=== PATIENT | male | born 1970 | race Caucasian/White ===

== ENCOUNTER 2020-05-02 11:00 | Outpatient (RCR) | payer OTHER, SELFPAY | END 2020-05-09 12:16 | disposition home or self-care (01) | LOC: HO.WCC 11:00 | PROVIDERS: PCP Internal Medicine; Visit Provider Surgery | DX: Z09 Encounter for follow-up examination after completed treatment for conditions other than malignant neoplasm (principal); E11.51 Type 2 diabetes mellitus with diabetic peripheral angiopathy without gangrene; Z86.31 Personal history of diabetic foot ulcer | CPT/HCPCS: 99212 ==

== ENCOUNTER 2020-07-03 13:01 | Outpatient (REF) | payer OTHER, SELFPAY | END 2020-07-03 13:02 | disposition home or self-care (01) | LOC: HO.LAB 13:01 | PROVIDERS: Visit Provider Internal Medicine | DX: Z20.828 Contact with and (suspected) exposure to other viral communicable diseases (principal) | CPT/HCPCS: C9803; U0003 ==

== ENCOUNTER 2020-09-11 09:00 | Outpatient (REF) | payer OTHER, SELFPAY ==
[2020-09-11 10:28] LABS: Estimated Average Glucose 111 mg/dL; Hemoglobin A1c % 5.5 %
[2020-09-11 10:59] LABS: Alanine Aminotransferase 15 U/L (0-40); Albumin Level 4.3 g/dL (3.5-5.0); Alkaline Phosphatase 106 U/L (39-117); Anion Gap 14 (12-20); Aspartate Amino Transferase 16 U/L (5-37); Bilirubin Total 0.5 mg/dL (0.0-1.0); Blood Urea Nitrogen 15 mg/dL (9-16); Calcium 9.2 mg/dL (8.4-10.2); Carbon Dioxide 30 mmol/L (22-29); Chloride 101 mmol/L (96-108); Cholesterol 118 mg/dL; Estimated Glomerular Filt Rate > 60; Glucose Fasting 98 mg/dL (60-99); HDL Cholesterol 43 mg/dL; LDL Cholesterol Calculated 64 mg/dl; Potassium 4.8 mmol/L (3.3-5.1); Sodium 140 mmol/L (135-145); Total Protein 6.9 g/dL (6.5-8.0); Triglycerides 55 mg/dL
[2020-09-11 11:21] LABS: Vitamin D 25-OH Total 36.5 ng/mL (>30)
== END 2020-09-11 09:01 | disposition home or self-care (01) ==
LOC: HO.LAB 09:00
PROVIDERS: PCP Internal Medicine; Visit Provider Internal Medicine
DX: E78.5 Hyperlipidemia, unspecified (principal); E11.40 Type 2 diabetes mellitus with diabetic neuropathy, unspecified; E55.9 Vitamin D deficiency, unspecified
CPT/HCPCS: 36415; 80053; 80061; 82043; 82306; 83036

== ENCOUNTER 2021-01-06 07:08 | Outpatient (REF) | payer OTHER, SELFPAY ==
[2021-01-06 08:50] LABS: Estimated Average Glucose 111 mg/dL; Hemoglobin A1c % 5.5 %
[2021-01-06 09:17] LABS: Vitamin D 25-OH Total 44.2 ng/mL (>30)
[2021-01-06 09:29] LABS: Alanine Aminotransferase 13 U/L (0-40); Anion Gap 13 (12-20); Aspartate Amino Transferase 19 U/L (5-37); Blood Urea Nitrogen 27 mg/dL (9-16); Calcium 9.7 mg/dL (8.4-10.2); Carbon Dioxide 27 mmol/L (22-29); Chloride 99 mmol/L (96-108); Cholesterol 111 mg/dL; Estimated Glomerular Filt Rate > 60; Glucose Fasting 105 mg/dL (60-99); HDL Cholesterol 43 mg/dL; LDL Cholesterol Calculated 58 mg/dl; Potassium 4.4 mmol/L (3.3-5.1); Sodium 135 mmol/L (135-145); Triglycerides 51 mg/dL
== END 2021-01-06 07:09 | disposition home or self-care (01) ==
LOC: HO.LAB 07:08
PROVIDERS: PCP Internal Medicine; Visit Provider Internal Medicine
DX: E11.40 Type 2 diabetes mellitus with diabetic neuropathy, unspecified (principal); E55.9 Vitamin D deficiency, unspecified; E78.5 Hyperlipidemia, unspecified; I10 Essential (primary) hypertension
CPT/HCPCS: 36415; 80048; 80061; 82306; 83036; 84450; 84460

== ENCOUNTER 2021-01-07 13:53 | Outpatient (REF) | payer OTHER, SELFPAY ==
--- NOTE | ~2021-01-07 | XR_ITS ---
EXAMINATION: XR LUMBAR SPINE XR CERVICAL SPINE CLINICAL INFORMATION: Spinal stenosis, lumbar region, spondylosis without myelopathy or radiculopathy cervical spine. COMPARISON: Lumbar spine 01/05/2019 TECHNIQUE: 3 views lumbar spine, 3 views cervical spine. FINDINGS: Lumbar: Mild degenerative changes present throughout the lumbar spine with lkelyeja-dy-xjygtp changes at L5-S1. At L5-S1, there is marked disc space narrowing and sclerosis with osteophyte formation. At other levels, disc spaces are relatively well preserved with endplate changes. When comparison is made to the 01/05/2019 exam, there has been no significant interval change in appearances. C-spine: Anterior fixation from C5 through C7 is noted with discectomy at at least C5-C6. No degenerative changes are present throughout with large anterior osteophytes. No soft tissue swelling fractures or subluxations are seen. XR/XR cervical spine 3V IMPRESSION: Stable degenerative changes in the lumbosacral spine, most marked at L5-S1. Fusion cervical spine, as described above, with associated degenerative change.
--- NOTE | ~2021-01-07 | XR_ITS ---
EXAMINATION: XR LUMBAR SPINE XR CERVICAL SPINE CLINICAL INFORMATION: Spinal stenosis, lumbar region, spondylosis without myelopathy or radiculopathy cervical spine. COMPARISON: Lumbar spine 01/05/2019 TECHNIQUE: 3 views lumbar spine, 3 views cervical spine. FINDINGS: Lumbar: Mild degenerative changes present throughout the lumbar spine with izanlwna-dc-frueaf changes at L5-S1. At L5-S1, there is marked disc space narrowing and sclerosis with osteophyte formation. At other levels, disc spaces are relatively well preserved with endplate changes. When comparison is made to the 01/05/2019 exam, there has been no significant interval change in appearances. C-spine: Anterior fixation from C5 through C7 is noted with discectomy at at least C5-C6. No degenerative changes are present throughout with large anterior osteophytes. No soft tissue swelling fractures or subluxations are seen. XR/XR lumbar spine 2-3V IMPRESSION: Stable degenerative changes in the lumbosacral spine, most marked at L5-S1. Fusion cervical spine, as described above, with associated degenerative change.
== END 2021-01-07 13:54 | disposition home or self-care (01) ==
LOC: HO.HMGCX 13:53
PROVIDERS: PCP Internal Medicine; Visit Provider Internal Medicine
DX: M48.062 Spinal stenosis, lumbar region with neurogenic claudication (principal); M47.812 Spondylosis without myelopathy or radiculopathy, cervical region
CPT/HCPCS: 72040; 72100

== ENCOUNTER 2021-01-27 08:45 | Outpatient (REF) | payer OTHER, SELFPAY | END 2021-01-27 08:46 | disposition home or self-care (01) | LOC: HO.LAB 08:45 | PROVIDERS: PCP Internal Medicine; Visit Provider Anesthesiology | DX: M96.1 Postlaminectomy syndrome, not elsewhere classified (principal); M47.812 Spondylosis without myelopathy or radiculopathy, cervical region; M48.062 Spinal stenosis, lumbar region with neurogenic claudication | CPT/HCPCS: 99202 ==

== ENCOUNTER 2021-02-04 14:17 | Outpatient (REF) | payer OTHER, SELFPAY ==
--- NOTE | ~2021-02-04 | MR_ITS ---
EXAMINATION: MR LUMBAR SPINE WITHOUT AND WITH CONTRAST CLINICAL INFORMATION: Post laminectomy syndrome. COMPARISON: Lumbar spine radiographs 01/07/2021. TECHNIQUE: Multiplanar MR imaging of the lumbar spine was performed without and with contrast. A total of 10 mL Gadavist was utilized for this examination. FINDINGS: Alignment is normal. Vertebral body heights are preserved. There are mixed type II and type III degenerative endplate changes at L5-S1. There is loss of intervertebral disc height and T2 signal intensity at L5-S1. Disc desiccation is demonstrated at multiple additional levels. The tip of the conus medullaris is located at L1-L2. No mass effect on the conus. Visualized distal cord signal intensity is normal. At L1-L2 there is a slightly bulging disc. No canal stenosis. No mass effect on the traversing or foraminal nerve roots. At L2-L3 the annular contour is normal. No canal stenosis. No mass effect on the traversing or foraminal nerve roots. At L3-L4 there is a slightly bulging disc. Bilateral facet degenerative change. Mild canal stenosis. No mass effect on the traversing or foraminal nerve roots. At L4-L5 there is a diffusely bulging disc. Bilateral facet degenerative change. There is a synovial cyst arising from the right L4-L5 facet joint. Moderate canal stenosis. No mass effect on the traversing or foraminal nerve roots. At L5-S1 there are chronic postlaminectomy changes. There is a diffusely bulging disc. Bilateral facet degenerative change. No canal stenosis. No mass effect on the traversing or foraminal nerve roots. Postcontrast images reveal no evidence of recurrent disc herniation or perineural fibrosis at L5-S1. No abnormal intradural enhancement. Limited visualization of the intracranial anatomy reveals no L5. Psoas and paraspinal muscle groups are symmetric. MR/MR lumbar spine wo/w con IMPRESSION: There are chronic postlaminectomy changes at L5-S1 with no evidence of recurrent disc herniation or perineural fibrosis. There is multilevel degenerative spondylosis of the lumbar spine. Moderate canal stenosis at L4-L5 and mild canal stenosis at L3-L4. Of note there is a synovial cyst arising from the right L4-L5 facet joint. No canal stenosis. No mass effect on the traversing or foraminal nerve roots.
== END 2021-02-04 14:18 | disposition home or self-care (01) ==
LOC: HO.MRI 14:17
PROVIDERS: Visit Provider Anesthesiology
DX: M96.1 Postlaminectomy syndrome, not elsewhere classified (principal)
CPT/HCPCS: 72158; A9585

== ENCOUNTER → 2021-02-12 09:15 | Outpatient (BNVA) | payer OTHER, SELFPAY | PROVIDERS: PCP Internal Medicine; Visit Provider Anesthesiology | DX: M96.1 Postlaminectomy syndrome, not elsewhere classified (principal); M48.062 Spinal stenosis, lumbar region with neurogenic claudication; M47.812 Spondylosis without myelopathy or radiculopathy, cervical region | CPT/HCPCS: 99212 ==

== ENCOUNTER → 2021-03-03 11:47 | Outpatient (BNVA) | payer OTHER, SELFPAY | PROVIDERS: PCP Internal Medicine; Visit Provider Anesthesiology | DX: M96.1 Postlaminectomy syndrome, not elsewhere classified (principal); M48.062 Spinal stenosis, lumbar region with neurogenic claudication; M47.812 Spondylosis without myelopathy or radiculopathy, cervical region | CPT/HCPCS: 99212 ==

== ENCOUNTER 2021-03-19 07:17 | Outpatient (REF) | payer OTHER, SELFPAY ==
--- NOTE | ~2021-03-19 | MR_ITS ---
EXAMINATION: MR THORACIC SPINE WITHOUT CONTRAST CLINICAL INFORMATION: 51-year-old with spinal stenosis, thoracic region. COMPARISON: None TECHNIQUE: MRI of the thoracic spine was obtained using routine sequences without contrast. FINDINGS: ALIGNMENT: There is mild kyphotic angulation centered at T8-T9. Otherwise the thoracic spine is anatomically aligned. VERTEBRAL BODIES AND BONE MARROW: Vertebral body heights are well maintained. Bone marrow signal intensity appears within normal limits. DISC SPACES AND ENDPLATES: There is uxxu-rc-dymmqkyr multilevel intervertebral disc space height loss throughout the thoracic spine and there is bulky, bridging endplate osteophytosis at multiple levels bilaterally including T5-T6 and T6-T7 bilaterally and on the left at T7-T8 and T8-T9 and on the right at T9-T10. There is multilevel disc desiccation including T11-T12, T8-T9, T7-T8 and T4-T5. PARASPINAL SOFT TISSUES: The paravertebral soft tissues are remarkable for bulky osteophytes. There is also multilevel bilateral costovertebral arthrosis, most significant in the mid thoracic spine. No paraspinal soft tissue masses. SPINAL CORD: The thoracic spinal cord is normal in morphology, caliber and signal intensity. The conus is not included in the wxxcl-jx-mbyt and is not assessed. SPINAL LEVELS: Small left paramedian disc protrusion noted with slight flattening of the ventral dural sac on the left without cord impingement or significant canal compromise. No other disc herniations are identified. There is mild ligamentum flavum thickening and/or calcification with mild facet arthropathy at T10-T11 and T11-T12 without significant spinal canal or neural foraminal stenosis. Minor facet arthrosis and ligamentum flavum thickening also noted at T9-T10 without significant canal or neural foraminal stenosis. There is bjkk-wl-aydegdri facet arthropathy on the left at T2-T3 with no significant neural foraminal stenosis. MR/MR thoracic spine wo con IMPRESSION: 1. Mild kyphotic angulation in the mid to lower thoracic spine without spondylolisthesis. 2. Multilevel bulky endplate osteophytosis bilaterally as described above with multilevel paravertebral osseous fusion. 3. Siwm-ls-otmhtljn degrees of multilevel discogenic degenerative change and facet arthropathy without significant spinal canal or neural foraminal stenosis and a small central to left paramedian disc protrusion at T11-T12.
== END 2021-03-19 07:18 | disposition home or self-care (01) ==
LOC: HO.MRI 07:17
PROVIDERS: PCP Internal Medicine; Visit Provider Anesthesiology
DX: M48.04 Spinal stenosis, thoracic region (principal)
CPT/HCPCS: 72146

== ENCOUNTER → 2021-03-27 09:33 | Outpatient (BNVA) | payer OTHER, SELFPAY | PROVIDERS: PCP Internal Medicine; Visit Provider Anesthesiology ==

== ENCOUNTER 2021-06-16 09:02 | Outpatient (REF) | payer OTHER, SELFPAY ==
[2021-06-16 12:15] LABS: Estimated Average Glucose 108 mg/dL; Hemoglobin A1c % 5.4 %
[2021-06-16 12:36] LABS: Alanine Aminotransferase 15 U/L (0-40); Alkaline Phosphatase 105 U/L (39-117); Anion Gap 11 (12-20); Aspartate Amino Transferase 18 U/L (5-37); Bilirubin Total 0.3 mg/dL (0.0-1.0); Blood Urea Nitrogen 14 mg/dL (9-16); Calcium 8.8 mg/dL (8.4-10.2); Carbon Dioxide 26 mmol/L (22-29); Chloride 105 mmol/L (96-108); Cholesterol 109 mg/dL; Estimated Glomerular Filt Rate > 60; Glucose Fasting 137 mg/dL (60-99); HDL Cholesterol 38 mg/dL; LDL Cholesterol Calculated 61 mg/dl; Potassium 4.7 mmol/L (3.3-5.1); Sodium 137 mmol/L (135-145); Total Protein 6.4 g/dL (6.5-8.0); Triglycerides 54 mg/dL
== END 2021-06-16 09:03 | disposition home or self-care (01) ==
LOC: HO.HMGCLDS 09:02
PROVIDERS: PCP Internal Medicine; Visit Provider Internal Medicine
DX: E11.40 Type 2 diabetes mellitus with diabetic neuropathy, unspecified (principal); E55.9 Vitamin D deficiency, unspecified; E78.5 Hyperlipidemia, unspecified; I10 Essential (primary) hypertension
CPT/HCPCS: 36415; 80053; 80061; 82306; 83036

== ENCOUNTER 2021-06-20 07:37 | Day surgery (SDC) | payer OTHER, SELFPAY ==
--- NOTE | 2021-06-19 09:24 | P.CONAN_ITS ---
Documented by User: Nohemy Alonzo NP 06/19/21 09:25 HPI - Anesthesia Eval Consult details Narrative: 51yo M for Colonoscopy PMFSH Active Problems Active Problems: All Active Problems (Updated 06/13/21 @ 13:48 by Camille Duenas RN) HTN (hypertension) (Acute) Postlaminectomy syndrome (Acute) Rheumatoid arthritis (Acute) Hydronephrosis concurrent with and due to calculi of kidney and ureter (Acute) Spinal stenosis, thoracic region (Acute) Postlaminectomy syndrome, lumbar (Acute) Postlaminectomy syndrome, cervical (Acute) Lumbar stenosis with neurogenic claudication (Acute) Cervical spondylosis (Acute) Erectile disorder due to medical condition in male (Acute) PTSD (post-traumatic stress disorder) (Acute) Depression (Acute) Vitamin D deficiency (Acute) Diabetes mellitus with diabetic neuropathy, without long-term current use of insulin (Acute) Dyslipidemia (Acute) Past Medical History Medical History Cervical spondylosis Depression Diabetes mellitus with diabetic neuropathy, without long-term current use of insulin Dyslipidemia Erectile disorder due to medical condition in male GERD (gastroesophageal reflux disease) History of alcoholism History of diabetic ulcer of foot HTN (hypertension) Hydronephrosis concurrent with and due to calculi of kidney and ureter Lumbar stenosis with neurogenic claudication Postlaminectomy syndrome, cervical Postlaminectomy syndrome, lumbar PTSD (post-traumatic stress disorder) Rheumatoid arthritis Smoker Spinal stenosis, thoracic region Vitamin D deficiency Family History Family History Father Essential hypertension Dyslipidemia Cardiovascular disease Mother Essential hypertension Dyslipidemia Diabetes mellitus Surgical History Surgical History H/O cervical discectomy History of carpal tunnel surgery of right wrist Hx of colonoscopy Status post lumbar spine surgery for decompression of spinal cord Social History Social History (Updated 06/20/21 @ 08:31 by Clotilde Messer MD) Alcohol intake: former Patient Tobacco Use Status: Current everyday Tobacco user Cigarette Packs Per Day: 0 Cigarettes Per Day: 10 Smoked in Last 30 Days: Yes Second Hand Smoke Exposure: No Use of substances other than those prescribed or required for medical reasons: Yes Are you DNR?: No Advance Directives: No Advance Directives Information Provided: Yes Advance Directives on File: No Meds Allergies Allergy/AdvReac Type Severity Reaction Status Date / Time No Known Allergies Allergy Verified 06/13/21 13:50 [No Known Allergies*] Home Medications Medication Instructions Recorded Confirmed Last Taken Type clonazepam 1 mg tablet 1 mg PO TID 09/13/20 06/13/21 Unknown History fluoxetine 40 mg capsule 80 mg PO QAM 09/13/20 06/13/21 Unknown History gabapentin 600 mg tablet 600 mg PO TID 01/07/21 06/13/21 Unknown History gabapentin 300 mg capsule 1 cap PO QAM 06/13/21 06/13/21 Unknown History lisinopril 5 mg tablet 10 mg PO DAILY 06/13/21 06/13/21 Unknown History Exam Exam Date and Time: June 19, [id number] Pertinent Lab Results Pertinent Lab Results: Laboratory Tests 03/14/19 06/16/21 06:14 09:15 WBC 6.5 Hgb 13.8 L Hct 41.6 L Plt Count 207 Sodium 137 Potassium 4.7 Chloride 105 Carbon Dioxide 26 BUN 14 Creatinine 0.74 Assessment and Plan Assessment Anesthesia Assessment: Chart Reviewed Documented by User: Clotilde Messer MD 06/20/21 09:04 [facility] Active Problems Active Problems: All Active Problems (Updated 06/13/21 @ 13:48 by Camille Duenas RN) HTN (hypertension) (Acute) Postlaminectomy syndrome (Acute) Rheumatoid arthritis (Acute) Hydronephrosis concurrent with and due to calculi of kidney and ureter (Acute) Spinal stenosis, thoracic region (Acute) Postlaminectomy syndrome, lumbar (Acute) Postlaminectomy syndrome, cervical (Acute) Lumbar stenosis with neurogenic claudication (Acute) Cervical spondylosis (Acute) Erectile disorder due to medical condition in male (Acute) PTSD (post-traumatic stress disorder) (Acute) Depression (Acute) Vitamin D deficiency (Acute) Diabetes mellitus with diabetic neuropathy- has been off metformin for about 1 week because wastold his A1c is 5.4 Dyslipidemia (Acute) Past Medical History Medical History Cervical spondylosis Depression Diabetes mellitus with diabetic neuropathy, without long-term current use of insulin Dyslipidemia Erectile disorder due to medical condition in male GERD (gastroesophageal reflux disease) History of alcoholism History of diabetic ulcer of foot HTN (hypertension) Hydronephrosis concurrent with and due to calculi of kidney and ureter Lumbar stenosis with neurogenic claudication Postlaminectomy syndrome, cervical Postlaminectomy syndrome, lumbar PTSD (post-traumatic stress disorder) Rheumatoid arthritis Smoker Spinal stenosis, thoracic region Vitamin D deficiency Family History Family History Father Essential hypertension Dyslipidemia Cardiovascular disease Mother Essential hypertension Dyslipidemia Diabetes mellitus Family history of problems with anesthesia: No Surgical History Surgical History H/O cervical discectomy History of carpal tunnel surgery of right wrist Hx of colonoscopy Status post lumbar spine surgery for decompression of spinal cord History of Problems with Anesthesia: No Social History Social History (Updated 06/20/21 @ 08:31 by Clotilde Messer MD) Alcohol intake: former Patient Tobacco Use Status: Current everyday Tobacco user Cigarette Packs Per Day: 0 Cigarettes Per Day: 10 Smoked in Last 30 Days: Yes Second Hand Smoke Exposure: No Use of substances other than those prescribed or required for medical reasons: Yes Are you DNR?: No Advance Directives: No Advance Directives Information Provided: Yes Advance Directives on File: No Meds Allergies Allergy/AdvReac Type Severity Reaction Status Date / Time No Known Allergies Allergy Verified 06/13/21 13:50 [No Known Allergies*] Home Medications Medication Instructions Recorded Confirmed Last Taken Type clonazepam 1 mg tablet 1 mg PO TID 09/13/20 06/13/21 Unknown History fluoxetine 40 mg capsule 80 mg PO QAM 09/13/20 06/13/21 Unknown History gabapentin 600 mg tablet 600 mg PO TID 01/07/21 06/13/21 Unknown History gabapentin 300 mg capsule 1 cap PO QAM 06/13/21 06/13/21 Unknown History lisinopril 5 mg tablet 10 mg PO DAILY 06/13/21 06/13/21 Unknown History Exam Height,Weight and Vital Signs: Height 6 ft 3 in Weight 104.326 kg Vital Signs Temp Pulse Resp BP Pulse Ox 06/20/21 08:31 97.1 F 66 16 103/69 97 Pertinent Lab Results Pertinent Lab Results: Laboratory Tests 03/14/19 06/16/21 06:14 09:15 WBC 6.5 Hgb 13.8 L Hct 41.6 L Plt Count 207 Sodium 137 Potassium 4.7 Chloride 105 Carbon Dioxide 26 BUN 14 Creatinine 0.74 Lab Results 06/20/21 Range/Units 08:26 POC Glucose 119 H (60-115) mg/dL Airway Mallampati Class: II TM Dist: >3cm Neck ROM: Limited Loose/Missing/Broken Teeth: Yes (No teeth. Dentures out) Heart: RRR Lungs: Occ wheeze Assessment and Plan Assessment Anesthesia Assessment: Anesthesia Plan Discussed Final Anesthetic Review Family History of Problems with Anesthesia: No History of Problems with Anesthesia: No NPO: Yes ASA Class: II Final Preanesthetic Review: No Changes in Pt Med Stat, Meds/Allgs Chart Reviewed, Consent Obtained/Reviewed and Anes Risks/Benef Reviewed Patient Risk: Low Procedure Risk: Low Assessment/Block/Sedation in SS: Assess/Block/Sedation-SS Anesthetic Plan Anesthetic Plan: MAC: Disposition: Standard PACU
[2021-06-20 08:12] VITALS: BMI 28.7
[2021-06-20 08:31] VITALS: BP 103/69; PULSE 66; RESP 16; TEMP 36.2; O2SAT 97
[2021-06-20] MEDS: Lactated Ringers 1,000 ML 100 ML IVCONT (08:32)
[2021-06-20 08:33] LABS: Glucose, Whole Blood 119 mg/dL (60-115)
--- NOTE | 2021-06-20 08:49 | MHC.SHP ---
Pre-Procedural Eval Section A Date of Service: 06/20/21 The patient is an INPATIENT: No Changes since office visit: No Cold of Flu in the past 2 weeks, No New Medical Problems, No Changes in Medication and No Patient answered all questions The History & Physical has been completed within 30 days and I have reviewed it.: Yes Section B Chief Complaint: screening Allergies: Allergies Allergy/AdvReac Type Severity Reaction Status Date / Time No Known Allergies Allergy Verified 06/13/21 13:50 [No Known Allergies*] Plan I have reviewed the history and physical and performed a pertinent physical examination on my patient. No changes have occurred unless specified.
[2021-06-20 09:29] VITALS: BP 88/48; PULSE 62; RESP 16; TEMP 36.7; O2SAT 98
--- NOTE | 2021-06-20 09:29 | PM.OP ---
Brief Operative Note Date of Service: 06/20/21 Pre-op diagnosis: screening Post-op diagnosis: same (colitis) Surgeon: Chuck Bower Anesthesia: MAC Was an Skein Yarn Dyer Helper used for this Procedure?: No Estimated blood loss (mL): 5 Pathology: other (bxs ti and colon) Condition: stable Disposition: PACU
[2021-06-20 09:45] VITALS: BP 115/71; PULSE 66; RESP 16; TEMP 36.7; O2SAT 98
--- NOTE | 2021-06-20 20:24 | OP_ITS ---
SURGEON: Chuck Bower MD INDICATIONS: Colon cancer screening. PREOPERATIVE DIAGNOSIS: POSTOPERATIVE DIAGNOSIS: PROCEDURE PERFORMED: Colonoscopy to the terminal ileum and biopsy. ESTIMATED BLOOD LOSS: COMPLICATIONS: ANESTHESIA: Monitored anesthesia care. ASSISTANTS: SPECIMENS: DESCRIPTION OF PROCEDURE: The history and physical was performed. The risks and benefits of the procedure were explained to the patient. Informed consent was obtained. The patient was placed in the left lateral decubitus position. A digital rectal exam was performed and found to be normal. The Olympus pediatric video colonoscope was introduced into the rectum and advanced to the cecum without difficulty. The cecum was identified by transillumination, palpation, and identification of ileocecal valve. Examination was performed. The scope was removed. He tolerated the procedure well and was taken to recovery area in stable condition. FINDINGS: The terminal ileum was normal. There was an abnormal segment of colonic mucosa for about 50 cm to 75 cm beginning in the mid right colon extending to the proximal and mid transverse colon. The mucosa showed significant polypoid change in the manner suspicious for inactive colitis with pseudopolyp formation; however, the patient had no prior history of colitis. There was no obvious ulceration or malignancy. Biopsies were obtained from the abnormal mucosa and from throughout the rest of the colon as well as the terminal ileum. Remaining colon appeared within normal limits. There was some diverticulosis primarily in the cecum and right colon. There was some retained stool in the descending and sigmoid colon, which limited the sensitivity examination for detection of small polyps in those areas. This was washed and suctioned. Retroflexed examination showed some internal hemorrhoids. IMPRESSION: Abnormal mucosa in the colon as above, probable segmental colitis. RECOMMENDATION: Follow up the biopsy results. Screening colonoscopy is recommended in 10 years for average risk individuals. MD NOEL Villalta/LEO / [phone] MTDD
== END 2021-06-20 10:15 | disposition home or self-care (01) ==
PROVIDERS: PCP Internal Medicine; Visit Provider Internal Medicine Gastroenterology
PROC: 0DJD8ZZ Inspection of Lower Intestinal Tract, Via Natural or Artificial Opening Endoscopic (ICD-10-PCS; CPT 45378; principal; 2021-06-20 09:00)
DX: Z12.11 Encounter for screening for malignant neoplasm of colon (principal); K52.9 Noninfective gastroenteritis and colitis, unspecified; K57.30 Diverticulosis of large intestine without perforation or abscess without bleeding; K64.8 Other hemorrhoids; I10 Essential (primary) hypertension; E11.9 Type 2 diabetes mellitus without complications; F32.9 Major depressive disorder, single episode, unspecified; F43.10 Post-traumatic stress disorder, unspecified; F10.21 Alcohol dependence, in remission; F17.210 Nicotine dependence, cigarettes, uncomplicated; Z79.84 Long term (current) use of oral hypoglycemic drugs; Z79.899 Other long term (current) drug therapy
CPT/HCPCS: 45380; 82947; 88305

== ENCOUNTER 2021-07-11 07:11 | Outpatient (REF) | payer OTHER, SELFPAY ==
[2021-07-11 08:29] LABS: Hematocrit 48.8 % (42.0-52.0); Hemoglobin 15.7 g/dl (14.0-18.0); Mean Corpuscular HGB Conc 32.2 g/dl (31.0-36.0); Mean Corpuscular Hemoglobin 30.3 pg (27.0-33.0); Mean Corpuscular Volume 94.2 fL (80.0-98.0); Mean Platelet Volume 9.1 fL (9.4-12.4); Platelet Count 226 X10*3/uL (160-400); Red Blood Count 5.18 X10*6/uL (4.60-5.80); Red Cell Distribution Width 12.8 % (11.0-16.0); White Blood Count 7.2 X10*3/uL (4.8-10.8)
[2021-07-11 09:00] LABS: Alanine Aminotransferase 22 U/L (0-40); Albumin Level 4.5 g/dL (3.5-5.0); Alkaline Phosphatase 128 U/L (39-117); Aspartate Amino Transferase 23 U/L (5-37); Bilirubin Direct 0.2 mg/dL (0.0-0.5); Bilirubin Total 0.3 mg/dL (0.0-1.0); Blood Urea Nitrogen 14 mg/dL (9-16); C Reactive Protein 0.41 mg/dL (< or = 0.50); Estimated Glomerular Filt Rate > 60; Lipase 234 U/L (8-78); Total Protein 7.4 g/dL (6.5-8.0)
[2021-07-11 09:20] LABS: Erythrocyte Sedimentation Rate 7 MM/HR (0-15)
== END 2021-07-11 07:12 | disposition home or self-care (01) ==
LOC: HO.LAB 07:11
PROVIDERS: PCP Internal Medicine; Visit Provider Internal Medicine Gastroenterology
DX: R10.84 Generalized abdominal pain (principal); K52.9 Noninfective gastroenteritis and colitis, unspecified
CPT/HCPCS: 36415; 80076; 82565; 83690; 84520; 85027; 85652; 86140

== ENCOUNTER 2021-07-14 08:35 | Outpatient (REF) | payer OTHER, SELFPAY ==
--- NOTE | ~2021-07-14 | CT_ITS ---
EXAMINATION: CT ABDOMEN AND PELVIS WITH CONTRAST CLINICAL INFORMATION: Noninfective gastroenteritis and colitis COMPARISON: None TECHNIQUE: Multidetector volumetric images were obtained from the superior aspect of the liver through the pubic symphysis following administration 85 mL of Omnipaque 350 intravenous contrast. Sagittal and coronal reformatted images were obtained on the technologist's workstation. Oral contrast: No This CT examination was performed using dose optimization techniques as appropriate, variously including the following: *Automated exposure control *Adjustment of mA and/or kV according to patient size (this includes techniques or standardized protocols for targeted exams where dose is matched to indication/reason for exam; i.e. extremities or head) *Use of iterative reconstruction technique DLP: 582 mGy-cm FINDINGS: LUNG BASES: The visualized lung bases are unremarkable. LIVER, GALLBLADDER, AND BILIARY TREE: The liver is normal in size, shape, and attenuation. No focal hepatic lesion or biliary ductal dilatation is present. The gallbladder is unremarkable with no evidence of radiopaque gallstones, gallbladder wall thickening, or obvious pericholecystic inflammatory changes. PANCREAS: Unremarkable. SPLEEN: Unremarkable. ADRENAL GLANDS: Unremarkable. KIDNEYS AND URETERS: The kidneys are normal in size, shape, and attenuation. No hydronephrosis, hydroureter, or calculi seen. No perinephric stranding. BLADDER: Unremarkable. GASTROINTESTINAL TRACT: Stomach and small bowel are nondilated. Oral contrast seen distally to the colon. The appendix is normal. Scattered colonic diverticulosis. No evidence of colitis or diverticulitis. ABDOMINAL WALL: Fat-containing bilateral inguinal hernias. LYMPH NODES: No lymphadenopathy. VASCULAR: Normal caliber abdominal aorta. There is a dilated varix adjacent the aortic bifurcation, presumably a dilated left gonadal vein. PELVIC VISCERA: The prostate and seminal vesicles are unremarkable. OSSEOUS STRUCTURES: No acute or suspicious osseous abnormality. Severe degenerative disc disease at L5-S1. CT/CT abdomen pelvis w con IMPRESSION: No acute CT findings. Fleischner guidelines were followed.
[2021-07-14] MEDS: iohexoL 350 MG/ML 100 ML INFUS..BTL IV (11:01)
[2021-07-14] MEDS: Barium Sulfate Oral (Vanilla) 450 ML ORAL.SUSP 900 ML PO (11:02)
== END 2021-07-14 08:36 | disposition home or self-care (01) ==
LOC: HO.CT 08:35
PROVIDERS: PCP Internal Medicine; Visit Provider Internal Medicine Gastroenterology
DX: K52.9 Noninfective gastroenteritis and colitis, unspecified (principal); R10.84 Generalized abdominal pain
CPT/HCPCS: 74177; Q9967

== ENCOUNTER 2021-08-19 07:48 | Outpatient (REF) | payer OTHER, SELFPAY ==
--- NOTE | 2021-08-19 08:01 | ECG_ITS ---
Test Reason : htn Blood Pressure : / mmHG Vent. Rate : 064 BPM Atrial Rate : 064 BPM P-R Int : 162 ms QRS Dur : 104 ms QT Int : 446 ms P-R-T Axes : 060 059 069 degrees QTc Int : 460 ms Normal sinus rhythm Normal ECG When compared with ECG of 10-JAN-2016 15:31, No significant changes seen Referred By: Vandana Snowden Electronically Signed By:Arpan Caldwell
[2021-08-19 08:07] LABS: MANUAL DIFF FLAG NO
[2021-08-19 09:03] LABS: Basophils Percent Auto 0.5 % (0-2); Eosinophils Absolute Auto 0.1 X10*3/uL (0.0-0.4); Eosinophils Percent Auto 1.6 % (0-4); Hematocrit 46.3 % (42.0-52.0); Hemoglobin 15.1 g/dl (14.0-18.0); Imm Gran Abs Auto 0.02 X10*3/uL (0.00-0.03); Imm Gran Pct Auto 0.3 % (0.0-0.4); Lymphocytes Absolute Auto 1.6 X10*3/uL (1.2-4.9); Lymphocytes Percent Auto 21.4 % (20-40); Mean Corpuscular HGB Conc 32.6 g/dl (31.0-36.0); Mean Corpuscular Hemoglobin 30.1 pg (27.0-33.0); Mean Corpuscular Volume 92.2 fL (80.0-98.0); Mean Platelet Volume 9.4 fL (9.4-12.4); Monocytes Absolute Auto 0.5 X10*3/uL (0.1-1.2); Monocytes Percent Auto 6.3 % (2-11); Neutrophils Absolute Auto 5.2 x10*3/uL (2.0-8.3); Neutrophils Percent Auto 69.9 % (45-73); Platelet Count 199 X10*3/uL (160-400); Red Blood Count 5.02 X10*6/uL (4.60-5.80); Red Cell Distribution Width 12.5 % (11.0-16.0); White Blood Count 7.5 X10*3/uL (4.8-10.8)
[2021-08-19 09:19] LABS: Estimated Average Glucose 114 mg/dL; Hemoglobin A1c % 5.6 %
[2021-08-19 09:32] LABS: Alanine Aminotransferase 19 U/L (0-40); Anion Gap 12 (12-20); Aspartate Amino Transferase 23 U/L (5-37); Blood Urea Nitrogen 14 mg/dL (9-16); Calcium 9.6 mg/dL (8.4-10.2); Carbon Dioxide 27 mmol/L (22-29); Chloride 106 mmol/L (96-108); Cholesterol 178 mg/dL; Estimated Glomerular Filt Rate > 60; Glucose Fasting 126 mg/dL (60-99); HDL Cholesterol 45 mg/dL; LDL Cholesterol Calculated 116 mg/dl; Potassium 4.3 mmol/L (3.3-5.1); Sodium 141 mmol/L (135-145); Triglycerides 89 mg/dL
[2021-08-19 09:42] LABS: Creatinine Urine 133.17 mg/dL; Microalbum/Creatinine Ratio Ur 4.5 ug/mg cr
[2021-08-19 09:55] LABS: Vitamin D 25-OH Total 32.9 ng/mL (>30)
== END 2021-08-19 07:49 | disposition home or self-care (01) ==
LOC: HO.LAB 07:48
PROVIDERS: Anesthesiology; PCP Internal Medicine; Visit Provider Internal Medicine
DX: Z01.818 Encounter for other preprocedural examination (principal); E11.40 Type 2 diabetes mellitus with diabetic neuropathy, unspecified; I10 Essential (primary) hypertension; N13.2 Hydronephrosis with renal and ureteral calculous obstruction; E55.9 Vitamin D deficiency, unspecified; E78.5 Hyperlipidemia, unspecified
CPT/HCPCS: 36415; 80048; 80061; 82043; 82306; 83036; 84450; 84460; 85025; 93005

== ENCOUNTER 2021-12-02 10:33 | Outpatient (REF) | payer OTHER, SELFPAY ==
[2021-12-02 12:19] LABS: Alanine Aminotransferase 16 U/L (0-40); Albumin Level 4.1 g/dL (3.5-5.0); Alkaline Phosphatase 124 U/L (39-117); Aspartate Amino Transferase 17 U/L (5-37); Bilirubin Direct 0.2 mg/dL (0.0-0.5); Bilirubin Total 0.5 mg/dL (0.0-1.0); Lipase 98 U/L (8-78); Total Protein 6.8 g/dL (6.5-8.0)
== END 2021-12-02 10:34 | disposition home or self-care (01) ==
LOC: HO.LAB 10:33
PROVIDERS: Absent Provider Internal Medicine; PCP Internal Medicine; Visit Provider Internal Medicine Gastroenterology
DX: R74.8 Abnormal levels of other serum enzymes (principal)
CPT/HCPCS: 36415; 80076; 83690

== ENCOUNTER 2021-12-30 07:35 | Outpatient (REF) | payer OTHER, SELFPAY ==
[2021-12-30 08:12] LABS: Estimated Average Glucose 117 mg/dL; Hemoglobin A1C 148.8321 umol/L; Hemoglobin A1c % 5.7 %
[2021-12-30 08:26] LABS: Alanine Aminotransferase 19 U/L (0-40); Anion Gap 12 (12-20); Aspartate Amino Transferase 22 U/L (5-37); Blood Urea Nitrogen 20 mg/dL (9-16); Calcium 9.5 mg/dL (8.4-10.2); Carbon Dioxide 24 mmol/L (22-29); Chloride 102 mmol/L (96-108); Cholesterol 141 mg/dL; Estimated Glomerular Filt Rate > 60; Glucose Fasting 117 mg/dL (60-99); HDL Cholesterol 41 mg/dL; LDL Cholesterol Calculated 90 mg/dl; Potassium 4.4 mmol/L (3.3-5.1); Sodium 134 mmol/L (135-145); Triglycerides 54 mg/dL
[2021-12-30 08:45] LABS: Vitamin D 25-OH Total 36.5 ng/mL (>30)
[2021-12-30 08:51] LABS: Creatinine Urine 142.87 mg/dL; Microalbum/Creatinine Ratio Ur 4.1 ug/mg cr
[2021-12-30 09:26] LABS: Folate 11.8 ng/mL (> or = 4.0); Vitamin B12 322 pg/mL (200-900)
== END 2021-12-30 07:36 | disposition home or self-care (01) ==
LOC: HO.LAB 07:35
PROVIDERS: PCP Internal Medicine; Visit Provider Internal Medicine
DX: E11.40 Type 2 diabetes mellitus with diabetic neuropathy, unspecified (principal); E53.8 Deficiency of other specified B group vitamins; E55.9 Vitamin D deficiency, unspecified; E78.5 Hyperlipidemia, unspecified; I10 Essential (primary) hypertension
CPT/HCPCS: 36415; 80048; 80061; 82043; 82306; 82607; 82746; 83036; 84450; 84460

== ENCOUNTER 2022-04-21 11:16 | Outpatient (REF) | payer OTHER, SELFPAY ==
[2022-04-21 14:15] LABS: Appearance Urine Clear; Color Urine Yellow; Glucose Urine UA Negative (Negative); Leukocyte Esterase Urine Negative (Negative); Nitrite Urine Negative (Negative); Specific Gravity - Urine 1.015 (1.005-1.025); Urine Blood Negative (Negative); Urine Ketones Negative (Negative); Urine Protein Negative (Neg-Trace)
== END 2022-04-21 11:17 | disposition home or self-care (01) ==
LOC: HO.HMGCLDS 11:16
PROVIDERS: PCP Internal Medicine; Visit Provider Internal Medicine
DX: R30.0 Dysuria (principal)
CPT/HCPCS: 81003

== ENCOUNTER 2022-06-29 10:02 | Outpatient (REF) | payer OTHER, SELFPAY ==
[2022-06-29 11:13] LABS: Estimated Average Glucose 117 mg/dL; Hemoglobin A1c % 5.7 %
[2022-06-29 12:07] LABS: Alanine Aminotransferase 19 U/L (0-40); Anion Gap 15 (12-20); Aspartate Amino Transferase 18 U/L (5-37); Blood Urea Nitrogen 13 mg/dL (9-16); Calcium 9.7 mg/dL (8.4-10.2); Carbon Dioxide 29 mmol/L (22-29); Chloride 100 mmol/L (96-108); Cholesterol 221 mg/dL; Estimated Glomerular Filt Rate > 60; Glucose Fasting 102 mg/dL (60-99); HDL Cholesterol 50 mg/dL; LDL Cholesterol Calculated 151 mg/dl; Potassium 4.6 mmol/L (3.3-5.1); Sodium 139 mmol/L (135-145); Triglycerides 100 mg/dL
[2022-06-29 12:09] LABS: Creatinine Urine 144.48 mg/dL; Microalbum/Creatinine Ratio Ur 6.2 ug/mg cr
[2022-06-29 12:30] LABS: Vitamin D 25-OH Total 34.1 ng/mL (>30)
== END 2022-06-29 10:03 | disposition home or self-care (01) ==
LOC: HO.LAB 10:02
PROVIDERS: PCP Internal Medicine; Visit Provider Internal Medicine
DX: I10 Essential (primary) hypertension (principal); E55.9 Vitamin D deficiency, unspecified; E11.40 Type 2 diabetes mellitus with diabetic neuropathy, unspecified; E78.5 Hyperlipidemia, unspecified
CPT/HCPCS: 36415; 80048; 80061; 82043; 82306; 83036; 84450; 84460

== ENCOUNTER 2022-09-04 09:54 | Day surgery (SDC) | payer OTHER, SELFPAY ==
[2022-09-04 10:12] VITALS: BMI 33.7
[2022-09-04 10:17] VITALS: BP 141/81; PULSE 75; RESP 16; TEMP 36.6; O2SAT 95
[2022-09-04 10:36] LABS: Glucose, Whole Blood 116 mg/dL (60-115)
[2022-09-04] MEDS: Lactated Ringers 1,000 ML 50 ML IVCONT (10:40)
--- NOTE | 2022-09-04 10:49 | HO.ANESPROP2 ---
[facility] Active Problems Active Problems: All Active Problems (Updated 09/03/22 @ 12:51 by Chandni Mccrary RN) HTN (hypertension) (Acute) Vitamin B12 deficiency (Acute) Rheumatoid arthritis (Acute) Hydronephrosis concurrent with and due to calculi of kidney and ureter (Acute) Spinal stenosis, thoracic region (Acute) Postlaminectomy syndrome, lumbar (Acute) Postlaminectomy syndrome, cervical (Acute) Lumbar stenosis with neurogenic claudication (Acute) Cervical spondylosis (Acute) Erectile disorder due to medical condition in male (Acute) PTSD (post-traumatic stress disorder) (Acute) Depression (Acute) Vitamin D deficiency (Acute) Diabetes mellitus with diabetic neuropathy, without long-term current use of insulin (Acute) Dyslipidemia (Acute) Past Medical History Medical History Cervical spondylosis Depression Diabetes mellitus with diabetic neuropathy, without long-term current use of insulin Dyslipidemia Erectile disorder due to medical condition in male EtOH dependence GERD (gastroesophageal reflux disease) Hip fracture History of alcoholism History of diabetic ulcer of foot HTN (hypertension) Hydronephrosis concurrent with and due to calculi of kidney and ureter Lumbar stenosis with neurogenic claudication Postlaminectomy syndrome, cervical Postlaminectomy syndrome, lumbar PTSD (post-traumatic stress disorder) Rheumatoid arthritis Smoker Spinal stenosis, thoracic region Vitamin B12 deficiency Vitamin D deficiency Family History Family History Father Essential hypertension Dyslipidemia Cardiovascular disease Substance use disorder Mental health disorder Mother Essential hypertension Dyslipidemia Diabetes mellitus Family history of problems with anesthesia: No Surgical History Surgical History H/O cervical discectomy H/O knee surgery History of carpal tunnel surgery of right wrist History of surgery on lower extremity Hx of colonoscopy Hx of foot surgery Status post lumbar spine surgery for decompression of spinal cord History of Problems with Anesthesia: No Social History Social History Housing: House Alcohol intake: former Patient Tobacco Use Status: Current everyday Tobacco user Tobacco use type: Cigarette Cigarette Packs Per Day: 0 Cigarettes Per Day: 10 e-Cigarette/Vaping Use: Never Used Second Hand Smoke Exposure: No Use of substances other than those prescribed or required for medical reasons: Yes Substance Use Frequency: Occasionally Are you DNR?: No Advance Directives: No Advance Directives Information Provided: Yes Current occupational status: disabled Cognitive needs: No Hearing needs: No Vision needs: Yes Meds Allergies Allergy/AdvReac Type Severity Reaction Status Date / Time No Known Allergies Allergy Verified 09/04/22 10:04 Active Medications: Current Medications Lactated Ringer's (Lr) 1,000 mls @ 50 mls/hr IVCONT .Q20H MADYOSN Last Admin: 09/04/22 10:40 Dose: 50 mls/hr Home Medications Medication Instructions Recorded Confirmed Last Taken Type clonazepam 1 mg tablet 1 mg PO TID 09/13/20 09/04/22 Unknown History fluoxetine 40 mg capsule 80 mg PO QAM 09/13/20 09/04/22 Unknown History gabapentin 600 mg tablet 600 mg PO TID 01/07/21 09/04/22 Unknown History gabapentin 300 mg capsule 1 cap PO QAM 06/13/21 09/04/22 Unknown History lisinopril 5 mg tablet 10 mg PO DAILY 06/13/21 09/04/22 09/04/22 07:00 History dicyclomine 20 mg tablet 20 mg PO QID 06/30/22 09/04/22 Unknown History Exam Exam Date and Time: September 04, 2022 1049 Height,Weight and Vital Signs: Height 6 ft 3 in Weight 122.47 kg Last Vital Signs Temp 97.8 F 09/04/22 10:17 Pulse 75 09/04/22 10:17 Resp 16 09/04/22 10:17 BP 141/81 H 09/04/22 10:17 Pulse Ox 95 09/04/22 10:17 O2 Del Method 09/04/22 10:17 Pertinent Lab Results Pertinent Lab Results: Laboratory Tests 09/04/22 10:28 POC Glucose 116 H Airway Mallampati Class: II (Edentulous) TM Dist: >3cm Neck ROM: Full Loose/Missing/Broken Teeth: No Heart: RRR Lungs: CTA Assessment and Plan Assessment Anesthesia Assessment: Anesthesia Plan Discussed and Chart Reviewed Final Anesthetic Review Family History of Problems with Anesthesia: No History of Problems with Anesthesia: No NPO: Yes ASA Class: III Final Preanesthetic Review: Meds/Allgs Chart Reviewed, Consent Obtained/Reviewed and Anes Risks/Benef Reviewed Patient Risk: Intermediate Procedure Risk: Intermediate Anesthetic Plan Anesthetic Plan: MAC: Disposition: Standard PACU
--- NOTE | 2022-09-04 11:03 | MHC.SHP ---
Pre-Procedural Eval Section A Date of Service: 09/04/22 The patient is an INPATIENT: No Changes since office visit: No Cold of Flu in the past 2 weeks, No New Medical Problems, No Changes in Medication and No Patient answered all questions The History & Physical has been completed within 30 days and I have reviewed it.: Yes Section B Chief Complaint: reflux,gastrits Allergies: Allergies Allergy/AdvReac Type Severity Reaction Status Date / Time No Known Allergies Allergy Verified 09/04/22 10:04 Plan I have reviewed the history and physical and performed a pertinent physical examination on my patient. No changes have occurred unless specified. Time Spent With Patient Time: Total time managing care of this patient today ____ minutes.
[2022-09-04 11:50] VITALS: BP 91/69; PULSE 73; RESP 20; TEMP 36.1; O2SAT 98
--- NOTE | 2022-09-04 11:57 | P.BOP_ITS ---
Brief Operative Note Date of Service: 09/04/22 Pre-op diagnosis: gerd,colitis Post-op diagnosis: same Procedure: egd colon Surgeon: Chuck Bower Anesthesia: MAC Was an Architectural Wood Model Maker used for this Procedure?: No Estimated blood loss (mL): 3 Pathology: other Condition: stable Disposition: PACU
[2022-09-04 12:16] VITALS: BP 115/75; PULSE 71; RESP 18; TEMP 36.1; O2SAT 95
--- NOTE | 2022-09-04 12:35 | OP_ITS ---
SURGEON: Chuck Bower MD INDICATIONS: Gastroesophageal reflux disease and colitis. PREOPERATIVE DIAGNOSIS: POSTOPERATIVE DIAGNOSIS: PROCEDURE PERFORMED: Upper endoscopy with biopsy, colonoscopy to the terminal ileum with biopsy. ESTIMATED BLOOD LOSS: COMPLICATIONS: ANESTHESIA: Monitored anesthesia care. ASSISTANTS: SPECIMENS: DESCRIPTION OF PROCEDURE: Date: 09/02/22. The history and physical was performed. The risks and benefits of the procedure were explained to the patient. Informed consent was obtained. The patient was placed in the left lateral decubitus position. The Olympus video gastroscope was introduced into the esophagus, stomach, and duodenum. Examination was performed. The scope was removed. He was repositioned for colonoscopy. The digital rectal exam was performed, and it was found to be normal. The Olympus pediatric video colonoscope was introduced into the rectum and advanced to the cecum without difficulty. The cecum was identified by translumination, palpation, and identification of the ileocecal valve. Examination was performed. The scope was removed. He tolerated both procedures well and was returned to the recovery area in stable condition. FINDINGS: Upper endoscopy: 1. Esophagus: The esophagus was normal. There were few islands of semen colored tissue just above the EG junction suspicious for possible Nation esophagus. Biopsies were obtained from the EG junction. There were no raised lesions or ulcerative areas. 2. Stomach: The stomach was normal. Antral biopsies were obtained. 3. Duodenum: The bulb and second portion were normal. Colonoscopy: The terminal ileum was normal. There was an area of colitis extending from the mid right colon to the mid transverse colon with pseudopolyp formations and mild inflammatory change. Biopsies were obtained beginning in the terminal ilium and extending throughout the colon. No true polyps were identified. Retroflexed examination was normal. IMPRESSION: 1. Gastroesophageal reflux disease. 2. Colitis. RECOMMENDATION: Follow up the biopsy results. MD NOEL Villalta/LEO / [id number] [facility]stephania
--- NOTE | 2022-10-01 13:59 | PM.EVENT ---
Event Note Date of Service: 10/01/22 Event Note: Addendum to operative note: Procedure date is 09/04/22, not 09/02/22. typographical error under Findings section: Replace semen with dede. Time Spent With Patient Time: Total time managing care of this patient today ____ minutes.
== END 2022-09-04 12:45 | disposition home or self-care (01) ==
PROVIDERS: PCP Internal Medicine; Visit Provider Internal Medicine Gastroenterology
PROC: (CPT 45380; principal; 2022-09-04 11:00)
DX: K52.9 Noninfective gastroenteritis and colitis, unspecified (principal); K21.9 Gastro-esophageal reflux disease without esophagitis; I10 Essential (primary) hypertension; E78.00 Pure hypercholesterolemia, unspecified; E11.9 Type 2 diabetes mellitus without complications; F10.21 Alcohol dependence, in remission; F32.A Depression, unspecified; F43.10 Post-traumatic stress disorder, unspecified; Z79.84 Long term (current) use of oral hypoglycemic drugs; Z79.899 Other long term (current) drug therapy; F17.210 Nicotine dependence, cigarettes, uncomplicated
CPT/HCPCS: 45380; 43239; 82947; 88305; 88342; J2250

== ENCOUNTER 2022-09-24 13:03 | Outpatient (REF) | payer OTHER, SELFPAY ==
--- NOTE | ~2022-09-24 | XR_ITS ---
EXAMINATION: XR ABDOMEN COMPLETE CLINICAL INDICATION: Abdominal pain COMPARISON: None TECHNIQUE: 2 views of the abdomen, supine and upright. FINDINGS: The bowel gas pattern is unremarkable with no evidence of ileus or obstruction. No unusual soft tissue calcifications are noted. No free intraperitoneal air seen on the upright radiograph The bones are unremarkable. Incidental note made of mild degenerative changes in the spine and hips. XR/XR abdomen min 2V IMPRESSION: Unremarkable examination. No evidence of bowel obstruction.
== END 2022-09-24 13:04 | disposition home or self-care (01) ==
LOC: HO.HMGCX 13:03
PROVIDERS: PCP Internal Medicine; Visit Provider Physician Assistant Medical
DX: R10.9 Unspecified abdominal pain (principal)
CPT/HCPCS: 74019

== ENCOUNTER 2022-10-02 06:54 | Outpatient (REF) | payer OTHER, SELFPAY ==
[2022-10-02 07:03] LABS: MANUAL DIFF FLAG NO
[2022-10-02 07:47] LABS: Basophils Absolute Auto 0.1 X10*3/uL (0.0-0.2); Basophils Percent Auto 1.4 % (0-2); Eosinophils Absolute Auto 0.1 X10*3/uL (0.0-0.4); Eosinophils Percent Auto 1.8 % (0-4); Hematocrit 46.1 % (42.0-52.0); Hemoglobin 14.9 g/dl (14.0-18.0); Imm Gran Abs Auto 0.02 X10*3/uL (0.00-0.03); Imm Gran Pct Auto 0.4 % (0.0-0.4); Lymphocytes Absolute Auto 1.8 X10*3/uL (1.2-4.9); Mean Corpuscular HGB Conc 32.3 g/dl (31.0-36.0); Mean Corpuscular Hemoglobin 29.6 pg (27.0-33.0); Mean Corpuscular Volume 91.5 fL (80.0-98.0); Mean Platelet Volume 8.9 fL (9.4-12.4); Monocytes Absolute Auto 0.4 X10*3/uL (0.1-1.2); Monocytes Percent Auto 7.6 % (2-11); Neutrophils Absolute Auto 3.3 x10*3/uL (2.0-8.3); Neutrophils Percent Auto 57.8 % (45-73); Platelet Count 214 X10*3/uL (160-400); Red Blood Count 5.04 X10*6/uL (4.60-5.80); Red Cell Distribution Width 12.9 % (11.0-16.0); White Blood Count 5.7 X10*3/uL (4.8-10.8)
[2022-10-02 08:00] LABS: Estimated Average Glucose 126 mg/dL
[2022-10-02 08:14] LABS: Creatinine Urine 180.68 mg/dL
[2022-10-02 08:27] LABS: Alanine Aminotransferase 17 U/L (0-40); Albumin Level 4.1 g/dL (3.5-5.0); Alkaline Phosphatase 132 U/L (39-117); Anion Gap 12 (12-20); Aspartate Amino Transferase 17 U/L (5-37); Bilirubin Total 0.5 mg/dL (0.0-1.0); Blood Urea Nitrogen 14 mg/dL (9-16); Carbon Dioxide 30 mmol/L (22-29); Chloride 103 mmol/L (96-108); Cholesterol 158 mg/dL; Estimated Glomerular Filt Rate > 60; Glucose Fasting 115 mg/dL (60-99); Glucose Random 114 mg/dL (60-115); HDL Cholesterol 43 mg/dL; LDL Cholesterol Calculated 101 mg/dl; Potassium 4.8 mmol/L (3.3-5.1); Sodium 140 mmol/L (135-145); Total Protein 6.7 g/dL (6.5-8.0); Triglycerides 73 mg/dL
[2022-10-02 08:43] LABS: Folate 5.9 ng/mL (> or = 4.0); Vitamin B12 423 pg/mL (200-900); Vitamin D 25-OH Total 31.3 ng/mL (>30)
== END 2022-10-02 06:55 | disposition home or self-care (01) ==
LOC: HO.LAB 06:54
PROVIDERS: Absent Provider Physician Assistant Medical; PCP Internal Medicine; Visit Provider Internal Medicine
DX: E11.40 Type 2 diabetes mellitus with diabetic neuropathy, unspecified (principal); E53.8 Deficiency of other specified B group vitamins; E55.9 Vitamin D deficiency, unspecified; E78.5 Hyperlipidemia, unspecified; R10.9 Unspecified abdominal pain; I10 Essential (primary) hypertension
CPT/HCPCS: 36415; 80048; 80053; 80061; 82043; 82306; 82607; 82746; 83036; 85025

== ENCOUNTER 2023-04-13 09:04 | Outpatient (REF) | payer OTHER, SELFPAY ==
[2023-04-13 11:48] LABS: Estimated Average Glucose 108 mg/dL; Hemoglobin A1c % 5.4 % (<6.0)
[2023-04-13 12:03] LABS: Alanine Aminotransferase 12 U/L (0-40); Anion Gap 10 (12-20); Aspartate Amino Transferase 16 U/L (5-37); Blood Urea Nitrogen 14 mg/dL (9-16); Calcium 9.4 mg/dL (8.4-10.2); Carbon Dioxide 28 mmol/L (22-29); Chloride 103 mmol/L (96-108); Cholesterol 116 mg/dL (<200); Estimated Glomerular Filt Rate > 60; Glucose Fasting 94 mg/dL (60-99); HDL Cholesterol 38 mg/dL (>40); LDL Cholesterol Calculated 69 mg/dL (<100); Potassium 4.4 mmol/L (3.3-5.1); Sodium 137 mmol/L (135-145); Triglycerides 47 mg/dL (<150)
[2023-04-13 12:17] LABS: Folate 4.8 ng/mL (> or = 4.0); Vitamin B12 531 pg/mL (200-900)
== END 2023-04-13 09:05 | disposition home or self-care (01) ==
LOC: HO.HMGCLDS 09:04
PROVIDERS: PCP Internal Medicine; Visit Provider Internal Medicine
DX: I10 Essential (primary) hypertension (principal); E53.8 Deficiency of other specified B group vitamins; E78.5 Hyperlipidemia, unspecified; E11.40 Type 2 diabetes mellitus with diabetic neuropathy, unspecified
CPT/HCPCS: 36415; 80048; 80061; 82607; 82746; 83036; 84450; 84460

== ENCOUNTER 2023-04-16 12:56 | Outpatient (AMB) | payer OTHER, SELFPAY ==
[2023-04-16 13:01] VITALS: BP 118/80; PULSE 68; O2SAT 99; BMI 31.4
--- NOTE | 2023-04-16 13:01 | A.OFFPC_ITS ---
<Statement entered by Vandana Snowden MD - 12/06/24 15:20> This note has been administratively?closed. Vital Signs 04/16/23 13:01 Height 6 ft 3 in Weight 251 lb BMI 31.4 BP 118/80 Blood Pressure Location Lt brachial Position Sitting Pulse 68 Pulse Source Pulse Oximeter Pulse Oximetry (%) 99 Oxygen Delivery Method Room Air Intake Visit Reasons: 6 mo ffup dm ,lipids, htn Intake Note: Pt is here today for 6 months follow up visit. Allergies No Known Allergies Allergy (Verified 04/16/23 13:19) Medication List - Last Reconciled 04/16/23 by Vandana Snowden MD atorvastatin 20 mg PO DAILY 90 days blood sugar diagnostic (FreeStyle Lite Strips) check blood sugar once a day before a meal as directed cholecalciferol (vitamin D3) 50 mcg PO DAILY clonazepam 1 mg PO TID cyanocobalamin (vitamin B-12) 1,000 mcg IM Q4W dicyclomine 20 mg PO QID fluoxetine 80 mg PO QAM gabapentin 300 mg PO TID gabapentin 600 mg PO TID lisinopril 2.5 mg PO DAILY metformin 1,000 mg PO BID pioglitazone 30 mg PO DAILY syringe with needle, safety (BD Integra Syringe) As directed Tobacco use date assessed: 04/16/23 Dental Screening Dental Screen Date: 04/16/23 Did you have a dental visit in the last 12 months?: Yes Did you have a dental problem in the last 6 months where you did not have access to dental care?: No Was dental information given to patient?: Patient has dentist [facility] Medical History (Updated 12/09/22 @ 11:40 by Vandana Snowden MD) Refused influenza vaccine Hip fracture EtOH dependence Vitamin B12 deficiency Smoker GERD (gastroesophageal reflux disease) HTN (hypertension) Rheumatoid arthritis Hydronephrosis concurrent with and due to calculi of kidney and ureter Spinal stenosis, thoracic region Postlaminectomy syndrome, lumbar Postlaminectomy syndrome, cervical Lumbar stenosis with neurogenic claudication History of diabetic ulcer of foot Cervical spondylosis History of alcoholism Erectile disorder due to medical condition in male PTSD (post-traumatic stress disorder) Vitamin D deficiency Diabetes mellitus with diabetic neuropathy, without long-term current use of insulin Dyslipidemia Surgical History Hx of foot surgery History of surgery on lower extremity H/O knee surgery History of carpal tunnel surgery of right wrist Hx of colonoscopy H/O cervical discectomy Status post lumbar spine surgery for decompression of spinal cord Family History Father Essential hypertension Dyslipidemia Cardiovascular disease Substance use disorder Mental health disorder Mother Essential hypertension Dyslipidemia Diabetes mellitus Social History Housing: House Alcohol intake: former Patient Tobacco Use Status: Current everyday Tobacco user Tobacco use type: Cigarette Cigarette Packs Per Day: 0 Cigarettes Per Day: 10 e-Cigarette/Vaping Use: Never Used Second Hand Smoke Exposure: No Current occupational status: disabled Cognitive needs: No Hearing needs: No Vision needs: Yes Questionnaire Thrive Questionnaire Date Thrive assessed: 10/14/22 HUSSAIN-7 AMB Questionnaire HUSSAIN-7 Date HUSSAIN - 7 assessed: 10/14/22 Source: Developed by Drs. Isaac Adams, Marian Tamez, Frank He and colleagues, with an educational kylah from [employer]. Physical exam (Primary Care) Vital Signs: Last Vital Signs Pulse 68 04/16/23 13:01 BP 118/80 04/16/23 13:01 Pulse Ox 99 04/16/23 13:01 Oxygen Delivery Method Room Air 04/16/23 13:01 BMI result Body Mass Index 31.4 Tobacco/Smoking Status: Tobacco use Status Tobacco use date assessed 04/16/23 04/16/23 13:08 Patient Tobacco Use Status Current everyday Tobacco 04/16/23 13:05 Tobacco use type Cigarette 04/16/23 13:05 e-Cigarette/Vaping Use Never Used 04/16/23 13:05 Thrive Assessment: Date of Thrive Assessment Date Thrive assessed 10/14/22 04/16/23 13:05 Results Reviewed Results Reviewed: RUN: 04/16/23 1318 PAGE 1 [facility] [address] [place] [id number] Social Insurance Specialist: London Bhatia M.D. Specimen Inquiry Name: Som Caballero Age/Sex: 53/M : 1970 Unit#: [id number] Attend Dr: Vandana Snowden MD Re04/13/23 Status: DEP [facility] Disch: SPEC : [id number] ANGIE: 04/13/23 STATUS: COMP REQ : [id number] RECD: 04/13/[address]: Vandana Snowden MD COMP: 04/13/23 ENTERED: 04/13/[address] [facility] [address]: ORDERED: Met Prof Fast, AST, ALT, Lipid Panel Test Result Flag Reference Site Sodium 137 135-145 mmol/L Potassium 4.4 3.3-5.1 mmol/L CL 103 96-108 mmol/L CO2 28 22-29 mmol/L Gap 10 L 12-20 BUN 14 9-16 mg/dL Creat 0.80 0.5-1.4 mg/dL EGFR > 60 NOTE: For -Lao individuals, multiply the result by 1.210. Chronic Kidney Disease: Estimated GFR < 60 mL/min/1.73m2 Severe Kidney Disease: Estimated GFR < 15 mL/min/1.73m2 FBS 94 60-99 mg/dL CA 9.4 8.4-10.2 mg/dL AST (GOT) 16 5-37 U/L ALT (GPT) 12 0-40 U/L Triglyceride 47 <150 mg/dL Desirable Triglyceride: less than 150 mg/dL Borderline High Triglyceride 150-199 mg/dL High Triglyceride: 200-499 mg/dL Very High Triglyceride: greater than or equal to 5OO mg/dL Cholesterol 116 <200 mg/dL Desirable Cholesterol: less than 200 mg/dL Borderline High Cholesterol: 200-239 mg/dL High Cholesterol: greater than 239 mg/dL LDL Calculated 69 <100 mg/dL Desirable LDL: less than 100 mg/dL Near Optimal/Above Optimal LDL: 110-129 mg/dL Borderline High LDL: 130-159 mg/dL High LDL: 160-189 mg/dL Very High LDL: greater than or equal to 190 mg/dL HDL 38 L >40 mg/dL Desirable HDL: greater than 40 mg/dL Note: This HDL assay may give artificially low results in patients with liver disease. Laboratory Tests 04/13/23 09:07 Estimat Average Glucose 108 Hemoglobin A1c % 5.4 Assessment and Plan Assessment & Plan (1) GERD (gastroesophageal reflux disease): Code(s): K21.9 - Gastro-esophageal reflux disease without esophagitis (2) HTN (hypertension): Code(s): I10 - Essential (primary) hypertension (3) Diabetes mellitus with diabetic neuropathy, without long-term current use of insulin: Code(s): E11.40 - Type 2 diabetes mellitus with diabetic neuropathy, unspecified (4) Dyslipidemia: Code(s): E78.5 - Hyperlipidemia, unspecified Orders: Orders Hemoglobin A1c 6 Months E11.40 - Type 2 diabetes mellitus with diabetic neuropathy, unspecified, E78.5 - Hyperlipidemia, unspecified, I10 - Essential (primary) hypertension Lipid Panel 6 Months E11.40 - Type 2 diabetes mellitus with diabetic neuropathy, unspecified, E78.5 - Hyperlipidemia, unspecified, I10 - Essential (primary) hypertension Aspartate Amino Transferase 6 Months E11.40 - Type 2 diabetes mellitus with diabetic neuropathy, unspecified, E78.5 - Hyperlipidemia, unspecified, I10 - Essential (primary) hypertension Basic Metabolic Panel Fasting 6 Months E11.40 - Type 2 diabetes mellitus with diabetic neuropathy, unspecified, E78.5 - Hyperlipidemia, unspecified, I10 - Essential (primary) hypertension Vitamin D 25-OH Total 6 Months E11.40 - Type 2 diabetes mellitus with diabetic neuropathy, unspecified, E78.5 - Hyperlipidemia, unspecified, I10 - Essential (primary) hypertension Microalbumin, Random (w Creat) 6 Months E11.40 - Type 2 diabetes mellitus with diabetic neuropathy, unspecified, E78.5 - Hyperlipidemia, unspecified, I10 - Essential (primary) hypertension Alanine Aminotransferase 6 Months E11.40 - Type 2 diabetes mellitus with di abetic neuropathy, unspecified, E78.5 - Hyperlipidemia, unspecified, I10 - Essential (primary) hypertension Medications: Changed From metformin 500 mg PO BID 180 tabs 1RF To metformin 1,000 mg PO BID Coding Level of Care Code Est Pt Level 4 (75899) Diagnoses GERD (gastroesophageal reflux disease) K21.9 HTN (hypertension) I10 Diabetes mellitus with diabetic neuropathy, without long-term current use of insulin E11.40 Dyslipidemia E78.5
== END 2023-04-16 13:41 | disposition home or self-care (01) ==
PROVIDERS: Visit Provider Internal Medicine
DX: K21.9 Gastro-esophageal reflux disease without esophagitis (principal); I10 Essential (primary) hypertension; E11.40 Type 2 diabetes mellitus with diabetic neuropathy, unspecified; E78.5 Hyperlipidemia, unspecified
CPT/HCPCS: 99499

== ENCOUNTER 2023-04-20 09:18 | Day surgery (SDC) | payer OTHER, SELFPAY ==
--- NOTE | 2023-04-19 10:15 | HO.ANESPROP2 ---
Documented by User: Nohemy Alonzo NP 04/19/23 10:16 HPI - Anesthesia Eval Consult details Narrative: 53yo M for Upper Endoscopy PMFSH Active Problems Active Problems: All Active Problems (Updated 12/09/22 @ 11:40 by Vandana Snowden MD) GERD (gastroesophageal reflux disease) (Acute) Refused influenza vaccine (Acute) HTN (hypertension) (Acute) Vitamin B12 deficiency (Acute) Rheumatoid arthritis (Acute) Spinal stenosis, thoracic region (Acute) Postlaminectomy syndrome, lumbar (Acute) Postlaminectomy syndrome, cervical (Acute) Lumbar stenosis with neurogenic claudication (Acute) Cervical spondylosis (Acute) Erectile disorder due to medical condition in male (Acute) PTSD (post-traumatic stress disorder) (Acute) Diabetes mellitus with diabetic neuropathy, without long-term current use of insulin (Acute) Dyslipidemia (Acute) Past Medical History Medical History Refused influenza vaccine Hip fracture EtOH dependence Vitamin B12 deficiency Smoker GERD (gastroesophageal reflux disease) HTN (hypertension) Rheumatoid arthritis Hydronephrosis concurrent with and due to calculi of kidney and ureter Spinal stenosis, thoracic region Postlaminectomy syndrome, lumbar Postlaminectomy syndrome, cervical Lumbar stenosis with neurogenic claudication History of diabetic ulcer of foot Cervical spondylosis History of alcoholism Erectile disorder due to medical condition in male PTSD (post-traumatic stress disorder) Vitamin D deficiency Diabetes mellitus with diabetic neuropathy, without long-term current use of insulin Dyslipidemia Family History Family History Father Essential hypertension Dyslipidemia Cardiovascular disease Substance use disorder Mental health disorder Mother Essential hypertension Dyslipidemia Diabetes mellitus Family history of problems with anesthesia: No Surgical History Surgical History Hx of foot surgery History of surgery on lower extremity H/O knee surgery History of carpal tunnel surgery of right wrist Hx of colonoscopy H/O cervical discectomy Status post lumbar spine surgery for decompression of spinal cord History of Problems with Anesthesia: No Social History Social History Housing: House Are you a primary child care teacher to a significant other at home: No Do you presently have visiting nurse or other home services: No Alcohol intake: former Patient Tobacco Use Status: Current everyday Tobacco user Tobacco use type: Cigarette Cigarette Packs Per Day: 0 Cigarettes Per Day: 10 e-Cigarette/Vaping Use: Never Used Second Hand Smoke Exposure: No Substance Use Frequency: Daily Have you been hit, kicked, punched, or otherwise hurt by someone within the past year? If so, by whom?: No Are you DNR?: No Advance Directives: No Advance Directives Information Provided: Yes Recently lost weight without trying: No Eating poorly because of decreased appetite: No Nutrition Risks: No Nutritional Risk Poor oral hygiene: No Current occupational status: disabled Cognitive needs: No Hearing needs: No Vision needs: Yes Meds Allergies Allergy/AdvReac Type Severity Reaction Status Date / Time No Known Allergies Allergy Verified 04/16/23 13:19 Home Medications Medication Instructions Recorded Confirmed Last Taken Type clonazepam 1 mg tablet 1 mg PO TID 09/13/20 04/16/23 Unknown History fluoxetine 40 mg capsule 80 mg PO QAM 09/13/20 04/16/23 Unknown History dicyclomine 20 mg tablet 20 mg PO QID 06/30/22 04/16/23 Unknown History gabapentin 300 mg capsule 300 mg PO TID 10/14/22 04/16/23 Unknown History lisinopril 5 mg tablet 2.5 mg PO DAILY 12/09/22 04/16/23 Unknown History gabapentin 600 mg tablet 600 mg PO TID 04/16/23 04/16/23 Unknown History metformin 500 mg tablet 1,000 mg PO BID 04/16/23 04/16/23 Unknown History Exam Exam Date and Time: April 19, 2023 101 Pertinent Lab Results Pertinent Lab Results: Laboratory Tests 10/02/22 04/13/23 04/13/23 07:02 09:07 09:07 WBC 5.7 Hgb 14.9 Hct 46.1 Plt Count 214 Sodium 137 Potassium 4.4 Chloride 103 Carbon Dioxide 28 BUN 14 Creatinine 0.80 Assessment and Plan Assessment Anesthesia Assessment: Chart Reviewed Final Anesthetic Review Family History of Problems with Anesthesia: No History of Problems with Anesthesia: No Documented by User: Sylvain Roland MD 04/20/23 10:15 [facility] Past Medical History Medical History Refused influenza vaccine Hip fracture EtOH dependence Vitamin B12 deficiency Smoker GERD (gastroesophageal reflux disease) HTN (hypertension) Rheumatoid arthritis Hydronephrosis concurrent with and due to calculi of kidney and ureter Spinal stenosis, thoracic region Postlaminectomy syndrome, lumbar Postlaminectomy syndrome, cervical Lumbar stenosis with neurogenic claudication History of diabetic ulcer of foot Cervical spondylosis History of alcoholism Erectile disorder due to medical condition in male PTSD (post-traumatic stress disorder) Vitamin D deficiency Diabetes mellitus with diabetic neuropathy, without long-term current use of insulin Dyslipidemia Family History Family History Father Essential hypertension Dyslipidemia Cardiovascular disease Substance use disorder Mental health disorder Mother Essential hypertension Dyslipidemia Diabetes mellitus Surgical History Surgical History Hx of foot surgery History of surgery on lower extremity H/O knee surgery History of carpal tunnel surgery of right wrist Hx of colonoscopy H/O cervical discectomy Status post lumbar spine surgery for decompression of spinal cord Social History Social History Housing: House Are you a primary child care teacher to a significant other at home: No Do you presently have visiting nurse or other home services: No Alcohol intake: former Patient Tobacco Use Status: Current everyday Tobacco user Tobacco use type: Cigarette Cigarette Packs Per Day: 0 Cigarettes Per Day: 10 e-Cigarette/Vaping Use: Never Used Second Hand Smoke Exposure: No Substance Use Frequency: Daily Have you been hit, kicked, punched, or otherwise hurt by someone within the past year? If so, by whom?: No Are you DNR?: No Advance Directives: No Advance Directives Information Provided: Yes Recently lost weight without trying: No Eating poorly because of decreased appetite: No Nutrition Risks: No Nutritional Risk Poor oral hygiene: No Current occupational status: disabled Cognitive needs: No Hearing needs: No Vision needs: Yes Meds Allergies Allergy/AdvReac Type Severity Reaction Status Date / Time No Known Allergies Allergy Verified 04/16/23 13:19 Home Medications Medication Instructions Recorded Confirmed Last Taken Type clonazepam 1 mg tablet 1 mg PO TID 09/13/20 04/16/23 Unknown History fluoxetine 40 mg capsule 80 mg PO QAM 09/13/20 04/16/23 Unknown History dicyclomine 20 mg tablet 20 mg PO QID 06/30/22 04/16/23 Unknown History gabapentin 300 mg capsule 300 mg PO TID 10/14/22 04/16/23 Unknown History lisinopril 5 mg tablet 2.5 mg PO DAILY 12/09/22 04/16/23 Unknown History gabapentin 600 mg tablet 600 mg PO TID 04/16/23 04/16/23 Unknown History metformin 500 mg tablet 1,000 mg PO BID 04/16/23 04/16/23 Unknown History Exam Airway Mallampati Class: II TM Dist: >3cm Neck ROM: Limited Loose/Missing/Broken Teeth: No Heart: rrr Assessment and Plan Final Anesthetic Review NPO: Yes ASA Class: IV Final Preanesthetic Review: No Changes in Pt Med Stat, Meds/Allgs Chart Reviewed, Consent Obtained/Reviewed and Anes Risks/Benef Reviewed Patient Risk: High Procedure Risk: Intermediate Anesthetic Plan Anesthetic Plan: MAC: and Agree w/ Assess. and Plan Disposition: Standard PACU
[2023-04-20 09:47] LABS: Glucose, Whole Blood 97 mg/dL (60-115)
[2023-04-20] MEDS: Lactated Ringers 1,000 ML 50 ML IVCONT (09:54)
[2023-04-20 09:55] VITALS: BP 137/88; PULSE 56; RESP 18; TEMP 36.1; O2SAT 97; BMI 31.9
--- NOTE | 2023-04-20 10:37 | MHC.SHP ---
Pre-Procedural Eval Section A Date of Service: 04/20/23 Section B Chief Complaint: Gastric intestinal metaplasia, unspecified Details of Present Illness: see H&P no changes Relevant Family History (Specify if Yes): No Relevant Social History: None Present Medications: see Short Stay Collaborative assessment Medical History: No relevant PMH History of Previous Operations: No relevant previous surgery Allergies: Allergies Allergy/AdvReac Type Severity Reaction Status Date / Time No Known Allergies Allergy Verified 04/16/23 13:19 Review of Systems Sugical H&P ROS: Negative: Constitution, Cardiovascular, Respiratory, Neurological, Psychiatric, Hem-Onc, Allergic/Immunologic, Gastrointestinal, Genitourinary, Musculoskeletal, Integumentary, Endocrine and Eyes/Ears/Nose/Throat Exam Surgical H&P Exam: Normal: HEENT, Normal: Heart, Normal: Lungs, Normal: Extremities, Normal: Abdomen, Normal: Skin and Normal: Neurological Plan Diagnosis/Plan: Unchanged I have reviewed the history and physical and performed a pertinent physical examination on my patient. No changes have occurred unless specified. Time Spent With Patient Time: Total time managing care of this patient today ____ minutes.
--- NOTE | 2023-04-20 10:56 | P.BOP_ITS ---
Brief Operative Note Date of Service: 04/20/23 Pre-op diagnosis: see H&P no changes Post-op diagnosis: same Surgeon: Chuck Bower Anesthesia: MAC Was an [employer] used for this Procedure?: No Estimated blood loss (mL): 5 Pathology: other Condition: stable Disposition: PACU
[2023-04-20 11:01] VITALS: BP 138/82; PULSE 63; RESP 16; TEMP 36.1; O2SAT 97
[2023-04-20 11:16] VITALS: BP 135/83; PULSE 61; RESP 14; O2SAT 98
--- NOTE | 2023-04-20 12:01 | OP_ITS ---
DATE OF SERVICE: 04/20/2023 SURGEON: Chuck Bower MD INDICATIONS: Gastric intestinal metaplasia. PREOPERATIVE DIAGNOSIS: POSTOPERATIVE DIAGNOSIS: PROCEDURE PERFORMED: Upper endoscopy with biopsy. ESTIMATED BLOOD LOSS: COMPLICATIONS: ANESTHESIA: Monitored anesthesia care. ASSISTANTS: SPECIMENS: DESCRIPTION OF PROCEDURE: A history and physical was performed. The risks and benefits of the procedure were explained to the patient. Informed consent was obtained. The patient was placed in the left lateral decubitus position. The Olympus video gastroscope was introduced into the esophagus, stomach, and duodenum. Examination was performed. The scope was removed. He tolerated the procedure well, and was returned to the recovery area in stable condition. FINDINGS: Esophagus: The esophagus showed an irregular EG junction. There was no esophagitis. Stomach: The stomach showed some gastritis in the body, mainly along the greater curvature. Biopsies were obtained from throughout the stomach because of the patient's history of Gastric intestinal metaplasia. Duodenum: The bulb and second portion were normal. IMPRESSION: Gastric intestinal metaplasia. RECOMMENDATION: Follow up the biopsy results. Chuck Bower MD BC/MODL / [id number] MTDD
== END 2023-04-20 12:15 | disposition home or self-care (01) ==
PROVIDERS: PCP Internal Medicine; Visit Provider Internal Medicine Gastroenterology
PROC: 0DJ08ZZ Inspection of Upper Intestinal Tract, Via Natural or Artificial Opening Endoscopic (ICD-10-PCS; CPT 43235; principal; 2023-04-20 10:10)
DX: K31.A0 Gastric intestinal metaplasia, unspecified (principal); K52.9 Noninfective gastroenteritis and colitis, unspecified; K29.70 Gastritis, unspecified, without bleeding; K21.9 Gastro-esophageal reflux disease without esophagitis; F10.21 Alcohol dependence, in remission; I10 Essential (primary) hypertension; E78.5 Hyperlipidemia, unspecified; E53.8 Deficiency of other specified B group vitamins; E55.9 Vitamin D deficiency, unspecified; E11.9 Type 2 diabetes mellitus without complications; Z79.84 Long term (current) use of oral hypoglycemic drugs; Z79.899 Other long term (current) drug therapy; F17.210 Nicotine dependence, cigarettes, uncomplicated; Z98.890 Other specified postprocedural states
CPT/HCPCS: 43239; 82947; 88305; 88342

== ENCOUNTER 2023-10-27 06:57 | Outpatient (REF) | payer OTHER, SELFPAY ==
[2023-10-27 07:26] LABS: Estimated Average Glucose 105 mg/dL; Hemoglobin A1c % 5.3 % (<6.0)
[2023-10-27 07:54] LABS: Alanine Aminotransferase 14 U/L (0-40); Anion Gap 8 (12-20); Aspartate Amino Transferase 18 U/L (5-37); Blood Urea Nitrogen 14 mg/dL (9-16); Calcium 8.9 mg/dL (8.4-10.2); Carbon Dioxide 29 mmol/L (22-29); Chloride 107 mmol/L (96-108); Cholesterol 122 mg/dL (<200); Estimated Glomerular Filt Rate > 60; Glucose Fasting 126 mg/dL (60-99); HDL Cholesterol 45 mg/dL (>40); LDL Cholesterol Calculated 63 mg/dL (<100); Potassium 4.3 mmol/L (3.3-5.1); Sodium 140 mmol/L (135-145); Triglycerides 73 mg/dL (<150)
[2023-10-27 08:04] LABS: Vitamin D 25-OH Total 33.3 ng/mL (>30)
[2023-10-27 09:09] LABS: Microalbum/Creatinine Ratio Ur 26.7 ug/mg cr (<30)
== END 2023-10-27 06:58 | disposition home or self-care (01) ==
LOC: HO.LAB 06:57
PROVIDERS: PCP Internal Medicine; Visit Provider Internal Medicine
DX: E11.40 Type 2 diabetes mellitus with diabetic neuropathy, unspecified (principal); E78.5 Hyperlipidemia, unspecified; I10 Essential (primary) hypertension
CPT/HCPCS: 36415; 80048; 80061; 82043; 82306; 82570; 83036; 84450; 84460

== ENCOUNTER 2023-11-15 08:58 | Outpatient (AMB) | payer OTHER, SELFPAY ==
[2023-11-15 08:59] VITALS: BP 100/62; PULSE 55; O2SAT 97; BMI 29.9
--- NOTE | 2023-11-15 08:59 | MHC.PC.OV ---
Vital Signs 11/15/23 08:59 Height 6 ft 3 in Weight 239 lb BMI 29.9 BP 100/62 Blood Pressure Location Rt brachial Position Sitting Pulse 55 Pulse Source Pulse Oximeter Pulse Oximetry (%) 97 Oxygen Delivery Method Room Air Intake Visit Reasons: 6 month fu Intake Note: Pt is here today for his 6 months f/u Allergies No Known Allergies Allergy (Verified 11/15/23 09:24) Medication List - Last Reconciled 11/15/23 by Vandana Snowden MD atorvastatin 20 mg PO DAILY 90 days blood sugar diagnostic (FreeStyle Lite Strips) check blood sugar once a day before a meal as directed cholecalciferol (vitamin D3) 50 mcg PO DAILY clonazepam 1 mg PO TID cyanocobalamin (vitamin B-12) 1,000 mcg IM Q4W dicyclomine 20 mg PO QID fluoxetine 80 mg PO QAM gabapentin 600 mg PO TID lisinopril 2.5 mg PO DAILY metformin 500 mg PO BIDWMEAL pioglitazone 30 mg PO DAILY syringe with needle, safety (BD Integra Syringe) As directed Tobacco use date assessed: 11/15/23 Dental Screening Dental Screen Date: 11/15/23 Did you have a dental visit in the last 12 months?: No Was dental information given to patient?: Patient declined HPI 6 month fu HPI Details 53-year-old male with diabetes mellitus, hyperlipidemia, and hypertension, here today for his follow-up. He has been compliant with taking his medications, but has cut back on his metformin to just 500 mg taken twice a day meals in addition to pioglitazone 30 mg once a day. Currently taking lisinopril 2.5 mg daily and atorvastatin 20 mg daily. Has been compliant with his diet but unable to exercise much due to her recurrent pain in his back. [facility] Medical History (Updated 11/15/23 @ 09:51 by Vandana Snowden MD) Refused influenza vaccine Hip fracture EtOH dependence Vitamin B12 deficiency Smoker GERD (gastroesophageal reflux disease) HTN (hypertension) Rheumatoid arthritis Hydronephrosis concurrent with and due to calculi of kidney and ureter Spinal stenosis, thoracic region Postlaminectomy syndrome, lumbar Postlaminectomy syndrome, cervical Lumbar stenosis with neurogenic claudication History of diabetic ulcer of foot Cervical spondylosis History of alcoholism Erectile disorder due to medical condition in male PTSD (post-traumatic stress disorder) Vitamin D deficiency Diabetes mellitus with diabetic neuropathy, without long-term current use of insulin Dyslipidemia Surgical History Hx of foot surgery History of surgery on lower extremity H/O knee surgery History of carpal tunnel surgery of right wrist Hx of colonoscopy H/O cervical discectomy Status post lumbar spine surgery for decompression of spinal cord Family History Father Essential hypertension Dyslipidemia Cardiovascular disease Substance use disorder Mental health disorder Mother Essential hypertension Dyslipidemia Diabetes mellitus Social History Housing: House Are you a primary animal care technician to a significant other at home: No Do you presently have visiting nurse or other home services: No Alcohol intake: former Patient Tobacco Use Status: Current everyday Tobacco user Tobacco use type: Cigarette Cigarette Packs Per Day: 0 Cigarettes Per Day: 10 e-Cigarette/Vaping Use: Never Used Second Hand Smoke Exposure: No Current occupational status: disabled Cognitive needs: No Hearing needs: No Vision needs: Yes Questionnaire PHQ-9 Over the last 2 weeks, how often have you been bothered by any of the following problems? 1. Little interest or pleasure in doing things: more than half the days 2. Feeling down, depressed, or hopeless: several days 3. Trouble falling or staying asleep, or sleeping too much: not at all 4. Feeling tired or having little energy: several days 5. Poor appetite or overeating: more than half the days 6. Feeling bad about yourself - or that you are a failure or have let yourself or your family down: several days 7. Trouble concentrating on things, such as reading the newspaper or watching television: several days 8. Moving or speaking so slowly that other people could have noticed. Or the opposite - being so fidgety or restless that you have been moving around a lot more than usual: not at all 9. Thoughts that you would be better off or of hurting yourself in some way: not at all Total score: 8 Depression Screening Interpretation: Positive (Currently being seen by psych,Farzad Tucker by telephone) Depression Screening Follow-up: Existing condition, In treatment and Community Mental Health Worker F/U Depression Screening Done: Yes Source: Developed by Drs. Isaac Adams, Frank Phillip and colleagues, with an educational kylah from [employer]. Thrive Questionnaire Date Thrive assessed: 11/15/23 I am a: Patient What is your living situation today?: I have a steady place to live Within the past 12 months, did the food you bought not last and you didn't have the money to get more?: Never true Within the past 12 months, did you worry whether your food would run out before you got money to buy more?: Never true Do you have trouble paying for medicines?: No Do you have trouble getting transportation to medical appointments?: No Do you have trouble paying your heating and electricity bill?: No Do you have trouble taking care of your child, family member or friend?: No Do you have trouble with day-to-day activities such as bathing, preparing meals, shopping, managing finances, etc.?: No Are you currently unemployed and looking for a job?: No Are you interested in more education?: No THRIVE Score: 0 AUDIT C Alcohol Use Questionnaire (AUDIT-C) 1. How often do you have a drink containing alcohol?: Never Total Score: 0 HUSSAIN-7 AMB Questionnaire HUSSAIN-7 Date HUSSAIN - 7 assessed: 11/15/23 Feeling nervous, anxious, or on edge: 2 = More than half the days Not being able to stop or control worryin = Several days Worrying too much about different things: 1 = Several days Trouble relaxin = Several days Being so restless that it is hard to sit still: 1 = Several days Becoming easily annoyed or irritable: 1 = Several days Feeling afraid as if something awful might happen: 1 = Several days Total HUSSAIN-7 score (0-4 normal; 5-9 mild; 10-14 moderate; 15-21 severe): 8 Source: Developed by Drs. Isaac Adams, Frank Phillip and colleagues, with an educational kylah from [employer]. HUSSAIN-7 Assessment Billing HUSSAIN-7 Assessment Tool: HUSSAIN-7 Assessment 70274 Review of Systems Const Denies fever(s) and Denies weakness Eyes Denies change in vision ENT Reports no additional complaints and Reports Normal hearing present Card Denies chest pain at rest, Denies chest pain with activity, Denies diaphoresis, Denies syncope, Denies rapid heart rate, Denies pedal edema and Denies dyspnea Resp Denies chest congestion, Denies cough, Denies hemoptysis and Denies dyspnea GI Denies melena, Reports bloating, Denies hematochezia, Reports change in bowel habits, Reports GI cramping and Reports dyspepsia Reports no additional complaints Musc Reports back pain Skin/Breast Denies lesions and Denies rash Neuro Reports Normal hearing present, Denies syncope, Denies seizure-like activity, Denies Sensory deficit (Neuro) and Denies weakness Psych Reports no additional complaints Endo Reports no additional complaints Dat/Lymph Reports no additional complaints Aller/Immun Reports no additional complaints Physical exam (Primary Care) Vital Signs: Last Vital Signs Pulse 55 11/15/23 08:59 BP 100/62 11/15/23 08:59 Pulse Ox 97 11/15/23 08:59 Oxygen Delivery Method Room Air 11/15/23 08:59 BMI result Body Mass Index 29.9 Tobacco/Smoking Status: Tobacco use Status Tobacco use date assessed 11/15/23 11/15/23 09:02 Patient Tobacco Use Status Current everyday Tobacco 11/15/23 09:01 Tobacco use type Cigarette 11/15/23 09:01 e-Cigarette/Vaping Use Never Used 11/15/23 09:01 Are you ready to quit: No PHQ-9: PHQ-9 Score PHQ-9: Total score 8 11/15/23 09:37 Depression Screening Interpretation: Positive (Currently being seen by psych,- Nevin Tucker by telephone) Depression Screening Follow-up: Existing condition, In treatment and Community Mental Health Worker F/U Thrive Assessment: Date of Thrive Assessment Date Thrive assessed 11/15/23 11/15/23 09:09 Const General: no acute distress Nutritional Appearance: overweight Orientation/consciousness: patient oriented x3 HENMT Ears: external ears normal, TM's normal bilaterally and EAC's normal General nose exam: Normal external nose present and No nasal discharge present Mouth: moist mucous membranes Eyes General: appearance normal, both eyes and all related structures Neck Other: Supple, no lymphadenopathy, thyroid gland nonpalpable Resp Auscultation: clear to auscultation bilaterally Cardio Other: S1-S2 present regular rate and rhythm GI Palpation (GI): Soft to palpation, nontender and no masses Neuro General: patient oriented x3, gait normal, moves all extremities and no focal motor deficits Cranial nerves: Yes Normal hearing present Sensory Exam: No Sensory deficit (Neuro) Extrem General: Yes full ROM, Yes no joint enlargement, Yes no clubbing, cyanosis or edema and Yes normal gait Psych Appearance: grossly normal and well kempt Mental Status: mental status grossly normal Affect: normal affect Attitude: cooperative Thought process: Normal thought process present Results Reviewed Results Reviewed: Name: Som Caballero Age/Sex: 53/M : 1970 Unit#: [id number] Attend Dr: Vandana Snowden MD Re10/27/23 Status: DEP REF Location: [facility] Disch: SPEC : [id number] ANGIE: 10/27/23 STATUS: COMP REQ : [id number] RECD: 10/27/[address]: Vandana Snowden MD COMP: 10/27/23 ENTERED: 10/27/[address]: ORDERED: Met Prof Fast, AST, ALT, Lipid Panel, Vitamin D 25-OH Test Result Flag Reference Sodium 140 135-145 mmol/L Potassium 4.3 3.3-5.1 mmol/L CL 107 96-108 mmol/L CO2 29 22-29 mmol/L Gap 8 L 12-20 BUN 14 9-16 mg/dL Creat 0.90 0.5-1.4 mg/dL EGFR > 60 NOTE: For -[place] individuals, multiply the result by 1.210. Chronic Kidney Disease: Estimated GFR < 60 mL/min/1.73m2 Severe Kidney Disease: Estimated GFR < 15 mL/min/1.73m2 FBS 126 H 60-99 mg/dL A fasting glucose of 126 mg/dl or greater on more than one occasion is considered diagnostic of diabetes. CA 8.9 8.4-10.2 mg/dL AST (GOT) 18 5-37 U/L ALT (GPT) 14 0-40 U/L Triglyceride 73 <150 mg/dL Desirable Triglyceride: less than 150 mg/dL Borderline High Triglyceride 150-199 mg/dL High Triglyceride: 200-499 mg/dL Very High Triglyceride: greater than or equal to 5OO mg/dL Cholesterol 122 <200 mg/dL Desirable Cholesterol: less than 200 mg/dL Borderline High Cholesterol: 200-239 mg/dL High Cholesterol: greater than 239 mg/dL LDL Calculated 63 <100 mg/dL Desirable LDL: less than 100 mg/dL Near Optimal/Above Optimal LDL: 110-129 mg/dL Borderline High LDL: 130-159 mg/dL High LDL: 160-189 mg/dL Very High LDL: greater than or equal to 190 mg/dL HDL 45 >40 mg/dL Desirable HDL: greater than 40 mg/dL Note: This HDL assay may give artificially low results in patients with liver disease. Vit D 25-OH Tot 33.3 >30 ng/mL Health Based Reference Values* < 20 ng/mL Deficient 20-30 ng/mL Insufficient > 30 ng/mL Sufficient Laboratory Tests 10/27/23 07:05 Estimat Average Glucose 105 Hemoglobin A1c % 5.3 Laboratory Tests 10/27/23 07:03 Urine Creatinine 126.90 Urine Microalbumin 34.0 Microalb/Creat Ratio 26.7 Assessment and Plan Assessment & Plan (1) Dyslipidemia: Code(s): E78.5 - Hyperlipidemia, unspecified Plan: Reviewed recent fasting lipids which are within normal limits, continue with atorvastatin 20 mg daily (2) Diabetes mellitus with diabetic neuropathy, without long-term current use of insulin: Code(s): E11.40 - Type 2 diabetes mellitus with diabetic neuropathy, unspecified Plan: Diabetes mellitus well controlled with hemoglobin A1c at 5.3% continue on metformin 500 mg 1 tablet twice a day with meals in addition to pioglitazone 30 mg daily (3) HTN (hypertension): Code(s): I10 - Essential (primary) hypertension Qualifiers: Hypertension type: primary hypertension Qualified Code(s): I10 - Essential (primary) hypertension Plan: Blood pressure at goal of less than 130/80. Continue with current medication. Reinforced importance of following a low sodium diet, getting regular exercise, and lowering stress levels. Orders: Orders Lipid Panel 05/02/24 E11.40 - Type 2 diabetes mellitus with diabetic neuropathy, unspecified, E78.5 - Hyperlipidemia, unspecified, I10 - Essential (primary) hypertension Hemoglobin A1c 05/02/24 E11.40 - Type 2 diabetes mellitus with diabetic neuropathy, unspecified, E78.5 - Hyperlipidemia, unspecified, I10 - Essential (primary) hypertension Alanine Aminotransferase 05/02/24 E11.40 - Type 2 diabetes mellitus with diabetic neuropathy, unspecified, E78.5 - Hyperlipidemia, unspecified, I10 - Essential (primary) hypertension Aspartate Amino Transferase 05/02/24 E11.40 - Type 2 diabetes mellitus with diabetic neuropathy, unspecified, E78.5 - Hyperlipidemia, unspecified, I10 - Essential (primary) hypertension Basic Metabolic Panel Fasting 05/02/24 E11.40 - Type 2 diabetes mellitus with diabetic neuropathy, unspecified, E78.5 - Hyperlipidemia, unspecified, I10 - Essential (primary) hypertension Coding Level of Care Code Est Pt Level 4 (90919) Diagnoses Dyslipidemia E78.5 Diabetes mellitus with diabetic neuropathy, without long-term current use of insulin E11.40 Primary hypertension I10 Hypertension type: primary hypertension Additional Codes HUSSAIN-7 Assessment Billing - HUSSAIN-7 Assessment Tool: HUSSAIN-7 Assessment 96500 ([id number])
== END 2023-11-15 09:53 | disposition home or self-care (01) ==
PROVIDERS: PCP Internal Medicine; Visit Provider Internal Medicine
DX: E78.5 Hyperlipidemia, unspecified (principal); E11.40 Type 2 diabetes mellitus with diabetic neuropathy, unspecified; I10 Essential (primary) hypertension
CPT/HCPCS: 99214

== ENCOUNTER 2023-12-20 11:10 | Outpatient (REF) | payer OTHER, SELFPAY ==
[2023-12-20 13:06] LABS: MANUAL DIFF FLAG NO
[2023-12-20 13:36] LABS: Basophils Absolute Auto 0.1 X10*3/uL (0.0-0.2); Basophils Percent Auto 0.7 % (0-2); Eosinophils Absolute Auto 0.1 X10*3/uL (0.0-0.4); Eosinophils Percent Auto 1.4 % (0-4); Hematocrit 44.6 % (42.0-52.0); Hemoglobin 14.8 g/dl (14.0-18.0); Imm Gran Abs Auto 0.03 X10*3/uL (0.00-0.03); Imm Gran Pct Auto 0.3 % (0.0-0.4); Lymphocytes Absolute Auto 1.9 X10*3/uL (1.2-4.9); Lymphocytes Percent Auto 21.6 % (20-40); Mean Corpuscular HGB Conc 33.2 g/dl (31.0-36.0); Mean Corpuscular Hemoglobin 30.5 pg (27.0-33.0); Mean Platelet Volume 9.1 fL (9.4-12.4); Monocytes Absolute Auto 0.6 X10*3/uL (0.1-1.2); Monocytes Percent Auto 6.3 % (2-11); Neutrophils Absolute Auto 6.1 x10*3/uL (2.0-8.3); Neutrophils Percent Auto 69.7 % (45-73); Platelet Count 206 X10*3/uL (160-400); Red Blood Count 4.85 X10*6/uL (4.60-5.80); Red Cell Distribution Width 12.7 % (11.0-16.0); White Blood Count 8.7 X10*3/uL (4.8-10.8)
[2023-12-20 13:51] LABS: Alanine Aminotransferase 20 U/L (0-40); Albumin Level 4.2 g/dL (3.5-5.0); Alkaline Phosphatase 119 U/L (39-117); Aspartate Amino Transferase 20 U/L (5-37); Bilirubin Direct 0.2 mg/dL (0.0-0.5); Bilirubin Total 0.5 mg/dL (0.0-1.0); Blood Urea Nitrogen 15 mg/dL (9-16); Estimated Glomerular Filt Rate > 60; Lipase 37 U/L (8-78); Total Protein 7.1 g/dL (6.5-8.0)
== END 2023-12-20 11:11 | disposition home or self-care (01) ==
LOC: HO.10HDL 11:10
PROVIDERS: Visit Provider Internal Medicine Gastroenterology
DX: R10.84 Generalized abdominal pain (principal); R19.7 Diarrhea, unspecified
CPT/HCPCS: 36415; 80076; 82565; 83690; 84520; 85025

== ENCOUNTER 2023-12-21 09:22 | Outpatient (REF) | payer OTHER, SELFPAY ==
[2023-12-21 10:50] LABS: Leukocytes Stool Qualitative NEGATIVE (NEGATIVE)
[2023-12-21 14:53] LABS: Adenovirus F 40/41 Not Detected (Not Detect.); Astrovirus Not Detected (Not Detect.); Campylobacter Not Detected (Not Detect.); Cryptosporidium Not Detected (Not Detect.); Cyclospora cayetanensis Not Detected (Not Detect.); E. coli EAEC Not Detected (Not Detect.); E. coli EPEC Detected (Not Detect.); E. coli ETEC Not Detected (Not Detect.); E. coli STEC Not Detected (Not Detect.); Entamoeba histolytica Not Detected (Not Detect.); Giardia lamblia Not Detected (Not Detect.); Norovirus GI/GII Not Detected (Not Detect.); Plesiomonas shigelloides Not Detected (Not Detect.); Rotavirus A Not Detected (Not Detect.); Salmonella Not Detected (Not Detect.); Sapovirus Not Detected (Not Detect.); Shigella sp./EIEC Not Detected (Not Detect.); Vibrio Not Detected (Not Detect.); Vibrio Cholerae Not Detected (Not Detect.); Yersinia enterocolitica Not Detected (Not Detect.)
== END 2023-12-21 09:23 | disposition home or self-care (01) ==
LOC: HO.LNP 09:22
PROVIDERS: Visit Provider Internal Medicine Gastroenterology
DX: R19.7 Diarrhea, unspecified (principal)
CPT/HCPCS: 87177; 87209; 87507; 89055

== ENCOUNTER 2024-01-19 07:17 | Outpatient (REF) | payer OTHER, SELFPAY ==
[2024-01-19 07:58] LABS: Hematocrit 41.7 % (42.0-52.0); Mean Corpuscular HGB Conc 33.6 g/dl (31.0-36.0); Mean Corpuscular Volume 92.3 fL (80.0-98.0); Mean Platelet Volume 8.6 fL (9.4-12.4); Platelet Count 217 X10*3/uL (160-400); Red Blood Count 4.52 X10*6/uL (4.60-5.80); Red Cell Distribution Width 12.6 % (11.0-16.0); White Blood Count 7.4 X10*3/uL (4.8-10.8)
[2024-01-19 08:49] LABS: Alanine Aminotransferase 16 U/L (0-40); Alkaline Phosphatase 117 U/L (39-117); Aspartate Amino Transferase 18 U/L (5-37); Bilirubin Direct < 0.2 mg/dL (0.0-0.5); Bilirubin Total 0.2 mg/dL (0.0-1.0); Blood Urea Nitrogen 13 mg/dL (9-16); Estimated Glomerular Filt Rate > 60; Lipase 119 U/L (8-78); Total Protein 6.8 g/dL (6.5-8.0)
== END 2024-01-19 07:18 | disposition home or self-care (01) ==
LOC: HO.LAB 07:17
PROVIDERS: PCP Internal Medicine; Visit Provider Internal Medicine Gastroenterology
DX: R10.84 Generalized abdominal pain (principal)
CPT/HCPCS: 36415; 80076; 82565; 83690; 84520; 85027

== ENCOUNTER 2024-01-20 11:10 | Outpatient (REF) | payer OTHER, SELFPAY ==
[2024-01-20 12:02] LABS: Leukocytes Stool Qualitative NEGATIVE (NEGATIVE)
== END 2024-01-20 11:11 | disposition home or self-care (01) ==
LOC: HO.LNP 11:10
PROVIDERS: Visit Provider Internal Medicine Gastroenterology
DX: R19.7 Diarrhea, unspecified (principal); R10.84 Generalized abdominal pain
CPT/HCPCS: 87177; 87209; 89055

== ENCOUNTER 2024-01-23 08:00 | Outpatient (REF) | payer OTHER, SELFPAY ==
[2024-01-25 07:09] LABS: Adenovirus F 40/41 Not Detected (Not Detect.); Astrovirus Not Detected (Not Detect.); Campylobacter Not Detected (Not Detect.); Cryptosporidium Not Detected (Not Detect.); Cyclospora cayetanensis Not Detected (Not Detect.); E. coli EAEC Not Detected (Not Detect.); E. coli EPEC Detected (Not Detect.); E. coli ETEC Not Detected (Not Detect.); E. coli STEC Not Detected (Not Detect.); Entamoeba histolytica Not Detected (Not Detect.); Giardia lamblia Not Detected (Not Detect.); Norovirus GI/GII Not Detected (Not Detect.); Plesiomonas shigelloides Not Detected (Not Detect.); Rotavirus A Not Detected (Not Detect.); Salmonella Not Detected (Not Detect.); Sapovirus Not Detected (Not Detect.); Shigella sp./EIEC Not Detected (Not Detect.); Vibrio Not Detected (Not Detect.); Vibrio Cholerae Not Detected (Not Detect.); Yersinia enterocolitica Not Detected (Not Detect.)
== END 2024-01-23 08:01 | disposition home or self-care (01) ==
LOC: HO.LNP 08:00
PROVIDERS: Visit Provider Internal Medicine Gastroenterology
DX: R19.7 Diarrhea, unspecified (principal)
CPT/HCPCS: 87507

== ENCOUNTER 2024-02-14 13:07 | Outpatient (REF) | payer OTHER, SELFPAY ==
--- NOTE | ~2024-02-14 | CT_ITS ---
EXAMINATION: CT ABDOMEN AND PELVIS WITH CONTRAST CLINICAL INFORMATION: abd pain, diarrhea COMPARISON: CT abdomen/pelvis 07/14/2021 TECHNIQUE: Multidetector volumetric images were obtained from the superior aspect of the liver through the pubic symphysis following administration 85 mL of Omnipaque 350 intravenous contrast. Sagittal and coronal reformatted images were obtained on the technologist's workstation. Oral contrast: No This CT examination was performed using dose optimization techniques as appropriate, variously including the following: *Automated exposure control *Adjustment of mA and/or kV according to patient size (this includes techniques or standardized protocols for targeted exams where dose is matched to indication/reason for exam; i.e. extremities or head) *Use of iterative reconstruction technique DLP: 660 mGy-cm FINDINGS: LUNG BASES: Dependent bilateral atelectasis. No pleural effusion. Normal-sized heart with small posterior pericardial effusion. Mild coronary arterial calcifications. LIVER, GALLBLADDER, AND BILIARY TREE: The liver is normal in size, shape, and attenuation. No focal hepatic lesion or biliary ductal dilatation is present. The gallbladder is unremarkable with no evidence of radiopaque gallstones, gallbladder wall thickening, or obvious pericholecystic inflammatory changes. PANCREAS: Unremarkable. SPLEEN: Unremarkable. ADRENAL GLANDS: Unremarkable. KIDNEYS AND URETERS: The kidneys are normal in size, shape, and attenuation. No hydronephrosis, hydroureter, or calculi seen. No perinephric stranding. BLADDER: Unremarkable. GASTROINTESTINAL TRACT: The small and large bowel are nondilated. Normal appendix. ABDOMINAL WALL: No bowel containing hernia is appreciated. LYMPH NODES: Normal. VASCULAR: The abdominal aorta is nonaneurysmal with minimal scattered atheromatous complications. There is an isolated left splenorenal varix, unchanged from 2020. PELVIC VISCERA: Normal CT appearance of the prostate and seminal vesicles. OSSEOUS STRUCTURES: No acute or suspicious osseous abnormality. Mild multilevel thoracal lumbar spondylosis. CT/CT abdomen pelvis w IV con IMPRESSION: No acute abdominopelvic pathology. Fleischner guidelines were followed.
[2024-02-14] MEDS: iohexoL 350 MG/ML 100 ML INFUS..BTL IV (15:49)
[2024-02-14] MEDS: Barium Sulfate Oral (Berry) 450 ML ORAL.SUSP 900 ML PO (15:49)
== END 2024-02-14 13:08 | disposition home or self-care (01) ==
LOC: HO.CT 13:07
PROVIDERS: Visit Provider Internal Medicine Gastroenterology
DX: R10.84 Generalized abdominal pain (principal); R19.7 Diarrhea, unspecified
CPT/HCPCS: 74177; Q9967

== ENCOUNTER 2024-03-01 10:41 | Outpatient (AMB) | payer OTHER, SELFPAY ==
--- NOTE | 2024-03-01 10:41 | AM.OFFWIN_ITS ---
Intake Vital Signs 03/01/24 10:43 Height 6 ft 3 in Weight 240 lb BMI 30.0 BP 112/68 Blood Pressure Location Rt brachial Position Sitting Pulse 83 Pulse Source Pulse Oximeter Temp 98.4 F Temp Source Oral Pulse Oximetry (%) 97 Oxygen Delivery Method Room Air Intake Visit Reasons: left side pain from neck to foot, Intake Note: pt c/o LT side pain from neck to foot. Started 3 days ago. No relief Patient Tobacco Use Status: Current everyday Tobacco user Allergies No Known Allergies Allergy (Verified 03/01/24 10:42) Do you need a note to return to daycare/school/sports/work: No HPI HPI Comments History of Present Illness Details Patient is a 54yo M who presents to office with left sided body pain Pt has pmh of cervical and lumbar postlaminectomy syndrome According to his chart, he saw pain management in 2020 who refused opiate prescribing for pain control He said he was helping his aunt move furniture recently (4 days ago) He has been having ache in L side neck Pt was resting post lifting and taking gabapentin for pain Pain radiation down left side for the last 2-3 days He said constant pain Raising foot/leg makes it feel better Walking makes it worse While at rest, majority of pain is in leg He said neck is still an ache but no new sharp pains Pt states this has been felt this bad before Dr Wall at [facility] (previous surgeon but has been seen in a while) PCP is Karens He denies CP or SOB. Denies abdominal pain No urine or bowel incontinence No saddle parastehias He had CT abdomen/pelvis on 02/14/24 which was unremarkable [facility] Medical History (Updated 03/01/24 @ 11:07 by Tory Oconnor PA-C) Refused influenza vaccine Hip fracture EtOH dependence Vitamin B12 deficiency Smoker GERD (gastroesophageal reflux disease) HTN (hypertension) Rheumatoid arthritis Hydronephrosis concurrent with and due to calculi of kidney and ureter Spinal stenosis, thoracic region Postlaminectomy syndrome, lumbar Postlaminectomy syndrome, cervical Lumbar stenosis with neurogenic claudication History of diabetic ulcer of foot Cervical spondylosis History of alcoholism Erectile disorder due to medical condition in male PTSD (post-traumatic stress disorder) Vitamin D deficiency Diabetes mellitus with diabetic neuropathy, without long-term current use of insulin Dyslipidemia Surgical History Hx of foot surgery History of surgery on lower extremity H/O knee surgery History of carpal tunnel surgery of right wrist Hx of colonoscopy H/O cervical discectomy Status post lumbar spine surgery for decompression of spinal cord Family History Father Essential hypertension Dyslipidemia Cardiovascular disease Substance use disorder Mental health disorder Mother Essential hypertension Dyslipidemia Diabetes mellitus Social History Housing: House Are you a primary administrator health care facility to a significant other at home: No Do you presently have visiting nurse or other home services: No Alcohol intake: former Patient Tobacco Use Status: Current everyday Tobacco user Tobacco use type: Cigarette Cigarette Packs Per Day: 0 Cigarettes Per Day: 10 e-Cigarette/Vaping Use: Never Used Second Hand Smoke Exposure: No Current occupational status: disabled Cognitive needs: No Hearing needs: No Vision needs: Yes Review of Systems Const Denies chills and Denies fever(s) ENT Denies dizziness and Denies nasal discharge Card Denies chest pain, Denies leg edema and Denies dyspnea Resp Denies cough and Denies dyspnea GI Denies abdominal pain and Denies fecal incontinence Denies difficulty urinating and Denies urinary incontinence Musc Reports back pain, Denies numbness, Reports radiating pain into limb and Denies tingling Skin/Breast Denies rash Neuro Denies dizziness, Denies lack of coordination, Denies numbness and Denies tingling Physical Exam Vital Signs: Last Vital Signs Temp 98.4 F 03/01/24 10:43 Pulse 83 03/01/24 10:43 BP 112/68 03/01/24 10:43 Pulse Ox 97 03/01/24 10:43 Oxygen Delivery Method Room Air 03/01/24 10:43 BMI result Body Mass Index 30.0 General: Non-toxic, NAD. Speaking full sentences. Cane in hand. Able to pivot and ambulate between the chair and exam table. Abl to ambulate with cane and steady gait out of office. Skin: Warm dry throughout. No rashes or lesions to face, neck, back or flank Eye: EOMI HENT: Airway patent. Uvula midline. No pharyngeal erythema or edema. No OPTICAL WORKER. Bilateral canals clear. TM non-erythematous, non-bulging. No TM perforation or hemotympanum noted. Respiratory: CTA bilaterally. No wheezes, rales or rhonchi Cardiac: RRR. No murmur MSK: No midline cervical or thoracic tenderness. + tenderness to palpation L trapezius muscle. + midline lumbar point tenderness to L2 region and L lumbar paravertebral muscles. + full ROM of flexion of L leg to abdomen and negative SLR bilaterally. 5/5 strength dorsal and plantar flexion great toe LLE. Neurology: A/O. No aphasia or facial droop. Psych: Good mood and affect Assessment & Plan Assessment & Plan (1) Lumbar radiculopathy: Code(s): M54.16 - Radiculopathy, lumbar region Plan: Patient seen and evaluated. He has had ongoing chronic pain for years. Pt has no warning signs f neurological impairment on exam when testing muscle strength. No red flag pertinent ROS symptoms I referred back to Mae at [facility] (last seen 2020 and last referred by lesly to them in 2020) He refused to see pain control again for follow up We discussed xray imaging but this most likely will show chronic changes and new compression fx would not warrant change in management Discussed gentle stretch as well as cane use to aid with ambulation Dexamethasone (pt does not drink alcohol but no NSAIDs). Monitor sugar Muscle relaxant (+ lethargy, no alcohol or driving and pt aware) We had long discussion on warning signs that warrant ED eval such as urine retention, urine incontinence, saddle parathesias, foot drop, worsening pain etc Patient gave verbal understanding and had no additional questions or concerns at time of discharge All questions answered Orders: Referrals Orthopedics Referral M54.16 - Radiculopathy, lumbar region Medications: New dexamethasone 4 mg PO DAILY 4 tabs 0RF methocarbamol 500 mg PO TID 14 tabs 0RF Coding Level of Care Code Est Pt Level 3 (78288) Diagnoses Lumbar radiculopathy M54.16
[2024-03-01 10:43] VITALS: BP 112/68; PULSE 83; TEMP 36.9; O2SAT 97
== END 2024-03-01 12:08 | disposition home or self-care (01) ==
PROVIDERS: PCP Internal Medicine; Visit Provider Physician Assistant
DX: M54.16 Radiculopathy, lumbar region (principal)
CPT/HCPCS: 99213

== ENCOUNTER 2024-05-08 06:14 | Outpatient (REF) | payer OTHER, SELFPAY ==
[2024-05-08 08:01] LABS: Estimated Average Glucose 111 mg/dL; Hemoglobin A1c % 5.5 % (<6.0); Total Hemoglobin (HGBA1C) 3477.8384 umol/L
[2024-05-08 08:30] LABS: Alanine Aminotransferase 24 U/L (0-40); Anion Gap 8 (12-20); Aspartate Amino Transferase 15 U/L (5-37); Blood Urea Nitrogen 25 mg/dL (9-16); Calcium 9.3 mg/dL (8.4-10.2); Carbon Dioxide 29 mmol/L (22-29); Chloride 105 mmol/L (96-108); Cholesterol 109 mg/dL (<200); Estimated Glomerular Filt Rate > 60; Glucose Fasting 138 mg/dL (60-99); HDL Cholesterol 39 mg/dL (>40); LDL Cholesterol Calculated 38 mg/dL (<100); Potassium 4.1 mmol/L (3.3-5.1); Sodium 138 mmol/L (135-145); Triglycerides 162 mg/dL (<150)
== END 2024-05-08 06:15 | disposition home or self-care (01) ==
LOC: HO.LAB 06:14
PROVIDERS: PCP Internal Medicine; Visit Provider Internal Medicine
DX: I10 Essential (primary) hypertension (principal); E11.40 Type 2 diabetes mellitus with diabetic neuropathy, unspecified; E78.5 Hyperlipidemia, unspecified
CPT/HCPCS: 36415; 80048; 80061; 83036; 84450; 84460

== ENCOUNTER 2024-05-16 10:34 | Outpatient (AMB) | payer OTHER, SELFPAY ==
[2024-05-16 11:13] VITALS: BP 100/60; PULSE 77; O2SAT 97; BMI 29.7
--- NOTE | 2024-05-16 11:13 | MHC.PC.OV ---
Vital Signs 05/16/24 11:13 Height 6 ft 3 in Weight 238 lb BMI 29.7 BP 100/60 Blood Pressure Location Lt brachial Position Sitting Pulse 77 Pulse Source Pulse Oximeter Pulse Oximetry (%) 97 Oxygen Delivery Method Room Air Intake Visit Reasons: 6 month fu Intake Note: Pt is here today for his 6mo. f/u Allergies No Known Allergies Allergy (Verified 05/16/24 11:29) Medication List - Last Reconciled 05/16/24 by Vandana Snowden MD atorvastatin 20 mg PO DAILY 90 days blood sugar diagnostic (FreeStyle Lite Strips) check blood sugar once a day before a meal as directed cholecalciferol (vitamin D3) 50 mcg PO DAILY clonazepam 1 mg PO TID cyanocobalamin (vitamin B-12) 1,000 mcg IM Q4W doxepin 25 mg PO BEDTIME fluoxetine 80 mg PO QAM gabapentin 600 mg PO TID lisinopril 2.5 mg (1/2 x 5 mg) PO DAILY metformin 500 mg PO BIDWMEAL pioglitazone 30 mg PO DAILY syringe with needle, safety (BD Integra Syringe) As directed Tobacco use date assessed: 05/16/24 Dental Screening Dental Screen Date: 05/16/24 Did you have a dental visit in the last 12 months?: No Did you have a dental problem in the last 6 months where you did not have access to dental care?: No Was dental information given to patient?: Patient declined HPI 6 month fu HPI Details 54-year-old male with hyperlipidemia, hypertension, and diabetes mellitus with neuropathy without long-term insulin use, here today for follow-up. Blood pressure stable and controlled on present treatment, as well as fasting lipids as noted on recent labs drawn showed hemoglobin A1c at 5.5%. Patient is up-to-date with his diabetes retinopathy screening. Complaining of neuropathy in both feet. Does not have a podiatry appointment scheduled. Unfortunately continues to smoke cigarettes desire to quit at present time. Scheduled for left hip replacement in 2 days with [facility] Medical History Refused influenza vaccine Hip fracture EtOH dependence Vitamin B12 deficiency Smoker GERD (gastroesophageal reflux disease) HTN (hypertension) Rheumatoid arthritis Hydronephrosis concurrent with and due to calculi of kidney and ureter Spinal stenosis, thoracic region Postlaminectomy syndrome, lumbar Postlaminectomy syndrome, cervical Lumbar stenosis with neurogenic claudication History of diabetic ulcer of foot Cervical spondylosis History of alcoholism Erectile disorder due to medical condition in male PTSD (post-traumatic stress disorder) Vitamin D deficiency Diabetes mellitus with diabetic neuropathy, without long-term current use of insulin Dyslipidemia Surgical History Hx of foot surgery History of surgery on lower extremity H/O knee surgery History of carpal tunnel surgery of right wrist Hx of colonoscopy H/O cervical discectomy Status post lumbar spine surgery for decompression of spinal cord Family History Father Essential hypertension Dyslipidemia Cardiovascular disease Substance use disorder Mental health disorder Mother Essential hypertension Dyslipidemia Diabetes mellitus Social History Housing: House Are you a primary daytime caregiver to a significant other at home: No Do you presently have visiting nurse or other home services: No Alcohol intake: former Patient Tobacco Use Status: Current everyday Tobacco user Tobacco use type: Cigarette Cigarette Packs Per Day: 0 Cigarettes Per Day: 10 e-Cigarette/Vaping Use: Never Used Second Hand Smoke Exposure: No Current occupational status: disabled Cognitive needs: No Hearing needs: No Vision needs: Yes Questionnaire Thrive Questionnaire Date Thrive assessed: 11/15/23 HUSSAIN-7 AMB Questionnaire HUSSAIN-7 Date HUSSAIN - 7 assessed: 11/15/23 Source: Developed by Drs. Isaac Adams, Marian Tamez, Frank He and colleagues, with an educational kylah from [employer]. Review of Systems Const Denies chills and Denies fever(s) Eyes Details: Goes to [facility] eye care for his diabetes retinopathy screening and routine eye exam ENT Denies dizziness and Denies nasal discharge Card Denies chest pain, Denies leg edema and Denies dyspnea Resp Denies cough and Denies dyspnea GI Denies abdominal pain and Denies fecal incontinence Denies difficulty urinating and Denies urinary incontinence Musc Reports back pain, Denies numbness, Reports radiating pain into limb and Denies tingling Skin/Breast Denies rash Neuro Denies dizziness, Denies lack of coordination, Denies numbness and Denies tingling Psych Reports no additional complaints Endo Reports no additional complaints Dat/Lymph Reports no additional complaints Aller/Immun Reports no additional complaints Physical exam (Primary Care) Vital Signs: Last Vital Signs Pulse 77 05/16/24 11:13 BP 100/60 05/16/24 11:13 Pulse Ox 97 05/16/24 11:13 Oxygen Delivery Method Room Air 05/16/24 11:13 BMI result Body Mass Index 29.7 Tobacco/Smoking Status: Tobacco use Status Tobacco use date assessed 05/16/24 05/16/24 11:19 Patient Tobacco Use Status Current everyday Tobacco 05/16/24 11:19 Tobacco use type Cigarette 05/16/24 11:19 e-Cigarette/Vaping Use Never Used 05/16/24 11:19 Thrive Assessment: Date of Thrive Assessment Date Thrive assessed 11/15/23 05/16/24 11:19 Results Reviewed Results Reviewed: Laboratory Tests 10/27/23 05/08/24 07:03 06:24 Estimat Average Glucose 111 Hemoglobin A1c % 5.5 Urine Creatinine 126.90 Urine Microalbumin 34.0 Microalb/Creat Ratio 26.7 Name: Som Caballero Age/Sex: 54/M : 1970 Unit#: [id number] Attend Dr: Vandana Snowden MD Re05/08/24 Status: DEP [facility] Disch: SPEC : [id number] ANGIE: 05/08/24 STATUS: COMP REQ : [id number] RECD: 05/08/[address]: Vandana Snowden MD COMP: 05/08/24 ENTERED: 05/08/[address] [facility] [address]: ORDERED: Met Prof Fast, AST, ALT, Lipid Panel Test Result Flag Reference Sodium 138 135-145 mmol/L Potassium 4.1 3.3-5.1 mmol/L CL 105 96-108 mmol/L CO2 29 22-29 mmol/L Gap 8 L 12-20 BUN 25 H 9-16 mg/dL Creat 1.03 0.5-1.4 mg/dL EGFR > 60 NOTE: For -Serbian individuals, multiply the result by 1.210. Chronic Kidney Disease: Estimated GFR < 60 mL/min/1.73m2 Severe Kidney Disease: Estimated GFR < 15 mL/min/1.73m2 FBS 138 H 60-99 mg/dL A fasting glucose of 126 mg/dl or greater on more than one occasion is considered diagnostic of diabetes. CA 9.3 8.4-10.2 mg/dL AST (GOT) 15 5-37 U/L ALT (GPT) 24 0-40 U/L Triglyceride 162 H <150 mg/dL Desirable Triglyceride: less than 150 mg/dL Borderline High Triglyceride 150-199 mg/dL High Triglyceride: 200-499 mg/dL Very High Triglyceride: greater than or equal to 5OO mg/dL Cholesterol 109 <200 mg/dL Desirable Cholesterol: less than 200 mg/dL Borderline High Cholesterol: 200-239 mg/dL High Cholesterol: greater than 239 mg/dL LDL Calculated 38 <100 mg/dL Desirable LDL: less than 100 mg/dL Near Optimal/Above Optimal LDL: 110-129 mg/dL Borderline High LDL: 130-159 mg/dL High LDL: 160-189 mg/dL Very High LDL: greater than or equal to 190 mg/dL HDL 39 L >40 mg/dL Desirable HDL: greater than 40 mg/dL Note: This HDL assay may give artificially low results in patients with liver disease. Coding Level of Care Code Est Pt Level 4 (79624) Complex EM visit Add On G2211 Diagnoses Primary hypertension I10 Hypertension type: primary hypertension Diabetes mellitus with diabetic neuropathy, without long-term current use of insulin E11.40 Dyslipidemia E78.5 Refused influenza vaccine Z28.21 Assessment & Plan Assessment & Plan (1) HTN (hypertension): Code(s): I10 - Essential (primary) hypertension Category: Medical Qualifiers: Hypertension type: primary hypertension Qualified Code(s): I10 - Essential (primary) hypertension Plan: Blood pressure at goal of less than 130/80. Continue with current medication. Reinforced importance of following a low sodium diet, getting regular exercise, and lowering stress levels. (2) Diabetes mellitus with diabetic neuropathy, without long-term current use of insulin: Code(s): E11.40 - Type 2 diabetes mellitus with diabetic neuropathy, unspecified Category: Medical Plan: Good control diabetes mellitus, with hemoglobin A1c at 5.5%. Continued on pioglitazone, metformin at the same dose. Referral to podiatry ordered for his routine foot exam (3) Dyslipidemia: Code(s): E78.5 - Hyperlipidemia, unspecified Category: Medical Plan: Reviewed recent fasting lipid profile with patient with levels within normal limits except for mildly elevated triglycerides . Continue atorvastatin 20 mg daily , in addition to adherence to low-cholesterol diet and regular exercise, at least 30 minutes 3 to 4 times a week. Advised patient to make healthy food choices, eat more fruits, vegetables, whole grains, wild caught fish and low-fat dairy. Limit amount of meat and fried or fatty food products, as well as processed foods and fast foods. Follow-up scheduled with repeat fasting lipid panel in 6 months. (4) Refused influenza vaccine: Code(s): Z28.21 - Immunization not carried out because of patient refusal Category: Medical Plan: Refused flu vaccine Orders: Orders Hemoglobin A1c 10/31/24 E11.40 - Type 2 diabetes mellitus with diabetic neuropathy, unspecified, E53.8 - Deficiency of other specified B group vitamins, E78.5 - Hyperlipidemia, unspecified, I10 - Essential (primary) hypertension, Z28.21 - Immunization not carried out because of patient refusal Alanine Aminotransferase 10/31/24 E11.40 - Type 2 diabetes mellitus with diabetic neuropathy, unspecified, E53.8 - Deficiency of other specified B group vitamins, E78.5 - Hyperlipidemia, unspecified, I10 - Essential (primary) hypertension, Z28.21 - Immunization not carried out because of patient refusal Aspartate Amino Transferase 10/31/24 E11.40 - Type 2 diabetes mellitus with diabetic neuropathy, unspecified, E53.8 - Deficiency of other specified B group vitamins, E78.5 - Hyperlipidemia, unspecified, I10 - Essential (primary) hypertension, Z28.21 - Immunization not carried out because of patient refusal Microalbumin, Random (w Creat) 10/31/24 E11.40 - Type 2 diabetes mellitus with diabetic neuropathy, unspecified, E53.8 - Deficiency of other specified B group vitamins, E78.5 - Hyperlipidemia, unspecified, I10 - Essential (primary) hypertension, Z28.21 - Immunization not carried out because of patient refusal Basic Metabolic Panel Fasting 10/31/24 E11.40 - Type 2 diabetes mellitus with diabetic neuropathy, unspecified, E53.8 - Deficiency of other specified B group vitamins, E78.5 - Hyperlipidemia, unspecified, I10 - Essential (primary) hypertension, Z28.21 - Immunization not carried out because of patient refusal Lipid Panel 10/31/24 E11.40 - Type 2 diabetes mellitus with diabetic neuropathy, unspecified, E53.8 - Deficiency of other specified B group vitamins, E78.5 - Hyperlipidemia, unspecified, I10 - Essential (primary) hypertension, Z28.21 - Immunization not carried out because of patient refusal Vitamin D 25-OH Total 10/31/24 E11.40 - Type 2 diabetes mellitus with diabetic neuropathy, unspecified, E53.8 - Deficiency of other specified B group vitamins, E78.5 - Hyperlipidemia, unspecified, I10 - Essential (primary) hypertension, Z28.21 - Immunization not carried out because of patient refusal Vitamin B12 and Folate 10/31/24 E11.40 - Type 2 diabetes mellitus with diabetic neuropathy, unspecified, E53.8 - Deficiency of other specified B group vitamins, E78.5 - Hyperlipidemia, unspecified, I10 - Essential (primary) hypertension, Z28.21 - Immunization not carried out because of patient refusal Referrals Podiatry Referral E11.40 - Type 2 diabetes mellitus with diabetic neuropathy, unspecified
== END 2024-05-16 11:40 | disposition home or self-care (01) ==
PROVIDERS: PCP Internal Medicine; Visit Provider Internal Medicine
DX: I10 Essential (primary) hypertension (principal); E11.40 Type 2 diabetes mellitus with diabetic neuropathy, unspecified; E78.5 Hyperlipidemia, unspecified; Z28.21 Immunization not carried out because of patient refusal

== ENCOUNTER → 2024-05-16 10:34 | Outpatient (BNVA) | payer OTHER, SELFPAY | PROVIDERS: PCP Internal Medicine; Visit Provider Internal Medicine | DX: I10 Essential (primary) hypertension (principal); E78.5 Hyperlipidemia, unspecified; Z28.21 Immunization not carried out because of patient refusal; E11.40 Type 2 diabetes mellitus with diabetic neuropathy, unspecified | CPT/HCPCS: 99212 ==

== ENCOUNTER 2024-07-31 14:12 | Outpatient (AMB) | payer OTHER, SELFPAY ==
--- OUTSIDE RECORDS SUMMARY | 2024-07-31 14:14 | XMS_ITS ---
Author Organization [facility] Address [address] [place] [address] Care Team Providers Care Prototype Fabricator Name Role Phone Sp BAUER, Vandana Primary Care Provider Maryellen Bower Jr, Chuck Unavailable REASON FOR VISIT labs Encounters Encounter Location Date Provider Diagnosis [facility] [address] [place] [address] 01/27/2024 Chuck Bower Jr PLAN OF TREATMENT Next Appt Details Provider Name:Chuck caba Jr, 12/20/2024 09:00:00 AM, [address], [address], [place], [address],
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
--- OUTSIDE RECORDS SUMMARY | 2024-07-31 14:14 | XMS_ITS ---
Author Organization [facility] Address [address] [place] [address] Care Team Providers Care Network Operations Analyst Name Role Phone Sp BAUER, Vandana Primary Care Provider Maryellen Bower Jr, Chuck Unavailable REASON FOR VISIT hep c Encounters Encounter Location Date Provider Diagnosis [facility] [address] [place] [address] 04/10/2024 Chuck Bower Jr PLAN OF TREATMENT Next Appt Details Provider Name:Chuck caba Jr, 12/20/2024 09:00:00 AM, [address], [address], [place], [address],
--- OUTSIDE RECORDS SUMMARY | 2024-07-31 14:14 | XMS_ITS ---
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 Encounters Encounter Location Date Provider Diagnosis [facility] [address] [place] [address] 02/16/2024 Chuck Bower Jr PLAN OF TREATMENT Next Appt Details Provider Name:Chuck caba Jr, 12/20/2024 09:00:00 AM, [address], [address], [place], [address],
--- NOTE | 2024-07-31 14:40 | AM.OFFWIN_ITS ---
Intake Vital Signs 07/31/24 14:41 Weight 250 lb BP 122/80 Blood Pressure Location Rt brachial Position Sitting Pulse 68 Pulse Source Pulse Oximeter Pulse Oximetry (%) 98 Oxygen Delivery Method Room Air Intake Visit Reasons: EP-lt side cyst on the neck Intake Note: Patient here for cyst on left side of neck that has been present for a couple of weeks. Patient Tobacco Use Status: Current everyday Tobacco user Allergies No Known Allergies Allergy (Verified 07/31/24 14:41) HPI HPI Comments History of Present Illness Details History of Present Illness - The patient is a 54-year-old male pres enting with a painful skin lesion on the face. - The lesion was first noted three weeks ago and has remained unchanged. - The patient has attempted mechanical e xpression of the lesion without success. - A history of prolonged occupational ex posure to potentially harmful substances and a smoking habit has been noted. Physical Exam General: Cooperative, healthy appearing, comfortable, no acute distress and well developed Orientation: Patient oriented x3 Limitations: No limitations Head: Normal to inspection Ears: Hearing grossly normal bilaterally Nose: Normal external nose present Face and sinus: Normal facial exam Eyes: Appearance normal, both eyes and all related structures Neck: Normal visual inspection and Yes full ROM Respiratory: Normal respiratory effort and able to speak in complete sentences. Skin: raised 0.5 flesh colored lesion with central umbilication present left side of neck, no rashes noted Neuro: Patient oriented x3 Extremities: Normal to inspection [facility] Medical History Refused influenza vaccine Hip fracture EtOH dependence Vitamin B12 deficiency Smoker GERD (gastroesophageal reflux disease) HTN (hypertension) Rheumatoid arthritis Hydronephrosis concurrent with and due to calculi of kidney and ureter Spinal stenosis, thoracic region Postlaminectomy syndrome, lumbar Postlaminectomy syndrome, cervical Lumbar stenosis with neurogenic claudication History of diabetic ulcer of foot Cervical spondylosis History of alcoholism Erectile disorder due to medical condition in male PTSD (post-traumatic stress disorder) Vitamin D deficiency Diabetes mellitus with diabetic neuropathy, without long-term current use of insulin Dyslipidemia Surgical History Hx of foot surgery History of surgery on lower extremity H/O knee surgery History of carpal tunnel surgery of right wrist Hx of colonoscopy H/O cervical discectomy Status post lumbar spine surgery for decompression of spinal cord Family History Father Essential hypertension Dyslipidemia Cardiovascular disease Substance use disorder Mental health disorder Mother Essential hypertension Dyslipidemia Diabetes mellitus Social History Housing: House Are you a primary personal care home administrator to a significant other at home: No Do you presently have visiting nurse or other home services: No Alcohol intake: former Patient Tobacco Use Status: Current everyday Tobacco user Tobacco use type: Cigarette Cigarette Packs Per Day: 0 Cigarettes Per Day: 10 e-Cigarette/Vaping Use: Never Used Second Hand Smoke Exposure: No Current occupational status: disabled Cognitive needs: No Hearing needs: No Vision needs: Yes Review of Systems Const All systems reviewed & are unremarkable except as noted in HPI and below Physical Exam Vital Signs: Last Vital Signs Pulse 68 07/31/24 14:41 BP 122/80 07/31/24 14:41 Pulse Ox 98 07/31/24 14:41 Oxygen Delivery Method Room Air 07/31/24 14:41 Assessment & Plan Assessment & Plan (1) Wart: Code(s): B07.9 - Viral wart, unspecified Qualifiers: Viral wart type: unspecified viral wart Qualified Code(s): B07.9 - Viral wart, unspecified Plan: For the cutaneous wart, I recommended an [id number] wart removal treatment, emphasizing using a pen applicator for targeted application. Should the condition not resolve with this approach, the patient may need to see a bridge inspector for further management. Patient was informed and verbally consented to the use of an ambient scribe for clinic note documentation during this visit. Coding Level of Care Code Est Pt Level 3 (36236) Diagnoses Viral warts, unspecified type B07.9 Viral wart type: unspecified viral wart
[2024-07-31 14:41] VITALS: BP 122/80; PULSE 68; O2SAT 98
== END 2024-07-31 15:03 | disposition home or self-care (01) ==
PROVIDERS: PCP Internal Medicine; Visit Provider Physician Assistant
DX: B07.9 Viral wart, unspecified (principal)

== ENCOUNTER 2024-10-23 11:45 | Outpatient (AMB) | payer OTHER, SELFPAY ==
[2024-10-23 13:15] VITALS: BP 124/82; PULSE 65; O2SAT 98
--- NOTE | 2024-10-23 13:15 | AM.OFFWIN_ITS ---
Intake Vital Signs 3 10/23/24 13:15 Weight 264 lb 8 oz BP 124/82 Blood Pressure Location Rt brachial Position Sitting Pulse 65 Pulse Source Pulse Oximeter Pulse Oximetry (%) 98 Oxygen Delivery Method Room Air Intake Visit Reasons: EP cyst/skin tag? lt side of neck Intake Note: Patient here for skin tag under neck Patient Tobacco Use Status: Current everyday Tobacco user Allergies No Known Allergies Allergy (Verified 10/23/24 13:25) Do you need a note to return to daycare/school/sports/work: No HPI HPI Comments 2 History of Present Illness0 Details 54 y/o male patient who presents to the walk in clinic with c/o a small lesion left front Neck, that has been there for months now. He was seen here at the Walk in clinic back in 07/2024 and was told probably it was a Wart . He has been using OTC Wart removal remedied with no relief. [facility] Medical History (Updated 10/23/24 @ 14:11 by Yudi Rubio NP) Skin lesion of neck Refused influenza vaccine Hip fracture EtOH dependence Vitamin B12 deficiency Smoker GERD (gastroesophageal reflux disease) HTN (hypertension) Rheumatoid arthritis Hydronephrosis concurrent with and due to calculi of kidney and ureter Spinal stenosis, thoracic region Postlaminectomy syndrome, lumbar Postlaminectomy syndrome, cervical Lumbar stenosis with neurogenic claudication History of diabetic ulcer of foot Cervical spondylosis History of alcoholism Erectile disorder due to medical condition in male PTSD (post-traumatic stress disorder) Vitamin D deficiency Diabetes mellitus with diabetic neuropathy, without long-term current use of insulin Dyslipidemia Surgical History Hx of foot surgery History of surgery on lower extremity H/O knee surgery History of carpal tunnel surgery of right wrist Hx of colonoscopy H/O cervical discectomy Status post lumbar spine surgery for decompression of spinal cord Family History Father Essential hypertension Dyslipidemia Cardiovascular disease Substance use disorder Mental health disorder Mother Essential hypertension Dyslipidemia Diabetes mellitus Social History Housing: House Are you a primary home care manager rn to a significant other at home: No Do you presently have visiting nurse or other home services: No Alcohol intake: former Patient Tobacco Use Status: Current everyday Tobacco user Tobacco use type: Cigarette Cigarette Packs Per Day: 0 Cigarettes Per Day: 10 e-Cigarette/Vaping Use: Never Used Second Hand Smoke Exposure: No Current occupational status: disabled Cognitive needs: No Hearing needs: No Vision needs: Yes Physical Exam Vital Signs: Last Vital Signs Pulse 65 10/23/24 13:15 BP 124/82 10/23/24 13:15 Pulse Ox 98 10/23/24 13:15 Oxygen Delivery Method Room Air 10/23/24 13:15 Const General: no acute distress Nutritional Appearance: obese Orientation/consciousness: patient oriented x3 Neck Neck images: 2 1. Small raised firm soft lesion ~ 0.5 cm x 0.5 cm , erythema. Neuro General: patient oriented x3, gait normal and moves all extremities Psych Speech and movement: Normal speech and movement present Assessment & Plan Assessment & Plan (1) Skin lesion of neck: Code(s): L98.9 - Disorder of the skin and subcutaneous tissue, unspecified Plan: Referral to Derm Dr. Gutierrez placed and Faxed. Provided Phone number to Patient to call and self schedule. DDX: Squamous Cell CA vs Basal Cell CA Orders: Referrals 2 Dermatology Referral L98.9 - Disorder of the skin and subcutaneous tissue, unspecified Coding Level of Care Code Est Pt Level 4 (42662) Diagnoses Skin lesion of neck L98.9 Time Spent (min) 20
== END 2024-10-23 14:02 | disposition home or self-care (01) ==
PROVIDERS: PCP Internal Medicine; Visit Provider Nurse Practitioner Family
DX: L98.9 Disorder of the skin and subcutaneous tissue, unspecified (principal)

== ENCOUNTER → 2024-10-23 11:45 | Outpatient (BNVA) | payer OTHER, SELFPAY | PROVIDERS: PCP Internal Medicine; Visit Provider Nurse Practitioner Family | DX: L98.9 Disorder of the skin and subcutaneous tissue, unspecified (principal) | CPT/HCPCS: 99212 ==

== ENCOUNTER 2024-11-10 07:06 | Outpatient (REF) | payer OTHER, SELFPAY ==
--- OUTSIDE RECORDS SUMMARY | 2024-11-10 07:08 | XMS_ITS | Clinical Summary ---
Author Organization [facility] Address [address] [place] [address] Phone Care Team Providers Care Web Operations Administrator Name Role Phone Vandana Snowden MD Primary Care Provider Allergies No known active allergies Encounters Date Type Department Care Team Description 09/18/2024 9:45 AM EST Office Visit [facility] [address] [phone] Eddie Bryant, DPM Type 2 diabetes mellitus with diabetic neuropathy, without long-term current use of insulin (CMS/[facility] V24, CMS/HCC V28) (Primary Dx); History of osteomyelitis; Hammertoes of both feet; Ulcer of toe of left foot, with fat layer exposed (CMS/HCC V24, CMS/[facility] V28) from Last 3 Months Social History Tobacco Use Types Packs/Day Years Used Date Smoking Tobacco: Never Assessed Sex and Gender Information Value Date Recorded Sex Assigned at Not on file Legal Sex Male 6:41 AM EST Gender Identity Not on file Sexual Orientation Not on file Last Filed Vital Signs Vital Sign Reading Time Taken Comments Blood Pressure - - Pulse - - Temperature - - Respiratory Rate - - Oxygen Saturation - - Inhaled Oxygen Concentration - - Weight 111 kg (245 lb) 09/18/2024 9:31 AM EST Height 190.5 cm (6' 3 ) 09/18/2024 9:31 AM EST Body Mass Index 30.62 09/18/2024 9:31 AM EST Plan of Treatment Upcoming Encounters Date Type Department Care Team ([facility] st Contact Info) Description 12/05/2024 8:30 AM EDT Office Visit [facility] [address] [phone] Eddie Bryant, DPM [facility] [address] [place] [address] Health Maintenance Due Date Last Done Comments Diabetes: Annual GFR (Glomerular Filtration Rate) 1971 Diabetes: Annual Foot Exam 1981 Diabetes: Annual Retina Eye Exam 1981 Hepatitis B Vaccines (1 of 3 - 19+ 3-dose series) 1990 Pneumococcal Vaccine: 50+ Years (2 of 2 - PCV) 11/30/2017 11/30/2016, 06/14/2007 Pneumococcal Vaccine: Pediatrics (0 to 5 Years) and At-Risk Patients (6 to 64 Years) (2 of 2 - PCV) 11/30/2017 11/30/2016, 06/14/2007 Zoster Vaccines (1 of 2) 2021 COVID-19 Vaccine ( - 2023-2 5 season) 2024 11/22/2020, 10/31/2020 Cholesterol Screening (Lipid Panel) 05/26/2024 Colorectal Cancer Screening: Colonoscopy 05/26/2024 Depression Screening 05/26/2024 HIV Screening 05/26/2024 Hepatitis C Screening 05/26/2024 Social Influencers of Health Screening 05/26/2024 Diabetes: Annual Urine Albumin-Creatinine Ratio (uACR) 07/10/2024 Diabetes: Blood Sugar Contro l Test (HGBA1C) 07/10/2024 Hypertension/CHF/CAD Annual BMP Blood Test 09/18/2024 Influenza Vaccine (Season Ended) 2025 06/14/2007 DTaP,Tdap,and Td Vaccines (2 - Td or Tdap) 02/03/2027 02/03/2017 HIB Vaccines Aged Out No longer eligi ble based on patient's age to complete this topic HPV Vaccines Aged Out No longer eligi ble based on patient's age to complete this topic Hepatitis A Vaccines Aged Out No long er eligible based on patient's age to complete this topic IPV Vaccines Aged Out No longer eligi ble based on patient's age to complete this topic MMR Vaccines Aged Out No longer eligi ble based on patient's age to complete this topic Meningococcal ACWY Vaccine Aged Out N o longer eligible based on patient's age to complete this topic Meningococcal B Vaccine Aged Out No l onger eligible based on patient's age to complete this topic RSV Immunization Patients Under 20 months Aged Out No longer eligible b ased on patient's age to complete this topic Varicella Vaccines Aged Out No longer eligible based on patient's age to complete this topic Insurance [facility] Care Teams Web Operations Administrator Relationship Specialty Start Date End Date Vandana Snowden MD [address] [place] [address] PCP - General Internal Medicine 06/01/24
--- OUTSIDE RECORDS SUMMARY | 2024-11-10 07:08 | XMS_ITS ---
Author Organization [facility] Address [address] [place] [address] Care Team Providers Care Family Nurse Practitioner Name Role Phone Sp BAUER, Vandana Primary Care Provider Maryellen Bower Jr, Chuck Unavailable REASON FOR VISIT labs Encounters Encounter Location Date Provider Diagnosis [facility] [address] [place] [address] 01/27/2024 Chuck Bower Jr Plan Of Treatment Next Appt Details Provider Name:Chuck caba Jr, 12/20/2024 09:00:00 AM, [address] [facility], [address], [place], [address], Progress Notes * SONJA GUZMÁNDOB:1970 ( 53 yo M)Acc No.[id number]:01/27/2024 Patient:?SONJA ZALDIVAR :1970???Age:53 Y???Sex:Male Address:[address] [place] [address] [place] [address] * true * Date:? Generated for Printi ng/Faadeleg/eTransmitting on:?11/10/2024 07:07 AM EDT
--- OUTSIDE RECORDS SUMMARY | 2024-11-10 07:08 | XMS_ITS ---
Author Organization [facility] Address [address] [place] [address] Care Team Providers Care Vender Name Role Phone Sp BAUER, Vandana Primary Care Provider Maryellen Bower Jr, Chuck Unavailable [phone] REASON FOR VISIT hep c Encounters Encounter Location Date Provider Diagnosis [facility] [address] [facility] [address] [place] [phone] 04/10/2024 Chuck Bower Jr Plan Of Treatment Next Appt Details Provider Name:Chuck caba Jr, 12/20/2024 09:00:00 AM, [address] [facility], [address], [place], [address], Progress Notes * SONJA ZALDIVARDOB:1970 ( 54 yo M)Acc No.[id number]:04/10/2024 Progress Notes Patient:?SONJA ZALDIVAR Provider:?Chuck Bower MD :1970???Age:54 Y???Sex:Male Rufino e:04/10/2024 Address:[address] [place], [place] [phone] Pcp:Vandana Snowden MD Subjective: * Chief Complaints: * ???1. Hep c. * Medical History:? Objective: * Vitals:? Assessment: Plan: * Treatment: * * The named appointment provid er may or may not be the originator of this progress note, and it is not deemed complete until electronically signed by the appointment provider. Sign off status: Pending * Provider:?Chuck Bower MD Date:?0 04/10/2024 Generated for Mahesh swift/Dylan/Hadleyitting on:?11/10/2024 07:08 AM EDT
--- OUTSIDE RECORDS SUMMARY | 2024-11-10 07:08 | XMS_ITS | Patient Health Record ---
Author Organization [facility] Address [address] [place] [address] Care Team Providers Care Risk Consulting Treasury Director Name Role Phone Sp BAUER, Vandana Primary Care Provider Chuck Mays Jr Unavailable Allergies No Known Allergies Results Component Value Reference Range Notes GI PANEL Reviewed date:12/22/2023 07:33:13 AM Interpretation: Performing Lab:[facility], [address] [place] [phone] Notes/Report: Campylobacter Not Detected Not Detect. Plesiomonas [...] is performed by Multiplexed PCR, utilizing the Kilopass Array. Complete Blood Count Auto Di ff Reviewed date:12/22/2023 07:33:35 AM Interpretation: Performing Lab:[facility], [address] [place] [phone] Notes/Report: White Blood Count 8.7 4.8-10.8 X10*3/uL [...] 0.0-0.2 /100WBC Neutrophils Absolute Auto 6.1 2.0-8.3 x10*3/uL Imm Gran Abs Auto 0.03 0.00-0.03 X10*3/uL Lymphocytes Absolute Auto 1.9 1.2-4.9 X10*3/uL Monocytes Absolute Auto 0.6 0.1-1.2 X10*3/uL Eosinophils Absolute Auto 0.1 0.0-0.4 X10*3/uL Basophils Absolute Auto 0.1 0.0-0.2 X10*3/uL NRBC Abs Auto 0.000 0.0-0.012 X10*3/uL Liver Panel Reviewed date:12/22/2023 07:28:14 AM Interpretation: Performing Lab:[address] [address] Notes/Report: Bilirubin Total 0.5 0.0-1.0 mg/dL Bilirubin Direct 0.2 0.0-0.5 mg/dL Aspartate Amino Transferase 20 5-37 U/L Alanine Aminotransferase 20 0-40 U/L Total Protein 7.1 6.5-8.0 g/dL Albumin Level 4.2 3.5-5.0 g/dL Alkaline Phosphatase 119 39-117 U/L Blood Urea Nitrogen Reviewed date:12/22/2023 07:28:07 AM Interpretation: Performing Lab:[facility], [address] [place] [phone] Notes/Report: Blood Urea Nitrogen 15 9-16 mg/dL Creatinine Reviewed date:12/22/2023 07:27:58 AM Interpretation: Performing Lab:[address] [phone] Notes/Report: Creatinine 0.80 0.5-1.4 mg/dL Estimated Glomerular Filt Rate > 60 NOTE: For -Chinese individuals, multiply the result by 1.210. Chronic Kidney Disease: Estimated GFR < 60 mL/min/1.73m2 Severe Kidney Disease: Estimated GFR < 15 mL/min/1.73m2 Lipase Reviewed date:12/22/2023 07:27:51 AM Interpretation: Performing Lab:[address] [address] Notes/Report: Lipase 37 8-78 U/L Leukocytes Stool Qualitative Reviewed date:12/22/2023 07:33:22 AM Interpretation: Performing Lab:[address] [address] Notes/Report: Leukocytes Stool Qualitative NEGATIVE NEGATIVE Ova and Parasite Reviewed date:12/29/2023 08:41:18 AM Interpretation: Performing Lab:[facility], [address] [place] [phone] Notes/Report: Ova and Parasite SEE NOTE OVA AND PARASITES, CONC AND PERM SMEAR Micro Number: [id number] Test Status: Final Specimen Source: Stool Specimen [...] infection. For additional information, please refer to [email or web address] (This link is being provided for informational/ educational purposes only.) THIS TEST WAS PERFORMED AT: [facility] [address] [place] [phone] ANITA METZGER MD Complete Blood Count no Diff Reviewed date:01/20/2024 11:11:45 AM Interpretation: Performing Lab:[facility], [address] [place] [phone] Notes/Report: White Blood Count 7.4 4.8-10.8 X10*3/uL [...] Panel Reviewed date:01/20/2024 11:11:38 AM Interpretation: Performing Lab:[facility], [address] [place] [phone] Notes/Report: Bilirubin Total 0.2 0.0-1.0 mg/dL Bilirubin Direct < 0.2 0.0-0.5 mg/dL Aspartate Amino Transferase 18 5-37 U/L Alanine Aminotransferase 16 0-40 U/L Total Protein 6.8 6.5-8.0 g/dL Albumin Level 4.0 3.5-5.0 g/dL Alkaline Phosphatase 117 39-117 U/L Blood Urea Nitrogen Reviewed date:01/20/2024 11:11:25 AM Interpretation: Performing Lab:[address] [address] Notes/Report: Blood Urea Nitrogen 13 9-16 mg/dL Creatinine Reviewed date:01/20/2024 11:11:33 AM Interpretation: Performing Lab:[address] [address] Notes/Report: Creatinine 0.85 0.5-1.4 mg/dL Estimated Glomerular Filt Rate > 60 NOTE: For -Chinese individuals, multiply the result by 1.210. Chronic Kidney Disease: Estimated GFR < 60 mL/min/1.73m2 Severe Kidney Disease: Estimated GFR < 15 mL/min/1.73m2 Lipase Reviewed date:01/20/2024 11:12:02 AM Interpretation: Performing Lab:[facility], [address] [place] [phone] Notes/Report: Lipase 119 8-78 U/L Leukocytes Stool Qualitative Reviewed date:01/27/2024 08:16:43 AM Interpretation: Performing Lab:[address] [phone] Notes/Report: Leukocytes Stool Qualitative NEGATIVE NEGATIVE Leukocytes Stool Qualitative NEGATIVE NEGATIVE C ORRECTED REPORT C ORRECTED REPORT Ova and Parasite Reviewed date:02/02/2024 08:13:53 AM Interpretation: Performing Lab:[facility], [address] [place] [phone] Notes/Report: Ova and Parasite SEE NOTE OVA AND PARASITES, CONC AND PERM SMEAR Micro Number: [id number] Test Status: Final Specimen Source: Stool Specimen [...] infection. For additional information, please refer to [email or web address]/faq/F [email or web address] (This link is being provided for informational/ educational purposes only.) THIS TEST WAS PERFORMED AT: [facility] [address] [phone] ADAIR RICO MD GI PANEL Reviewed date:01/27/2024 08:16:36 AM Interpretation: Performing Lab:[facility], [address] [place] [phone] Notes/Report: Campylobacter Not Detected Not Detect. Plesiomonas [...] is performed by Multiplexed PCR, utilizing the Kilopass Array. CT abdomen pelvis w con Reviewed date:02/17/2024 10:14:48 PM Interpretation: Performing Lab: Notes/Report: [place] [address] [address] Scan Report Signed Patient: Sonja Caballero MR#: [id number] 6 : 1970 Acct:[id number] Age/Sex: 54 / M ADM Date: 02/14/24 Loc: HO.CT Attending Dr: Chuck Bower MD Ordering Physician: Chuck Bower MD Date of Service: 02/14/24 Procedure(s): CT abdomen pelvis w IV con Accession Number(s): [id number] cc: Chuck Bower MD EXAMINATION: CT ABDOMEN [...] in OV> 02/17/24 1325 DD/ 1550 TD/TT: Drug Discovery Informatics Specialist: [place] [address] CT Scan Report Signed Patient: Sonja Caballero MR#: [id number] 6 : 1970 Acct:[id number] Age/Sex: 54 / M ADM Date: 02/14/24 Loc: HO.CT Attending Dr: Rasheed Bower MD Ordering Physician: Chuck Bower MD Date of Service: 02/14/24 Procedure(s): CT abdomen pelvis w IV con Accession Number(s): [id number] cc: Chuck Bower MD EXAMINATION: CT ABDOMEN AND PELVI S WITH CONTRAST CLINICAL INFORMATION: abd pain, diarrhea COMPARISON: CT abdomen/pelvis 07/14/2021 TECHNIQUE: Multidetector volumetric images were obtained from the superior aspect of the liver through the pubic symphysis following administration 85 mL of Omnipaque 350 intravenous contrast. Sagittal and coronal reformatted images were obtained on the technologist's workstation. Oral contrast: No This CT examination was performed using dose optimization techniques as appropriate, various ly including the following: *Automated exposure control *Adjustment of mA and/or kV according to patient size (this includes techniques or standardized protocols for targeted exams where dose is matched to indication/reason for exam; i.e. extremities or head) *Use of iterative reconstruction technique DLP: 660 mGy-cm FINDINGS: LUNG BASES: Dependen t bilateral atelectasis. No pleural effusion. Normal-sized heart w ith small posterior pericardial effusion. Mild coronary arterial calcifications. LIVER, GALLBLADDER, AND BILIARY TREE: The liver is normal in size, shape, and attenuati on. No focal hepatic lesion or biliary ductal dilatation is presen t. The gallbladder is unremarkable with no evidence of radiopaque gallstones, gallbladder wall thickening, or obvious pericholecystic inflammatory changes. PANCREAS: Unremarkable. SPLEEN: Unremarkable. ADRENAL GLANDS: Unremarkable. KIDNEYS AND URETERS: The kidneys are normal in size, shape, and attenuation. No hydronephrosis, hydroureter, or calculi seen. No perinephric stranding. BLADDER: Unremarkable. GASTROINTESTINAL TRA CT: The small and large bowel are nondilated. Normal appendix. ABDOMINAL WALL: No bowel containing hernia is appreciated. LYMPH NODES: Normal. VASCULAR: The abdomi nal aorta is nonaneurysmal with minimal scattered atheromatous complications. There is an isolated left splenorenal varix, unchanged fro m 2020. PELVIC VISCERA: Norm al CT appearance of the prostate and seminal vesicles. OSSEOUS STRUCTURES: No acute or suspicious osseous abnormality. Mild multilevel thoracal lumbar spondylosis. CT/CT abdomen pelvis w IV con IMPRESSION: No acute abdominopel roberto pathology. Fleischner guideline s were followed. Dictated By: Kenya Gil Signed By: <Electronically signed by Kenya Gil in OV> 02/17/24 1325 DD/ 1550 TD/TT: Drug Discovery Informatics Specialist: Reason For Referral No Information Medications Medication SIG (Take, Route, Frequency, Duration) Notes [...] tablet with meal s Orally TID Active Immunizations Vaccine Route Administration Date Status Comme nts Influenza Unknown 06/11/2021 Refused Influenza Unknown 08/10/2022 Refused Influenza Unknown 12/20/2023 Refused Social History Tobacco Use: Social History Observation Description Date Details (start date - stop date) Current Smoker NA - NA Tobacco Use/Smoking Question Answer Notes Patient is a current smoker Alcohol Screen Question Answer Notes Did you have a drink containing alcohol in the p ast year? No Points 0 Interpretation Negative Problems Problem Type SNOMED Code ICD Code Onset Dates Problem Status W/U Status Risk Notes Problem 293676296 Colon cancer screening (Z12.11) Active confirmed Problem 039961626 Generalized abdominal pain (R10.84) Active confirmed Problem 724910854 Abnormal levels of other serum enzymes (R74.8) Active confirmed Problem Gastroesophageal reflux disease (182822356) Gastroesophageal reflux disease (K21.9) Active confirmed Problem 584042414 Hepatitis C antibody test positive (R76.8) Active confirmed Problem 96545519 Colitis (K52.9) Active confirmed Problem Gastritis (2801306) Gastritis (K29.70) Active c onfirmed Problem 92104675 Other ulcerative colitis without complication (K51.80) Active confirmed Problem 10899444 Diarrhea, unspecified type (R19.7) Active confirmed Problem 196356657700653 longterm (current) use of oral hypoglycemic drugs (Z79.84) Active confirmed Problem 785596558 Rectal/anal hemorrhage (K62.5) Active confirmed Problem 381323028 Gastroesophageal reflux disease, unspecified whether esophagitis present (K21.9) Active confirmed Problem 70285382 Gastric intestin al metaplasia (K31.A0) Active confirmed Vital Signs Temperature 98.2 degrees Fahrenheit 12/20/2023 Blood pressure diastolic 00 mm Hg 12/20/2023 Height 74.75 in 12/20/2023 Blood pressure systolic 000 mm Hg 12/20/2023 Weight 239 lbs 12/20/2023 BMI 30.07 kg/m2 12/20/2023 Encounters Encounter Location Date Provider Diagnosis [facility] [address] [place] [phone] 12/20/2023 Chuck Bower Jr Generalized abdominal pain R10.84 ; Diarrhea, unspecified type R19.7 and Gastric intestinal metaplasia K31.A0 [facility] [address] [place] [phone] 12/22/2023 Chuck Bower Jr [facility] [address] [place] [phone] 01/20/2024 Chuck Bower Jr [facility] [address] [place] [phone] 01/27/2024 Chuck Bower Jr [facility] [address] [place] [phone] 02/16/2024 Chuck Bower Jr Assessments Encounter Date Diagnosis (ICD Code) Assessment Notes Treatment Notes Treatment Clinical Notes Section Notes 12/20/2023 Generalized abdominal pain (ICD-10 - R10.84) We discussed his symptoms today. He will have further evaluation with laboratory testing in stool testing. CT scanning of the abdomen and pelvis will be arranged. We discussed the lack of gastric intestinal metaplasia on his recent biopsies. Followup will be pending the results of his testing. 12/20/2023 Diarrhea, unspecified type (ICD-10 - R19.7) We discussed his symptoms today. He will have further evaluation with laboratory testing in stool testing. CT scanning of the abdomen and pelvis will be arranged. We discussed the lack of gastric intestinal metaplasia on his recent biopsies. Followup will be pending the results of his testing. 12/20/2023 Gastric intestinal metaplasia (ICD-10 - K31.A0) We discussed his symptoms today. He will have further evaluation with laboratory testing in stool testing. CT scanning of the abdomen and pelvis will be arranged. We discussed the lack of gastric intestinal metaplasia on his recent biopsies. Followup will be pending the results of his testing. Plan Of Treatment Pending Test Test Name Order Date Hemoccult Cards (Screening) 12/24/2017 COLONOSCOPY WITH BIOPSY 04/10/2011 COLONOSCOPY REMOVAL OF LESION SNARE TECH NIQUE 04/10/2011 BUN 07/02/2021 BUN 12/20/2023 CREATININE 07/02/2021 CREATININE 12/20/2023 LIVER PROFILE 07/11/2021 LIVER PROFILE 10/22/2021 LIVER PROFILE 12/10/2021 LIVER PROFILE 07/02/2021 LIVER PROFILE 12/20/2023 AMYLASE 07/11/2021 LIPASE 12/20/2023 LIPASE 10/22/2021 LIPASE 07/11/2021 LIPASE 12/10/2021 CRP 07/02/2021 CBC w/o DIFF 12/10/2021 CBC w/o DIFF 07/02/2021 CBC w/o DIFF 12/20/2023 SED RATE (ESR) 07/02/2021 OVA & PARASITES (O&P) 12/20/2023 CT ABD & PELVIS WITH CONTRAST 07/02/2021 CT ABD & PELVIS WITH CONTRAST 12/20/2023 STOOL WBC 12/20/2023 Lipase 07/02/2021 Future Test Test Name Order Date COLONOSCOPY 06/11/2021 UPPER GI ENDOSCOPY 08/10/2022 COLONOSCOPY 08/10/2022 UPPER GI ENDOSCOPY 03/03/2023 Next Appt Details Provider Name:Chuck caba , 12/20/2024 09:00:00 AM, [address] [place] [address], [address], [place], [address], Insurance Providers Payer Name Payer Address Payer Phone Subscriber Number Group Number Insured Name Patient Relationship to Insured Coverage Start Date Coverage End Date [facility] [employer] [facility] [address] [address] [place], [place] [id number] SONJA CABALLERO Self - patient is the insured MEDICAID OF [facility] [address] [place] [phone] [id number] SONJA CABALLERO Self - patient is the insured Medical (General) History Medical History History ICD Code hypertension diabetes [...]
--- OUTSIDE RECORDS SUMMARY | 2024-11-10 07:08 | XMS_ITS ---
Author Organization [facility] Address [address] [place] [address] Care Team Providers Care Consultant Teacher Name Role Phone Sp BAUER, Vandana Primary Care Provider Maryellen Bower Jr, Chuck Unavailable REASON FOR VISIT [place] [facility] [place] Encounters Encounter Location Date Provider Diagnosis [facility] [address] [facility] [address] [place] [address] 02/16/2024 Chuck Bower Jr Plan Of Treatment Next Appt Details Provider Name:Chuck caba Jr, 12/20/2024 09:00:00 AM, [address] [facility], [address], [place], [address], Progress Notes * ZENSONJADOB:1970 ( 54 yo M)Acc No.[id number]:02/16/2024 Patient:?ARIELLESONJA :1970???Age:54 Y???Sex:Male Address:[address] [place] [address] [place] [address] * true * Date:? Generated for Printi ng/Faxing/eTransmitting on:?11/10/2024 07:08 AM EDT
[2024-11-10 08:01] LABS: Estimated Average Glucose 131 mg/dL; Hemoglobin A1C 181.4751 umol/L; Hemoglobin A1c % 6.2 % (<6.0)
[2024-11-10 08:30] LABS: Alanine Aminotransferase 24 U/L (0-40); Anion Gap 11 (12-20); Aspartate Amino Transferase 26 U/L (5-37); Blood Urea Nitrogen 17 mg/dL (9-16); Calcium 9.4 mg/dL (8.4-10.2); Carbon Dioxide 29 mmol/L (22-29); Chloride 104 mmol/L (96-108); Cholesterol 129 mg/dL (<200); Estimated Glomerular Filt Rate > 60; Glucose Fasting 134 mg/dL (60-99); HDL Cholesterol 40 mg/dL (>40); LDL Cholesterol Calculated 79 mg/dL (<100); Potassium 4.3 mmol/L (3.3-5.1); Sodium 140 mmol/L (135-145); Triglycerides 51 mg/dL (<150)
[2024-11-10 08:45] LABS: Vitamin D 25-OH Total 40.2 ng/mL (>30)
[2024-11-10 08:58] LABS: Folate 9.3 ng/mL (> or = 4.0); Vitamin B12 487 pg/mL (200-900)
[2024-11-10 09:18] LABS: Creatinine Urine 188.35 mg/dL; Microalbum/Creatinine Ratio Ur 5.3 ug/mg cr (<30)
== END 2024-11-10 07:07 | disposition home or self-care (01) ==
LOC: HO.LAB 07:06
PROVIDERS: PCP Internal Medicine; Visit Provider Internal Medicine
DX: Z28.21 Immunization not carried out because of patient refusal (principal); I10 Essential (primary) hypertension; E53.8 Deficiency of other specified B group vitamins; E11.40 Type 2 diabetes mellitus with diabetic neuropathy, unspecified; E78.5 Hyperlipidemia, unspecified
CPT/HCPCS: 36415; 80048; 80061; 82043; 82306; 82570; 82607; 82746; 83036; 84450; 84460

== ENCOUNTER 2024-11-13 09:23 | Outpatient (AMB) | payer OTHER, SELFPAY ==
--- NOTE | 2024-11-13 09:34 | A.OFFPC_ITS ---
Vital Signs 11/13/24 09:47 Height 6 ft 3 in Weight 254 lb BMI 31.7 BP 100/72 Blood Pressure Location Lt brachial Position Sitting Respiration 16 Pulse 66 Pulse Source Pulse Oximeter Temp 98.4 F Temp Source Oral Pulse Oximetry (%) 96 Oxygen Delivery Method Room Air Intake Visit Reasons: 6m follow up Intake Note: Pt is here today for his 6mo. f/u Allergies No Known Allergies Allergy (Verified 11/13/24 09:59) Medication List - Last Reconciled 11/13/24 by Vandana Snowden MD atorvastatin 20 mg PO DAILY blood sugar diagnostic (FreeStyle Lite Strips) check blood sugar once a day before a meal as directed cholecalciferol (vitamin D3) 50 mcg PO DAILY clonazepam 1 mg PO TID cyanocobalamin (vitamin B-12) 1,000 mcg IM Q4W doxepin 25 mg PO BEDTIME fluoxetine 80 mg PO QAM gabapentin 600 mg PO TID lisinopril 5 mg PO DAILY pioglitazone 30 mg PO DAILY syringe with needle, safety (BD Integra Syringe) As directed Tobacco use date assessed: 11/13/24 Dental Screening Dental Screen Date: 11/13/24 Did you have a dental visit in the last 12 months?: Yes Did you have a dental problem in the last 6 months where you did not have access to dental care?: No Was dental information given to patient?: Patient has dentist HPI 6m follow up HPI Details 54 year-old male with hyperlipidemia, hy pertension, and diabetes mellitus with neuropathy without long-term insulin use, here today for follow- up. Blood pressure stable and controlled on lisinopril 5 mg daily. Latest fasting labs showed lipids are within normal limits, hemoglobin A1c is now at 6.2%, with normal urine microalbumin, but higher compared to last check. He continues to smoke cigarettes with no desire to quit at present time. [facility] Medical History (Updated 11/13/24 @ 10:22 by Vandana Snowden MD) Skin lesion of neck Refused influenza vaccine Hip fracture EtOH dependence Vitamin B12 deficiency Smoker GERD (gastroesophageal reflux disease) HTN (hypertension) Rheumatoid arthritis Hydronephrosis concurrent with and due to calculi of kidney and ureter Spinal stenosis, thoracic region Postlaminectomy syndrome, lumbar Postlaminectomy syndrome, cervical Lumbar stenosis with neurogenic claudication History of diabetic ulcer of foot Cervical spondylosis History of alcoholism Erectile disorder due to medical condition in male PTSD (post-traumatic stress disorder) Vitamin D deficiency Diabetes mellitus with diabetic neuropathy, without long-term current use of insulin Dyslipidemia Surgical History Hx of foot surgery History of surgery on lower extremity H/O knee surgery History of carpal tunnel surgery of right wrist Hx of colonoscopy H/O cervical discectomy Status post lumbar spine surgery for decompression of spinal cord Family History Father Essential hypertension Dyslipidemia Cardiovascular disease Substance use disorder Mental health disorder Mother Essential hypertension Dyslipidemia Diabetes mellitus Social History Housing: House Are you a primary career orientation teacher to a significant other at home: No Do you presently have visiting nurse or other home services: No Alcohol intake: former Patient Tobacco Use Status: Current everyday Tobacco user Tobacco use type: Cigarette Cigarette Packs Per Day: 0 Cigarettes Per Day: 10 e-Cigarette/Vaping Use: Never Used Second Hand Smoke Exposure: No Current occupational status: disabled Cognitive needs: No Hearing needs: No Vision needs: Yes Questionnaire PHQ-9 Over the last 2 weeks, how often have you been bothered by any of the following problems? 1. Little interest or pleasure in doing things: several days 2. Feeling down, depressed, or hopeless: several days 3. Trouble falling or staying asleep, or sleeping too much: not at all 4. Feeling tired or having little energy: several days 5. Poor appetite or overeating: several days 6. Feeling bad about yourself - or that you are a failure or have let yourself or your family down: not at all 7. Trouble concentrating on things, such as reading the newspaper or watching television: not at all 8. Moving or speaking so slowly that other people could have noticed. Or the opposite - being so fidgety or restless that you have been moving around a lot more than usual: several days 9. Thoughts that you would be better off or of hurting yourself in some way: not at all Total score: 5 Depression Screening Interpretation: Positive (Sees psychiatrist at [facility]) Depression Screening Follow-up: Existing condition, In treatment and Community Mental Health Worker F/U Depression Screening Done: Yes Source: Developed by Drs. Isaac Adams, Marian Tamez, Frank He and colleagues, with an educational kylah from [employer]. Thrive Questionnaire Date Thrive assessed: 11/13/24 I am a: Patient What is your living situation today?: I have a steady place to live Within the past 12 months, did the food you bought not last and you didn't have the money to get more?: Sometimes True Within the past 12 months, did you worry whether your food would run out before you got money to buy more?: Sometimes True Do you have trouble paying for medicines?: No Do you have trouble getting transportation to medical appointments?: No Do you have trouble paying your heating and electricity bill?: No Do you have trouble taking care of your child, family member or friend?: No Do you have trouble with day-to-day activities such as bathing, preparing meals, shopping, managing finances, etc.?: Yes Are you currently unemployed and looking for a job?: No Are you interested in more education?: No Please select the resources that you would like help with: None Currently or been in a relationship where the following occur: I choose not to answer THRIVE Score: 2 AUDIT C Alcohol Use Questionnaire (AUDIT-C) 1. How often do you have a drink containing alcohol?: Never Total Score: 0 HUSSAIN-7 AMB Questionnaire HUSSAIN-7 Date HUSSAIN - 7 assessed: 11/13/24 Feeling nervous, anxious, or on edge: 1 = Several days Not being able to stop or control worryin = Not at all Worrying too much about different things: 0 = Not at all Trouble relaxin = Several days Being so restless that it is hard to sit still: 1 = Several days Becoming easily annoyed or irritable: 0 = Not at all Feeling afraid as if something awful might happen: 0 = Not at all Total HUSSAIN-7 score (0-4 normal; 5-9 mild; 10-14 moderate; 15-21 severe): 3 Source: Developed by Marian Underwood Kurt Kroenke and colleagues, with an educational kylah from [employer]. HUSSAIN-7 Assessment Billing HUSSAIN-7 Assessment Tool: HUSSAIN-7 Assessment 90042 Review of Systems Const Denies chills and Denies fever(s) Eyes Details: Goes to [facility] eye care for his diabetes retinopathy screening and routine eye exam ENT Reports Normal hearing present, Denies dizziness and Denies nasal discharge Card Denies chest pain, Denies leg edema and Denies dyspnea Resp Denies cough and Denies dyspnea GI Denies abdominal pain Denies difficulty urinating and Denies urinary incontinence Musc Reports back pain, Denies numbness, Reports radiating pain into limb and Denies tingling Skin/Breast Details: Nodular lesion on neck, has appointment already scheduled with station captain Denies rash Neuro Reports Normal hearing present, Denies dizziness, Denies lack of coordination, Denies numbness, Denies Sensory deficit (Neuro) and Denies tingling Psych Reports no additional complaints Endo Reports no additional complaints Dat/Lymph Reports no additional complaints Aller/Immun Reports no additional complaints Physical exam (Primary Care) Vital Signs: Last Vital Signs Temp 98.4 F 11/13/24 09:47 Pulse 66 11/13/24 09:47 Resp 16 11/13/24 09:47 BP 100/72 11/13/24 09:47 Pulse Ox 96 11/13/24 09:47 Oxygen Delivery Method Room Air 11/13/24 09:47 BMI result Body Mass Index 31.7 Tobacco/Smoking Status: Tobacco use Status Tobacco use date assessed 11/13/24 11/13/24 09:35 Patient Tobacco Use Status Current everyday Tobacco 11/13/24 09:35 Tobacco use type Cigarette 11/13/24 09:35 e-Cigarette/Vaping Use Never Used 11/13/24 09:35 Are you ready to quit: No PHQ-9: PHQ-9 Score PHQ-9: Total score 5 11/13/24 10:01 Depression Screening Interpretation: Positive (Sees psychiatrist at [facility]) Depression Screening Follow-up: Existing condition, In treatment and Community Mental Health Worker F/U Thrive Assessment: Date of Thrive Assessment Date Thrive assessed 11/13/24 11/13/24 09:35 Currently or been in a relationship where the following occur: I choose not to answer Const General: no acute distress Nutritional Appearance: overweight Orientation/consciousness: patient oriented x3 HENMT Ears: external ears normal, TM's normal bilaterally and EAC's normal General nose exam: Normal external nose present and No nasal discharge present Mouth: moist mucous membranes Eyes General: appearance normal, both eyes and all related structures Neck Other: Supple, no lymphadenopathy, thyroid gland nonpalpable Resp Auscultation: clear to auscultation bilaterally Cardio Other: S1-S2 present regular rate and rhythm GI Palpation (GI): Soft to palpation, nontender and no masses Skin Other: Has a leave nodular lesion on left anterior cervical triangle, has appointment to see the [facility] dermatology end of October 2024 Neuro General: patient oriented x3, gait normal, moves all extremities and no focal motor deficits Cranial nerves: Yes Normal hearing present Sensory Exam: No Sensory deficit (Neuro) Extrem General: Yes full ROM, Yes no joint enlargement, Yes no clubbing, cyanosis or edema and Yes normal gait Psych Appearance: grossly normal and well kempt Mental Status: mental status grossly normal Affect: normal affect Attitude: cooperative Thought process: Normal thought process present Results Reviewed Results Reviewed: Name: Som Caballero Age/Sex: 54/M : 1970 Unit#: [id number] Attend Dr: Vandana Snowden MD Re11/10/24 Status: DEP [facility] SPEC : [id number] ANGIE: 11/10/24 STATUS: COMP REQ : [id number] RECD: 11/10/[address]: Vandana Snowden MD COMP: 11/10/24 ENTERED: 11/10/[address]: ORDERED: Met Prof Fast, AST, ALT, Lipid Panel, Vitamin D 25-OH Test Result Flag Reference Sodium 140 135-145 mmol/L Potassium 4.3 3.3-5.1 mmol/L CL 104 96-108 mmol/L CO2 29 22-29 mmol/L Gap 11 L 12-20 BUN 17 H 9-16 mg/dL Creat 0.73 0.5-1.4 mg/dL eGFR > 60 Chronic Kidney Disease: Estimated GFR < 60 mL/min/1.73m2 Severe Kidney Disease: Estimated GFR < 15 mL/min/1.73m2 FBS 134 H 60-99 mg/dL A fasting glucose of 126 mg/dl or greater on more than one occasion is considered diagnostic of diabetes. CA 9.4 8.4-10.2 mg/dL AST (GOT) 26 5-37 U/L ALT (GPT) 24 0-40 U/L Triglyceride 51 <150 mg/dL Desirable Triglyceride: less than 150 mg/dL Borderline High Triglyceride 150-199 mg/dL High Triglyceride: 200-499 mg/dL Very High Triglyceride: greater than or equal to 5OO mg/dL Cholesterol 129 <200 mg/dL Desirable Cholesterol: less than 200 mg/dL Borderline High Cholesterol: 200-239 mg/dL High Cholesterol: greater than 239 mg/dL LDL Calculated 79 <100 mg/dL Desirable LDL: less than 100 mg/dL Near Optimal/Above Optimal LDL: 110-129 mg/dL Borderline High LDL: 130-159 mg/dL High LDL: 160-189 mg/dL Very High LDL: greater than or equal to 190 mg/dL HDL 40 L >40 mg/dL Desirable HDL: greater than 40 mg/dL Note: This HDL assay may give artificially low results in patients with liver disease. Vitamin D 25-OH 40.2 >30 ng/mL Health Based Reference Values* < 20 ng/mL Deficient 20-30 ng/mL Insufficient > 30 ng/mL Sufficient Laboratory Tests 11/10/24 11/10/24 07:12 07:16 Estimat Average Glucose 131 Hemoglobin A1c % 6.2 H Urine Creatinine 188.35 Urine Microalbumin 10.0 Microalb/Creat Ratio 5.3 Coding Level of Care Code Est Pt Level 4 (68777) Complex EM visit Add On G2211 Diagnoses Dyslipidemia E78.5 Diabetes mellitus with diabetic neuropathy, without long-term current use of insulin E11.40 Primary hypertension I10 Hypertension type: primary hypertension PTSD (post-traumatic stress disorder) F43.10 Skin lesion of neck L98.9 Additional Codes HUSSAIN-7 Assessment Billing - HUSSAIN-7 Assessment Tool: HUSSAIN-7 Assessment 46697 ([id number]) Assessment & Plan Assessment & Plan (1) Dyslipidemia: Code(s): E78.5 - Hyperlipidemia, unspecified Category: Medical Plan: Continue atorvastatin 20 mg daily and reinforced importance of following low- cholesterol diet and getting regular exercise. (2) Diabetes mellitus with diabetic neuropathy, without long-term current use of insulin: Code(s): E11.40 - Type 2 diabetes mellitus with diabetic neuropathy, unspecified Category: Medical Plan: Hemoglobin A1c higher on today's visit at 6.2%, off metformin, only taking pioglitazone 30 mg daily. Will continue on current dose, reinforced importance of following diabetic diet, and getting regular exercise. See him back for follow-up in 3 months. He sees [facility] for his diabetic retinopathy screen and eye exam (3) HTN (hypertension): Code(s): I10 - Essential (primary) hypertension Category: Medical Qualifiers: Hypertension type: primary hypertension Qualified Code(s): I10 - Essential (primary) hypertension Plan: Continue lisinopril 5 mg daily in addition to following a low-salt diet and getting regular exercise (4) PTSD (post-traumatic stress disorder): Comment: sees Nevin Tucker at [facility], now sees Jason Carballo Code(s): F43.10 - Post-traumatic stress disorder, unspecified Category: Medical Plan: Currently followed by Jason Carballo at [facility] (5) Skin lesion of neck: Code(s): L98.9 - Disorder of the skin and subcutaneous tissue, unspecified Category: Medical Plan: Has an appointment already scheduled with Dr. Gutierrez at the end of the month Orders: Orders Lipid Panel 01/30/25 K21.9 - Gastro-esophageal reflux disease without esophagitis, I10 - Essential (primary) hypertension, E11.40 - Type 2 diabetes mellitus with diabetic neuropathy, unspecified, E78.5 - Hyperlipidemia, unspecified Alanine Aminotransferase 01/30/25 K21.9 - Gastro-esophageal reflux disease without esophagitis, I10 - Essential (primary) hypertension, E11.40 - Type 2 diabetes mellitus with diabetic neuropathy, unspecified, E78.5 - Hyperlipidemia, unspecified Basic Metabolic Panel Fasting 01/30/25 K21.9 - Gastro-esophageal reflux disease without esophagitis, I10 - Essential (primary) hypertension, E11.40 - Type 2 diabetes mellitus with diabetic neuropathy, unspecified, E78.5 - Hyperlipidemia, unspecified Aspartate Amino Transferase 01/30/25 K21.9 - Gastro-esophageal reflux disease without esophagitis, I10 - Essential (primary) hypertension, E11.40 - Type 2 diabetes mellitus with diabetic neuropathy, unspecified, E78.5 - Hyperlipidemia, unspecified Hemoglobin A1c 01/30/25 K21.9 - Gastro-esophageal reflux disease without esophagitis, I10 - Essential (primary) hypertension, E11.40 - Type 2 diabetes mellitus with diabetic neuropathy, unspecified, E78.5 - Hyperlipidemia, unspecified Medications: Changed From lisinopril 2.5 mg (1/2 x 5 mg) PO DAILY 45 tabs 1RF To lisinopril 5 mg PO DAILY
[2024-11-13 09:47] VITALS: BP 100/72; PULSE 66; RESP 16; TEMP 36.9; O2SAT 96; BMI 31.7
--- OUTSIDE RECORDS SUMMARY | 2024-11-13 10:25 | XMS_ITS | Patient Health Record ---
Author Organization [facility] Address [address] [place] [address] Care Team Providers Care Presales Consultant Name Role Phone Sp BAUER, Vandana Primary Care Provider Chuck Mays Jr Unavailable [phone] Allergies No Known Allergies Results Component Value Reference Range Notes GI PANEL Reviewed date:12/22/2023 07:33:13 AM Interpretation: Performing Lab:[facility], [address] [place] [phone] Notes/Report: Campylobacter Not Detected Not Detect. Plesiomonas [...] is performed by Multiplexed PCR, utilizing the Viagogo Array. Complete Blood Count Auto Di ff Reviewed date:12/22/2023 07:33:35 AM Interpretation: Performing Lab:[facility], [address] [place] [phone] Notes/Report: White Blood Count 8.7 4.8-10.8 X10*3/uL [...] Panel Reviewed date:12/22/2023 07:28:14 AM Interpretation: Performing Lab:[address] [address] Notes/Report: Bilirubin Total 0.5 0.0-1.0 mg/dL Bilirubin Direct 0.2 0.0-0.5 mg/dL Aspartate Amino Transferase 20 5-37 U/L Alanine Aminotransferase 20 0-40 U/L Total Protein 7.1 6.5-8.0 g/dL Albumin Level 4.2 3.5-5.0 g/dL Alkaline Phosphatase 119 39-117 U/L Blood Urea Nitrogen Reviewed date:12/22/2023 07:28:07 AM Interpretation: Performing Lab:[facility], [address] [place] [phone] Notes/Report: Blood Urea Nitrogen 15 9-16 mg/dL Creatinine Reviewed date:12/22/2023 07:27:58 AM Interpretation: Performing Lab:[address] [address] Notes/Report: Creatinine 0.80 0.5-1.4 mg/dL Estimated Glomerular Filt Rate > 60 NOTE: For -Bermudian individuals, multiply the result by 1.210. Chronic Kidney Disease: Estimated GFR < 60 mL/min/1.73m2 Severe Kidney Disease: Estimated GFR < 15 mL/min/1.73m2 Lipase Reviewed date:12/22/2023 07:27:51 AM Interpretation: Performing Lab:[address] [address] Notes/Report: Lipase 37 8-78 U/L Leukocytes Stool Qualitative Reviewed date:12/22/2023 07:33:22 AM Interpretation: Performing Lab:[address] [address] Notes/Report: Leukocytes Stool Qualitative NEGATIVE NEGATIVE Ova and Parasite Reviewed date:12/29/2023 08:41:18 AM Interpretation: Performing Lab:[facility], [address] [place] [phone] Notes/Report: Ova and Parasite SEE NOTE OVA AND PARASITES, CONC AND PERM SMEAR Micro Number: [id number] Test Status: Final Specimen Source: Stool Specimen [...] infection. For additional information, please refer to https://[employer].Mercury solar systems/faq/F AQ203 (This link is being provided for informational/ educational purposes only.) THIS TEST WAS PERFORMED AT: [facility] [address] [place] [phone] ANITA METZGER MD Complete Blood Count no Diff Reviewed date:01/20/2024 11:11:45 AM Interpretation: Performing Lab:[facility], [address] [place] [phone] Notes/Report: White Blood Count 7.4 4.8-10.8 X10*3/uL [...] Panel Reviewed date:01/20/2024 11:11:38 AM Interpretation: Performing Lab:[facility], [address] [place] [phone] Notes/Report: Bilirubin Total 0.2 0.0-1.0 mg/dL Bilirubin Direct < 0.2 0.0-0.5 mg/dL Aspartate Amino Transferase 18 5-37 U/L Alanine Aminotransferase 16 0-40 U/L Total Protein 6.8 6.5-8.0 g/dL Albumin Level 4.0 3.5-5.0 g/dL Alkaline Phosphatase 117 39-117 U/L Blood Urea Nitrogen Reviewed date:01/20/2024 11:11:25 AM Interpretation: Performing Lab:[address] [address] Notes/Report: Blood Urea Nitrogen 13 9-16 mg/dL Creatinine Reviewed date:01/20/2024 11:11:33 AM Interpretation: Performing Lab:[address] [address] Notes/Report: Creatinine 0.85 0.5-1.4 mg/dL Estimated Glomerular Filt Rate > 60 NOTE: For -Bermudian individuals, multiply the result by 1.210. Chronic Kidney Disease: Estimated GFR < 60 mL/min/1.73m2 Severe Kidney Disease: Estimated GFR < 15 mL/min/1.73m2 Lipase Reviewed date:01/20/2024 11:12:02 AM Interpretation: Performing Lab:[facility], [address] [place] [phone] Notes/Report: Lipase 119 8-78 U/L Leukocytes Stool Qualitative Reviewed date:01/27/2024 08:16:43 AM Interpretation: Performing Lab:[address] [address] Notes/Report: Leukocytes Stool Qualitative NEGATIVE NEGATIVE Leukocytes Stool Qualitative NEGATIVE NEGATIVE C ORRECTED REPORT C ORRECTED REPORT Ova and Parasite Reviewed date:02/02/2024 08:13:53 AM Interpretation: Performing Lab:[facility], [address] [place] [phone] Notes/Report: Ova and Parasite SEE NOTE OVA AND PARASITES, CONC AND PERM SMEAR Micro Number: [id number] Test Status: Final Specimen Source: Stool Specimen [...] infection. For additional information, please refer to https://education.Mercury solar systems/faq/F AQ203 (This link is being provided for informational/ educational purposes only.) THIS TEST WAS PERFORMED AT: [facility] [address] [address] ADAIR RICO MD GI PANEL Reviewed date:01/27/2024 08:16:36 AM Interpretation: Performing Lab:[facility], [address] [place] [phone] Notes/Report: Campylobacter Not Detected Not Detect. Plesiomonas [...] is performed by Multiplexed PCR, utilizing the Viagogo Array. CT abdomen pelvis w con Reviewed date:02/17/2024 10:14:48 PM Interpretation: Performing Lab: Notes/Report: [place] [id number] [address] Scan Report Signed Patient: Sonja Caballero MR#: [id number] 6 : 1970 Acct:[id number] Age/Sex: 54 / M ADM Date: 02/14/24 Loc: HO.CT Attending Dr: Chuck Bower MD Ordering Physician: Chuck Bower MD Date of Service: 02/14/24 Procedure(s): CT abdomen pelvis w IV con Accession Number(s): [id number] cc: Chuck Bower MD EXAMINATION: CT ABDOMEN [...] Fleischner guidelines were followed. Dictated By: Kenya Gli Signed By: <Electronically signed by Kenya Gil in OV> 02/17/24 1325 DD/ 1550 TD/TT: Cryptography Teacher: [place] [id number] [address] Scan Report Signed Patient: Sonja Caballero MR#: [id number] 6 : 1970 Acct:[id number] Age/Sex: 54 / M ADM Date: 02/14/24 Loc: HO.CT Attending Dr: Rasheed Bower MD Ordering Physician: Chuck Bower MD Date of Service: 02/14/24 Procedure(s): CT abdomen pelvis w IV con Accession Number(s): [id number] cc: Chuck Bower MD EXAMINATION: CT ABDOMEN [...] in OV> 02/17/24 1325 DD/ 1550 TD/TT: Cryptography Teacher: Reason For Referral No Information Medications Medication [...] Problem Status W/U Status Risk Notes Problem 203184283 Colon cancer screening (Z12.11) Active confirmed Problem 495049118 Generalized abdominal pain (R10.84) Active confirmed Problem 251894600 Abnormal levels of other serum enzymes (R74.8) Active confirmed Problem Gastroesophageal reflux disease (611370141) Gastroesophageal reflux disease (K21.9) Active confirmed Problem 724546788 Hepatitis C antibody test positive (R76.8) Active confirmed Problem 15092751 Colitis (K52.9) Active confirmed Problem Gastritis (5866393) Gastritis (K29.70) Active c onfirmed Problem 59595964 Other ulcerative colitis without complication (K51.80) Active confirmed Problem 28506526 Diarrhea, unspecified type (R19.7) Active confirmed Problem 630048954909898 detention (current) use of oral hypoglycemic drugs (Z79.84) Active confirmed Problem 413034376 Rectal/anal hemorrhage (K62.5) Active confirmed Problem 275961463 Gastroesophageal reflux disease, unspecified whether esophagitis present (K21.9) Active confirmed Problem 56630838 Gastric intestin al metaplasia (K31.A0) Active confirmed Vital Signs Temperature 98.2 degrees Fahrenheit 12/20/2023 Blood pressure diastolic 00 mm Hg 12/20/2023 Height 74.75 in 12/20/2023 Blood pressure systolic 000 mm Hg 12/20/2023 Weight 239 lbs 12/20/2023 BMI 30.07 kg/m2 12/20/2023 Encounters Encounter Location Date Provider Diagnosis [facility] [address] [place] [phone] 12/20/2023 Chuck Bower Jr Generalized abdominal pain R10.84 ; Diarrhea, unspecified type R19.7 and Gastric intestinal metaplasia K31.A0 [facility] [address] [place] [phone] 12/22/2023 Chuck Bower Jr [facility] [address] [place] [phone] 01/20/2024 Chuck Bower Jr [facility] [address] [place] [phone] 01/27/2024 Chuck Bower Jr [facility] [address] [place] [phone] 02/16/2024 Chuck Bower Jr Assessments Encounter Date [...] NIQUE 04/10/2011 BUN 07/02/2021 BUN 12/20/2023 CREATININE 12/20/2023 CREATININE 07/02/2021 LIVER PROFILE 12/20/2023 LIVER PROFILE 07/11/2021 LIVER PROFILE 10/22/2021 LIVER PROFILE 12/10/2021 LIVER PROFILE 07/02/2021 AMYLASE 07/11/2021 LIPASE 12/10/2021 LIPASE 12/20/2023 LIPASE 10/22/2021 LIPASE 07/11/2021 CRP 07/02/2021 CBC w/o DIFF 12/10/2021 CBC w/o DIFF 07/02/2021 CBC w/o DIFF 12/20/2023 SED RATE (ESR) 07/02/2021 OVA & PARASITES (O&P) 12/20/2023 CT ABD & PELVIS WITH CONTRAST 12/20/2023 CT ABD & PELVIS WITH CONTRAST 07/02/2021 STOOL WBC 12/20/2023 Lipase 07/02/2021 Future Test Test Name Order Date COLONOSCOPY 06/11/2021 UPPER GI ENDOSCOPY 08/10/2022 COLONOSCOPY 08/10/2022 UPPER GI ENDOSCOPY 03/03/2023 Next Appt Details Provider Name:Chuck caba , 12/20/2024 09:00:00 AM, [address] [place] [address], [address], [place], [address], Insurance Providers Payer Name Payer Address Payer Phone Subscriber Number Group Number Insured Name Patient Relationship to Insured Coverage Start Date Coverage End Date [facility] [address] [address] [place], [place] [id number] SONJA CABALLERO Self - patient is the insured MEDICAID OF [facility] [address] [place] [phone] [id number] SONJA CABALLERO Self - patient is the [...]
--- OUTSIDE RECORDS SUMMARY | 2024-11-13 10:25 | XMS_ITS ---
Author Organization [facility] Address [address] [place] [address] Care Team Providers Care Reconciliation Specialist Name Role Phone Sp BAUER, Vandana Primary Care Provider Maryellen Bower Jr, Chuck Unavailable [phone] REASON FOR VISIT hep c Encounters Encounter Location Date Provider Diagnosis [facility] [address] [facility] [address] [place] [phone] 04/10/2024 Chuck Bower Jr Plan Of Treatment Next Appt Details Provider Name:Chuck caba Jr, 12/20/2024 09:00:00 AM, [address] [facility], [address], [place], [address], Progress Notes * SONJA ZALDIVARDOB:1970 ( 54 yo M)Acc No.[id number]:04/10/2024 Progress Notes Patient:?SONJA ZALDIVAR Provider:?Chuck Bower MD :1970???Age:54 Y???Sex:Male Rufino e:04/10/2024 Address:[address] [place], [place] [id number] Pcp:Vandana Snowden MD Subjective: * Chief Complaints: [...] MD Date:?0 04/10/2024 Generated for Mahesh swift/Dylan/Hadleyitting on:?11/13/2024 10:25 AM EDT
--- OUTSIDE RECORDS SUMMARY | 2024-11-13 10:25 | XMS_ITS | Clinical Summary ---
Author Organization [address] [facility] Address [address] [place] [address] Phone Care Team Providers Care Civil Defense Director Name Role Phone Vandana Snowden MD Primary Care Provider Allergies No known active allergies Encounters Date Type Department Care Team Description 09/18/2024 9:45 AM EST Office Visit [facility] [address] [address] Eddie Bryant, DPM Type 2 diabetes mellitus with diabetic neuropathy, without long-term current use of insulin (CMS/FORMERLY [facility] V24, CMS/HCC V28) (Primary Dx); History of osteomyelitis; Hammertoes of both feet; Ulcer of toe of left foot, with fat layer exposed (CMS/HCC V24, CMS/FORMERLY [facility] V28) from Last 3 Months Social History [...] Upcoming Encounters Date Type Department Care Team ([facility] st Contact Info) Description 12/05/2024 8:30 AM EDT Office Visit [facility] [address] [phone] Eddie Bryant, DPM 175 [facility] [address] [place] [address] Health Maintenance Due Date Last Done Comments [...] patient's age to complete this topic Insurance [facility] Care Teams Civil Defense Director Relationship Specialty Start Date End Date Vandana Snowden MD [address] [place] [address] PCP - General Internal Medicine 06/01/24
== END 2024-11-13 10:26 | disposition home or self-care (01) ==
LOC: HO.HMCC 09:24
PROVIDERS: PCP Internal Medicine; Visit Provider Internal Medicine
DX: E78.5 Hyperlipidemia, unspecified (principal); E11.40 Type 2 diabetes mellitus with diabetic neuropathy, unspecified; I10 Essential (primary) hypertension; F43.10 Post-traumatic stress disorder, unspecified; L98.9 Disorder of the skin and subcutaneous tissue, unspecified

== ENCOUNTER → 2024-11-13 09:23 | Outpatient (BNVA) | payer OTHER, SELFPAY | PROVIDERS: PCP Internal Medicine; Visit Provider Internal Medicine | DX: I10 Essential (primary) hypertension (principal); E78.5 Hyperlipidemia, unspecified; E11.40 Type 2 diabetes mellitus with diabetic neuropathy, unspecified; F17.210 Nicotine dependence, cigarettes, uncomplicated; F43.10 Post-traumatic stress disorder, unspecified; L98.9 Disorder of the skin and subcutaneous tissue, unspecified; Z79.899 Other long term (current) drug therapy; K21.9 Gastro-esophageal reflux disease without esophagitis | CPT/HCPCS: 96127; 99212 ==

== ENCOUNTER 2024-12-11 12:29 | Outpatient (AMB) | payer OTHER, SELFPAY ==
--- OUTSIDE RECORDS SUMMARY | 2024-12-11 12:56 | XMS_ITS | Patient Health Record ---
Author Organization [facility] Address [address] [place] [address] Care Team Providers Care Senior Software Analyst Name Role Phone Sp BAUER, Vandana Primary Care Provider Chuck Mays Jr Unavailable Allergies No Known Allergies Results Component Value Reference Range Notes GI PANEL Reviewed date:12/22/2023 07:33:13 AM Interpretation: Performing Lab:[facility], [address] [place] [phone] Notes/Report: Campylobacter Not Detected Not Detect. Plesiomonas [...] is performed by Multiplexed PCR, utilizing the Towergate Array. Complete Blood Count Auto Di ff Reviewed date:12/22/2023 07:33:35 AM Interpretation: Performing Lab:[facility], [address] [place] [phone] Notes/Report: White Blood Count 8.7 4.8-10.8 X10*3/uL [...] Panel Reviewed date:12/22/2023 07:28:14 AM Interpretation: Performing Lab:[address] [address] Notes/Report: Bilirubin Total 0.5 0.0-1.0 mg/dL Bilirubin Direct 0.2 0.0-0.5 mg/dL Aspartate Amino Transferase 20 5-37 U/L Alanine Aminotransferase 20 0-40 U/L Total Protein 7.1 6.5-8.0 g/dL Albumin Level 4.2 3.5-5.0 g/dL Alkaline Phosphatase 119 39-117 U/L Blood Urea Nitrogen Reviewed date:12/22/2023 07:28:07 AM Interpretation: Performing Lab:[facility], [address] [place] [phone] Notes/Report: Blood Urea Nitrogen 15 9-16 mg/dL Creatinine Reviewed date:12/22/2023 07:27:58 AM Interpretation: Performing Lab:[address] [address] Notes/Report: Creatinine 0.80 0.5-1.4 mg/dL Estimated Glomerular Filt Rate > 60 NOTE: For -Azerbaijani individuals, multiply the result by 1.210. Chronic Kidney Disease: Estimated GFR < 60 mL/min/1.73m2 Severe Kidney Disease: Estimated GFR < 15 mL/min/1.73m2 Lipase Reviewed date:12/22/2023 07:27:51 AM Interpretation: Performing Lab:[address] [address] Notes/Report: Lipase 37 8-78 U/L Leukocytes Stool Qualitative Reviewed date:12/22/2023 07:33:22 AM Interpretation: Performing Lab:[address] [address] Notes/Report: Leukocytes Stool Qualitative NEGATIVE NEGATIVE Ova and Parasite Reviewed date:12/29/2023 08:41:18 AM Interpretation: Performing Lab:[facility], [address] [place] [phone] Notes/Report: Ova and Parasite SEE NOTE OVA AND PARASITES, CONC AND PERM SMEAR Micro Number: [id number] Test Status: Final Specimen Source: Stool Specimen [...] infection. For additional information, please refer to https://[employer]/faq/F AQ203 (This link is being provided for informational/ educational purposes only.) THIS TEST WAS PERFORMED AT: [employer] [address] [place] [phone] ANITA METZGER MD Complete Blood Count no Diff Reviewed date:01/20/2024 11:11:45 AM Interpretation: Performing Lab:[facility], [address] [place] [phone] Notes/Report: White Blood Count 7.4 4.8-10.8 X10*3/uL [...] Panel Reviewed date:01/20/2024 11:11:38 AM Interpretation: Performing Lab:[facility], [address] [place] [phone] Notes/Report: Bilirubin Total 0.2 0.0-1.0 mg/dL Bilirubin Direct < 0.2 0.0-0.5 mg/dL Aspartate Amino Transferase 18 5-37 U/L Alanine Aminotransferase 16 0-40 U/L Total Protein 6.8 6.5-8.0 g/dL Albumin Level 4.0 3.5-5.0 g/dL Alkaline Phosphatase 117 39-117 U/L Blood Urea Nitrogen Reviewed date:01/20/2024 11:11:25 AM Interpretation: Performing Lab:[address] [address] Notes/Report: Blood Urea Nitrogen 13 9-16 mg/dL Creatinine Reviewed date:01/20/2024 11:11:33 AM Interpretation: Performing Lab:[address] [address] Notes/Report: Creatinine 0.85 0.5-1.4 mg/dL Estimated Glomerular Filt Rate > 60 NOTE: For -Azerbaijani individuals, multiply the result by 1.210. Chronic Kidney Disease: Estimated GFR < 60 mL/min/1.73m2 Severe Kidney Disease: Estimated GFR < 15 mL/min/1.73m2 Lipase Reviewed date:01/20/2024 11:12:02 AM Interpretation: Performing Lab:[facility], [address] [place] [phone] Notes/Report: Lipase 119 8-78 U/L Leukocytes Stool Qualitative Reviewed date:01/27/2024 08:16:43 AM Interpretation: Performing Lab:[address] [address] Notes/Report: Leukocytes Stool Qualitative NEGATIVE NEGATIVE Leukocytes Stool Qualitative NEGATIVE NEGATIVE C ORRECTED REPORT C ORRECTED REPORT Ova and Parasite Reviewed date:02/02/2024 08:13:53 AM Interpretation: Performing Lab:[facility], [address] [place] [phone] Notes/Report: Ova and Parasite SEE NOTE OVA AND PARASITES, CONC AND PERM SMEAR Micro Number: [id number] Test Status: Final Specimen Source: Stool Specimen [...] infection. For additional information, please refer to https://education.[employer]/faq/F AQ203 (This link is being provided for informational/ educational purposes only.) THIS TEST WAS PERFORMED AT: [facility] [address] [address] ADAIR RICO MD GI PANEL Reviewed date:01/27/2024 08:16:36 AM Interpretation: Performing Lab:[facility], [address] [place] [phone] Notes/Report: Campylobacter Not Detected Not Detect. Plesiomonas [...] is performed by Multiplexed PCR, utilizing the Towergate Array. CT abdomen pelvis w con Reviewed date:02/17/2024 10:14:48 PM Interpretation: Performing Lab: Notes/Report: [place] [address] CT Scan Report Signed Patient: Sonja Caballero MR#: [id number] 6 : 1970 Acct:[id number] Age/Sex: 54 / M ADM Date: 02/14/24 Loc: HO.CT Attending Dr: Chuck Bower MD Ordering Physician: Chuck Bower MD Date of Service: 02/14/24 Procedure(s): CT abdomen pelvis w IV con Accession Number(s): [id number] cc: Chuck Bower MD EXAMINATION: CT ABDOMEN [...] in OV> 02/17/24 1325 DD/ 1550 TD/TT: Wildfire Prevention Specialist: [place] [address] [address] Scan Report Signed Patient: Sonja Caballero MR#: [id number] 6 : 1970 Acct:[id number] Age/Sex: 54 / M ADM Date: 02/14/24 Loc: HO.CT Attending Dr: Rasheed Bower MD Ordering Physician: Chuck Bower MD Date of Service: 02/14/24 Procedure(s): CT abdomen pelvis w IV con Accession Number(s): [id number] cc: Chuck Bowre MD EXAMINATION: CT ABDOMEN AND PELVI S [...] in OV> 02/17/24 1325 DD/ 1550 TD/TT: Wildfire Prevention Specialist: Reason For Referral No Information Medications [...] Problem Status W/U Status Risk Notes Problem 713639239 Colon cancer screening (Z12.11) Active confirmed Problem 249010629 Generalized abdominal pain (R10.84) Active confirmed Problem 163764334 Abnormal levels of other serum enzymes (R74.8) Active confirmed Problem Gastroesophageal reflux disease (792435254) Gastroesophageal reflux disease (K21.9) Active confirmed Problem 276846322 Hepatitis C antibody test positive (R76.8) Active confirmed Problem 85149891 Colitis (K52.9) Active confirmed Problem Gastritis (9878530) Gastritis (K29.70) Active c onfirmed Problem 73647977 Other ulcerative colitis without complication (K51.80) Active confirmed Problem 66172055 Diarrhea, unspecified type (R19.7) Active confirmed Problem 844126007628595 USP (current) use of oral hypoglycemic drugs (Z79.84) Active confirmed Problem 754022088 Rectal/anal hemorrhage (K62.5) Active confirmed Problem 921473328 Gastroesophageal reflux disease, unspecified whether esophagitis present (K21.9) Active confirmed Problem 35707322 Gastric intestin al metaplasia (K31.A0) Active confirmed Vital Signs Temperature 98.2 degrees Fahrenheit 12/20/2023 Blood pressure diastolic 00 mm Hg 12/20/2023 Height 74.75 in 12/20/2023 Blood pressure systolic 000 mm Hg 12/20/2023 Weight 239 lbs 12/20/2023 BMI 30.07 kg/m2 12/20/2023 Encounters Encounter Location Date Provider Diagnosis [facility] [address] [place] [address] 12/20/2023 Chuck Bower Jr Generalized abdominal pain R10.84 ; Diarrhea, unspecified type R19.7 and Gastric intestinal metaplasia K31.A0 [facility] [address] [place] [phone] 12/22/2023 Chuck Bower Jr [facility] [address] [place] [phone] 01/20/2024 Chuck Bower Jr [facility] [address] [place] [phone] 01/27/2024 Chuck Bower Jr [facility] [address] [place] [phone] 02/16/2024 Chuck Bower Jr Assessments Encounter Date [...] 12/20/2023 CREATININE 07/02/2021 CREATININE 12/20/2023 LIVER PROFILE 12/10/2021 LIVER PROFILE 07/02/2021 LIVER PROFILE 12/20/2023 LIVER PROFILE 07/11/2021 LIVER PROFILE 10/22/2021 AMYLASE 07/11/2021 LIPASE 10/22/2021 LIPASE 07/11/2021 LIPASE 12/10/2021 LIPASE 12/20/2023 CRP 07/02/2021 CBC w/o DIFF 12/20/2023 CBC w/o DIFF 12/10/2021 CBC w/o DIFF 07/02/2021 SED RATE (ESR) 07/02/2021 OVA & PARASITES (O&P) 12/20/2023 CT ABD & PELVIS WITH CONTRAST 07/02/2021 CT ABD & PELVIS WITH CONTRAST 12/20/2023 STOOL WBC 12/20/2023 Lipase 07/02/2021 Future Test Test Name Order Date COLONOSCOPY 06/11/2021 UPPER GI ENDOSCOPY 08/10/2022 COLONOSCOPY 08/10/2022 UPPER GI ENDOSCOPY 03/03/2023 Next Appt Details Provider Name:Chuck caba , 12/20/2024 09:00:00 AM, [address] [place] [address], [address], [place], [address], Insurance Providers Payer Name Payer Address Payer Phone Subscriber Number Group Number Insured Name Patient Relationship to Insured Coverage Start Date Coverage End Date [facility] [employer] [facility] [address] [address] [place], [place] [id number] SONJA CABALLERO Self - patient is the insured MEDICAID OF [facility] [address] [place] [address] [id number] SONJA CABALLERO Self - patient is the [...]
--- OUTSIDE RECORDS SUMMARY | 2024-12-11 12:57 | XMS_ITS ---
Author Organization [facility] Address [address] [place] [address] Care Team Providers Care Solar Water Heater Installer Name Role Phone Sp BAUER, Vandana Primary Care Provider Maryellen Bower Jr, Chuck Unavailable [phone] REASON FOR VISIT labs Encounters Encounter Location Date Provider Diagnosis [facility] [address] [place] [address] 01/27/2024 Chuck Bower Jr Plan Of Treatment Next Appt Details Provider Name:Chuck caba Jr, 12/20/2024 09:00:00 AM, [address], [address], [place], [address], Progress Notes * SONJA GUZMÁNDOB:1970 ( 53 yo M)Acc No.[id number]:01/27/2024 Patient:?SNOJA ZALDIVAR :1970???Age:53 Y???Sex:Male Address:[address] [place] [address] [place] [address] * true * Date:? Generated for Printi ng/Faxing/eTransmitting on:?12/11/2024 12:56 PM EDT
--- OUTSIDE RECORDS SUMMARY | 2024-12-11 12:57 | XMS_ITS | Clinical Summary ---
Author Organization 175 [facility] Address 175 [place] [address] Phone Care Team Providers Care Service Order Dispatcher Name Role Phone Vandana Snowden MD Primary Care Provider Allergies No known active allergies Medications No known medications Encounters Date Type Department Care Team Description 12/05/2024 8:30 AM EDT Office Visit Orthopedic [facility] [address] [phone] Eddie Bryant DPM Type 2 diabetes mellitus with diabetic neuropathy, without long-term current use of insulin ([facility] V24, [facility] V28) (Primary Dx); History of osteomyelitis; Hammertoes of both feet; Ulcer of toe of left foot, with fat layer exposed ([facility] V24, [facility] V28) 09/18/2024 9:45 AM EST Office Visit [place] [id number] [phone] Eddie Bryant DPM Type 2 diabetes mellitus with diabetic neuropathy, without long-term current use of insulin ([facility] V24, [facility] V28) (Primary Dx); History of osteomyelitis; Hammertoes of both feet; Ulcer of toe of left foot, with fat layer exposed ([facility] V24, [facility] V28) from Last 3 Months Social History [...] - - Weight 111 kg (245 lb) 12/05/2024 8:29 AM EDT Height 190.5 cm (6' 3 ) 12/05/2024 8:29 AM EDT Body Mass Index 30.62 12/05/2024 8:29 AM EDT Plan of Treatment Upcoming Encounters Date Type Department Care Team (Late st Contact Info) Description 02/07/2025 8:45 AM EDT Office Visit Orthopedic Surgery - [place] [id number] [phone] Eddie Bryant, RAGHU [address] [address] Health Maintenance Due Date Last Done Comments [...] of 2 - PCV) 11/30/2017 11/30/2016, 06/14/2007 COVID-19 Vaccine (2023-2 5 season) 2024 11/22/2020, 10/31/2020 Cholesterol Screening (Lipid Panel) 05/26/2024 Colorectal Cancer Screening: Colonoscopy 05/26/2024 Depression Screening 05/26/2024 HIV Screening 05/26/2024 Hepatitis C Screening 05/26/2024 Social Influencers of Health Screening 05/26/2024 Diabetes: Annual Urine Albumin-Creatinine Ratio (uACR) 07/10/2024 Diabetes: Blood Sugar Contro l Test (HGBA1C) 07/10/2024 Hypertension/CHF/CAD Annual BMP Blood Test 09/18/2024 Zoster Vaccines (2 of 2) 01/25/2025 11/30/2024 Influenza Vaccine (Season Ended) 2025 06/14/2007 DTaP,Tdap,and [...] patient's age to complete this topic Insurance [facility] Care Teams Service Order Dispatcher Relationship Specialty Start Date End Date Vandana Snowden MD [address] [place] [address] PCP - General Internal Medicine 06/01/24
--- OUTSIDE RECORDS SUMMARY | 2024-12-11 12:57 | XMS_ITS ---
Author Organization [facility] Address [address] [place] [address] Care Team Providers Care Cdl Dedicated Truck Driver Name Role Phone Sp BAUER, Vandana Primary Care Provider Maryellen Bower Jr, Chuck Unavailable REASON FOR VISIT had CT on wednesday at [facility] /results? Encounters Encounter Location Date Provider Diagnosis [facility] [address] [place] [address] 02/16/2024 Chuck Bower Jr Plan Of Treatment Next Appt Details Provider Name:Chuck caba Jr, 12/20/2024 09:00:00 AM, [address], [address], [place], [address], Progress Notes * ZENSONJADOB:1970 ( 54 yo M)Acc No.[id number]:02/16/2024 Patient:?ARIELLESONJA :1970???Age:54 Y???Sex:Male Address:[address] [place] [address] [place] [address] * true * Date:? Generated for Printi ng/Faxing/eTransmitting on:?12/11/2024 12:56 PM EDT
--- OUTSIDE RECORDS SUMMARY | 2024-12-11 12:57 | XMS_ITS ---
Author Organization [facility] Address [address] [place] [address] Care Team Providers Care Spike Machine Heater Name Role Phone Sp BAUER, Vandana Primary Care Provider Maryellen Bower Jr, Chuck Unavailable REASON FOR VISIT hep c Encounters Encounter Location Date Provider Diagnosis [facility] [address] [facility] [address] [place] [phone] 04/10/2024 Chuck Bower Jr Plan Of Treatment Next Appt Details Provider Name:Chuck caba Jr, 12/20/2024 09:00:00 AM, [address] [facility], [address], [place], [address], Progress Notes * SONJA ZALDIVARDOB:1970 ( 54 yo M)Acc No.[id number]:04/10/2024 Progress Notes Patient:?SONJA ZALDIVAR Provider:?Chuck Bower MD :1970???Age:54 Y???Sex:Male Rufino e:04/10/2024 Address:[address] [place], [place] [phone] Pcp:Vandana Snowden MD Subjective: * Chief Complaints: [...] MD Date:?0 04/10/2024 Generated for Mahesh swift/Dylan/Hadleyitting on:?12/11/2024 12:56 PM EDT
--- NOTE | 2024-12-11 12:58 | AM.OFFWIN_ITS ---
Intake Vital Signs 12/11/24 13:01 Weight 257 lb BP 120/76 Blood Pressure Location Lt brachial Position Sitting Pulse 81 Pulse Source Pulse Oximeter Pulse Oximetry (%) 97 Oxygen Delivery Method Room Air Intake Visit Reasons: EP lt foot swelling Intake Note: Patient here left foot swelling since terminal computer operator touched is last Wednesday. Patient Tobacco Use Status: Current everyday Tobacco user Allergies No Known Allergies Allergy (Verified 12/11/24 13:06) Do you need a note to return to daycare/school/sports/work: No HPI HPI Comments History of Present Illness Details History of Present Illness - The patient is a 54 year old male with past med hx of DM2, HLD, HTN, GERD presenting with concern for right foot issue. - A pin drafting machine tender previously diagnosed a fungal condition, applying ketoconazole cream between toes. Subsequent intervention by a terminal computer operator led to a bleeding injury on the left third toe, aggravating a prior diabetic foot condition. - The injury, now six days old, has beco me swollen, red, warm and painful, without drainage or fever. - He also states that the terminal computer operator mad e his left heel bleed when removing the dry skin. - A previous instance of cellulitis with abscess with management included wick insertion in the right knee. - currently undertaking a vaccination se [facility] for shingles. Physical Exam General: Cooperative, healthy appearing, comfortable, no acute distress and well developed Orientation: Patient oriented x3 Limitations: No limitations Head: Normal to inspection Ears: Hearing grossly normal bilaterally Nose: Normal External nose present Face and sinus: Normal facial exam Eyes: Appearance normal, both eyes and all related structures Neck: Normal visual inspection and Yes full ROM Respiratory: Normal respiratory effort and able to speak in complete sentences. Skin: scab on tip of left 3rd toe, erythema on base of toes extending to dorsal aspect of left foot with edema, warmth and ttp. Full ROM all digits with linear scars, well healed. bunion of right great toes. left medial heel has 1cm scab, no erythema, warmth or drainage noted. Neuro: Patient oriented x3 Extremities: as above [facility] Medical History (Updated 12/11/24 @ 13:22 by Linda Fu PA-C) Skin lesion of neck Refused influenza vaccine Hip fracture EtOH dependence Vitamin B12 deficiency Smoker GERD (gastroesophageal reflux disease) HTN (hypertension) Rheumatoid arthritis Hydronephrosis concurrent with and due to calculi of kidney and ureter Spinal stenosis, thoracic region Postlaminectomy syndrome, lumbar Postlaminectomy syndrome, cervical Lumbar stenosis with neurogenic claudication History of diabetic ulcer of foot Cervical spondylosis History of alcoholism Erectile disorder due to medical condition in male PTSD (post-traumatic stress disorder) Vitamin D deficiency Diabetes mellitus with diabetic neuropathy, without long-term current use of insulin Dyslipidemia Surgical History Hx of foot surgery History of surgery on lower extremity H/O knee surgery History of carpal tunnel surgery of right wrist Hx of colonoscopy H/O cervical discectomy Status post lumbar spine surgery for decompression of spinal cord Family History Father Essential hypertension Dyslipidemia Cardiovascular disease Substance use disorder Mental health disorder Mother Essential hypertension Dyslipidemia Diabetes mellitus Social History Housing: House Are you a primary day care teacher to a significant other at home: No Do you presently have visiting nurse or other home services: No Alcohol intake: former Patient Tobacco Use Status: Current everyday Tobacco user Tobacco use type: Cigarette Cigarette Packs Per Day: 0 Cigarettes Per Day: 10 e-Cigarette/Vaping Use: Never Used Second Hand Smoke Exposure: No Current occupational status: disabled Cognitive needs: No Hearing needs: No Vision needs: Yes Review of Systems Const All systems reviewed & are unremarkable except as noted in HPI and below Physical Exam Vital Signs: Last Vital Signs Pulse 81 12/11/24 13:01 BP 120/76 12/11/24 13:01 Pulse Ox 97 12/11/24 13:01 Oxygen Delivery Method Room Air 12/11/24 13:01 Assessment & Plan Assessment & Plan (1) Cellulitis: Code(s): L03.90 - Cellulitis, unspecified Qualifiers: Site of cellulitis: extremity Site of cellulitis of extremity: lower extremity Laterality: left Qualified Code(s): L03.116 - Cellulitis of left lower limb Plan: The patient is administered Keflex, an oral antibiotic, four times daily to wendy ge cellulitis and prevent possible escalation. Marked the area with surgical pen with the date. He is advised to detect any extension beyond the area I marked, allowing for time for antibiotics to start working and seek immediate emergency care if it goes beyond or if he develops a fever. Recommended applying Aquaphor twice daily to enhance scab healing. Coordination with the terminal computer operator is crucial given the recent toe and heel injuries and the potential risk factors associated with diabetes mellitus type 2 in terms of managing foot health. Current topical treatments with ketoconazole cream and erythromycin ointment should continue as prescribed to address other dermatological concerns. Patient was informed and verbally consented to the use of an ambient scribe for clinic note documentation during this visit. Medications: New cephalexin 500 mg PO Q6H 28 caps 0RF Coding Level of Care Code Est Pt Level 3 (25834) Diagnoses Cellulitis of left lower extremity L03.116 Site of cellulitis: extremity Site of cellulitis of extremity: lower extremity Laterality: left
[2024-12-11 13:01] VITALS: BP 120/76; PULSE 81; O2SAT 97
== END 2024-12-11 13:42 | disposition home or self-care (01) ==
PROVIDERS: PCP Internal Medicine; Visit Provider Physician Assistant
DX: L03.116 Cellulitis of left lower limb (principal)

== ENCOUNTER → 2024-12-11 12:29 | Outpatient (BNVA) | payer OTHER, SELFPAY | PROVIDERS: PCP Internal Medicine; Visit Provider Physician Assistant | DX: L03.116 Cellulitis of left lower limb (principal) | CPT/HCPCS: 99212 ==

== ENCOUNTER 2025-01-16 09:57 | Outpatient (AMB) | payer OTHER, SELFPAY ==
--- NOTE | 2025-01-16 10:00 | A.OFFVIS_ITS ---
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 He sees a art history instructor for his toe, went to the emergency after having an in office debridement. States he been putting an antibiotic on the wound. Patient will be seeing the art history instructor every two weeks to follow up. 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 He states he has been seeing Podiatry weekly, now will be seeing them less frequently, for wound care. He states the wound has gotten much better and is almost healed but wanted to be checked out by Vascular. He states he has complaints of feeling like he is walking on hot coals and does take Gabapentin for neuropathy. He states he has recently been treated for cellulitis for the toe, he was admitted for 3d of IV Abx at [facility] and discharged with oral abx, which he has completed. He denies any pain at the site of the toe. Complaints include pain/discomfort over varicosities, swelling of lower extremities, cramping, fatigue, and heaviness of the lower extremities. It has been affecting their daily activities including walking, standing, and physical activity. It is noted in bilateral legs; however, the wound is on the left foot. He was a diabetic and on Metformin; however, his latest A1C was 5.2% and his Metformin was discontinued. He does smoke appx 1/2ppd of cigarettes for the last 5y; however, he has smoked on and off for many years prior to that. Patient had an ablation of the right lower extremity veins with Dr Menezes >10y ago. Patient denies any history of DVT/ PE. Patient denies any history of phlebitis. Trial of compression includes - elevation, which does help They now present for vascular evaluation regarding their varicose veins. [facility] Medical History (Updated 01/16/25 @ 10:20 by Milady Thurman PA-C) Skin lesion of neck Refused influenza vaccine Hip fracture EtOH dependence Vitamin B12 deficiency Smoker GERD (gastroesophageal reflux disease) HTN (hypertension) Rheumatoid arthritis Hydronephrosis concurrent with and due to calculi of kidney and ureter Spinal stenosis, thoracic region Postlaminectomy syndrome, lumbar Postlaminectomy syndrome, cervical Lumbar stenosis with neurogenic claudication History of diabetic ulcer of foot Cervical spondylosis History of alcoholism Erectile disorder due to medical condition in male PTSD (post-traumatic stress disorder) Vitamin D deficiency Diabetes mellitus with diabetic neuropathy, without long-term current use of insulin Dyslipidemia Surgical History Hx of foot surgery History of surgery on lower extremity H/O knee surgery History of carpal tunnel surgery of right wrist Hx of colonoscopy H/O cervical discectomy Status post lumbar spine surgery for decompression of spinal cord Family History Father Essential hypertension Dyslipidemia Cardiovascular disease Substance use disorder Mental health disorder Mother Essential hypertension Dyslipidemia Diabetes mellitus Social History Housing: House Are you a primary lead care manager to a significant other at home: No Do you presently have visiting nurse or other home services: No Alcohol intake: former Patient Tobacco Use Status: Current everyday Tobacco user Tobacco use type: Cigarette Cigarette Packs Per Day: 0 Cigarettes Per Day: 10 e-Cigarette/Vaping Use: Never Used Second Hand Smoke Exposure: No Current occupational status: disabled Cognitive needs: No Hearing needs: No Vision needs: Yes Review of Systems Const Reports as per HPI and Denies weakness ENT Reports Normal hearing present and Denies dizziness Card Reports as per HPI, Denies chest pain, Denies chest pain at rest, Denies chest pain with activity, Denies dyspnea and Denies dyspnea on exertion Resp Reports as per HPI, Denies cough, Denies dyspnea and Denies dyspnea on exertion GI Reports as per HPI, Denies abdominal pain, Denies nausea and Denies vomiting Musc Denies numbness Skin/Breast Reports as per HPI, Denies erythema and Denies wounds Neuro Reports Normal hearing present, Denies dizziness, Denies numbness, Denies Sensory deficit (Neuro) and Denies weakness Psych Reports no additional complaints Endo Reports no additional complaints Physical Exam Const General: healthy appearing and no acute distress Orientation/consciousness: patient oriented x3 HEENT Head: Yes normal to inspection Ears: hearing grossly normal bilaterally Mouth: Normal oral and palatal mucosa present Resp Effort & Inspection: normal respiratory effort and able to speak in complete sentences Auscultation: clear to auscultation bilaterally Cardio Jugular venous distension: no JVD Rate: regular rate Rhythm: regular rhythm Heart sounds: S1 normal heart sound present and S2 normal heart sound present Bruits: no abdominal aortic bruits, no carotid bruits, no femoral bruits and no renal bruits Peripheral pulses: Peripheral pulses 2+ throughout GI Inspection: Yes normal to inspection Palpation (GI): No Abdominal aortic bruit present Skin General skin exam: no rashes or lesions noted Wounds: no wounds Hair: normal Neuro General: patient oriented x3 Cranial nerves: Yes Normal hearing present Cognition (Neuro): normal cognition Gait exam (Neuro): Normal gait present Motor exam (neuro): 5/5 motor strength present throughout Sensory Exam: No Sensory deficit (Neuro) Extrem Other: Bilateral lower extremities: discoloration noted in the tibial areas, from the pretibial area to the lower calf, above the ankle. +1 pitting edema noted. Strong, palpable DP pulses. No discoloration of the feet. Feet warm to the touch. Left 3rd toe: bandage in place, no discharge or bleeding noted on bandage. Wound is completely healed over, at the base of the toenail. Right lower extremity: multiple areas of telangiectasia noted on the medial thigh and several on the tibial area. CEAP: C - 4 E - primary A - superficial P - reflux General: Yes normal to inspection, Yes full ROM, Yes capillary refill normal and Yes normal gait Assessment & Plan Assessment & Plan (1) Varicose veins of both lower extremities with inflammation: Code(s): I83.11 - Varicose veins of right lower extremity with inflammation; I83.12 - Varicose veins of left lower extremity with inflammation Category: Medical Plan: Som is presenting today on a self-referral/recommendation from PCP for concerns of slow healing wound on the left 3rd toe as well as VV with inflammation. In short, the patient has evidence of venous insufficiency. I have discussed the pathophysiology with the patient. In addition I have provided informational material regarding venous disease to the patient. We have discussed conservative measures including compression, elevation, and exercise. I have taken the liberty of ordering venous insufficiency testing with the patient. They will follow up with me after testing. The patient had an opportunity to ask questions regarding the treatment plan. All questions were answered. Imaging studies, laboratory studies and physical exam results were discussed and reviewed in detail. No major barriers to understanding were identified. The patient expressed understanding and agree ment with the above treatment plan. The patient is aware they should contact our office by phone for worsening of the current condition or the appearance of new symptoms. Thank you for allowing me to participate in the vascular care of this patient. If you have any questions or concerns regarding the treatment for the above condition please do not hesitate to contact me. The office telephone co ntact is [phone]. This note is constructed using voice recognition software. While every effort has been made to ensure accuracy, dental mechanic errors may have been included. Thank you for allowing me to participate in the care of your patient. Yours sincerely, FLOYD Horton Orders: Orders US venous duplex LE BI 1 Week I83.11 - Varicose veins of right lower extremity with inflammation, I83.12 - Varicose veins of left lower extremity with inflammation Coding Level of Care Code New Pt Level 4 (57757) Diagnoses Varicose veins of both lower extremities with inflammation I83.11; I83.12
--- OUTSIDE RECORDS SUMMARY | 2025-01-16 11:15 | XMS_ITS | Patient Health Record ---
Author Organization [facility] Address [address] [place] [address] Care Team Providers Care Circulation Sales Representative Name Role Phone Sp ABUER, Vandana Primary Care Provider Chuck Mays Jr Unavailable [phone] Allergies No Known Allergies Results Component Value Reference Range Notes Complete Blood Count no Diff Reviewed date:01/20/2024 11:11:45 AM Interpretation: Performing Lab:[facility], [address] [place] [address] Notes/Report: White Blood Count 7.4 4.8-10.8 X10*3/uL [...] Panel Reviewed date:01/20/2024 11:11:38 AM Interpretation: Performing Lab:[facility], [address] [place] [address] Notes/Report: Bilirubin Total 0.2 0.0-1.0 mg/dL Bilirubin Direct < 0.2 0.0-0.5 mg/dL Aspartate Amino Transferase 18 5-37 U/L Alanine Aminotransferase 16 0-40 U/L Total Protein 6.8 6.5-8.0 g/dL Albumin Level 4.0 3.5-5.0 g/dL Alkaline Phosphatase 117 39-117 U/L Blood Urea Nitrogen Reviewed date:01/20/2024 11:11:25 AM Interpretation: Performing Lab:[address] [address] Notes/Report: Blood Urea Nitrogen 13 9-16 mg/dL Creatinine Reviewed date:01/20/2024 11:11:33 AM Interpretation: Performing Lab:[address] [address] Notes/Report: Creatinine 0.85 0.5-1.4 mg/dL Estimated Glomerular Filt Rate > 60 NOTE: For -Citizen Of [place] individuals, multiply the result by 1.210. Chronic Kidney Disease: Estimated GFR < 60 mL/min/1.73m2 Severe Kidney Disease: Estimated GFR < 15 mL/min/1.73m2 Lipase Reviewed date:01/20/2024 11:12:02 AM Interpretation: Performing Lab:[address] [address] Notes/Report: Lipase 119 8-78 U/L Leukocytes Stool Qualitative Reviewed date:01/27/2024 08:16:43 AM Interpretation: Performing Lab:[address] [address] Notes/Report: Leukocytes Stool Qualitative NEGATIVE NEGATIVE Leukocytes Stool Qualitative NEGATIVE NEGATIVE C ORRECTED REPORT C ORRECTED REPORT Ova and Parasite Reviewed date:02/02/2024 08:13:53 AM Interpretation: Performing Lab:[facility], [address] [place] [address] Notes/Report: Ova and Parasite SEE NOTE OVA AND PARASITES, CONC AND PERM SMEAR Micro Number: [id number] Test Status: Final Specimen Source: Stool Specimen [...] infection. For additional information, please refer to https://education.[employer]/faq/F AQ203 (This link is being provided for informational/ educational purposes only.) THIS TEST WAS PERFORMED AT: [facility] [address] [address] ADAIR RICO MD GI PANEL Reviewed date:01/27/2024 08:16:36 AM Interpretation: Performing Lab:[facility], [address] [place] [phone] Notes/Report: Campylobacter Not Detected Not Detect. Plesiomonas [...] is performed by Multiplexed PCR, utilizing the [employer] Array. CT abdomen pelvis w con Reviewed date:02/17/2024 10:14:48 PM Interpretation: Performing Lab: Notes/Report: [address] [address] [address] Scan Report Signed Patient: Sonja Caballero MR#: [id number] 6 : 1970 Acct:[id number] Age/Sex: 54 / M ADM Date: 02/14/24 Loc: HO.CT Attending Dr: Chuck Bower MD Ordering Physician: Chuck Bower MD Date of Service: 02/14/24 Procedure(s): CT abdomen pelvis w IV con Accession Number(s): [id number] cc: Chuck Bower MD EXAMINATION: CT ABDOMEN [...] in OV> 02/17/24 1325 DD/ 1550 TD/TT: Transportation Modeler: [place] [address] [address] Scan Report Signed Patient: Sonja Caballero MR#: [id number] 6 : 1970 Acct:[id number] Age/Sex: 54 / M ADM Date: 02/14/24 Loc: HO.CT Attending Dr: Rasheed Bower MD Ordering Physician: Chuck Bower MD Date of Service: 02/14/24 Procedure(s): CT abdomen pelvis w IV con Accession Number(s): [id number] cc: Chuck Bower MD EXAMINATION: CT ABDOMEN [...] in OV> 02/17/24 1325 DD/ 1550 TD/TT: Transportation Modeler: Reason For Referral No Information Medications Medication SIG (Take, Route, Frequency, Duration) Notes Start Date End Date Status metFORMIN HCl 1000 MG 1 tablet with meal s Orally TID Active Atorvastatin Calcium 20 MG 1 tablet Oral ly Once a day Active Lisinopril 10 MG 1 tablet Orally Once a day Active QUEtiapine Fumarate 200 MG 1 tablet Oral ly Once a day Not-Taking busPIRone HCl 15 MG 1 tablet Orally Twic e a day Not-Taking FLUoxetine HCl 40 MG 1 capsule Orally On ce a day Active Ranitidine HCl 150 MG 1 tablet at bedtim e Orally Once a day Not-Taking Dicyclomine HCl 20 MG TAKE ONE TABLET BY MOUTH 2 TO 4 TIMES A DAY for 30 Active clonazePAM 1 MG 1 tablet Orally Once a day Active Cyanocobalamin 1000 MCG/ML 1 ml Injection monthly Active Gabapentin 600 MG 1 tablet Orally Thre e times a day Active Immunizations Vaccine Route Administration Date Status [...] Problem Status W/U Status Risk Notes Problem 988780686 Colon cancer screening (Z12.11) Active confirmed Problem 624658744 Generalized abdominal pain (R10.84) Active confirmed Problem 180267782 Abnormal levels of other serum enzymes (R74.8) Active confirmed Problem Gastroesophageal reflux disease (717476929) Gastroesophageal reflux disease (K21.9) Active confirmed Problem 973097970 Hepatitis C antibody test positive (R76.8) Active confirmed Problem 96332400 Colitis (K52.9) Active confirmed Problem Gastritis (9145755) Gastritis (K29.70) Active c onfirmed Problem 21225890 Other ulcerative colitis without complication (K51.80) Active confirmed Problem 80660603 Diarrhea, unspecified type (R19.7) Active confirmed Problem 529121864812147 [facility] (current) use of oral hypoglycemic drugs (Z79.84) Active confirmed Problem 150491227 Rectal/anal hemorrhage (K62.5) Active confirmed Problem 979855832 Gastroesophageal reflux disease, unspecified whether esophagitis present (K21.9) Active confirmed Problem 66836529 Gastric intestin al metaplasia (K31.A0) Active confirmed Vital Signs Temperature 98.6 degrees Fahrenheit 12/20/2024 Blood pressure diastolic 01 mm Hg 12/20/2024 Height 74.75 in 12/20/2024 Blood pressure systolic 001 mm Hg 12/20/2024 Weight 258 lbs 12/20/2024 BMI 32.46 kg/m2 12/20/2024 Encounters Encounter Location Date Provider Diagnosis [facility] [address] [place] [address] 12/20/2024 Chuck Bower Jr Gastroesophageal reflux disease K21.9 ; Gastric intestinal metaplasia K31.A0 and Diarrhea, unspecified type R19.7 [facility] [address] [place] [address] 01/20/2024 Chcuk Bower Jr [facility] [address] [place] [address] 01/27/2024 Chuck Bower Jr [facility] [address] [place] [address] 02/16/2024 Chuck Bower Jr Assessments Encounter Date Diagnosis (ICD Code) Assessment Notes Treatment Notes Treatment Clinical Notes Section Notes 12/20/2024 Gastroesophageal reflux disease (ICD-10 - K21.9) At this time, Sonja is doing well. Reflux symptoms are well-controlled with diet. We discussed diet, lifestyle modifications, and weight management regarding the treatment of reflux. He will continue these measures. Gastric intestinal metaplasia is stable with no evidence of this at the time of his last endoscopy. He will continue to follow-up. Diarrheal symptoms may be reflective of underlying IBS with diarrhea predominance. We discussed this today. He can use OTC antidiarrheals as needed. He will continue dicyclomine for his crampy abdominal discomfort. Follow-up will be in 12 months. Today's visit was 35 minutes. 12/20/2024 Gastric intestinal metaplasia (ICD-10 - K31.A0) At this time, Sonja is doing well. Reflux symptoms are well-controlled with diet. We discussed diet, lifestyle modifications, and weight management regarding the treatment of reflux. He will continue these measures. Gastric intestinal metaplasia is stable with no evidence of this at the time of his last endoscopy. He will continue to follow-up. Diarrheal symptoms may be reflective of underlying IBS with diarrhea predominance. We discussed this today. He can use OTC antidiarrheals as needed. He will continue dicyclomine for his crampy abdominal discomfort. Follow-up will be in 12 months. Today's visit was 35 minutes. 12/20/2024 Diarrhea, unspecified type (ICD-10 - R19.7) At this time, Sonja is doing well. Reflux symptoms are well-controlled with diet. We discussed diet, lifestyle modifications, and weight management regarding the treatment of reflux. He will continue these measures. Gastric intestinal metaplasia is stable with no evidence of this at the time of his last endoscopy. He will continue to follow-up. Diarrheal symptoms may be reflective of underlying IBS with diarrhea predominance. We discussed this today. He can use OTC antidiarrheals as needed. He will continue dicyclomine for his crampy abdominal discomfort. Follow-up will be in 12 months. Today's visit was 35 minutes. Plan Of Treatment Pending Test Test Name [...] 03/03/2023 Next Appt Details Provider Name:Chuck caba Jr, 12/24/2025 09:20:00 AM, [address], [address], [place], [address], Insurance Providers Payer Name Payer Address Payer Phone Subscriber Number Group Number Insured Name Patient Relationship to Insured Coverage Start Date Coverage End Date [facility] [address] [address] [place], [place] [id number] [phone] [id number] SONJA CABALLERO Self - patient is the insured MEDICAID OF [facility] [address] [place] [address] [phone] [id number] SONJA CABALLERO Self - patient is the [...] deficiency Positive hepatitis C antibody, negative viremia Neuropathy Surgical History Surgery Date(Month/Year) right hip replacement Back surgery knee surgery carpal tunnel release-right neck surgery toe surgery laser surgery, leg
== END 2025-01-16 10:20 | disposition home or self-care (01) ==
LOC: HO.HVS 09:58
PROVIDERS: PCP Internal Medicine; Visit Provider Physician Assistant Surgical
DX: I83.11 Varicose veins of right lower extremity with inflammation (principal); I83.12 Varicose veins of left lower extremity with inflammation
CPT/HCPCS: 99204

== ENCOUNTER → 2025-01-16 09:57 | Outpatient (BNVA) | payer OTHER, SELFPAY | PROVIDERS: PCP Internal Medicine; Visit Provider Physician Assistant Surgical | DX: I83.11 Varicose veins of right lower extremity with inflammation (principal); I83.12 Varicose veins of left lower extremity with inflammation | CPT/HCPCS: 99202 ==

== ENCOUNTER 2025-02-08 12:54 | Outpatient (REF) | payer OTHER, SELFPAY ==
--- NOTE | ~2025-02-08 | US_ITS ---
EXAMINATION: US LOWER EXTREMITY VENOUS (REFLUX EXAM), BILATERAL CLINICAL INFORMATION: Varices. COMPARISON: October 22, 2016. TECHNIQUE: Color flow triplex imaging and compression Doppler was performed to evaluate both the deep and the superficial systems bilaterally. To evaluate the superficial system, the examination was performed in the upright position. Color-flow Doppler ultrasound and compression ultrasound were utilized. In addition, maneuvers were utilized to demonstrate reflux. FINDINGS: 1. DEEP VENOUS ULTRASOUND OF THE RIGHT LOWER EXTREMITY: Common Femoral Vein: Compressible, normal respiratory variation and augmented flow. Femoral Vein: Compressible, normal color flow and augmentation. Popliteal Vein: Compressible, normal augmentation. Deep Reflux: There is no evidence of reflux in the deep system in either the common femoral vein, superficial femoral or the popliteal vein. There is no evidence of a Clark's cyst. 2. SUPERFICIAL ULTRASOUND WITH DOPPLER OF RIGHT LOWER EXTREMITY: GREAT SAPHENOUS VEIN: Saphenofemoral Junction: 0.6 cm; Reflux: 0 ms Proximal Thigh: 0.4 cm; Reflux: 0 ms Mid Thigh: 0.3 cm; Reflux: 0 ms Distal Thigh: Not seen. At Knee: Not seen. Proximal Calf: 0.2 cm; Reflux: 0 ms Mid Calf: 0.1 cm; Reflux: 0 ms Distal Calf: 0.2 cm; Reflux: 0 ms DUPLICATED MEDIAL GREAT SAPHENOUS VEIN: Diameter: None imaged Reflux: NA DUPLICATED LATERAL GREAT SAPHENOUS VEIN: Diameter: 0.2 cm. Reflux: NA SMALL SAPHENOUS VEIN: Saphenopopliteal Junction: 0.4 cm; Reflux: 0 ms Proximal: 0.3 cm; Reflux: 0 ms Distal: 0.2 cm; Reflux: 0 ms VEIN OF GIACOMINI: Size: NA Reflux: NA PERFORATORS: Location: Small saphenous vein, mid segment. Great saphenous vein from the proximal thigh to the mid calf. Size: 0.1-0.2 cm. Reflux: NA VARICOSITIES: Location: None imaged. Size: NA Reflux: NA 3. DEEP VENOUS ULTRASOUND OF THE LEFT LOWER EXTREMITY: Common Femoral Vein: Compressible, normal respiratory variation and augmented flow. Femoral Vein: Compressible, normal color flow and augmentation. Popliteal Vein: Compressible, normal augmentation. Deep Reflux: There is no evidence of reflux in the deep system in either the common femoral vein, superficial femoral or the popliteal vein. There is no evidence of a Clark's cyst. 4. SUPERFICIAL ULTRASOUND WITH DOPPLER OF LEFT LOWER EXTREMITY: GREAT SAPHENOUS VEIN: Saphenofemoral Junction: 0.7 cm; Reflux: 0 ms Proximal Thigh: 0.5 cm; Reflux: 0 ms Mid Thigh: 0.4 cm; Reflux: 0 ms Distal Thigh: 0.4 cm; Reflux: 0 ms At Knee: 0.4 cm; Reflux: 0 ms Proximal Calf: 0.3 cm; Reflux: 0 ms Mid Calf: 0.4 cm; Reflux: 2296 ms Distal Calf: 0.3 cm; Reflux: 0 ms DUPLICATED MEDIAL GREAT SAPHENOUS VEIN: Diameter: None imaged Reflux: NA DUPLICATED LATERAL GREAT SAPHENOUS VEIN: Diameter: 0.2-0.3 cm. Reflux: NA SMALL SAPHENOUS VEIN: Saphenopopliteal Junction: 0.3 cm; Reflux: 0 ms Proximal: 0.2 cm; Reflux: 0 ms Distal: 0.2 cm; Reflux: 0 ms VEIN OF GIACOMINI: Size: NA Reflux: NA PERFORATORS: Location: Small saphenous vein, proximal segment. Great saphenous vein from the proximal to mid calf. Size: 0.1-0.3 cm. Reflux: NA VARICOSITIES: Location: None Imaged Size: NA Reflux: NA US/US venous duplex LE BI IMPRESSION: Right: No venous insufficiency. Perforators without reflux. No gross varices. Left: Venous insufficiency, great saphenous vein in the mid calf. No gross varices. Perforators without reflux. Electronically signed by: Antonio Mahmood MD 02/08/2025 02:36 PM EDT
--- OUTSIDE RECORDS SUMMARY | 2025-02-08 12:59 | XMS_ITS | Clinical Summary ---
Author Organization [facility] Address [address] [place] [address] Phone Care Team Providers Care Concrete Journeyman Name Role Phone Vandana Snowden MD Primary Care Provider Allergies No known active allergies Medications No known medications Encounters Date Type Department Care Team Description 02/07/2025 8:45 AM EDT Office Visit Orthopedic Surgery [facility] [address] [phone] Eddie Bryant DPM Controlled type 2 diabetes mellitus with diabetic polyneuropathy, without long-term current use of insulin (CMS/[facility] V24, CMS/[facility] V28) (Primary Dx); Osteomyelitis of toe of left foot ([facility] V24, CMS/[facility] V28); Hammertoes of both feet; Ulcer of toe of left foot, with fat layer exposed (CMS/[facility] V24, CMS/HCC V28) 01/24/2025 10:15 AM EDT Office Visit Orthopedic [facility] [address] [phone] Eddie Bryant DPM Controlled type 2 diabetes mellitus with diabetic polyneuropathy, without long-term current use of insulin (CMS/[facility] V24, CMS/HCC V28) (Primary Dx); Osteomyelitis of toe of left foot (CMS/HCC V24, CMS/HCC V28); Venous insufficiency; Hammertoes of both feet; Neuropathy; Callus; Onychomycosis 01/10/2025 11:00 AM EDT Office Visit Orthopedic Surgery [facility] [address] [address] Eddie Bryant DPM Hammertoe of left foot (Primary Dx); Type 2 diabetes mellitus with diabetic neuropathy, without long-term current use of insulin ([facility] V24, [facility] V28); History of osteomyelitis; Ulcer of toe of left foot, with fat layer exposed ([facility] V24, [facility] V28) 01/03/2025 8:30 AM EDT Office Visit Orthopedic Surgery [facility] [address] [phone] Eddie Bryant DPM Type 2 diabetes mellitus with diabetic neuropathy, without long-term current use of insulin ([facility] V24, [facility] V28) (Primary Dx); History of osteomyelitis; Hammertoes of both feet; Ulcer of toe of left foot, with fat layer exposed ([facility] V24, [facility] V28) 12/27/2024 2:30 PM EDT Office Visit Orthopedic Surgery [facility] [address] [address] Eddie Bryant DPM Type 2 diabetes mellitus with diabetic neuropathy, without long-term current use of insulin ([facility] V24, [facility] V28) (Primary Dx); History of osteomyelitis; Hammertoes of both feet; Cellulitis of left foot; Ulcer of toe of left foot, with fat layer exposed ([facility] V24, [facility] V28) 12/11/2024 Telephone Orthopedic Surgery [facility] [address] [phone] Eddie Bryant DPM 12/05/2024 8:30 AM EDT Office Visit Orthopedic [facility] [address] [address] Eddie Bryant DPM Type 2 diabetes mellitus with diabetic neuropathy, without long-term current use of insulin ([facility] V24, [facility] V28) (Primary Dx); History of osteomyelitis; Hammertoes of both feet; Ulcer of toe of left foot, with fat layer exposed (CMS/HCC V24, CMS/HCC V28) from Last 3 Months Social History [...] - - Weight 111 kg (245 lb) 02/07/2025 8:55 AM EDT Height 190.5 cm (6' 3 ) 02/07/2025 8:55 AM EDT Body Mass Index 30.62 02/07/2025 8:55 AM EDT Plan of Treatment Upcoming Encounters Date Type Department Care Team (Late st Contact Info) Description 04/26/2025 9:00 AM EDT Office Visit Orthopedic Surgery [place] [address] [phone] Eddie Bryant, RAGHU [address] [address] Health Maintenance Due Date Last Done Comments [...] (2 of 2) 01/25/2025 11/30/2024 Influenza Vaccine (#1) 2025 06/14/2007 DTaP,Tdap,and Td Vaccines (2 - [...] patient's age to complete this topic Insurance [facility] Care Teams Concrete Journeyman Relationship Specialty Start Date End Date Vandana Snowden MD [address] [place] [address] PCP - General Internal Medicine 06/01/24
--- OUTSIDE RECORDS SUMMARY | 2025-02-08 12:59 | XMS_ITS | Patient Health Record ---
Author Organization [facility] Address [address] [place] [address] Care Team Providers Care Program Support Clerk Name Role Phone Sp BAUER, Vandana Primary Care Provider Chuck Mays Jr Unavailable Allergies No Known Allergies Results Component Value Reference Range Notes CT abdomen pelvis w con Reviewed date:02/17/2024 10:14:48 PM Interpretation: Performing Lab: Notes/Report: [address] [address] [address] Scan Report Signed Patient: Sonja Caballero MR#: [id number] 6 : 1970 Acct:[id number] Age/Sex: 54 / M ADM Date: 02/14/24 Loc: HO.CT Attending Dr: Chuck Bower MD Ordering Physician: Chuck Bower MD Date of Service: 02/14/24 Procedure(s): CT abdomen pelvis w IV con Accession Number(s): [id number] cc: Chuck Bower MD EXAMINATION: CT ABDOMEN [...] in OV> 02/17/24 1325 DD/ 1550 TD/TT: Investigation Officer: Reason For Referral No Information Medications Medication [...] Problem Status W/U Status Risk Notes Problem 961242645 Colon cancer screening (Z12.11) Active confirmed Problem 786576942 Generalized abdominal pain (R10.84) Active confirmed Problem 034342060 Abnormal levels of other serum enzymes (R74.8) Active confirmed Problem Gastroesophageal reflux disease (352368139) Gastroesophageal reflux disease (K21.9) Active confirmed Problem 609786911 Hepatitis C antibody test positive (R76.8) Active confirmed Problem 52081055 Colitis (K52.9) Active confirmed Problem Gastritis (3573521) Gastritis (K29.70) Active c onfirmed Problem 79860025 Other ulcerative colitis without complication (K51.80) Active confirmed Problem 08634320 Diarrhea, unspecified type (R19.7) Active confirmed Problem 101203626920914 halfway (current) use of oral hypoglycemic drugs (Z79.84) Active confirmed Problem 028078410 Rectal/anal hemorrhage (K62.5) Active confirmed Problem 572461647 Gastroesophageal reflux disease, unspecified whether esophagitis present (K21.9) Active confirmed Problem 75923176 Gastric intestin al metaplasia (K31.A0) Active confirmed Vital Signs Temperature 98.6 degrees Fahrenheit 12/20/2024 Blood pressure diastolic 01 mm Hg 12/20/2024 Height 74.75 in 12/20/2024 Blood pressure systolic 001 mm Hg 12/20/2024 Weight 258 lbs 12/20/2024 BMI 32.46 kg/m2 12/20/2024 Encounters Encounter Location Date Provider Diagnosis [facility] [address] [place] [address] 12/20/2024 Chuck Bower Jr Gastroesophageal reflux disease K21.9 ; Gastric intestinal metaplasia K31.A0 and Diarrhea, unspecified type R19.7 [facility] [address] [place] [address] 02/16/2024 Chuck Bower Jr Assessments Encounter Date [...] BIOPSY 04/10/2011 COLONOSCOPY REMOVAL OF LESION SNARE CARMEN CHOW 04/10/2011 BUN 07/02/2021 BUN 12/20/2023 CREATININE 12/20/2023 CREATININE 07/02/2021 LIVER PROFILE 12/10/2021 LIVER PROFILE 07/02/2021 LIVER PROFILE 12/20/2023 LIVER PROFILE 07/11/2021 LIVER PROFILE 10/22/2021 AMYLASE 07/11/2021 LIPASE 12/10/2021 LIPASE 12/20/2023 LIPASE [...] Next Appt Details Provider Name:Chuck caba , 12/24/2025 09:20:00 AM, [address] [place] [address], [address], [place], [address], Insurance Providers Payer Name Payer Address Payer Phone Subscriber Number Group Number Insured Name Patient Relationship to Insured Coverage Start Date Coverage End Date [facility] [employer] [facility] [address] [address] [place], [place] [id number] SONJA CABALLERO Self - patient is the insured MEDICAID OF [facility] [address] [place] [address] [phone] [id number] SONJA CABALLERO Self - patient is the [...]
== END 2025-02-08 12:55 | disposition home or self-care (01) ==
LOC: HO.US 12:54
PROVIDERS: PCP Internal Medicine; Visit Provider Physician Assistant Surgical
DX: I83.11 Varicose veins of right lower extremity with inflammation (principal); I83.12 Varicose veins of left lower extremity with inflammation
CPT/HCPCS: 93970

== ENCOUNTER → 2025-02-08 12:56 | Outpatient (BNV) | payer OTHER, SELFPAY | PROVIDERS: PCP Internal Medicine; Visit Provider Radiology Diagnostic Radiology | DX: I87.2 Venous insufficiency (chronic) (peripheral) (principal) | CPT/HCPCS: 93970 ==

== ENCOUNTER 2025-02-21 10:54 | Outpatient (AMB) | payer OTHER, SELFPAY ==
--- NOTE | 2025-02-21 11:07 | MHC.PC.OV ---
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 Telephone Information Required: No Accompanied by: Self / Same As Patient Allergies No Known Allergies Allergy (Verified 02/21/25 11:38) Medication List - Last Reconciled 02/21/25 by Vandana Snowden MD atorvastatin 20 mg PO DAILY blood sugar diagnostic (FreeStyle Lite Strips) check blood sugar once a day before a meal as directed clonazepam 1 mg PO DAILY cyanocobalamin (vitamin B-12) 1,000 mcg IM Q4W fluoxetine 80 mg PO QAM gabapentin 600 mg PO DAILY lisinopril 2.5 mg (1/2 x 5 mg) PO DAILY pioglitazone 30 mg PO DAILY syringe with needle, safety (BD Integra Syringe) As directed Tobacco use date assessed: 02/21/25 Dental Screening Dental Screen Date: 02/21/25 Did you have a dental visit in the last 12 months?: No Did you have a dental problem in the last 6 months where you did not have access to dental care?: No Was dental information given to patient?: Patient declined HPI 3 months f/up HPI Details 55 year-old male with hyperlipidemia, hypertension, and diabetes mellitus with neuropathy without long-term insulin use, here today for follow-up. Blood pressure stable and controlled on lisinopril 5 mg daily. Patient however has not yet had his fasting labs done. Currently being followed by his beam sealer, Dr. Bryant for ulcers and left 3rd and 4th toes, and hammertoe deformity. [facility] Medical History (Updated 02/21/25 @ 11:51 by Vandana Snowden MD) Vitamin B12 deficiency Skin lesion of neck Refused influenza vaccine Hip fracture EtOH dependence Smoker GERD (gastroesophageal reflux disease) HTN (hypertension) Rheumatoid arthritis Hydronephrosis concurrent with and due to calculi of kidney and ureter Spinal stenosis, thoracic region Postlaminectomy syndrome, lumbar Postlaminectomy syndrome, cervical Lumbar stenosis with neurogenic claudication History of diabetic ulcer of foot Cervical spondylosis History of alcoholism Erectile disorder due to medical condition in male PTSD (post-traumatic stress disorder) Vitamin D deficiency Diabetes mellitus with diabetic neuropathy, without long-term current use of insulin Dyslipidemia Surgical History Hx of foot surgery History of surgery on lower extremity H/O knee surgery History of carpal tunnel surgery of right wrist Hx of colonoscopy H/O cervical discectomy Status post lumbar spine surgery for decompression of spinal cord Family History Father Essential hypertension Dyslipidemia Cardiovascular disease Substance use disorder Mental health disorder Mother Essential hypertension Dyslipidemia Diabetes mellitus Social History Housing: House Are you a primary health care consultant to a significant other at home: No Do you presently have visiting nurse or other home services: No Alcohol intake: former Patient Tobacco Use Status: Current everyday Tobacco user Tobacco use type: Cigarette Cigarette Packs Per Day: 0 Cigarettes Per Day: 10 e-Cigarette/Vaping Use: Never Used Second Hand Smoke Exposure: No Current occupational status: disabled Cognitive needs: No Hearing needs: No Vision needs: Yes Questionnaire PHQ-9 Over the last 2 weeks, how often have you been bothered by any of the following problems? 1. Little interest or pleasure in doing things: several days 2. Feeling down, depressed, or hopeless: several days 3. Trouble falling or staying asleep, or sleeping too much: not at all 4. Feeling tired or having little energy: several days 5. Poor appetite or overeating: several days 6. Feeling bad about yourself - or that you are a failure or have let yourself or your family down: not at all 7. Trouble concentrating on things, such as reading the newspaper or watching television: not at all 8. Moving or speaking so slowly that other people could have noticed. Or the opposite - being so fidgety or restless that you have been moving around a lot more than usual: not at all 9. Thoughts that you would be better off or of hurting yourself in some way: not at all Total score: 4 Depression Screening Interpretation: Negative (Sees psychiatrist at [facility]) Depression Screening Done: Yes 88557 - PHQ-9 Billing: Yes Source: Developed by Drs. Isaac Adams, Marian Tamez, Frank He and colleagues, with an educational kylah from [employer]. Thrive Questionnaire Date Thrive assessed: 11/13/24 I am a: Patient What is your living situation today?: I have a steady place to live Within the past 12 months, did the food you bought not last and you didn't have the money to get more?: Sometimes True Within the past 12 months, did you worry whether your food would run out before you got money to buy more?: Sometimes True Do you have trouble paying for medicines?: No Do you have trouble getting transportation to medical appointments?: No Do you have trouble paying your heating and electricity bill?: No Do you have trouble taking care of your child, family member or friend?: No Do you have trouble with day-to-day activities such as bathing, preparing meals, shopping, managing finances, etc.?: Yes Are you currently unemployed and looking for a job?: No Are you interested in more education?: No Please select the resources that you would like help with: None Currently or been in a relationship where the following occur: I choose not to answer THRIVE Score: 2 AUDIT C Alcohol Use Questionnaire (AUDIT-C) 3. How often do you have six or more drinks on one occasion?: Never Total Score: 0 HUSSAIN-7 AMB Questionnaire HUSSAIN-7 Date HUSSAIN - 7 assessed: 11/13/24 Feeling nervous, anxious, or on edge: 1 = Several days Not being able to stop or control worryin = Not at all Worrying too much about different things: 0 = Not at all Trouble relaxin = Several days Being so restless that it is hard to sit still: 1 = Several days Becoming easily annoyed or irritable: 0 = Not at all Feeling afraid as if something awful might happen: 0 = Not at all Total HUSSAIN-7 score (0-4 normal; 5-9 mild; 10-14 moderate; 15-21 severe): 3 Source: Developed by Drs. Isaac Adams, Frank Phillip and colleagues, with an educational kylah from [employer]. HUSSAIN-7 Assessment Billing HUSSAIN-7 Assessment Tool: HUSSAIN-7 Assessment 63215 Review of Systems Const Reports as per HPI and Denies weakness ENT Reports Normal hearing present Card Denies chest pain, Denies chest pain at rest, Denies chest pain with activity, Denies dyspnea and Denies dyspnea on exertion Resp Denies cough, Denies dyspnea and Denies dyspnea on exertion GI Denies abdominal pain, Denies nausea and Denies vomiting Reports no additional complaints Musc Denies numbness Skin/Breast Reports as per HPI and Denies rash Neuro Reports Normal hearing present, Denies numbness, Denies Sensory deficit (Neuro) and Denies weakness Psych Reports no additional complaints Endo Reports no additional complaints Dat/Lymph Reports no additional complaints Aller/Immun Reports no additional complaints Physical exam (Primary Care) Vital Signs: Last Vital Signs Temp 98.3 F 02/21/25 11:11 Pulse 56 02/21/25 11:11 Resp 16 02/21/25 11:11 BP 110/70 02/21/25 11:11 Pulse Ox 96 02/21/25 11:11 Oxygen Delivery Method Room Air 02/21/25 11:11 BMI result Body Mass Index 32.1 Tobacco/Smoking Status: Tobacco use Status Tobacco use date assessed 02/21/25 02/21/25 11:34 Patient Tobacco Use Status Current everyday Tobacco 02/21/25 11:12 Tobacco use type Cigarette 02/21/25 11:12 e-Cigarette/Vaping Use Never Used 02/21/25 11:12 PHQ-9: PHQ-9 Score PHQ-9: Total score 4 02/21/25 11:55 Depression Screening Interpretation: Negative (Sees psychiatrist at [facility]) Thrive Assessment: Date of Thrive Assessment Date Thrive assessed 11/13/24 02/21/25 11:12 Currently or been in a relationship where the following occur: I choose not to answer Const General: no acute distress Nutritional Appearance: overweight Orientation/consciousness: patient oriented x3 HENMT Ears: external ears normal, TM's normal bilaterally and EAC's normal General nose exam: Normal external nose present and No nasal discharge present Mouth: moist mucous membranes Eyes General: appearance normal, both eyes and all related structures Neck Other: Supple, no lymphadenopathy, thyroid gland nonpalpable Resp Auscultation: clear to auscultation bilaterally Cardio Other: S1-S2 present regular rate and rhythm GI Palpation (GI): Soft to palpation, nontender and no masses Skin Other: Patient's left foot is bandaged, does not want removed, sees podiatry for treatment of his ulcers and hammertoes on left foot Neuro General: patient oriented x3, gait normal, moves all extremities and no focal motor deficits Cranial nerves: Yes Normal hearing present Sensory Exam: No Sensory deficit (Neuro) Extrem General: Yes full ROM, Yes no joint enlargement, Yes no clubbing, cyanosis or edema and Yes normal gait Psych Appearance: grossly normal and well kempt Mental Status: mental status grossly normal Affect: normal affect Attitude: cooperative Thought process: Normal thought process present Coding Level of Care Code Est Pt Level 4 (48618) Diagnoses Diabetes mellitus with diabetic neuropathy, without long-term current use of insulin E11.40 Dyslipidemia E78.5 Additional Codes HUSSAIN-7 Assessment Billing - HUSSAIN-7 Assessment Tool: HUSSAIN-7 Assessment 24918 ([id number]) PHQ-9 - 94625 - PHQ-9 Billing: Yes ([id number]) Assessment & Plan Assessment & Plan (1) Diabetes mellitus with diabetic neuropathy, without long-term current use of insulin: Code(s): E11.40 - Type 2 diabetes mellitus with diabetic neuropathy, unspecified Category: Medical Plan: Advised to get fasting labs done. Continued on current dose of pioglitazone 30 mg daily, reminded to get yearly diabetes retinopathy screening and already being seen by Podiatry for treatment of diabetic ulcers (2) Dyslipidemia: Code(s): E78.5 - Hyperlipidemia, unspecified Category: Medical Plan: Last fasting labs showed lipids within normal limits, continued on atorvastatin 20 mg daily Orders: Orders Hemoglobin A1c 02/22/25 E11.40 - Type 2 diabetes mellitus with diabetic neuropathy, unspecified Vitamin B12 and Folate 02/22/25 E53.8 - Deficiency of other specified B group vitamins
[2025-02-21 11:11] VITALS: BP 110/70; PULSE 56; RESP 16; TEMP 36.8; O2SAT 96; BMI 32.1
--- OUTSIDE RECORDS SUMMARY | 2025-02-21 11:55 | XMS_ITS | Patient Health Record ---
Author Organization [facility] Address [address] [place] [address] Care Team Providers Care Insurance Executive Name Role Phone Sp BAUER, Vandana Primary Care Provider Chuck Mays Jr Unavailable Allergies No Known Allergies Reason For Referral No Information Medications Medication SIG (Take, Route, Frequency, Duration) Notes Start Date End Date Status Gabapentin 600 MG 1 tablet Orally Thre e times a day Active metFORMIN HCl 1000 MG 1 tablet with meal s Orally TID Active Atorvastatin Calcium 20 MG 1 tablet Oral ly Once a day Active Lisinopril 10 MG 1 tablet Orally Once a day Active FLUoxetine HCl 40 MG 1 capsule Orally On ce a day Active QUEtiapine Fumarate 200 MG 1 tablet Oral ly Once a day Unknown busPIRone HCl 15 MG 1 tablet Orally Twic e a day Unknown Ranitidine HCl 150 MG 1 tablet at bedtim e Orally Once a day Unknown Dicyclomine HCl 20 MG TAKE ONE TABLET BY MOUTH 2 TO 4 TIMES A DAY for 30 Active clonazePAM 1 MG 1 tablet Orally Once a day Active Cyanocobalamin 1000 MCG/ML 1 ml Injection monthly Active Immunizations Vaccine Route Administration Date Status [...] Problem Status W/U Status Risk Notes Problem 708036570 Colon cancer screening (Z12.11) Active confirmed Problem 822444455 Generalized abdominal pain (R10.84) Active confirmed Problem 702338898 Abnormal levels of other serum enzymes (R74.8) Active confirmed Problem Gastroesophageal reflux disease (725767416) Gastroesophageal reflux disease (K21.9) Active confirmed Problem 047974036 Hepatitis C antibody test positive (R76.8) Active confirmed Problem 90736173 Colitis (K52.9) Active confirmed Problem Gastritis (0095812) Gastritis (K29.70) Active c onfirmed Problem 10238812 Other ulcerative colitis without complication (K51.80) Active confirmed Problem 72245189 Diarrhea, unspecified type (R19.7) Active confirmed Problem 737178588522179 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 (Z79.84) Active confirmed Problem 418185010 Rectal/anal hemorrhage (K62.5) Active confirmed Problem 582990350 Gastroesophageal reflux disease, unspecified whether esophagitis present (K21.9) Active confirmed Problem 94538998 Gastric intestin al metaplasia (K31.A0) Active confirmed Vital Signs Temperature 98.6 degrees Fahrenheit 12/20/2024 Blood pressure diastolic 01 mm Hg 12/20/2024 Height 74.75 in 12/20/2024 Blood pressure systolic 001 mm Hg 12/20/2024 Weight 258 lbs 12/20/2024 BMI 32.46 kg/m2 12/20/2024 Encounters Encounter Location Date Provider Diagnosis [facility] [address] [place] [phone] 12/20/2024 Chuck Bower Jr Gastroesophageal reflux disease K21.9 ; Gastric intestinal metaplasia K31.A0 and Diarrhea, unspecified type R19.7 [facility] [address] [place] [phone] 12/20/2024 Chuck Bower Jr [facility] [address] [place] [phone] 02/14/2025 Chuck Bower Jr Assessments Encounter Date Diagnosis [...] CHOW 04/10/2011 BUN 07/02/2021 BUN 12/20/2023 CREATININE 07/02/2021 [...] GI ENDOSCOPY 03/03/2023 Next Appt Details Provider Name:Chuckdonna caba Jr, 12/24/2025 09:20:00 AM, [address] [facility], [address], [place], [address], Insurance Providers Payer Name Payer Address Payer Phone Subscriber Number Group Number Insured Name Patient Relationship to Insured Coverage Start Date Coverage End Date [facility] [address] [address] [place], [place] [id number] SONJA ZALDIVAR Self - patient is the insured MEDICAID OF [facility] [address] [place] [address] [id number] SONJA ZALDIVAR Self - patient is the insured Medical [...]
--- OUTSIDE RECORDS SUMMARY | 2025-02-21 11:55 | XMS_ITS | Clinical Summary ---
Author Organization [facility] Address [address] [place] [address] Phone Care Team Providers Care Show Worker Name Role Phone Vandana Snowden MD Primary Care Provider Allergies No known active allergies Medications No known medications Encounters Date Type Department Care Team Description 02/07/2025 8:45 AM EDT Office Visit Orthopedic Surgery [facility] [address] [phone] Eddie Bryant DPM Controlled type 2 diabetes mellitus with diabetic polyneuropathy, without long-term current use of insulin (CMS/[facility] V24, CMS/[facility] V28) (Primary Dx); Osteomyelitis of toe of left foot ([facility] V24, CMS/[facility] V28); Hammertoes of both feet; Ulcer of toe of left foot, with fat layer exposed (CMS/[facility] V24, CMS/HCC V28) 01/24/2025 10:15 AM EDT Office Visit Orthopedic [facility] [address] [phone] Eddie Bryant DPM Controlled type 2 diabetes mellitus with diabetic polyneuropathy, without long-term current use of insulin (CMS/[facility] V24, CMS/HCC V28) (Primary Dx); Osteomyelitis of toe of left foot (CMS/HCC V24, CMS/HCC V28); Venous insufficiency; Hammertoes of both feet; Neuropathy; Callus; Onychomycosis 01/10/2025 11:00 AM EDT Office Visit Orthopedic Surgery [facility] [address] [phone] Eddie Bryant DPM Hammertoe of left foot (Primary Dx); Type 2 diabetes mellitus with diabetic neuropathy, without long-term current use of insulin ([facility] V24, [facility] V28); History of osteomyelitis; Ulcer of toe of left foot, with fat layer exposed ([facility] V24, [facility] V28) 01/03/2025 8:30 AM EDT Office Visit Orthopedic Surgery [facility] [address] [phone] Eddie Bryant DPM Type 2 diabetes mellitus with diabetic neuropathy, without long-term current use of insulin ([facility] V24, [facility] V28) (Primary Dx); History of osteomyelitis; Hammertoes of both feet; Ulcer of toe of left foot, with fat layer exposed ([facility] V24, [facility] V28) 12/27/2024 2:30 PM EDT Office Visit Orthopedic Surgery [facility] [address] [phone] Eddie Bryant DPM Type 2 diabetes mellitus with diabetic neuropathy, without long-term current use of insulin ([facility] V24, [facility] V28) (Primary Dx); History of osteomyelitis; Hammertoes of both feet; Cellulitis of left foot; Ulcer of toe of left foot, with fat layer exposed ([facility] V24, [facility] V28) 12/11/2024 Telephone Orthopedic Surgery [facility] [address] [phone] Eddie Bryant DPM 12/05/2024 8:30 AM EDT Office Visit Orthopedic [facility] [address] [phone] Eddie Bryant DPM Type 2 diabetes mellitus with diabetic neuropathy, without long-term current use of insulin ([facility] V24, [facility] V28) (Primary Dx); History of osteomyelitis; [...] AM EDT Office Visit Orthopedic Surgery - [place] [address] [phone] Eddie Bryant, DPTad [address] [address] Health Maintenance Due Date Last Done Comments Diabetes: Annual GFR (Glomerular Filtration Rate) 1971 Diabetes: Annual Foot Exam 1981 Diabetes: Annual Retina Eye Exam 1981 Hepatitis B Vaccines (1 of 3 - 19+ 3-dose series) 1990 Pneumococcal Vaccine: 50+ Years (2 of 2 - PCV) 11/30/2017 11/30/2016, 06/14/2007 COVID-19 Vaccine ( - 2023-2 5 season) 2024 11/22/2020, 10/31/2020 Cholesterol Screening (Lipid Panel) 05/26/2024 Colorectal Cancer Screening: Colonoscopy 05/26/2024 HIV Screening 05/26/2024 Hepatitis C Screening 05/26/2024 Social Influencers of Health Screening 05/26/2024 Diabetes: Annual Urine Albumin-Creatinine Ratio (uACR) 07/10/2024 Diabetes: Blood Sugar Contro l Test (HGBA1C) 07/10/2024 Depression Screening 08/02/2024 Hypertension/CHF/CAD Annual BMP Blood Test 09/18/2024 Zoster [...] patient's age to complete this topic Insurance [facility] Care Teams Show Worker Relationship Specialty Start Date End Date Vandana Snowden MD [address] [place] [address] PCP - General Internal Medicine 06/01/24
--- OUTSIDE RECORDS SUMMARY | 2025-02-21 11:55 | XMS_ITS | Encounter Summary ---
Author Organization [facility] Address [address] [place] [address] Phone Care Team Providers Care Electronics Tester Name Role Phone Unknown, Unknown Primary Care Provider Vandana Cohn MD Primary Care Provider Encounter Details Date Type Department Care Team (Late st Contact Info) Description 07/14/2018 Procedure [facility], [address] [address] Social History Tobacco Use Types Packs/Day Years Used Date Smoking Tobacco: Never Assessed Sex and Gender Information Value Date Recorded Sex Assigned at Not on file Legal Sex Male 9:16 AM EST Gender Identity Not on file Sexual Orientation Not on file documented as of this encounter Plan of Treatment Not on file documented as of this encounter Visit Diagnoses Not on filedocumented in this encounter Care Teams Electronics Tester Relationship Specialty Start Date End Date Unknown, Unknown, MD PCP - General 07/20/18 11/08/18 Vandana Snowden MD [address] [place] [address] [place] [address] PCP - General Internal Medicine 11/09/18 documented as of this encounter Additional Source Comments The information contained in this document represents components of the legal health record. It is not the complete legal health record.[facility]
== END 2025-02-21 13:21 | disposition home or self-care (01) ==
LOC: HO.HMCC 10:55
PROVIDERS: PCP Internal Medicine; Visit Provider Internal Medicine
DX: E11.40 Type 2 diabetes mellitus with diabetic neuropathy, unspecified (principal); E78.5 Hyperlipidemia, unspecified

== ENCOUNTER → 2025-02-21 10:54 | Outpatient (BNVA) | payer OTHER, SELFPAY | PROVIDERS: PCP Internal Medicine; Visit Provider Internal Medicine | DX: E11.40 Type 2 diabetes mellitus with diabetic neuropathy, unspecified (principal); E53.8 Deficiency of other specified B group vitamins; E78.5 Hyperlipidemia, unspecified; Z79.4 Long term (current) use of insulin; Z79.899 Other long term (current) drug therapy | CPT/HCPCS: 96127; 99212 ==

== ENCOUNTER 2025-02-22 06:28 | Outpatient (REF) | payer OTHER, SELFPAY ==
--- OUTSIDE RECORDS SUMMARY | 2025-02-22 06:30 | XMS_ITS | Patient Health Record ---
Author Organization [facility] Address [address] [place] [phone] Care Team Providers Care Beater Machine Operator Name Role Phone Sp BAUER, Vandana Primary [...] Problem Status W/U Status Risk Notes Problem 462876070 Colon cancer screening (Z12.11) Active confirmed Problem 112830728 Generalized abdominal pain (R10.84) Active confirmed Problem 251090766 Abnormal levels of other serum enzymes (R74.8) Active confirmed Problem Gastroesophageal reflux disease (489523850) Gastroesophageal reflux disease (K21.9) Active confirmed Problem 635710687 Hepatitis C antibody test positive (R76.8) Active confirmed Problem 75986715 Colitis (K52.9) Active confirmed Problem Gastritis (1162478) Gastritis (K29.70) Active c onfirmed Problem 62951811 Other ulcerative colitis without complication (K51.80) Active confirmed Problem 79674332 Diarrhea, unspecified type (R19.7) Active confirmed Problem 785583268786194 termite treater (current) use of oral hypoglycemic drugs (Z79.84) Active confirmed Problem 597567621 Rectal/anal hemorrhage (K62.5) Active confirmed Problem 169436749 Gastroesophageal reflux disease, unspecified whether esophagitis present (K21.9) Active confirmed Problem 10797980 Gastric intestin al metaplasia (K31.A0) Active confirmed Vital Signs Temperature 98.6 degrees Fahrenheit 12/20/2024 Blood pressure diastolic 01 mm Hg 12/20/2024 Height 74.75 in 12/20/2024 Blood pressure systolic 001 mm Hg 12/20/2024 Weight 258 lbs 12/20/2024 BMI 32.46 kg/m2 12/20/2024 Encounters Encounter Location Date Provider Diagnosis [facility] [address] [place] [phone] 12/20/2024 Chuck Bower Jr Gastroesophageal reflux disease K21.9 ; Gastric intestinal metaplasia K31.A0 and Diarrhea, unspecified type R19.7 [facility] [address] [place] [phone] 12/20/2024 Chuck Bower Jr [facility] [address] [place] [phone] 02/14/2025 Chuck Bower Jr Assessments Encounter Date [...] Name:Chuckdonna caba Jr, 12/24/2025 09:20:00 AM, [address] [facility], [address], [place], [address], Insurance Providers Payer Name Payer Address Payer Phone Subscriber Number Group Number Insured Name Patient Relationship to Insured Coverage Start Date Coverage End Date [facility] [address] [address] [place], [place] [id number] SONJA ZALDIVAR Self - patient is the insured MEDICAID OF [facility] [address] [place] [address] [phone] [id number] SONJA ZALDIVAR Self - patient is the [...]
--- OUTSIDE RECORDS SUMMARY | 2025-02-22 06:30 | XMS_ITS | Encounter Summary ---
Author Organization [facility] Address [address] [place] [address] Phone Care Team Providers Care Safe And Vault Service Mechanic Name Role Phone Unknown, Unknown Primary Care Provider Vandana Cohn MD Primary Care Provider Encounter Details Date Type Department Care Team (Late st Contact Info) Description 07/14/2018 Procedure Pass [facility], [address] [address] Social History Tobacco Use Types Packs/Day Years [...] on filedocumented in this encounter Care Teams Safe And Vault Service Mechanic Relationship Specialty Start Date End Date Unknown, Unknown, MD PCP - General 07/20/18 11/08/18 Vandana Snowden MD [address] [place] [address] [place] [address] PCP - General Internal Medicine 11/09/18 documented as of this encounter Additional Source Comments The information contained in this document represents components of the legal health record. It is not the complete legal health record.[facility]
--- OUTSIDE RECORDS SUMMARY | 2025-02-22 06:30 | XMS_ITS | Clinical Summary ---
Author Organization [address] [facility] Address [address] [place] [address] Phone Care Team Providers Care Mud Jack Operator Name Role Phone Vandana Snowden MD Primary Care Provider Allergies No known active allergies Medications No known medications Encounters Date Type Department Care Team Description 02/07/2025 8:45 AM EDT Office Visit Orthopedic Surgery [facility] [address] [phone] Eddie Bryant DPM Controlled type 2 diabetes mellitus with diabetic polyneuropathy, without long-term current use of insulin (CMS/[facility] V24, CMS/[facility] V28) (Primary Dx); Osteomyelitis of toe of left foot ([facility] V24, CMS/[facility] V28); Hammertoes of both feet; Ulcer of toe of left foot, with fat layer exposed (CMS/[facility] V24, CMS/HCC V28) 01/24/2025 10:15 AM EDT Office Visit Orthopedic [facility] [address] [phone] Eddie Bryant DPM Controlled type 2 diabetes mellitus with diabetic polyneuropathy, without long-term current use of insulin (CMS/[facility] V24, CMS/HCC V28) (Primary Dx); Osteomyelitis of toe of left foot (CMS/HCC V24, CMS/HCC V28); Venous insufficiency; Hammertoes of both feet; Neuropathy; Callus; Onychomycosis 01/10/2025 11:00 AM EDT Office Visit Orthopedic Surgery [facility] [address] [phone] Eddie Bryant DPM Hammertoe of left foot (Primary Dx); Type 2 diabetes mellitus with diabetic neuropathy, without long-term current use of insulin ([facility] V24, [facility] V28); History of osteomyelitis; Ulcer of toe of left foot, with fat layer exposed ([facility] V24, [facility] V28) 01/03/2025 8:30 AM EDT Office Visit Orthopedic Surgery [facility] [address] [phone] Eddie Bryant DPM Type 2 diabetes mellitus with diabetic neuropathy, without long-term current use of insulin ([facility] V24, [facility] V28) (Primary Dx); History of osteomyelitis; Hammertoes of both feet; Ulcer of toe of left foot, with fat layer exposed ([facility] V24, [facility] V28) 12/27/2024 2:30 PM EDT Office Visit Orthopedic Surgery [facility] [address] [phone] Eddie Bryant DPM Type 2 diabetes mellitus with diabetic neuropathy, without long-term current use of insulin ([facility] V24, [facility] V28) (Primary Dx); History of osteomyelitis; Hammertoes of both feet; Cellulitis of left foot; Ulcer of toe of left foot, with fat layer exposed ([facility] V24, [facility] V28) 12/11/2024 Telephone Orthopedic Surgery [facility] [address] [phone] Eddie Bryant DPM 12/05/2024 8:30 AM EDT Office Visit Orthopedic [facility] [address] [phone] Eddie Bryant DPM Type 2 diabetes mellitus with diabetic neuropathy, without long-term current use of insulin ([facility] V24, [facility] V28) (Primary Dx); History of osteomyelitis; Hammertoes [...] AM EDT Office Visit Orthopedic Surgery - [place] [address] [phone] Eddie Bryant, DPTad [address] [address] Health Maintenance Due Date Last Done Comments [...] patient's age to complete this topic Insurance [facility] Care Teams Mud Jack Operator Relationship Specialty Start Date End Date Vandana Snowden MD [address] [place] [address] PCP - General Internal Medicine 06/01/24
[2025-02-22 07:19] LABS: Hemoglobin A1C 172.3989 umol/L; Total Hemoglobin (HGBA1C) 4012.1425 umol/L
[2025-02-22 07:35] LABS: Alanine Aminotransferase 23 U/L (0-40); Anion Gap 9 (12-20); Aspartate Amino Transferase 26 U/L (5-37); Blood Urea Nitrogen 18 mg/dL (9-16); Calcium 9.2 mg/dL (8.4-10.2); Carbon Dioxide 30 mmol/L (22-29); Chloride 105 mmol/L (96-108); Cholesterol 146 mg/dL (<200); Estimated Glomerular Filt Rate > 60; HDL Cholesterol 42 mg/dL (>40); Potassium 4.6 mmol/L (3.3-5.1); Sodium 139 mmol/L (135-145); Triglycerides 81 mg/dL (<150)
[2025-02-22 08:08] LABS: Folate 5.5 ng/mL (> or = 4.0); Vitamin B12 468 pg/mL (200-900)
== END 2025-02-22 06:29 | disposition home or self-care (01) ==
LOC: HO.LAB 06:28
PROVIDERS: PCP Internal Medicine; Visit Provider Internal Medicine
DX: E11.40 Type 2 diabetes mellitus with diabetic neuropathy, unspecified (principal); K21.9 Gastro-esophageal reflux disease without esophagitis; I10 Essential (primary) hypertension; E78.5 Hyperlipidemia, unspecified; E53.8 Deficiency of other specified B group vitamins
CPT/HCPCS: 36415; 80048; 80061; 82607; 82746; 83036; 84450; 84460

== ENCOUNTER 2025-03-01 13:11 | Outpatient (AMB) | payer OTHER, SELFPAY ==
--- NOTE | 2025-03-01 13:17 | A.OFFVIS_ITS ---
Intake Visit Reasons: Follow Up 02/08 [facility] Intake Note: Patient presents for follow up US. Patient states his left foot has been swelling. Also has knee pain. Accompanied by: Self / Same As Patient Allergies No Known Allergies Allergy (Verified 03/01/25 13:19) [facility] HPI Follow Up 02/08 [facility]: Details: Very pleasant 55-year-old gentleman presents for follow-up regarding venous insufficiency. The workup originally began as a bout of cellulitis. He had been treated with IV antibiotics and then was subsequently discharged. He reports that he had previous right lower extremity venous ablation by Dr. Menezes nearly 10 years ago. He now presents for routine follow-up with venous insufficiency testing. He reports his legs are mildly swollen but no signifi cant complaints at the current time. [facility] Medical History Vitamin B12 deficiency Skin lesion of neck Refused influenza vaccine Hip fracture EtOH dependence Smoker GERD (gastroesophageal reflux disease) HTN (hypertension) Rheumatoid arthritis Hydronephrosis concurrent with and due to calculi of kidney and ureter Spinal stenosis, thoracic region Postlaminectomy syndrome, lumbar Postlaminectomy syndrome, cervical Lumbar stenosis with neurogenic claudication History of diabetic ulcer of foot Cervical spondylosis History of alcoholism Erectile disorder due to medical condition in male PTSD (post-traumatic stress disorder) Vitamin D deficiency Diabetes mellitus with diabetic neuropathy, without long-term current use of insulin Dyslipidemia Surgical History Hx of foot surgery History of surgery on lower extremity H/O knee surgery History of carpal tunnel surgery of right wrist Hx of colonoscopy H/O cervical discectomy Status post lumbar spine surgery for decompression of spinal cord Family History Father Essential hypertension Dyslipidemia Cardiovascular disease Substance use disorder Mental health disorder Mother Essential hypertension Dyslipidemia Diabetes mellitus Social History Housing: House Are you a primary lawn care professional to a significant other at home: No Do you presently have visiting nurse or other home services: No Alcohol intake: former Patient Tobacco Use Status: Current everyday Tobacco user Tobacco use type: Cigarette Cigarette Packs Per Day: 0 Cigarettes Per Day: 10 e-Cigarette/Vaping Use: Never Used Second Hand Smoke Exposure: No Current occupational status: disabled Cognitive needs: No Hearing needs: No Vision needs: Yes Review of Systems Const All systems reviewed & are unremarkable except as noted in HPI and below Reports no additional complaints ENT Reports Normal hearing present Card Denies chest pain, Denies chest pain at rest, Denies chest pain with activity and Denies pedal edema Resp Denies cough GI Denies abdominal pain Musc Denies abnormal gait, Denies muscle cramps and Denies radiating pain into limb Skin/Breast Denies skin ulcer and Denies wounds Neuro Reports Normal hearing present and Denies abnormal gait Psych Reports no additional complaints Physical Exam Const General: cooperative, healthy appearing and comfortable Orientation/consciousness: oriented to person, oriented to place and oriented to time HEENT Head: Yes normal to inspection Neck Neck: Yes normal visual inspection Carotids: no bruits Chest Chest palpation & inspection: normal inspection of the chest Resp Effort & Inspection: normal respiratory effort and able to speak in complete sentences Auscultation: clear to auscultation bilaterally, no crackles, no rales, no rhonchi and no wheezes Cardio Rate: regular rate Rhythm: regular rhythm Heart sounds: S1 normal heart sound present and S2 normal heart sound present Bruits: no carotid bruits Peripheral pulses: Peripheral pulses 2+ throughout GI Inspection: Yes normal to inspection Skin Wounds: no wounds Hair: normal Neuro General: oriented to person, oriented to place and oriented to time Cranial nerves: Yes CN's II-XII intact bilaterally and Yes Normal hearing present Cognition (Neuro): normal cognition Motor exam (neuro): 5/5 motor strength present throughout Extrem Other: venous exam: +2 edema General: No clubbing, No cyanosis and No edema Psych Appearance: grossly normal Mental Status: mental status grossly normal Speech and movement: Normal speech and movement present Results Reviewed Results Reviewed: Brief summary of venous insufficiency testing is as follows: right great saphenous vein: negative right small saphenous vein: negative right accessory vein: none present left great saphenous vein: negative left small saphenous vein: negative left accessory vein: none present Please note there is no evidence of any venous aneurysms or significant tortuosity Assessment & Plan Assessment & Plan (1) Varicose veins of both lower extremities with inflammation: Code(s): I83.11 - Varicose veins of right lower extremity with inflammation; I83.12 - Varicose veins of left lower extremity with inflammation Category: Medical Plan: In short patient is negative for any significant venous insufficiency. At the current time would continue with conservative measures including compression elevation and exercise. Patient will follow up with us on an as-needed basis. Thank you for allowing us to assist in his care. If there are any questions or concerns please do not hesitate to contact us. The patient had an opportunity to ask questions regarding the treatment plan. All questions were answered. Imaging studies, laboratory studies and physical exam results were discussed and reviewed in detail. No major barriers to understanding were identified. The patient expressed understanding and agreement with the above treatment plan. The patient is aware they should contact our office by phone for worsening of the current condition or the appearance of new symptoms. Thank you for allowing me to participate in the vascular care of this patient. If you have any questions or concerns regarding the treatment for the above condition please do not hesitate to contact me. The office telephone contact is [phone]. This note is constructed using voice recognition software. While every effort has been made to ensure accuracy, flight dispatcher errors may have been included. Thank you for allowing me to participate in the care of your patient. Yours sincerely, Bruno Chua MD, FACS, R.P.V.I. Coding Level of Care Code Est Pt Level 4 (11552) Diagnoses Varicose veins of both lower extremities with inflammation I83.11; I83.12
--- OUTSIDE RECORDS SUMMARY | 2025-03-01 13:23 | XMS_ITS | Encounter Summary ---
Author Organization [facility] Address [address] [place] [address] Phone Care Team Providers Care Rotary Shear Worker Helper Name Role Phone Unknown, Unknown Primary Care Provider Vandana Cohn MD Primary Care Provider Encounter Details Date Type Department Care Team (Late st Contact Info) Description 07/14/2018 Procedure Pass [facility], [address] [address] Social History Tobacco Use Types Packs/Day Years [...] on filedocumented in this encounter Care Teams Rotary Shear Worker Helper Relationship Specialty Start Date End Date Unknown, Unknown, MD PCP - General 07/20/18 11/08/18 Vandana Snowden MD [address] [place] [address] [place] [address] PCP - General Internal Medicine 11/09/18 documented as of this encounter Additional Source Comments The information contained in this document represents components of the legal health record. It is not the complete legal health record.[facility]
--- OUTSIDE RECORDS SUMMARY | 2025-03-01 13:23 | XMS_ITS | Clinical Summary ---
Author Organization 175 [facility] Address [address] [place] [address] Phone Care Team Providers Care Fleet Maintenance Manager Name Role Phone Vandana Snowden MD Primary Care Provider Allergies No known active allergies Medications No known medications Encounters Date Type Department Care Team Description 02/07/2025 8:45 AM EDT Office Visit Orthopedic Surgery [facility] [address] [phone] Eddie Bryant DPM Controlled type 2 diabetes mellitus with diabetic polyneuropathy, without long-term current use of insulin (CMS/[facility] V24, CMS/[facility] V28) (Primary Dx); Osteomyelitis of toe of left foot ([facility] V24, CMS/[facility] V28); Hammertoes of both feet; Ulcer of toe of left foot, with fat layer exposed (CMS/[facility] V24, CMS/HCC V28) 01/24/2025 10:15 AM EDT Office Visit Orthopedic [facility] [address] [phone] Eddie Bryant DPM Controlled type 2 diabetes mellitus with diabetic polyneuropathy, without long-term current use of insulin (CMS/[facility] V24, CMS/HCC V28) (Primary Dx); Osteomyelitis of toe of left foot (CMS/HCC V24, CMS/HCC V28); Venous insufficiency; Hammertoes of both feet; Neuropathy; Callus; Onychomycosis 01/10/2025 11:00 AM EDT Office Visit Orthopedic Surgery [facility] [address] [phone] Eddie rByant DPM Hammertoe of left foot (Primary Dx); Type 2 diabetes mellitus with diabetic neuropathy, without long-term current use of insulin ([facility] V24, [facility] V28); History of osteomyelitis; Ulcer of toe of left foot, with fat layer exposed ([facility] V24, [facility] V28) 01/03/2025 8:30 AM EDT Office Visit Orthopedic Surgery [facility] [address] [phone] Eddie Bryant DPM Type 2 diabetes mellitus with diabetic neuropathy, without long-term current use of insulin ([facility] V24, [facility] V28) (Primary Dx); History of osteomyelitis; Hammertoes of both feet; Ulcer of toe of left foot, with fat layer exposed ([facility] V24, [facility] V28) 12/27/2024 2:30 PM EDT Office Visit Orthopedic Surgery [facility] [address] [phone] Eddie Bryant DPM Type 2 diabetes mellitus with diabetic neuropathy, without long-term current use of insulin ([facility] V24, [facility] V28) (Primary Dx); History of osteomyelitis; Hammertoes of both feet; Cellulitis of left foot; Ulcer of toe of left foot, with fat layer exposed ([facility] V24, [facility] V28) 12/11/2024 Telephone Orthopedic Surgery [facility] [address] [phone] Eddie Bryant DPM 12/05/2024 8:30 AM EDT Office Visit Orthopedic [facility] [address] [phone] Eddie Bryant DPM Type 2 diabetes mellitus with diabetic neuropathy, without long-term current use of insulin ([facility] V24, [facility] V28) (Primary Dx); History of osteomyelitis; Hammertoes [...] AM EDT Office Visit Orthopedic Surgery - [place] [address] [phone] Eddie Bryant, DPTad [address] [address] Health Maintenance Due Date Last Done Comments [...] patient's age to complete this topic Insurance [facility] Care Teams Fleet Maintenance Manager Relationship Specialty Start Date End Date Vandana Snowden MD [address] [place] [address] PCP - General Internal Medicine 06/01/24
== END 2025-03-01 14:02 | disposition home or self-care (01) ==
LOC: HO.HVS 13:12
PROVIDERS: PCP Internal Medicine; Visit Provider Surgery Vascular Surgery
DX: I83.11 Varicose veins of right lower extremity with inflammation (principal); I83.12 Varicose veins of left lower extremity with inflammation
CPT/HCPCS: 99214

== ENCOUNTER → 2025-03-01 13:11 | Outpatient (BNVA) | payer OTHER, SELFPAY | PROVIDERS: PCP Internal Medicine; Visit Provider Surgery Vascular Surgery | DX: I83.11 Varicose veins of right lower extremity with inflammation (principal); I83.12 Varicose veins of left lower extremity with inflammation | CPT/HCPCS: 99212 ==

== ENCOUNTER 2025-05-21 13:22 | Outpatient (AMB) | payer OTHER, SELFPAY ==
--- OUTSIDE RECORDS SUMMARY | 2024-04-10 05:20 | XMS_ITS ---
Author Organization [facility] Address [address] [place] [address] Care Team Providers Care Sofa Cover Inspector Name Role Phone Sp BAUER, Vandana Primary Care Provider Maryellen Bower Jr, Chuck Unavailable [phone] REASON FOR VISIT hep c Encounters Encounter Location Date Provider Diagnosis [facility] [address] [facility] [address] [place] [phone] 04/10/2024 Chuck Bower Jr Plan Of Treatment Next Appt Details Provider Name:Chuck caba Jr, 12/26/2025 10:00:00 AM, [address] [facility] [address] [facility], [address], [place], [address], Progress Notes * SONJA ZALDIVARDOB:1970 ( 55 yo M)Acc No.[id number]:04/10/2024 Progress Notes Patient: SONJA GUZMAN Provider: Reta Bower MD :1970 A ge:54 Y S ex:Male Date:04/10/2024 Address:[address] [place], [place] [id number] Pcp:Vandana Snowdne MD Subjective: * Chief Complaints: * 1 [...] 04/10/2024 Generated for Mahesh swift/Dylan/Derick on: 1 04:25 PM EDT
--- NOTE | 2025-05-21 13:52 | AM.OFFWIN_ITS ---
Intake Vital Signs 05/21/25 13:53 Height 6 ft 3 in Weight 277 lb BMI 34.6 BP 105/65 Blood Pressure Location Rt brachial Position Sitting Pulse 88 Pulse Source Pulse Oximeter Temp 99 F Temp Source Oral Pulse Oximetry (%) 94 Intake Visit Reasons: ep left foot pain Intake Note: Left foot swelling, the toe is red and the swelling area is spreading under knee. Patient Tobacco Use Status: Current everyday Tobacco user Allergies No Known Allergies Allergy (Verified 05/21/25 14:02) Do you need a note to return to daycare/school/sports/work: No HPI HPI Comments History of Present Illness Details History of Present Illness - The patient is a 55-year-old male pres enting with swelling and erythema of the foot and toe on the left. - The swelling and redness started three days ago and have progressively worsened. - He states that it started in the big t oe and has no spread to all the toes, foot and up the leg. - He has pain in the foot, calf and it r adiates to the hip. - The patient has a history of celluliti s requiring hospitalization and intravenous antibiotics. - The patient has Type 2 Diabetes [facility], which complicates the infection risk and management. - Previous episodes of infection have le d to significant interventions, including partial toe amputation and admission with a PICC line. - The patient reports reduced sensation in parts of the feet. - He denies fever or chils. - He denies joint pain, bites, or wounds . Physical Exam General: Cooperative, healthy appearing, comfortable, no acute distress and well developed Orientation: Patient oriented x3 Limitations: No limitations Respiratory: Normal respiratory effort and able to speak in complete sentences. Clear to auscultation bilaterally Cardiovascular: Regular rate and rhythm. Normal S1 and S2 Skin: No rashes or lesions noted. No open wounds noted. Neuro: Sensation is intact. Extremities: Swelling and redness noted in the left foot and great toe, with erythema extending from the foot to the calf. 2+ pitting edema noted. No TTP of the toes or metatarsals on the left. No TTP of the ankle. TTP of the calf on the left. FROM of the knee and ankle. Ambulates with a steady gait. Patient was informed and verbally consented to the use of an ambient scribe for clinic note documentation during this visit. [facility] Medical History Vitamin B12 deficiency Skin lesion of neck Refused influenza vaccine Hip fracture EtOH dependence Smoker GERD (gastroesophageal reflux disease) HTN (hypertension) Rheumatoid arthritis Hydronephrosis concurrent with and due to calculi of kidney and ureter Spinal stenosis, thoracic region Postlaminectomy syndrome, lumbar Postlaminectomy syndrome, cervical Lumbar stenosis with neurogenic claudication History of diabetic ulcer of foot Cervical spondylosis History of alcoholism Erectile disorder due to medical condition in male PTSD (post-traumatic stress disorder) Vitamin D deficiency Diabetes mellitus with diabetic neuropathy, without long-term current use of insulin Dyslipidemia Surgical History Hx of foot surgery History of surgery on lower extremity H/O knee surgery History of carpal tunnel surgery of right wrist Hx of colonoscopy H/O cervical discectomy Status post lumbar spine surgery for decompression of spinal cord Family History Father Essential hypertension Dyslipidemia Cardiovascular disease Substance use disorder Mental health disorder Mother Essential hypertension Dyslipidemia Diabetes mellitus Social History Housing: House Are you a primary assistant child care teacher to a significant other at home: No Do you presently have visiting nurse or other home services: No Alcohol intake: former Patient Tobacco Use Status: Current everyday Tobacco user Tobacco use type: Cigarette Cigarette Packs Per Day: 0 Cigarettes Per Day: 10 e-Cigarette/Vaping Use: Never Used Second Hand Smoke Exposure: No Current occupational status: disabled Cognitive needs: No Hearing needs: No Vision needs: Yes Review of Systems Const All systems reviewed & are unremarkable except as noted in HPI and below Physical Exam Vital Signs: Last Vital Signs Temp 99 F 05/21/25 13:53 Pulse 88 05/21/25 13:53 BP 105/65 05/21/25 13:53 Pulse Ox 94 05/21/25 13:53 BMI result Body Mass Index 34.6 Assessment & Plan Assessment & Plan (1) Cellulitis of left foot: Code(s): L03.116 - Cellulitis of left lower limb Plan Most likely cellulitis and needs to be r/o for osteomyelitis and DVT plan- - will send patient to the ER with his mother - will call in an expect to [facility] Coding Level of Care Code Est Pt Level 3 ([address]) Diagnoses Cellulitis of left foot L03.116
[2025-05-21 13:53] VITALS: BP 105/65; PULSE 88; TEMP 37.2; O2SAT 94; BMI 34.6
--- OUTSIDE RECORDS SUMMARY | 2025-05-21 16:24 | XMS_ITS | Clinical Summary ---
Author Organization 175 [facility] Address [address] [place] [address] Phone Care Team Providers Care Grader Green Meat Name Role Phone Vandana Snowden MD Primary Care Provider [phone] Allergies No known active allergies Medications atorvastatin (LIPITOR) 20 mg tablet Take 1 tablet (20 mg total) by mouth 1 (one) time each day. 03/20/2025 Active lisinopriL (PRINIVIL,ZESTRI L) 10 mg tablet 1 tablet (10 mg total) 1 (one) time each day at the same time. Active Active Problems Problem Noted Date Diagnosed Date Hammertoes of both feet 03/06/2025 Exostosis of left foot 03/06/2025 Encounters Date Type Department Care Team Description 05/21/2025 Telephone Orthopedic Surgery [facility] [address] [phone] Eddie Bryant DPM 04/26/2025 9:00 AM EDT Office Visit Orthopedic [facility] [address] [phone] Eddie Bryant DPM Controlled type 2 diabetes mellitus with diabetic polyneuropathy, without long-term current use of insulin (CMS/HCC V24, CMS/HCC V28) (Primary Dx); Hammertoes of both feet; Exostosis of left foot; Onychomycosis 04/13/2025 Telephone Orthopedic Surgery [facility] [address] [phone] Eddie Bryant DPM 03/06/2025 8:15 AM EDT Office Visit Orthopedic Surgery - [place] [address] [phone] Eddie Bryant DPM Controlled type 2 diabetes mellitus with diabetic polyneuropathy, without long-term current use of insulin ([facility] V24, [facility] V28) (Primary Dx); Hammertoes of both feet; Exostosis of left foot from Last 3 Months Surgical History Surgery Date Site/Laterality Comments SPINAL FUSION CERVICAL FUSION TOE SURGERY Medical History Medical History Date Comments Hyperlipidemia Hypertension Diabetes mellitus ([facility] V24, [facility] V28) Hypothyroidism Social History Tobacco Use Types Packs/Day Years Used Date Smoking Tobacco: Never Assessed Sex and Gender Information Value Date Recorded Sex Assigned at Not on file Legal Sex Male 6:41 AM EST Gender Identity Not on file Sexual Orientation Not on file Obstetrics History Last Filed Vital Signs Vital Sign Reading Time Taken Comments Blood Pressure - - Pulse - - Temperature - - Respiratory Rate - - Oxygen Saturation - - Inhaled Oxygen Concentration - - Weight 123 kg (272 lb) 05/03/2025 2:00 PM EDT Height 190.5 cm (6' 3 ) 05/03/2025 2:00 PM EDT Body Mass Index 34 05/03/2025 2:00 PM EDT Plan of Treatment Upcoming Encounters Date Type Department Care Team (Latest Contact Info) Description 06/01/2025 9:30 AM EDT Hospital Encounter [facility] Main OR [address] [place] [phone] Eddie Bryant DPM [address] [address] 06/01/2025 9:30 AM EDT - 06/01/2025 11:30 AM EDT Surgery [facility] Main OR [address] [place] [phone] Eddie Bryant DPM [address] [address] ARTHROPLASTY LEFT TOE [[id number] (CPT )] 06/14/2025 10:00 AM EST Office Visit Orthopedic [place] [address] [phone] Eddie Bryant DPM [address] [address] 06/26/2025 9:15 AM EST Office Visit Orthopedic Surgery [place] [address] [phone] Eddie Bryant DPM [address] [address] Scheduled Procedures Name Priority Associated Diagnoses Date/Ti me ARTHROPLASTY TOE Hammertoes of both feet Exostosis of left foot 06/01/2025 9:30 AM EDT EXCISION METATARSAL HEAD Hammertoes of both feet Exostosis of left foot 06/01/2025 9:30 AM EDT Health Maintenance Due Date Last Done Comments Colorectal Cancer Screening: Colonoscopy 1971 Diabetes: Annual GFR (Glomerular Filtration Rate) 1971 Diabetes: Annual Foot Exam 1981 Diabetes: Annual Retina Eye Exam 1981 Hepatitis B Vaccines (1 of 3 - 19+ 3-dose series) 1990 Pneumococcal Vaccine: 50+ Years (2 of 2 - PCV) 11/30/2017 11/30/2016, 06/14/2007 RSV Immunization Adult Patients (1 - Risk 50-74 years 1-dose series) 2021 Cholesterol Screening (Lipid Panel) 05/26/2024 HIV Screening 05/26/2024 Hepatitis C Screening 05/26/2024 Social Influencers of Health Screening 05/26/2024 Diabetes: Annual Urine Albumin-Creatinine Ratio (uACR) 07/10/2024 Diabetes: Blood Sugar Contro l Test (HGBA1C) 07/10/2024 Depression Screening 08/02/2024 Hypertension/CHF/CAD Annual BMP Blood Test 09/18/2024 COVID-19 Vaccine (3 - 2024-2 6 season) 2025 11/22/2020, 10/31/2020 Influenza Vaccine (#1) 2025 06/14/2007 DTaP,Tdap,and Td Vaccines (2 - Td or Tdap) 02/03/2027 02/03/2017 Zoster Vaccines Completed 02/15/2025, 11/30/2024 HIB Vaccines Aged Out No longer eligi [...] on patient's age to complete this topic Goals Goal Patient Goal Type Associated Problems Recent Progress Patient-Stated? Author Autogenerat ed Goal Care Plan Autogenerated Problem No Eddie Bryant DPM Additional Health Concerns Active Problems Noted Date Diagnosed Date Autogenerated Problem 05/03/2025 Insurance [facility] Care Teams Grader Green Meat Relationship Specialty Start Date End Date Vandana Snowden MD [address] [facility] [place] [address] PCP - General Internal Medicine 06/01/24
--- OUTSIDE RECORDS SUMMARY | 2025-05-21 16:25 | XMS_ITS | Encounter Summary ---
Author Organization [facility] Address [address] [place] [address] Care Team Providers Care Paper Machine Tender Name Role Phone Vandana Snowden MD Primary Care Provider [phone] Reason for Visit * Reason Onset Date Comments Left Foot Swelling and Red, ? Cellulits 05/21/20 Encounter Details Date Type Department Care Team (Late st Contact Info) Description 05/21/2025 Telephone Orthopedic Surgery - [place] [address] [phone] Eddie Bryant, DPM [address] [address] Social History Tobacco Use Types Packs/Day Years Used Date Smoking Tobacco: Never Assessed Sex and Gender Information Value Date Recorded Sex Assigned at Not on file Legal Sex Male 6:41 AM EST Gender Identity Not on file Sexual Orientation Not on file documented as of this encounter Progress Notes * Evelyn Henriquez - 05/21/2025 10:00 AM EDT Patient is calling stating that he went to [facility] last evening, waited for 4 hours, and left without being seen, for a possible Cellulitis Left Foot It has gotten worse overnight blown up and veryRed per patient. States he was recently on Prednisone for his back , took last pill yesterday. Please advise. He can be reached @ @ [phone] . Thanks. documented in this encounter Plan of Treatment Upcoming Encounters Date Type Department Care Team (Latest Contact Info) Description 06/01/2025 9:30 AM EDT Hospital Encounter [facility] Main OR [address] [place] [phone] Eddie Bryant DPM [address] [address] 06/01/2025 9:30 AM EDT - 06/01/2025 11:30 AM EDT Surgery [facility] Main OR [address] [place] [phone] Eddie Bryant DPM [address] [address] ARTHROPLASTY LEFT TOE [[id number] (CPT )] 06/14/2025 10:00 AM EST Office Visit Orthopedic Surgery [place] [address] [phone] Eddie Bryant DPM [address] [address] 06/26/2025 9:15 AM EST Office Visit Orthopedic Surgery [address] [phone] Eddie Bryant DPM [address] [address] Scheduled Procedures Name Priority Associated Diagnoses Date/Ti me ARTHROPLASTY TOE Hammertoes of both feet Exostosis of left foot 06/01/2025 9:30 AM EDT EXCISION METATARSAL HEAD Hammertoes of both feet Exostosis of left foot 06/01/2025 9:30 AM EDT documented as of this encounter Goals Goal Patient Goal Type Associated Problems Recent Progress Patient-Stated? Author Autogenerat ed Goal Care Plan Autogenerated Problem No Eddie Bryant DPM documented as of this encounter Visit Diagnoses Not on filedocumented in this encounter Additional Health Concerns Active Problems Noted Date Diagnosed Date Autogenerated Problem 05/03/2025 documented as of this encounter Care Teams Paper Machine Tender Relationship Specialty Start Date End Date Vandana Snowden MD [address] [place] [address] PCP - General Internal Medicine 06/01/24 documented as of this encounter
--- OUTSIDE RECORDS SUMMARY | 2025-05-21 16:25 | XMS_ITS | Encounter Summary ---
Author Organization [facility] Address [address] [place] [address] [place] [address] Phone Care Team Providers Care Skidder Driver Name Role Phone Unknown, Unknown Primary Care Provider Vandana Cohn Co Primary Care Provider Encounter Details Date Type Department Care Team (Late st Contact Info) Description 07/14/2018 Ancillary Orders Virtual Department [address] [place] [address] Logan Christianson MD [address] [place] [address] [email or web address] Spinal stenosis, unspecified spinal region Social History Tobacco Use Types Packs/Day Years Used Date Smoking Tobacco: Never Assessed Sex and Gender Information Value Date Recorded Sex Assigned at Not on file Legal Sex Male 9:16 AM EST Gender Identity Not on file Sexual Orientation Not on file documented as of this encounter Plan of Treatment Not on file documented as of this encounter Results * XR LUMBOSACRAL SPINE 2-3 VIEWS (07/25/2018 1:18 PM EST) Anatomical Region Laterality Modality L-spine Radiographic Sagrario ging 07/25/2018 1:31 PM EST Impressions 07/25/2018 1:33 PM EST Thoracolumbar spondylosis with findings most prominent at the L5-S1 level. No abnormal motion is evident on flexion extension views. S/S: Chronic low back pain, limited range of motion POS - [id number] Narrative 07/25/2018 1:33 PM EST COMPARISON: MRI lumbar spine similar 19/11/2017 FINDINGS: Lateral neutral, lateral flexion, and lateral extension views of the lumbar spine are obtained. The levels described presume the presence of 5 lumbar vertebral bodies. There is degenerative spurring evident at the thoracolumbar junction. Disc space narrowing and spurring is evident at L5-S1 as well. Lower lumbar facet joint sclerosis is seen. There is normal motion on lateral flexed extension views without significant subluxation or compression injury seen. Procedure Note Wesley Montes MD - 07/25/2018 COMPARISON: MRI lumbar spine similar 19/11/2017 FINDINGS: Lateral neutral, lateral flexion, and lateral extension views of thelumbar spine are obtained. The levels described presume the presence of 5 lumbar vertebral bodies. There is degenerative spurring evident at the thoracolumbar junction. Discspace narrowing and spurring is evident at L5-S1 as well. Lower lumbarfacet joint sclerosis is seen. There is normal motion on lateral flexed extension views withoutsignificant subluxation or compression injury seen. IMPRESSION: Thoracolumbar spondylosis with findings most prominent at the L5-S1 level.No abnormal motion is evident on flexion extension views. S/S: Chronic low back pain, limited range of motion POS - [id number] Logan Christianson MD IMG XR SPINE Final Res ult * MRI LUMBAR SPINE (NEURO) WITHOUT CONTRAST (07/25/2018 1:01 PM EST) Anatomical Region Laterality Modality L-spine Magnetic Resonan ce 07/25/2018 1:40 PM EST Addenda Addendum by Wesley Montes MD on 08/29/2018 11:09 AM EST At L5-S1 there is a mild to moderate spinal stenosis with the canal narrowed to a diameter of 7 to 8 mm. This is secondary to bony spurring and facet arthropathy. Lateral recesses are impinged upon bilaterally. The neuroforamen are <<< IMPINGED UPON >>> by spurring as well. No disc protrusion is evident. Edited by: Janis Garcia on 08/21/2018 3:55 PM Impressions 07/25/2018 1:44 PM EST Relative spinal stenosis evident at L5-S1 predominantly secondary to uncinate spurring and facet arthropathy. S/S: Spinal stenosis, chronic low back pain, numbness bilateral legs POS - [id number] Narrative 07/25/2018 1:44 PM EST COMPARISON: Lateral lumbar spine x-rays July 25, 2018 TECHNIQUE: Exam performed on a 1.5 Dipika high-field MRI scanner. Sagittal T1, T2 and STIR, axial T1 and T2 sequences were obtained. FINDINGS: The levels described presume the presence of 5 lumbar vertebral bodies. The conus is unremarkable. There is loss of disc space height evident at L5-S1 with associated bony spurring at this level. At T11-T12 there is bony spurring noted without spinal stenosis or disc protrusion. At L1-2 there is mild facet arthropathy. No spinal stenosis or foraminal encroachment is seen. No disc protrusion is noted. At L2-3 no disc pathology or spinal stenosis is seen. The neuroforamen are patent. There is mild facet arthropathy evident. At L3-4 no disc protrusion or spinal stenosis is seen. There is minor facet arthropathy. The neuroforamen are patent. L4-5 there is a minor disc bulge without disc protrusion or spinal stenosis seen. The neuroforamen are patent. There is minimal facet arthropathy evident. At L5-S1 there is a mild to moderate spinal stenosis with the canal narrowed to a diameter of 7 to 8 mm. This is secondary to bony spurring and facet arthropathy. Lateral recesses are impinged upon bilaterally. The neuroforamen are patent spine by spurring as well. No disc protrusion is evident. Procedure Note Wesley Montes MD - 07/25/2018 COMPARISON: Lateral lumbar spine x-rays July 25, 2018 TECHNIQUE: Exam performed on a 1.5 Dipika high-field MRI scanner. SagittalT1, T2 and STIR, axial T1 and T2 sequences were obtained. FINDINGS: The levels described presume the presence of 5 lumbar vertebral bodies. The conus is unremarkable. There is loss of disc space height evident at L5-S1 with associated bonyspurring at this level. At T11-T12 there is bony spurring noted without spinal stenosis or discprotrusion. At L1-2 there is mild facet arthropathy. No spinal stenosis or foraminalencroachment is seen. No disc protrusion is noted. At L2-3 no disc pathology or spinal stenosis is seen. The neuroforamen arepatent. There is mild facet arthropathy evident. At L3-4 no disc protrusion or spinal stenosis is seen. There is minorfacet arthropathy. The neuroforamen are patent. L4-5 there is a minor disc bulge without disc protrusion or spinalstenosis seen. The neuroforamen are patent. There is minimal facetarthropathy evident. At L5-S1 there is a mild to moderate spinal stenosis with the canalnarrowed to a diameter of 7 to 8 mm. This is secondary to bony spurringand facet arthropathy. Lateral recesses are impinged upon bilaterally. Theneuroforamen are patent spine by spurring as well. No disc protrusion isevident. IMPRESSION: Relative spinal stenosis evident at L5-S1 predominantly secondary touncinate spurring and facet arthropathy. S/S: Spinal stenosis, chronic low back pain, numbness bilateral legs POS - [id number] Logan Christianson MD IMG MR XSPECIALTY Edited Result - Final documented in this encounter Visit Diagnoses Diagnosis Spinal stenosis, unspecified spinal region Spinal stenosis, unspecified spinal region Spinal stenosis, unspecified spinal region documented in this encounter Care Teams Skidder Driver Relationship Specialty Start Date End Date Unknown, Unknown, MD PCP - General 07/20/18 11/08/18 Vandana Snowden MD [facility] [place] [address] PCP - General Internal Medicine 11/09/18 documented as of this encounter Additional Source Comments The information contained in this document represents components of the legal health record. It is not the complete legal health record.[facility]
--- OUTSIDE RECORDS SUMMARY | 2025-05-21 16:25 | XMS_ITS | Patient Health Record ---
Author Organization [facility] Address [address] [place] [phone] Care Team Providers Care Tower Erector Name Role Phone Sp BAUER, Vandana Primary [...] BY MOUTH 2 TO 4 TIMES A DAY; Duration: 30 Active clonazePAM 1 MG 1 tablet [...] Problem Status W/U Status Risk Notes Problem Colon cancer screening (819847999) Colon cancer screening (Z12.11) Active confirmed Problem Generalized abdominal pain (482000484) Generalized abdominal pain (R10.84) Active confirmed Problem Laboratory test result abnormal (761432570) Abnormal levels of other serum enzymes (R74.8) Active confirmed Problem Gastroesophageal reflux disease (147929188) Gastroesophageal reflux disease (K21.9) Active confirmed Problem Hepatitis C antibody test positive (107775925) Hepatitis C antibody test positive (R76.8) Active confirmed Problem Colitis (74404529) Colitis (K52.9) Active confi rmed Problem Gastritis (0796171) Gastritis (K29.70) Active c onfirmed Problem Ulcerative colitis (53193235) Other ulcerative colitis without complication (K51.80) Active confirmed Problem Diarrhea (31105327) Diarrhea, unspecified type (R19.7) Active confirmed Problem Long-term current use of drug therapy (923271966) crystal mounter (current) use of oral hypoglycemic drugs (Z79.84) Active confirmed Problem Hemorrhage of rectum and anus (744421797) Rectal/anal hemorrhage (K62.5) Active confirmed Problem Gastroesophageal reflux disease (692512220) Gastroesophageal reflux disease, unspecified whether esophagitis present (K21.9) Active confirmed Problem Gastric intestinal metaplasia (35425686) Gastric intestinal metaplasia (K31.A0) Active confirmed Vital Signs Temperature 98.6 degrees Fahrenheit 12/20/2024 Blood pressure diastolic 01 mm Hg 12/20/2024 Height 74.75 in 12/20/2024 Blood pressure systolic 001 mm Hg 12/20/2024 Weight 258 lbs 12/20/2024 BMI 32.46 kg/m2 12/20/2024 Encounters Encounter Location Date Provider Diagnosis [facility] [address] [place] [phone] 12/20/2024 Chuck Bower Jr Gastroesophageal reflux disease K21.9 ; Gastric intestinal metaplasia K31.A0 and Diarrhea, unspecified type R19.7 [facility] [address] [place] [phone] 12/20/2024 Chuck Bower Jr [facility] [address] [place] [phone] 02/14/2025 Chuck Bower Jr Assessments Encounter Date [...] 07/11/2021 LIVER PROFILE 10/22/2021 AMYLASE 07/11/2021 LIPASE 12/20/2023 LIPASE 10/22/2021 LIPASE 07/11/2021 LIPASE 12/10/2021 CRP 07/02/2021 CBC w/o DIFF 12/20/2023 CBC [...] Next Appt Details Provider Name:Chuck caba , 12/26/2025 10:00:00 AM, [address] [place] [address], [address], [place], [address], Insurance Providers Payer Name Payer Address Payer Phone Subscriber Number Group Number Insured Name Patient Relationship to Insured Coverage Start Date Coverage End Date [facility] [address] [address] [place], [place] [id number] SONJA ZALDIVAR Self - patient is the insured MEDICAID OF [facility] [address] [place] [address] [id number] SONJA ZALDIVAR Self - patient is the [...]
--- OUTSIDE RECORDS SUMMARY | 2025-05-21 16:25 | XMS_ITS | Encounter Summary ---
Author Organization [facility] Address [address] [place] [address] Phone Care Team Providers Care Supervisor Steno Pool Name Role Phone Vandana Snowden MD Primary Care Provider Encounter Details Date Type Department Care Team (Late st Contact Info) Description 11/22/2018 Procedure Pass [place] Admitting Dept - Virtual Department [address] [place] [address] Social History Tobacco Use Types Packs/Day Years Used Date Smoking Tobacco: Former Cigarettes Q uit: 05/2018 Smokeless Tobacco: Never Alcohol Use Standard Drinks/Week Comments Not Currently 0 (1 standard drink = 0.6 oz pur e alcohol) quit 2014 Sex and Gender Information Value Date Recorded Sex Assigned at Not on file Legal Sex Male 9:16 AM EST Gender Identity Not on file Sexual Orientation Not on file documented as of this encounter Plan of Treatment Not on file documented as of this encounter Visit Diagnoses Not on filedocumented in this encounter Care Teams Supervisor Steno Pool Relationship Specialty Start Date End Date Vandana Snowden MD [facility] [place] [address] PCP - General Internal Medicine 11/09/18 documented as of this encounter Additional Source Comments The information contained in this document represents components of the legal health record. It is not the complete legal health record.[facility]
--- OUTSIDE RECORDS SUMMARY | 2025-05-21 16:25 | XMS_ITS | Encounter Summary ---
Author Organization [facility] Address [address] [place] [address] Phone Care Team Providers Care Inspector Clip On Sunglasses Name Role Phone Unknown, Unknown Primary Care Provider Vandana Cohn MD Primary Care Provider Encounter Details Date Type Department Care Team (Late st Contact Info) Description 07/14/2018 Procedure Pass [facility], [address] [address] Social History Tobacco Use Types Packs/Day Years [...] on filedocumented in this encounter Care Teams Inspector Clip On Sunglasses Relationship Specialty Start Date End Date Unknown, Unknown, MD PCP - General 07/20/18 11/08/18 Vandana Snowden MD [address] [place] [address] [place] [address] PCP - General Internal Medicine 11/09/18 documented as of this encounter Additional Source Comments The information contained in this document represents components of the legal health record. It is not the complete legal health record.[facility]
--- OUTSIDE RECORDS SUMMARY | 2025-05-21 16:25 | XMS_ITS | Encounter Summary ---
Author Organization [facility] Address [address] [place] [address] Phone Care Team Providers Care Premix Concrete Batcher Name Role Phone Vandana Snowden MD Primary Care Provider Encounter Details Date Type Department Care Team (Late st Contact Info) Description 11/15/2018 Procedure Pass [place] Admitting Dept - Virtual Department [address] [place] [address] Social History Tobacco Use Types Packs/Day Years [...] on filedocumented in this encounter Care Teams Premix Concrete Batcher Relationship Specialty Start Date End Date Vandana Snowden MD [facility] [place] [address] PCP - General Internal Medicine 11/09/18 documented as of this encounter Additional Source Comments The information contained in this document represents components of the legal health record. It is not the complete legal health record.[facility]
--- OUTSIDE RECORDS SUMMARY | 2025-05-21 16:25 | XMS_ITS | Clinical Summary ---
Author Organization [facility] Address [address] [place] [id number] Phone Care Team Providers Care Corporate Human Resources Manager Name Role Phone Vandana Snowden MD Primary Care Provider Allergies No known active allergies Medications metFORMIN (GLUCOPHAGE) 1000 MG tablet Take 1,000 mg by mouth 2 (two) times a day with meals. Active busPIRone (BUSPAR) 15 MG tablet Take 15 mg by mouth 3 (three) times a day. Active FLUoxetine (PROZAC) 40 MG capsule Take 80 mg by mouth daily. Active clonazePAM (KLONOPIN) 1 MG tablet Take 1 mg by mouth 3 (three) times a day as needed for anxiety. Active prazosin (MINIPRESS) 1 MG capsule Take 1 mg by mouth nightly at bedtime. Active gabapentin (NEURONTIN) 800 MG tablet Take 800 mg by mouth 3 (three) times a day. Active sildenafil (VIAGRA) 100 mg tablet Take 50 mg by mouth daily as needed for erectile dysfunction. Active raNITIdine (ZANTAC) 150 MG tablet Take 150 mg by mouth daily. Active cholecalciferol (VITAMIN D3) 2,000 unit capsule Take by mouth daily. Active lisinopril (PRINIVIL,ZESTR IL) 10 MG tablet Take 10 mg by mouth daily. Active atorvastatin (LIPITOR) 20 MG tablet Take 20 mg by mouth daily. Active cyanocobalamin, vitamin B-12, 1,000 mcg/mL Kit Inject 1,000 mcg as directed every 28 days. Use as directed Active pioglitazone (ACTOS) 30 MG tablet Take 30 mg by mouth daily. Active oxyCODONE 5 MG immediate release tablet Take 1-2 tablets (5-10 mg total) by mouth every 4 (four) hours as needed for moderate pain. Partial fill ok 42 tablet 11/23/2018 Active Active Problems Problem Noted Date Diagnosed Date Lumbar stenosis with neurogenic claudication Social History Tobacco Use Types Packs/Day Years Used Date Smoking Tobacco: Former Cigarettes Q uit: 05/2018 Smokeless Tobacco: Never Alcohol Use Standard Drinks/Week Comments Not Currently 0 (1 standard drink = 0.6 oz pur e alcohol) quit 2014 Education Answer Date Recorded Are you interested in more education? Not on brea e 11/27/2022 Are you concerned about learning? Not on file 11/27/2022 No 11/27/2022 No 11/27/2022 Digital Access Answer Date Recorded No 12/26/2022 No 12/26/2022 No 12/26/2022 Reliable internet access at home? Not on file 12/26/2022 Device with a working camera? Not on file Sex and Gender Information Value Date Recorded Sex Assigned at Not on file Legal Sex Male 9:16 AM EST Gender Identity Not on file Sexual Orientation Not on file Last Filed Vital Signs Vital Sign Reading Time Taken Comments Blood Pressure 101/61 11/23/2018 8:07 AM EDT Pulse 76 11/23/2018 8:07 AM EDT Temperature 36.6 C (97.9 F) 11/23/2018 5:20 AM EDT Respiratory Rate 16 11/23/2018 7:57 AM EDT Oxygen Saturation 94% 11/23/2018 8:07 AM EDT Inhaled Oxygen Concentration - - Weight 98.9 kg (218 lb) 11/22/2018 7:12 PM EDT Height 190.5 cm (6' 3 ) 11/22/2018 7:12 PM EDT Body Mass Index 27.25 11/22/2018 7:12 PM EDT Plan of Treatment Health Maintenance Due Date Last Done Comments CREATININE LEVEL 1971 LIPID PANEL 1971 POTASSIUM LEVEL 1971 DEPRESSION SCREENING 1983 SMOKING Hx and SMOKELESS TOB ACCO SCREENING 02/11/1984 HEPATITIS C SCREENING 1989 HIV ONE-TIME SCREENING (18-6 5 YEARS) 1989 COLOGUARD 02/11/2016 COLONOSCOPY 02/11/2016 COLORECTAL CANCER SCREENING 02/11/2016 FIT TEST 02/11/2016 FOBT 02/11/2016 SIGMOIDOSCOPY 02/11/2016 VIRTUAL COLONOSCOPY 02/11/2016 PNEUMOCOCCAL VACCINES (50+ y ears) (2 of 2 - PCV) 2021 11/30/2016 ZOSTER VACCINES (1 of 2) 2021 INFLUENZA VACCINE (#1) 2025 COVID-19 VACCINE (2 - 2024-2 6 season) 2025 10/31/2020 Adult Td,Tdap Booster 02/03/2027 02/03/2017 RSV VACCINE (1 - 1-dose 75+ series) 2046 HEPATITIS A VACCINES Aged Out No long er eligible based on patient's age to complete this topic HIB VACCINES Aged Out No longer eligi ble based on patient's age to complete this topic MENINGOCOCCAL VACCINES (ACWY) Aged Out No longer eligible based on patient's age to complete this topic MENINGOCOCCAL VACCINES (B) Aged Out N o longer eligible based on patient's age to complete this topic Medical Devices Not on file Insurance [place] [address] [place] [address] [place] [address] [place] [address] [place] [address] [place] [address] [place] [address] [place] [address] [place] [address] [place] [address] ACO Advance Directives For more information, please contact: [phone] (9AM - 5PM [facility], Wednesday-Wednesday) * Full Code (Presumed) (Latest Code Status on File) Date Activated Date Inactivated Comments 11/22/2018 4:35 PM 11/23/2018 1:12 PM Care Teams Corporate Human Resources Manager Relationship Specialty Start Date End Date Vandana Snowden MD [facility] [place] [id number] PCP - General Internal Medicine 11/09/18 Additional Source Comments The information contained in this document represents components of the legal health record. It is not the complete legal health record.[facility]
== END 2025-05-21 15:19 | disposition home or self-care (01) ==
PROVIDERS: PCP Internal Medicine; Visit Provider Physician Assistant Medical
DX: L03.116 Cellulitis of left lower limb (principal)

== ENCOUNTER → 2025-05-21 13:22 | Outpatient (BNVA) | payer OTHER, SELFPAY | PROVIDERS: PCP Internal Medicine; Visit Provider Physician Assistant Medical | DX: L03.116 Cellulitis of left lower limb (principal); E11.9 Type 2 diabetes mellitus without complications | CPT/HCPCS: 99212 ==

== ENCOUNTER 2025-05-21 16:18 | Inpatient (IN) | payer OTHER, SELFPAY ==
--- NOTE | ~2025-05-21 | US_ITS ---
CLINICAL HISTORY: pain Venous duplex ultrasound left lower extremity COMPARISON: US lower extremity veins dated 02/08/25 at 13:03 EDT FINDINGS: The visualized deep veins are fully compressible with normal Doppler color flow and spectral tracings. No popliteal cyst. Prominent left groin lymph node measuring 3.8 x 1.2 x 1.7 cm and 1.8 x 0.7 x 0.5 cm with normal fatty velma. Prominent but compressible varicose vein measuring up to 3 mm in diameter along the medial left calf. IMPRESSION: 1. Negative for left lower extremity deep vein thrombosis. 2. Prominent but otherwise morphologically normal left groin lymph nodes, statistically likely reactive. This document has been electronically signed by: Chance Millan MD on 05/21/2025 18:13:42
--- NOTE | ~2025-05-21 | XR_ITS ---
CLINICAL HISTORY: pain evaluate for osteo Three views of the left foot. COMPARISON: None provided. FINDINGS: Diffuse soft tissue swelling overlying the mid and forefoot. No ankle joint effusion. Calcaneal enthesophyte present. Ossification of the plantar fascia. Prominent osteophytes present along the dorsal aspect of the tarsal bones. Normal tarsometatarsal alignment. Mild degenerative changes of the 1st MTP joint. Linear radiopaque foreign bodies present along the plantar base of the 2nd proximal phalanx measuring 4 mm and 3 mm. Erosions present along the base of the 1st distal phalanx. Tarsals, metatarsals and phalanges otherwise appear intact. IMPRESSION: 1. Erosions along the base of the 1st distal phalanx suggestive of osteomyelitis. Recommend comparison with prior imaging if available. 2. Linear radiopaque foreign bodies present within the subcutaneous soft tissues along the plantar base of the 2nd proximal phalanx measuring 4 mm and 3 mm. 3. Diffuse soft tissue swelling overlying the dorsal aspect of the midfoot and forefoot. This document has been electronically signed by: Chance Millan MD on 05/21/2025 18:10:36
[2025-05-21 16:42] VITALS: BP 130/77; PULSE 85; RESP 18; TEMP 36.6; O2SAT 98; BMI 34.1
--- NOTE | 2025-05-21 16:44 | ED.GENADULT ---
HPI - General Adult General Chief complaint: General Medical Stated complaint: L Foot swelling/ sent from PCP Time Seen by Provider: 05/21/25 20:04 History of Present Illness HPI narrative: Patient is a 55-year-old male with a history of diabetes. Complaining of pain to the left great toe. Question had a flip of a tractor 10 days ago. Been having foot pain. Noticed increasing swelling to 3 days ago. Came in for help. Long history of diabetes. No fever no chills no systemic complaints. Patient is unable to walk on the injury. Related Data Home Medications ?Medication ?Instructions ?Recorded ?Confirmed clonazepam 1 mg tablet 1 mg PO DAILY 02/21/25 02/21/25 gabapentin 600 mg tablet 600 mg PO DAILY 02/21/25 02/21/25 dicyclomine 20 mg tablet 20 mg PO BID-QID 05/21/25 fluoxetine 40 mg capsule 80 mg PO DAILY 05/21/25 prednisone 20 mg tablet 20 mg PO DAILY 05/21/25 Previous Rx's ?Medication ?Instructions ?Recorded blood sugar diagnostic (FreeStyle #100 ea 01/09/25 Lite Strips) lisinopril 5 mg tablet 2.5 mg (1/2 x 5 mg) PO DAILY #45 01/09/25 tabs pioglitazone 30 mg tablet 30 mg PO DAILY #90 tabs 02/17/25 atorvastatin 20 mg tablet 20 mg PO DAILY #90 tabs 03/19/25 cyanocobalamin (vitamin B-12) 1,000 mcg IM Q4W #13 mL 03/20/25 1,000 mcg/mL injection solution syringe with needle, safety 3 mL #50 ea 05/01/25 25 gauge x 1 (BD Integra Syringe) Allergies Allergy/AdvReac Type Severity Reaction Status Date / Time No Known Allergies Allergy Verified 05/21/25 16:45 Review of Systems Review of Systems: Positive pain to the left great toe No fever no chills no systemic complaints PMFSH Past Medical History Attestation statement: The following information was validated with the patient. Medical History Vitamin B12 deficiency Skin lesion of neck Refused influenza vaccine Hip fracture EtOH dependence Smoker GERD (gastroesophageal reflux disease) HTN (hypertension) Rheumatoid arthritis Hydronephrosis concurrent with and due to calculi of kidney and ureter Spinal stenosis, thoracic region Postlaminectomy syndrome, lumbar Postlaminectomy syndrome, cervical Lumbar stenosis with neurogenic claudication History of diabetic ulcer of foot Cervical spondylosis History of alcoholism Erectile disorder due to medical condition in male PTSD (post-traumatic stress disorder) Vitamin D deficiency Diabetes mellitus with diabetic neuropathy, without long-term current use of insulin Dyslipidemia Surgical History Hx of foot surgery History of surgery on lower extremity H/O knee surgery History of carpal tunnel surgery of right wrist Hx of colonoscopy H/O cervical discectomy Status post lumbar spine surgery for decompression of spinal cord Family History Family History Father Essential hypertension Dyslipidemia Cardiovascular disease Substance use disorder Mental health disorder Mother Essential hypertension Dyslipidemia Diabetes mellitus Social History Social History Housing: House Are you a primary technical healthcare consultant to a significant other at home: No Do you presently have visiting nurse or other home services: No Alcohol intake: former Patient Tobacco Use Status: Current everyday Tobacco user Tobacco use type: Cigarette Cigarette Packs Per Day: 0 Cigarettes Per Day: 10 Smoked in Last 30 Days: No e-Cigarette/Vaping Use: Never Used Second Hand Smoke Exposure: No Use of substances other than those prescribed or required for medical reasons: No Advance Directives: No Advance Directives Information Provided: Yes Do you have a plan to hurt others: No Plan Current occupational status: disabled Cognitive needs: No Hearing needs: No Vision needs: Yes Physical Exam ED Exam Exam: Appearance: Alert. Oriented X3. No acute distress. Eyes: Pupils equal, round and reactive to light. ENT: Pharynx normal. Neck: Normal inspection. Neck supple. No lymph nodes noted. No crepitus CVS: Normal heart rate and rhythm. Pulses normal. Normal S1 and S2 Respiratory: No respiratory distress. Breath sounds normal. No Wheezing. No rales Abdomen: Soft and nontender. No rigidity. No distention. good BS x4 Skin: Skin warm and dry. Normal skin color. Normal skin turgor. Extremities: Significant redness and swelling to the left great toe. Warm to touch. Painful to touch. Capillary refill intact. Sensation intact. Skin intact. There is good distal pulses noted at dorsalis pedis and posterior tibialis. There is swelling noted over the leg. Neuro: Oriented X 3. No motor deficit. No sensory deficit. Moving all extermities. No slurred speech Vital Signs: Vital Signs - 24 hr 05/21/25 16:42 05/21/25 20:28 Temperature 98 F 98.1 F Pulse Rate 85 72 Respiratory Rate 18 20 Blood Pressure 130/77 112/62 Pulse Oximetry 98 99 Oxygen Delivery Method Room Air Room Air BMI result Body Mass Index 34.1 Course Course Course Narrative: RME, this is a rapid medical exam performed by Drake Hines please refer to primary provider for complete H&P- 55-year-old male presents for evaluation of left foot pain and swelling in his radiating up into his calf. He has a history of diabetes. He reports an injury last week when a tried to fell on his foot. Plan for x-rays, labs including blood cultures. He appears to be paronychia behind his left great toe Medications Administered Discontinued Medications Generic Name Dose Route Start Last Admin Trade Name Freq PRN Reason Stop Dose Admin Cefepime HCl 2 gm in 50 mls @ 100 mls/hr 05/21/25 20:26 05/21/25 20:55 Maxipime IV 05/21/25 20:55 100 mls/hr ONCE ONE Administration Medical Decision Making Medical Decision Making [facility] Narrative: Patient sed rate CRP are elevated. X-ray by radiology's interpretation show possible osteo. Will start patient on antibiotics including vancomycin and cefepime. Hospitalist team consulted. Patient to be admitted. Differential Diagnosis Differential Diagnoses: The differential diagnosis associated with the presentation includes Osteomyelitis Admission/Observation Consideration of admission/observation: Escalation of care including admission/observation considered Consult Healthcare Provider Management of the patient was discussed with: Hospitalist Lab Data [facility] Lab Attestation statement: I reviewed the patient's lab results. 05/21/25 17:36 05/21/25 17:36 Labs: Lab Results 05/21/25 05/21/25 05/21/25 Range/Units 17:36 20:52 21:36 WBC 8.3 (4.8-10.8) X10*3/uL RBC 4.61 (4.60-5.80) X10*6/uL Hgb 13.8 L (14.0-18.0) g/dl Hct 41.8 L (42.0-52.0) % MCV 90.7 (80.0-98.0) fL MCH 29.9 (27.0-33.0) pg MCHC 33.0 (31.0-36.0) g/dl RDW 12.9 (11.0-16.0) % Plt Count 228 (160-400) X10*3/uL MPV 8.7 L (9.4-12.4) fL Immature Gran % (Auto) 0.4 (0.0-0.4) % Neut % (Auto) 64.7 (45-73) % Lymph % (Auto) 23.6 (20-40) % [place] % (Auto) 10.0 (2-11) % Eos % (Auto) 0.8 (0-4) % Baso % (Auto) 0.5 (0-2) % Lymph # (Auto) 2.0 (1.2-4.9) X10*3/uL [place] # (Auto) 0.8 (0.1-1.2) X10*3/uL Eos # (Auto) 0.1 (0.0-0.4) X10*3/uL Baso # (Auto) 0.0 (0.0-0.2) X10*3/uL Abs Immat Gran (auto) 0.03 (0.00-0.03) X10*3/uL Absolute Neuts (auto) 5.4 (2.0-8.3) x10*3/uL Absolute Nucleated RBC 0.000 (0.0-0.012) X10*3/uL Nucleated RBC % (auto) 0.0 (0.0-0.2) /100WBC ESR 28 H (0-15) MM/HR Sodium 139 (135-145) mmol/L Potassium 4.6 (3.3-5.1) mmol/L Chloride 101 (96-108) mmol/L Carbon Dioxide 29 (22-29) mmol/L Anion Gap 14 (12-20) BUN 19 H (9-16) mg/dL Creatinine 1.06 (0.5-1.4) mg/dL Estim Creat Clear Calc 112.9 Estimated GFR > 60 POC Glucose 169 H (60-115) mg/dL Random Glucose 155 H (60-115) mg/dL Lactic Acid 1.2 1.0 (0.5-2.0) mmol/L Calcium 9.6 (8.4-10.2) mg/dL Total Bilirubin 0.3 (0.0-1.0) mg/dL AST 18 (5-37) U/L ALT 19 (0-40) U/L Alkaline Phosphatase 129 H (39-117) U/L C-Reactive Protein 3.63 H (< or = 0.50) mg/dL Total Protein 6.9 (6.5-8.0) g/dL Albumin 4.1 (3.5-5.0) g/dL Lipase 20 (8-78) U/L Independent Interpretation I performed an independent interpretation of an: Plain X-Ray (No gross fracture noted) Radiology Impression Discussion of test interpretation with radiology: I have reviewed the radiologist's reading. External Record Review External record reviewed: Outpatient record Prescription Management I considered prescription management with: Pain Medication Chronic Conditions Patient?s care impacted by: Diabetes and Hypertension Social Determinants Patient?s care significantly limited by Social Determinants of Health including: Problems related to primary support group Discharge Plan Discharge Clinical Impression: Diabetes, Osteomyelitis Patient Disposition: Admitted As Inpatient Print Language: Polish
[2025-05-21 17:42] LABS: MANUAL DIFF FLAG NO
[2025-05-21 17:48] LABS: Hematocrit 41.8 % (42.0-52.0); Hemoglobin 13.8 g/dl (14.0-18.0); Imm Gran Abs Auto 0.03 X10*3/uL (0.00-0.03); Imm Gran Pct Auto 0.4 % (0.0-0.4); Lymphocytes Absolute Auto 2.0 X10*3/uL (1.2-4.9); Mean Corpuscular HGB Conc 33.0 g/dl (31.0-36.0); Mean Corpuscular Hemoglobin 29.9 pg (27.0-33.0); Mean Corpuscular Volume 90.7 fL (80.0-98.0); NRBC Abs Auto 0.000 X10*3/uL (0.0-0.012); NRBC Pct Auto 0.0 /100WBC (0.0-0.2); Platelet Count 228 X10*3/uL (160-400); Red Blood Count 4.61 X10*6/uL (4.60-5.80); White Blood Count 8.3 X10*3/uL (4.8-10.8)
[2025-05-21 18:05] LABS: Alanine Aminotransferase 19 U/L (0-40); Albumin Level 4.1 g/dL (3.5-5.0); Alkaline Phosphatase 129 U/L (39-117); Anion Gap 14 (12-20); Aspartate Amino Transferase 18 U/L (5-37); Blood Urea Nitrogen 19 mg/dL (9-16); Calcium 9.6 mg/dL (8.4-10.2); Carbon Dioxide 29 mmol/L (22-29); Chloride 101 mmol/L (96-108); Creatinine Clr Calc Pharmacy 112.9; Estimated Glomerular Filt Rate > 60; Lipase 20 U/L (8-78); Potassium 4.6 mmol/L (3.3-5.1); Sodium 139 mmol/L (135-145); Total Protein 6.9 g/dL (6.5-8.0)
[2025-05-21 20:28] VITALS: BP 112/62; PULSE 72; RESP 20; TEMP 36.7; O2SAT 99
--- NOTE | 2025-05-21 20:35 | ED.GENADULT ---
HPI - General Adult General Chief complaint: General Medical Stated complaint: L Foot swelling/ sent from PCP Time Seen by Provider: 05/21/25 20:04 Related Data Home Medications ?Medication ?Instructions ?Recorded ?Confirmed clonazepam 1 mg tablet 1 mg PO DAILY 02/21/25 05/21/25 gabapentin 600 mg tablet 600 mg PO TID 02/21/25 05/21/25 dicyclomine 20 mg tablet 20 mg PO TID 05/21/25 05/21/25 fluoxetine 40 mg capsule 80 mg PO DAILY 05/21/25 05/21/25 Previous Rx's ?Medication ?Instructions ?Recorded blood sugar diagnostic (FreeStyle #100 ea 01/09/25 Lite Strips) lisinopril 5 mg tablet 2.5 mg (1/2 x 5 mg) PO DAILY #45 01/09/25 tabs pioglitazone 30 mg tablet 30 mg PO DAILY #90 tabs 02/17/25 atorvastatin 20 mg tablet 20 mg PO DAILY #90 tabs 03/19/25 cyanocobalamin (vitamin B-12) 1,000 mcg IM Q4W #13 mL 03/20/25 1,000 mcg/mL injection solution syringe with needle, safety 3 mL #50 ea 05/01/25 25 gauge x 1 (BD Integra Syringe) ertapenem 1 gram solution for 1 g IV DAILY 6 weeks 05/24/25 injection Allergies Allergy/AdvReac Type Severity Reaction Status Date / Time No Known Allergies Allergy Verified 05/21/25 16:45 [facility] Past Medical History Medical History Vitamin B12 deficiency Skin lesion of neck Refused influenza vaccine Hip fracture EtOH dependence Smoker GERD (gastroesophageal reflux disease) HTN (hypertension) Rheumatoid arthritis Hydronephrosis concurrent with and due to calculi of kidney and ureter Spinal stenosis, thoracic region Postlaminectomy syndrome, lumbar Postlaminectomy syndrome, cervical Lumbar stenosis with neurogenic claudication History of diabetic ulcer of foot Cervical spondylosis History of alcoholism Erectile disorder due to medical condition in male PTSD (post-traumatic stress disorder) Vitamin D deficiency Diabetes mellitus with diabetic neuropathy, without long-term current use of insulin Dyslipidemia Surgical History Hx of foot surgery History of surgery on lower extremity H/O knee surgery History of carpal tunnel surgery of right wrist Hx of colonoscopy H/O cervical discectomy Status post lumbar spine surgery for decompression of spinal cord Family History Family History Father Essential hypertension Dyslipidemia Cardiovascular disease Substance use disorder Mental health disorder Mother Essential hypertension Dyslipidemia Diabetes mellitus Social History Social History Household Members: Family Housing: House Are you a primary manager home healthcare to a significant other at home: No Do you presently have visiting nurse or other home services: No Alcohol intake: former Patient Tobacco Use Status: Never used Tobacco Tobacco use type: Cigarette Cigarette Packs Per Day: 0 Cigarettes Per Day: 10 e-Cigarette/Vaping Use: Never Used Second Hand Smoke Exposure: No service: No Current occupational status: disabled Cognitive needs: No Hearing needs: No Vision needs: Yes Physical Exam ED Vital Signs: Vital Signs - 24 hr 05/21/25 16:42 05/21/25 20:28 Temperature 98 F 98.1 F Pulse Rate 85 72 Respiratory Rate 18 20 Blood Pressure 130/77 112/62 Pulse Oximetry 98 99 Oxygen Delivery Method Room Air Room Air BMI result Body Mass Index 34.1 Medications Administered Discontinued Medications Generic Name Dose Route Start Last Admin Trade Name Freq PRN Reason Stop Dose Admin Atorvastatin Calcium 20 mg 05/23/25 09:00 05/24/25 07:43 Atorvastatin Calcium 20 Mg Tablet PO 20 mg DAILY MADYSON Administration Clonazepam 1 mg 05/22/25 09:00 05/24/25 07:43 Clonazepam 1 Mg Tablet PO 1 mg DAILY MADYSON Administration Dicyclomine HCl 20 mg 05/22/25 21:00 05/24/25 07:42 Dicyclomine Hcl 10 Mg Capsule PO 20 mg TID MADYSON Administration Enoxaparin Sodium 40 mg 05/21/25 21:00 05/23/25 21:09 Enoxaparin Sodium 40 Mg/0.4 Ml Syringe SUBCUT 40 mg Q24H MADYSON Administration Fluoxetine HCl 80 mg 05/23/25 09:00 05/24/25 07:42 Fluoxetine Hcl 20 Mg Capsule PO 80 mg DAILY MADYSON Administration Gabapentin 600 mg 05/22/25 09:00 05/22/25 08:09 Gabapentin 600 Mg Tablet PO 600 mg DAILY MADYSON Administration Gabapentin 600 mg 05/22/25 21:00 05/24/25 07:42 Gabapentin 600 Mg Tablet PO 600 mg TID MADYSON Administration Hydromorphone HCl 0.5 mg 05/21/25 21:58 05/23/25 21:03 Hydromorphone Hcl 0.5 Mg/0.5 Ml Syringe IVPUSH 0.5 mg Q4H PRN Administration [facility] Pain Protocol Cefepime HCl 2 gm in 50 mls @ 100 mls/hr 05/21/25 20:26 05/21/25 21:25 Maxipime IV 05/21/25 20:55 Infused ONCE ONE Infusion Vancomycin HCl 2,000 mg in 500 mls @ 250 mls/hr 05/21/25 20:45 05/22/25 00:34 Vancomycin/Ns IV 05/21/25 22:44 Infused ONCE ONE Infusion Cefepime HCl 2 gm in 50 mls @ 100 mls/hr 05/21/25 21:00 05/24/25 13:17 Maxipime IV Not Given Q8H [facility] Vancomycin HCl 1,250 mg/ 250 mls @ 166.667 mls/hr 05/22/25 10:00 05/22/25 23:18 Sodium Chloride IV Infused Q12H [facility] Infusion Vancomycin HCl 1,500 mg/ 500 mls @ 333.333 mls/hr 05/23/25 10:00 05/23/25 23:57 Sodium Chloride IV Infused Q12H [facility] Infusion Vancomycin HCl 1,500 mg/ 500 mls @ 333.333 mls/hr 05/24/25 10:00 05/24/25 11:36 Sodium Chloride IV Not Given Q12H [facility] Ertapenem 1 gm/ Sodium 50 mls @ 100 mls/hr 05/24/25 09:39 05/24/25 12:44 Chloride IV Infused ONCE PRN Infusion discharge Insulin Human Lispro 0 unit 05/21/25 21:00 05/24/25 11:42 Insulin Lispro 100 Unit/Ml 3 Ml Vial SUBCUT Not Given QIDACHS [facility] Protocol Pioglitazone HCl 30 mg 05/23/25 09:00 05/24/25 07:42 Pioglitazone Hcl 30 Mg Tablet PO 30 mg DAILY [facility] Administration Sodium Chloride 3 ml 05/22/25 00:00 05/24/25 07:44 0.9 % Sodium Chloride Flush 3 Ml Syringe IVFLUSH 3 ml QSHIFT [facility] Administration Medical Decision Making Lab Data 05/23/25 08:36 05/24/25 07:53 Labs: Lab Results 05/21/25 05/21/25 05/21/25 Range/Units 17:36 20:52 21:36 WBC 8.3 (4.8-10.8) X10*3/uL RBC 4.61 (4.60-5.80) X10*6/uL Hgb 13.8 L (14.0-18.0) g/dl Hct 41.8 L (42.0-52.0) % MCV 90.7 (80.0-98.0) fL MCH 29.9 (27.0-33.0) pg MCHC 33.0 (31.0-36.0) g/dl RDW 12.9 (11.0-16.0) % Plt Count 228 (160-400) X10*3/uL MPV 8.7 L (9.4-12.4) fL Immature Gran % (Auto) 0.4 (0.0-0.4) % Neut % (Auto) 64.7 (45-73) % Lymph % (Auto) 23.6 (20-40) % [place] % (Auto) 10.0 (2-11) % Eos % (Auto) 0.8 (0-4) % Baso % (Auto) 0.5 (0-2) % Lymph # (Auto) 2.0 (1.2-4.9) X10*3/uL [place] # (Auto) 0.8 (0.1-1.2) X10*3/uL Eos # (Auto) 0.1 (0.0-0.4) X10*3/uL Baso # (Auto) 0.0 (0.0-0.2) X10*3/uL Abs Immat Gran (auto) 0.03 (0.00-0.03) X10*3/uL Absolute Neuts (auto) 5.4 (2.0-8.3) x10*3/uL Absolute Nucleated RBC 0.000 (0.0-0.012) X10*3/uL Nucleated RBC % (auto) 0.0 (0.0-0.2) /100WBC ESR 28 H (0-15) MM/HR Sodium 139 (135-145) mmol/L Potassium 4.6 (3.3-5.1) mmol/L Chloride 101 (96-108) mmol/L Carbon Dioxide 29 (22-29) mmol/L Anion Gap 14 (12-20) BUN 19 H (9-16) mg/dL Creatinine 1.06 (0.5-1.4) mg/dL Estim Creat Clear Calc 112.9 Estimated GFR > 60 POC Glucose 169 H (60-115) mg/dL Random Glucose 155 H (60-115) mg/dL Lactic Acid 1.2 1.0 (0.5-2.0) mmol/L Calcium 9.6 (8.4-10.2) mg/dL Total Bilirubin 0.3 (0.0-1.0) mg/dL AST 18 (5-37) U/L ALT 19 (0-40) U/L Alkaline Phosphatase 129 H (39-117) U/L C-Reactive Protein 3.63 H (< or = 0.50) mg/dL Total Protein 6.9 (6.5-8.0) g/dL Albumin 4.1 (3.5-5.0) g/dL Lipase 20 (8-78) U/L Discharge Plan Discharge Clinical Impression: Diabetes Osteomyelitis Qualifiers: Osteomyelitis type: unspecified type Osteomyelitis location: unspecified site Qualified Code(s): M86.9 - Osteomyelitis, unspecified Patient Disposition: Admitted As Inpatient Interventions: Admission Worksheet (ED) Last Done: 05/22/25 09:52 Discharge Date/Time: 05/22/25 10:57
[2025-05-21] MEDS: cefEPime HCl/D5W 2 GM/50 ML PIGGYBACK IV (20:55)
--- NOTE | 2025-05-21 20:56 | PM.IMHP ---
History of Present Illness Date of Service: 05/21/25 Chief Complaint: Left great toe pain 55 old male with a past medical history of HTN, HLD, dm, neuropathy, anxiety, depression, rheumatoid arthritis, GERD, tobacco dependence, alcohol use disorder, spinal stenosis, post-laminectomy syndrome, history of diabetic foot ulcer presented to the hospital with a chief complaint of left great toe pain. Mentioned that he had an injury to his left great toe about 10 days ago since then he has been having pain and swelling. Denies any fevers and chills. Denies any chest pain or palpitations. Denies any nausea vomiting or diarrhea. Review of all other systems is negative except mentioned above ER course: Per ER team, patient noted to have significant redness and swelling of the left great toe; warm to touch and tender; has elevated ESR; x-ray showed findings concerning for osteomyelitis. Given antibiotics. [facility] Medical History Vitamin B12 deficiency Skin lesion of neck Refused influenza vaccine Hip fracture EtOH dependence Smoker GERD (gastroesophageal reflux disease) HTN (hypertension) Rheumatoid arthritis Hydronephrosis concurrent with and due to calculi of kidney and ureter Spinal stenosis, thoracic region Postlaminectomy syndrome, lumbar Postlaminectomy syndrome, cervical Lumbar stenosis with neurogenic claudication History of diabetic ulcer of foot Cervical spondylosis History of alcoholism Erectile disorder due to medical condition in male PTSD (post-traumatic stress disorder) Vitamin D deficiency Diabetes mellitus with diabetic neuropathy, without long-term current use of insulin Dyslipidemia Family History Father Essential hypertension Dyslipidemia Cardiovascular disease Substance use disorder Mental health disorder Mother Essential hypertension Dyslipidemia Diabetes mellitus Surgical History Hx of foot surgery History of surgery on lower extremity H/O knee surgery History of carpal tunnel surgery of right wrist Hx of colonoscopy H/O cervical discectomy Status post lumbar spine surgery for decompression of spinal cord Social History Housing: House Are you a primary daycare provider to a significant other at home: No Do you presently have visiting nurse or other home services: No Alcohol intake: former Patient Tobacco Use Status: Current everyday Tobacco user Tobacco use type: Cigarette Cigarette Packs Per Day: 0 Cigarettes Per Day: 10 Smoked in Last 30 Days: No e-Cigarette/Vaping Use: Never Used Second Hand Smoke Exposure: No Use of substances other than those prescribed or required for medical reasons: No Advance Directives: No Advance Directives Information Provided: Yes Do you have a plan to hurt others: No Plan Current occupational status: disabled Cognitive needs: No Hearing needs: No Vision needs: Yes Meds Allergies Allergy/AdvReac Type Severity Reaction Status Date / Time No Known Allergies Allergy Verified 05/21/25 16:45 Active Medications: Current Medications Acetaminophen (Acetaminophen 325 Mg Tablet) 650 mg PO Q6H PRN PRN Reason: Pain, Mild 1-3,fever,headache Calcium Carbonate (Calcium Carbonate 750 Mg Tab.Chew) 750 mg PO Q4H PRN PRN Reason: Heartburn Clonazepam (Clonazepam 1 Mg Tablet) 1 mg PO DAILY [facility] Dextrose (Dextrose 50 % 25 Gm/50 Ml Syringe) 25 gm IVPUSH Q15M PRN; Protocol PRN Reason: per Hypoglycemia Standing Ord. Enoxaparin Sodium (Enoxaparin Sodium 40 Mg/0.4 Ml Syringe) 40 mg SUBCUT Q24H [facility] Gabapentin (Gabapentin 600 Mg Tablet) 600 mg PO DAILY [facility] Glucose (Glucose Gel 15 Gm Gel..Gram.) 15 gm PO Q15M PRN; Protocol PRN Reason: per Hypoglycemia Standing Ord. Vancomycin HCl (Vancomycin/Ns) 2,000 mg in 500 mls @ 250 mls/hr IV ONCE ONE Stop: 05/21/25 22:44 Cefepime HCl (Maxipime) 2 gm in 50 mls @ 100 mls/hr IV Q8H [facility] Insulin Human Lispro (Insulin Lispro 100 Unit/Ml 3 Ml Vial) 0 unit SUBCUT QIDACHS [facility]; Protocol Magnesium Hydroxide (Milk Of Magnesia 30 Ml Oral.Susp) 30 ml PO DAILY PRN PRN Reason: Constipation Melatonin (Melatonin 3 Mg Tablet) 6 mg PO BEDTIME PRN PRN Reason: Insomnia Pharmacy Consult (Consult Rx Vancomycin Dosing) 1 each MISCELLANE DAILY PRN PRN Reason: Consult order Sodium Chloride (0.9 % Sodium Chloride Flush 3 Ml Syringe) [facility] Medications ?Medication ?Instructions ?Recorded ?Confirmed ?Last Taken ?Type clonazepam 1 mg tablet 1 mg PO DAILY 02/21/25 02/21/25 Unknown History gabapentin 600 mg tablet 600 mg PO DAILY 02/21/25 02/21/25 Unknown History dicyclomine 20 mg tablet 20 mg PO BID-QID 05/21/25 Unknown History fluoxetine 40 mg capsule 80 mg PO DAILY 05/21/25 Unknown History prednisone 20 mg tablet 20 mg PO DAILY 05/21/25 Unknown History Physical Exam Vital Signs and Narrative: Vital Signs: Last Vital Signs Temp 98.1 F 05/21/25 20:28 Pulse 72 05/21/25 20:28 Resp 20 05/21/25 20:28 BP 112/62 05/21/25 20:28 Pulse Ox 99 05/21/25 20:28 O2 Del Method Room Air 05/21/25 20:28 BMI result Body Mass Index 34.1 Gen: Appears be in no acute distress HEENT: NCAT, Moist mucosa. Pulmonary: Vesicular breath sounds, fair air entry CVS: Normal S1-S2 Abdomen: BS+, Soft, Nontender Extremities: Warm well perfused; left great toe warm tender and erythematous; Neuro: Alert and awake. Results Labs 05/21/25 17:36 05/21/25 17:36 Labs: Laboratory Results - last 24 hr 05/21/25 17:36 MCV 90.7 MCH 29.9 MCHC 33.0 RDW 12.9 Plt Count 228 MPV 8.7 L Immature Gran % (Auto) 0.4 Neut % (Auto) 64.7 Lymph % (Auto) 23.6 [place] % (Auto) 10.0 Eos % (Auto) 0.8 Baso % (Auto) 0.5 Lymph # (Auto) 2.0 [place] # (Auto) 0.8 Eos # (Auto) 0.1 Baso # (Auto) 0.0 Abs Immat Gran (auto) 0.03 Absolute Neuts (auto) 5.4 Absolute Nucleated RBC 0.000 Nucleated RBC % (auto) 0.0 ESR 28 H Anion Gap 14 Estim Creat Clear Calc 112.9 Estimated GFR > 60 Random Glucose 155 H Lactic Acid 1.2 Calcium 9.6 Total Bilirubin 0.3 AST 18 ALT 19 Alkaline Phosphatase 129 H C-Reactive Protein 3.63 H Total Protein 6.9 Albumin 4.1 Lipase 20 Assessment and Plan (1) Osteomyelitis: Qualifiers: Osteomyelitis type: unspecified type Osteomyelitis location: unspecified site Qualified Code(s): M86.9 - Osteomyelitis, unspecified Status: Acute Plan 55 old male with a past medical history of HTN, HLD, dm, neuropathy, anxiety, depression, rheumatoid arthritis, GERD, tobacco dependence, alcohol use disorder, spinal stenosis, post-laminectomy syndrome, history of diabetic foot ulcer presented to the hospital with a chief complaint of left great toe pain. Noted to have left great toe cellulitis/osteomyelitis. Left great toe cellulitis/osteomyelitis: X-ray shows findings concerning for osteomyelitis Given IV vancomycin and cefepime Will consult ID and vascular surgery Will defer to vascular surgery regarding further imaging Pain control PT/OT when ready for discharge Diabetes: Insulin sliding scale Anxiety: Continue home Klonopin DVT prophylaxis: Lovenox Code status: Full code Quality Stroke Does the patient have a stroke diagnosis?: No VTE Prior VTE?: No VTE Risk Level:: Medical - moderate - high VTE Device Contraindication: Treatment Not Indicated VTE Drug Contraindication: N/A - Med Ordered
[2025-05-21 21:40] LABS: Glucose, Whole Blood 169 mg/dL (60-115)
[2025-05-21] MEDS: vancomycin/NS 2,000 MG/500 ML PLAST..BAG 250 MG IV (21:59)
[2025-05-21 22:04] VITALS: RESP 17
--- NOTE | 2025-05-21 22:12 | PHA.MEDREC ---
Addendum entered by Sara Gonzales RPh 05/21/25 22:25: REVIEWED BY PHARMACIST Original Note: Pharmacy Consult ? Medication Reconciliation Pharmacy has completed the medication reconciliation. Spoke with pt and he confirmed his medications. Pt confirmed he takes a Vitamin B-12 injection Q4W and states he last took it last week, he takes Dicyclomine 20mg TID, he still takes Gababpentin 600mg caps TID; despite claims showing that was last filled 11/02 for 30 days and he was taking a Prednisone 20mg QD regimen that he finished yesterday, he states.
--- NOTE | 2025-05-21 22:38 | PHA.PROG ---
Admission Date/Time: May 21, 2025 22:03 Indication: skin Weight in k.9 kg Serum Creatinine - Last 168 Hours 05/21/25 17:36 Creatinine 1.06 Estimated CrCl and GFR - Last 168 Hours 05/21/25 17:36 Estim Creat Clear Calc 112.9 Estimated GFR > 60 Vancomycin Loading Dose: 2000 Current Vancomycin Dosing Regimen: 1250 q 12h Vancomycin Monitoring using AUC goal of 400 - 600 range with trough as surrogate marker: 490 Date and Time for next Vancomycin Level to be drawn: 05/23 @ 0800 Pharmacist Comments on Vancomycin Plan: Vancomycin dosing will take advantage of [employer] as a clinical decision support tool that uses Bayesian modeling to calculate individual patient's pharmacokinetic parameters and forecast the patient's drug concentration time course with the target goal AUC 24 range of 400 - 600 mg/L/hr.
[2025-05-21 22:53] VITALS: BP 128/83; PULSE 72; RESP 18; TEMP 36.3; O2SAT 95
[2025-05-22] VITALS: PULSE 77; RESP 18; O2SAT 98
[2025-05-22 03:20] VITALS: BP 108/67; PULSE 66; RESP 20; TEMP 36.3; O2SAT 96
[2025-05-22 05:06] LABS: MANUAL DIFF FLAG NO
[2025-05-22 05:11] LABS: Hematocrit 41.0 % (42.0-52.0); Hemoglobin 13.0 g/dl (14.0-18.0); Imm Gran Abs Auto 0.04 X10*3/uL (0.00-0.03); Imm Gran Pct Auto 0.6 % (0.0-0.4); Lymphocytes Absolute Auto 2.9 X10*3/uL (1.2-4.9); Mean Corpuscular HGB Conc 31.7 g/dl (31.0-36.0); Mean Corpuscular Hemoglobin 29.5 pg (27.0-33.0); Mean Corpuscular Volume 93.2 fL (80.0-98.0); NRBC Abs Auto 0.000 X10*3/uL (0.0-0.012); NRBC Pct Auto 0.0 /100WBC (0.0-0.2); Platelet Count 215 X10*3/uL (160-400); Red Blood Count 4.40 X10*6/uL (4.60-5.80); White Blood Count 7.0 X10*3/uL (4.8-10.8)
[2025-05-22] MEDS: cefEPime HCl/D5W 2 GM/50 ML PIGGYBACK IV ×3 (05:11→21:07)
[2025-05-22 05:45] LABS: Anion Gap 12 (12-20); Blood Urea Nitrogen 19 mg/dL (9-16); Calcium 8.6 mg/dL (8.4-10.2); Carbon Dioxide 27 mmol/L (22-29); Chloride 104 mmol/L (96-108); Creatinine Clr Calc Pharmacy 173.5; Estimated Glomerular Filt Rate > 60; Potassium 4.0 mmol/L (3.3-5.1); Sodium 139 mmol/L (135-145)
[2025-05-22 08:09] LABS: Glucose, Whole Blood 203 mg/dL (60-115)
[2025-05-22] MEDS: 0.9 % Sodium Chloride Flush 3 ML SYRINGE IVFLUSH ×2 (08:09→16:33)
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
--- NOTE | 2025-05-22 09:53 | PC.NURSE ---
insulin held as poc was after full breakfast
--- NOTE | 2025-05-22 10:43 | PM.CNGS ---
History of Present Illness Consult details Consult date: 05/22/25 Reason for consult: wound care Narrative: 55-year-old diabetic gentleman presents for evaluation regarding left great toe which has swollen significantly and actually starting to drain some fluid. That is when he became concerned and came into our emergency room yesterday. He reports that he had an injury about 10 days ago and started to develop swelling and a it got significantly worse. Upon discussion with him he actually had an episode like this a proximally 11 years prior. At that time he did receive a PICC line and did receive 6 weeks of IV antibiotic therapy. After that time he has not reported any interval incidents until this most recent episode. He now presents to us for vascular evaluation. Review of Systems Review of Systems: Yes all other systems are reviewed and are negative Constitutional: Constitutional: Reports no additional constitutional complaints ENT: Reports Normal hearing present Cardiovascular: Cardiovascular: Denies chest pain, Denies chest pain at rest, Denies chest pain with activity and Denies pedal edema Respiratory: Respiratory: Denies cough Gastrointestinal: Gastrointestinal: Denies abdominal pain Musculoskeletal: Musculoskeletal: Denies abnormal gait, Denies muscle cramps and Denies radiating pain into limb Integumentary/Breasts: Skin/Breast: Denies skin ulcer and Denies wounds Neurologic: Reports Normal hearing present and Denies abnormal gait Psychiatric: Psychiatric: Reports no additional psychiatric complaints PMFSH Past Medical History Medical History Vitamin B12 deficiency Skin lesion of neck Refused influenza vaccine Hip fracture EtOH dependence Smoker GERD (gastroesophageal reflux disease) HTN (hypertension) Rheumatoid arthritis Hydronephrosis concurrent with and due to calculi of kidney and ureter Spinal stenosis, thoracic region Postlaminectomy syndrome, lumbar Postlaminectomy syndrome, cervical Lumbar stenosis with neurogenic claudication History of diabetic ulcer of foot Cervical spondylosis History of alcoholism Erectile disorder due to medical condition in male PTSD (post-traumatic stress disorder) Vitamin D deficiency Diabetes mellitus with diabetic neuropathy, without long-term current use of insulin Dyslipidemia Family History Family History Father Essential hypertension Dyslipidemia Cardiovascular disease Substance use disorder Mental health disorder Mother Essential hypertension Dyslipidemia Diabetes mellitus Surgical History Surgical History Hx of foot surgery History of surgery on lower extremity H/O knee surgery History of carpal tunnel surgery of right wrist Hx of colonoscopy H/O cervical discectomy Status post lumbar spine surgery for decompression of spinal cord Social History Social History Housing: House Are you a primary clinical care leader to a significant other at home: No Do you presently have visiting nurse or other home services: No Alcohol intake: former Patient Tobacco Use Status: Never used Tobacco Tobacco use type: Cigarette Cigarette Packs Per Day: 0 Cigarettes Per Day: 10 Smoked in Last 30 Days: No e-Cigarette/Vaping Use: Never Used Second Hand Smoke Exposure: No Use of substances other than those prescribed or required for medical reasons: No Advance Directives: No Advance Directives Information Provided: Yes Do you have a plan to hurt others: No Plan Nutrition Risks: No Nutritional Risk Current occupational status: disabled Cognitive needs: No Hearing needs: No Vision needs: Yes Meds Allergies Allergy/AdvReac Type Severity Reaction Status Date / Time No Known Allergies Allergy Verified 05/21/25 16:45 Active Medications: Current Medications Acetaminophen (Acetaminophen 325 Mg Tablet) 650 mg PO Q6H PRN PRN Reason: Pain, Mild 1-3,fever,headache Calcium Carbonate (Calcium Carbonate 750 Mg Tab.Chew) 750 mg PO Q4H PRN PRN Reason: Heartburn Clonazepam (Clonazepam 1 Mg Tablet) 1 mg PO DAILY [facility] Last Admin: 05/22/25 08:09 Dose: 1 mg Dextrose (Dextrose 50 % 25 Gm/50 Ml Syringe) 25 gm IVPUSH Q15M PRN; Protocol PRN Reason: per Hypoglycemia Standing Ord. Enoxaparin Sodium (Enoxaparin Sodium 40 Mg/0.4 Ml Syringe) 40 mg SUBCUT Q24H [facility] Last Admin: 05/21/25 21:58 Dose: 40 mg Gabapentin (Gabapentin 600 Mg Tablet) 600 mg PO DAILY [facility] Last Admin: 05/22/25 08:09 Dose: 600 mg Glucose (Glucose Gel 15 Gm Gel..Gram.) 15 gm PO Q15M PRN; Protocol PRN Reason: per Hypoglycemia Standing Ord. Hydromorphone HCl (Hydromorphone Hcl 0.5 Mg/0.5 Ml Syringe) 0.5 mg IVPUSH Q4H PRN; Protocol PRN Reason: Breakthrough Pain Last Admin: 05/22/25 08:48 Dose: 0.5 mg Cefepime HCl (Maxipime) 2 gm in 50 mls @ 100 mls/hr IV Q8H [facility] Last Infusion: 05/22/25 05:41 Dose: Infused Vancomycin HCl 1,250 mg/ (Sodium Chloride) 250 mls @ 166.667 mls/hr IV Q12H [facility] Last Admin: 05/22/25 08:58 Dose: 166.67 mls/hr Insulin Human Lispro (Insulin Lispro 100 Unit/Ml 3 Ml Vial) 0 [facility]; Protocol Last Admin: 05/22/25 08:16 Dose: Not Given Magnesium Hydroxide (Milk Of Magnesia 30 Ml Oral.Susp) 30 ml PO DAILY PRN PRN Reason: Constipation Melatonin (Melatonin 3 Mg Tablet) 6 mg PO BEDTIME PRN PRN Reason: Insomnia Pharmacy Consult (Consult Rx Vancomycin Dosing) 1 each MISCELLANE DAILY PRN PRN Reason: Consult order Sodium Chloride (0.9 % Sodium Chloride Flush 3 Ml Syringe) [facility] Last Admin: 05/22/25 08:09 Dose: 3 ml Home Medications ?Medication ?Instructions ?Recorded ?Confirmed ?Last Taken ?Type clonazepam 1 mg tablet 1 mg PO DAILY 02/21/25 05/21/25 05/20/25 History gabapentin 600 mg tablet 600 mg PO TID 02/21/25 05/21/25 05/20/25 History dicyclomine 20 mg tablet 20 mg PO TID 05/21/25 05/21/25 05/20/25 History fluoxetine 40 mg capsule 80 mg PO DAILY 05/21/25 05/21/25 05/20/25 History Physical Exam Vital Signs: Vital Signs: Last Vital Signs Temp 97.4 F 05/22/25 03:20 Pulse 66 05/22/25 03:20 Resp 20 05/22/25 03:20 BP 108/67 05/22/25 03:20 Pulse Ox 96 05/22/25 03:20 O2 Del Method Room Air 05/22/25 03:20 BMI result Body Mass Index 34.1 Const: General: cooperative, healthy appearing and comfortable Orientation/consciousness: oriented to person, oriented to place and oriented to time HEENT: Head: Yes normal to inspection Neck: Neck: Yes normal visual inspection Carotids: no bruits Chest: Chest palpation & inspection: normal inspection of the chest Resp: Effort & Inspection: normal respiratory effort and able to speak in complete sentences Auscultation: clear to auscultation bilaterally, no crackles, no rales, no rhonchi and no wheezes Cardio: Other: Left leg palpable dorsalis pedis and posterior tibial pulses Rate: regular rate Rhythm: regular rhythm Heart sounds: S1 normal heart sound present and S2 normal heart sound present Bruits: no carotid bruits Peripheral pulses: Peripheral pulses 2+ throughout GI: Inspection: Yes normal to inspection Skin: Wounds: no wounds Hair: normal Neuro: General: oriented to person, oriented to place and oriented to time Cranial nerves: Yes CN's II-XII intact bilaterally and Yes Normal hearing present Cognition (Neuro): normal cognition Motor exam (neuro): 5/5 motor strength present throughout Extrem: Other: venous exam: No significant superficial varicosities or spider telangiectasias, minimal edema General: No clubbing, No cyanosis and No edema Psych: Appearance: grossly normal Mental Status: mental status grossly normal Speech and movement: Normal speech and movement present Results Labs 05/22/25 04:19 05/22/25 04:19 Labs: Abnormal lab results 05/21/25 05/21/25 05/22/25 Range/Units 17:36 21:36 04:19 RBC 4.40 L (4.60-5.80) X10*6/uL Hgb 13.8 L 13.0 L (14.0-18.0) g/dl Hct 41.8 L 41.0 L (42.0-52.0) % MPV 8.7 L 8.8 L (9.4-12.4) fL Immature Gran % (Auto) 0.6 H (0.0-0.4) % Lymph % (Auto) 41.8 H (20-40) % Abs Immat Gran (auto) 0.04 H (0.00-0.03) X10*3/uL ESR 28 H (0-15) MM/HR BUN 19 H 19 H (9-16) mg/dL POC Glucose 169 H (60-115) mg/dL Random Glucose 155 H 126 H (60-115) mg/dL Alkaline Phosphatase 129 H (39-117) U/L C-Reactive Protein 3.63 H (< or = 0.50) mg/dL 05/22/25 Range/Units 08:05 RBC (4.60-5.80) X10*6/uL Hgb (14.0-18.0) g/dl Hct (42.0-52.0) % MPV (9.4-12.4) fL Immature Gran % (Auto) (0.0-0.4) % Lymph % (Auto) (20-40) % Abs Immat Gran (auto) (0.00-0.03) X10*3/uL ESR (0-15) MM/HR BUN (9-16) mg/dL POC Glucose 203 H (60-115) mg/dL Random Glucose (60-115) mg/dL Alkaline Phosphatase (39-117) U/L C-Reactive Protein (< or = 0.50) mg/dL Short CBC 05/21/25 05/22/25 Range/Units 17:36 04:19 WBC 8.3 7.0 (4.8-10.8) X10*3/uL Hgb 13.8 L 13.0 L (14.0-18.0) g/dl Hct 41.8 L 41.0 L (42.0-52.0) % Plt Count 228 215 (160-400) X10*3/uL BMP 05/21/25 05/22/25 05/22/25 17:36 04:19 04:19 Sodium 139 139 Potassium 4.6 4.0 Chloride 101 104 Carbon Dioxide 29 27 BUN 19 H 19 H Creatinine 1.06 0.69 Cancelled Calcium 9.6 8.6 D Liver Function 05/21/25 Range/Units 17:36 Total Bilirubin 0.3 (0.0-1.0) mg/dL AST 18 (5-37) U/L ALT 19 (0-40) U/L Alkaline Phosphatase 129 H (39-117) U/L Albumin 4.1 (3.5-5.0) g/dL All other labs normal. Assessment and Plan (1) PAD (peripheral artery disease): Status: Acute Plan In short patient has significantly swollen left great toe. Although does not have a true ulcer he is draining serous fluid. I did review the x-ray and the concern is once again he has underlying osteomyelitis. He will require an MRI to better delineate this and also there is a question of a foreign body. I did have a hugo discussion with him that this may involve either another round of antibiotic therapy or even amputation. It may be prudent to involve Infectious Disease early to get their input as well. Continue IV antibiotic therapy. We will continue to follow with you. Thank you for allowing us to participate in his care. Case discussed with Dr. Calloway Procedures Date of Service Date of Service: 05/22/25
[2025-05-22 11:20] VITALS: BP 108/67; PULSE 58; RESP 12; TEMP 36.2; O2SAT 94
[2025-05-22 11:33] LABS: Glucose, Whole Blood 257 mg/dL (60-115)
[2025-05-22 12:02] VITALS: BMI 36.6
--- NOTE | 2025-05-22 14:05 | MHC.CM.PN ---
pt lives with mother has no servies has own ride home dc plan home n/s
[2025-05-22 15:16] VITALS: BP 110/58; PULSE 72; RESP 16; TEMP 36.2; O2SAT 95
--- NOTE | 2025-05-22 15:18 | P.PNIM_ITS ---
Subjective Subjective Date of Service: 05/22/25 Interval History: Left great toe cellulitis/osteomyelitis: Review of Systems Left big toe area very swollen/erythematous also have draining coming Physical Exam 2 Exam: Exam: Gen: Appears be in no acute distress HEENT: , Moist mucosa. Pulmonary: Vesicular breath sounds, fair air entry CVS: Normal S1-S2 Abdomen: BS+, Soft, Nontender Extremities: Warm well perfused; left great toe warm tender and erythematous Neuro: Alert and awake. Vital Signs: Vital Signs: Last Vital Signs Temp 97.2 F 05/22/25 15:16 Pulse 72 05/22/25 15:16 Resp 16 05/22/25 15:16 BP 110/58 L 05/22/25 15:16 Pulse Ox 95 05/22/25 15:16 O2 Del Method Room Air 05/22/25 15:16 BMI result Body Mass Index 36.6 Objective Data Active Medications Acetaminophen (Acetaminophen 325 Mg Tablet) 650 mg PO Q6H PRN PRN Reason: Pain, Mild 1-3,fever,headache Calcium Carbonate (Calcium Carbonate 750 Mg Tab.Chew) 750 mg PO Q4H PRN PRN Reason: Heartburn Clonazepam (Clonazepam 1 Mg Tablet) 1 mg PO DAILY [facility] Last Admin: 05/22/25 08:09 Dose: 1 mg Documented By: FAITH Dextrose (Dextrose 50 % 25 Gm/50 Ml Syringe) 25 gm IVPUSH Q15M PRN; Protocol PRN Reason: per Hypoglycemia Standing Ord. Enoxaparin Sodium (Enoxaparin Sodium 40 Mg/0.4 Ml Syringe) 40 mg SUBCUT Q24H [facility] Last Admin: 05/21/25 21:58 Dose: 40 mg Documented By: ISAAC Gabapentin (Gabapentin 600 Mg Tablet) 600 mg PO DAILY [facility] Last Admin: 05/22/25 08:09 Dose: 600 mg Documented By: FAITH Glucose (Glucose Gel 15 Gm Gel..Gram.) 15 gm PO Q15M PRN; Protocol PRN Reason: per Hypoglycemia Standing Ord. Hydromorphone HCl (Hydromorphone Hcl 0.5 Mg/0.5 Ml Syringe) 0.5 mg IVPUSH Q4H PRN; Protocol PRN Reason: Breakthrough Pain Last Admin: 05/22/25 13:21 Dose: 0.5 mg Documented By: MICKEY Cefepime HCl (Maxipime) 2 gm in 50 mls @ 100 mls/hr IV Q8H [facility] Last Infusion: 05/22/25 12:56 Dose: Infused Documented By: MICKEY Vancomycin HCl 1,250 mg/ (Sodium Chloride) 250 mls @ 166.667 mls/hr IV Q12H [facility] Last Infusion: 05/22/25 10:47 Dose: Infused Documented By: MICKEY Insulin Human Lispro (Insulin Lispro 100 Unit/Ml 3 Ml Vial) 0 unit SUBCUT QIDACHS [facility]; Protocol Last Admin: 05/22/25 12:00 Dose: 6 unit Documented By: MICKEY Magnesium Hydroxide (Milk Of Magnesia 30 Ml Oral.Susp) 30 ml PO DAILY PRN PRN Reason: Constipation Melatonin (Melatonin 3 Mg Tablet) 6 mg PO BEDTIME PRN PRN Reason: Insomnia Pharmacy Consult (Consult Rx Vancomycin Dosing) 1 each MISCELLANE DAILY PRN PRN Reason: Consult order Sodium Chloride (0.9 % Sodium Chloride Flush 3 Ml Syringe) 3 ml IVFLUSH QSHIFT [facility] Last Admin: 05/22/25 08:09 Dose: 3 ml Documented By: FAITH Labs 05/22/25 04:19 05/22/25 04:19 Labs: Laboratory Results - last 24 hr 05/21/25 05/21/25 05/21/25 17:36 20:52 21:36 MCV 90.7 MCH 29.9 MCHC 33.0 RDW 12.9 Plt Count 228 MPV 8.7 L Immature Gran % (Auto) 0.4 Neut % (Auto) 64.7 Lymph % (Auto) 23.6 [place] % (Auto) 10.0 Eos % (Auto) 0.8 Baso % (Auto) 0.5 Lymph # (Auto) 2.0 [place] # (Auto) 0.8 Eos # (Auto) 0.1 Baso # (Auto) 0.0 Abs Immat Gran (auto) 0.03 Absolute Neuts (auto) 5.4 Absolute Nucleated RBC 0.000 Nucleated RBC % (auto) 0.0 ESR 28 H Anion Gap 14 Estim Creat Clear Calc 112.9 Estimated GFR > 60 POC Glucose 169 H Random Glucose 155 H Lactic Acid 1.2 1.0 Calcium 9.6 Total Bilirubin 0.3 AST 18 ALT 19 Alkaline Phosphatase 129 H C-Reactive Protein 3.63 H Total Protein 6.9 Albumin 4.1 Lipase 20 05/22/25 05/22/25 05/22/25 04:19 04:19 04:19 MCV 93.2 MCH 29.5 MCHC 31.7 RDW 13.0 Plt Count 215 MPV 8.8 L Immature Gran % (Auto) 0.6 H Neut % (Auto) 46.1 Lymph % (Auto) 41.8 H [place] % (Auto) 8.8 Eos % (Auto) 1.7 Baso % (Auto) 1.0 Lymph # (Auto) 2.9 [place] # (Auto) 0.6 Eos # (Auto) 0.1 Baso # (Auto) 0.1 Abs Immat Gran (auto) 0.04 H Absolute Neuts (auto) 3.2 Absolute Nucleated RBC 0.000 Nucleated RBC % (auto) 0.0 ESR Anion Gap 12 Estim Creat Clear Calc 173.5 Cancelled Estimated GFR > 60 Cancelled POC Glucose Random Glucose 126 H Lactic Acid Calcium 8.6 D Total Bilirubin AST ALT Alkaline Phosphatase C-Reactive Protein Total Protein Albumin Lipase 05/22/25 05/22/25 08:05 11:25 MCV MCH MCHC RDW Plt Count MPV Immature Gran % (Auto) Neut % (Auto) Lymph % (Auto) [place] % (Auto) Eos % (Auto) Baso % (Auto) Lymph # (Auto) [place] # (Auto) Eos # (Auto) Baso # (Auto) Abs Immat Gran (auto) Absolute Neuts (auto) Absolute Nucleated RBC Nucleated RBC % (auto) ESR Anion Gap Estim Creat Clear Calc Estimated GFR POC Glucose 203 H 257 H Random Glucose Lactic Acid Calcium Total Bilirubin AST ALT Alkaline Phosphatase C-Reactive Protein Total Protein Albumin Lipase Assessment and Plan (1) Cellulitis: Status: Acute Plan 55 old male with a past medical history of HTN, HLD, dm, neuropathy, anxiety, depression, rheumatoid arthritis, GERD, tobacco dependence, alcohol use disorder, spinal stenosis, post-laminectomy syndrome, history of diabetic foot ulcer presented to the hospital with a chief complaint of left great toe pain. Noted to have left great toe cellulitis/osteomyelitis. Left great toe cellulitis/osteomyelitis: X-ray shows findings concerning for osteomyelitis Given IV vancomycin and cefepime vascular eval noted& rec: mri but Ir rec to do wbc scan -foreign bodies(?metalic) Id eval,Pain control PT/OT when ready for discharge Diabetes: Insulin sliding scale Anxiety: Continue home Klonopin DVT prophylaxis: Lovenox . Code status: Full code. Ongoing need of stay: Right toe cellulitis/osteomyelitis-need IV antibiotics and further workup for osteo, also ID evaluation pending. Quality Stroke Does the patient have a stroke diagnosis?: No VTE Prior VTE?: No VTE Risk Level:: Medical - moderate - high VTE Device Contraindication: Treatment Not Indicated VTE Drug Contraindication: N/A - Med Ordered
[2025-05-22 16:05] LABS: Glucose, Whole Blood 92 mg/dL (60-115)
[2025-05-22 19:27] VITALS: BP 129/78; PULSE 60; RESP 16; TEMP 36.3; O2SAT 94
[2025-05-22 20:23] LABS: Glucose, Whole Blood 134 mg/dL (60-115)
--- NOTE | 2025-05-22 23:30 | W.PM.IDCN ---
History of Present Illness Data of Consult Service Date: 05/22/25 Requesting physician: Bruno Chua Primary Care Provider: Vandana Snowden MD HPI Reason for consult: left great toe erythema He presents with redness and serous drainage from left great toe after tractor flipped over onto foot about 10 days ago. He has serous drainage from plantar surface great toe. He has XR erosions base first distal phalanx c/w OM. He has no fever or chills. He had admission to [facility] for left third toe erythema and discharged on 12/15 for cellulitis of that toe on Augmentin and Doxycycline. He also reports PICC line about ten years ago for infection of left great toe and has no further information. He has seen [facility] for dressings to area. Review of Systems Review of Systems: Yes all other systems are reviewed and are negative COUNT INCLUDES [facility] Past Medical History Medical History Vitamin B12 deficiency Skin lesion of neck Refused influenza vaccine Hip fracture EtOH dependence Smoker GERD (gastroesophageal reflux disease) HTN (hypertension) Rheumatoid arthritis Hydronephrosis concurrent with and due to calculi of kidney and ureter Spinal stenosis, thoracic region Postlaminectomy syndrome, lumbar Postlaminectomy syndrome, cervical Lumbar stenosis with neurogenic claudication History of diabetic ulcer of foot Cervical spondylosis History of alcoholism Erectile disorder due to medical condition in male PTSD (post-traumatic stress disorder) Vitamin D deficiency Diabetes mellitus with diabetic neuropathy, without long-term current use of insulin Dyslipidemia Family History Family History Father Essential hypertension Dyslipidemia Cardiovascular disease Substance use disorder Mental health disorder Mother Essential hypertension Dyslipidemia Diabetes mellitus Family history: reviewed and not pertinent Surgical History Surgical History Hx of foot surgery History of surgery on lower extremity H/O knee surgery History of carpal tunnel surgery of right wrist Hx of colonoscopy H/O cervical discectomy Status post lumbar spine surgery for decompression of spinal cord Social History Social History Household Members: Family Housing: House Are you a primary adult care provider to a significant other at home: No Do you presently have visiting nurse or other home services: No Alcohol intake: former Patient Tobacco Use Status: Never used Tobacco Tobacco use type: Cigarette Cigarette Packs Per Day: 0 Cigarettes Per Day: 10 e-Cigarette/Vaping Use: Never Used Second Hand Smoke Exposure: No service: No Current occupational status: disabled Cognitive needs: No Hearing needs: No Vision needs: Yes Meds Allergies Allergy/AdvReac Type Severity Reaction Status Date / Time No Known Allergies Allergy Verified 05/21/25 16:45 Active Medications: Current Medications Acetaminophen (Acetaminophen 325 Mg Tablet) 650 mg PO Q6H PRN PRN Reason: Pain, Mild 1-3,fever,headache Atorvastatin Calcium (Atorvastatin Calcium 20 Mg Tablet) 20 mg PO DAILY [facility] Calcium Carbonate (Calcium Carbonate 750 Mg Tab.Chew) 750 mg PO Q4H PRN PRN Reason: Heartburn Clonazepam (Clonazepam 1 Mg Tablet) 1 mg PO DAILY [facility] Last Admin: 05/22/25 08:09 Dose: 1 mg Clonazepam (Clonazepam 1 Mg Tablet) 1 mg PO DAILY [facility] Cyanocobalamin (Cyanocobalamin (Vitamin B-12) 1,000 Mcg/Ml Vial) 1,000 mcg IM Q28D [facility] Dextrose (Dextrose 50 % 25 Gm/50 Ml Syringe) 25 gm IVPUSH Q15M PRN; Protocol PRN Reason: per Hypoglycemia Standing Ord. Dicyclomine HCl (Dicyclomine Hcl 10 Mg Capsule) 20 mg PO TID [facility] Last Admin: 05/22/25 21:07 Dose: 20 mg Enoxaparin Sodium (Enoxaparin Sodium 40 Mg/0.4 Ml Syringe) 40 mg SUBCUT Q24H [facility] Last Admin: 05/22/25 21:08 Dose: 40 mg Fluoxetine HCl (Fluoxetine Hcl 20 Mg Capsule) 80 mg PO DAILY [facility] Gabapentin (Gabapentin 600 Mg Tablet) 600 mg PO DAILY [facility] Last Admin: 05/22/25 08:09 Dose: 600 mg Gabapentin (Gabapentin 600 Mg Tablet) 600 mg PO TID [facility] Last Admin: 05/22/25 21:07 Dose: 600 mg Glucose (Glucose Gel 15 Gm Gel..Gram.) 15 gm PO Q15M PRN; Protocol PRN Reason: per Hypoglycemia Standing Ord. Hydromorphone HCl (Hydromorphone Hcl 0.5 Mg/0.5 Ml Syringe) 0.5 mg IVPUSH Q4H PRN; Protocol PRN Reason: Breakthrough Pain Last Admin: 10/21/25 18:03 Dose: 0.5 mg Cefepime HCl (Maxipime) 2 gm in 50 mls @ 100 mls/hr IV Q8H [facility] Last Infusion: 05/22/25 21:37 Dose: Infused Vancomycin HCl 1,250 mg/ (Sodium Chloride) 250 mls @ 166.667 mls/hr IV Q12H [facility] Last Infusion: 05/22/25 23:18 Dose: Infused Insulin Human Lispro (Insulin Lispro 100 Unit/Ml 3 Ml Vial) 0 unit SUBCUT QIDACHS [facility]; Protocol Last Admin: 05/22/25 21:03 Dose: Not Given Magnesium Hydroxide (Milk Of Magnesia 30 Ml Oral.Susp) 30 ml PO DAILY PRN PRN Reason: Constipation Melatonin (Melatonin 3 Mg Tablet) 6 mg PO BEDTIME PRN PRN Reason: Insomnia Pharmacy Consult (Consult Rx Vancomycin Dosing) 1 each MISCELLANE DAILY PRN PRN Reason: Consult order Pioglitazone HCl (Pioglitazone Hcl 30 Mg Tablet) 30 mg PO DAILY [facility] Sodium Chloride (0.9 % Sodium Chloride Flush 3 Ml Syringe) 3 ml IVFLUSH QSHIFT [facility] Last Admin: 05/22/25 23:18 Dose: Not Given Home Medications ?Medication ?Instructions ?Recorded ?Confirmed ?Last Taken ?Type clonazepam 1 mg tablet 1 mg PO DAILY 02/21/25 05/21/25 05/20/25 History gabapentin 600 mg tablet 600 mg PO TID 02/21/25 05/21/25 05/20/25 History dicyclomine 20 mg tablet 20 mg PO TID 05/21/25 05/21/25 05/20/25 History fluoxetine 40 mg capsule 80 mg PO DAILY 05/21/25 05/21/25 05/20/25 History Physical Exam Vital Signs: Vital Signs: Last Vital Signs Temp 97.4 F 05/22/25 19:27 Pulse 60 05/22/25 19:27 Resp 16 05/22/25 19:27 BP 129/78 05/22/25 19:27 Pulse Ox 94 05/22/25 19:27 O2 Del Method Room Air 05/22/25 19:27 BMI result Body Mass Index 36.6 Extrem: Other: left great toe swelling and erythema ,serous drainage from plantar surface bilateral neuropathy pulses plus 2 Results Labs 05/22/25 04:19 05/22/25 04:19 Labs: Short CBC 05/22/25 Range/Units 04:19 WBC 7.0 (4.8-10.8) X10*3/uL Hgb 13.0 L (14.0-18.0) g/dl Hct 41.0 L (42.0-52.0) % Plt Count 215 (160-400) X10*3/uL BMP 05/22/25 05/22/25 04:19 04:19 Sodium 139 Potassium 4.0 Chloride 104 Carbon Dioxide 27 BUN 19 H Creatinine 0.69 Cancelled Calcium 8.6 D Microbiology Microbiology Results: Microbiology 05/21/25 20:52 Blood - Venous Blood Culture - Preliminary No growth after 24 hours. 05/21/25 17:36 Blood - Venous Blood Culture - Preliminary No growth after 24 hours. Assessment and Plan (1) PAD (peripheral artery disease): Status: Acute (2) Osteomyelitis: Qualifiers: Osteomyelitis location: unspecified site Osteomyelitis type: unspecified type Qualified Code(s): M86.9 - Osteomyelitis, unspecified Status: Acute Plan Left great toe OM This has apparently happened years ago initially He may respond to suppressive six week IV antibiotics again such as Daptomycin or Ertapenem even since reports no MRSA history. Weekly creatinine and CBC .
[2025-05-23 03:33] VITALS: BP 110/63; PULSE 67; RESP 18; TEMP 36.9; O2SAT 93
[2025-05-23] MEDS: cefEPime HCl/D5W 2 GM/50 ML PIGGYBACK IV ×3 (04:51→21:06)
[2025-05-23 07:11] VITALS: BP 121/71; PULSE 70; RESP 16; TEMP 36.7; O2SAT 93
[2025-05-23 07:31] LABS: Glucose, Whole Blood 117 mg/dL (60-115)
[2025-05-23] MEDS: 0.9 % Sodium Chloride Flush 3 ML SYRINGE IVFLUSH ×3 (07:51→21:04)
[2025-05-23 08:59] LABS: Hematocrit 46.4 % (42.0-52.0); Hemoglobin 14.9 g/dl (14.0-18.0); Mean Corpuscular HGB Conc 32.1 g/dl (31.0-36.0); Mean Corpuscular Hemoglobin 29.8 pg (27.0-33.0); Mean Corpuscular Volume 92.8 fL (80.0-98.0); NRBC Abs Auto 0.000 X10*3/uL (0.0-0.012); NRBC Pct Auto 0.0 /100WBC (0.0-0.2); Platelet Count 212 X10*3/uL (160-400); Red Blood Count 5.00 X10*6/uL (4.60-5.80); White Blood Count 8.3 X10*3/uL (4.8-10.8)
[2025-05-23 09:12] LABS: Anion Gap 9 (12-20); Blood Urea Nitrogen 16 mg/dL (9-16); Calcium 9.4 mg/dL (8.4-10.2); Carbon Dioxide 32 mmol/L (22-29); Chloride 100 mmol/L (96-108); Creatinine Clr Calc Pharmacy 165.4; Estimated Glomerular Filt Rate > 60; Potassium 4.3 mmol/L (3.3-5.1); Sodium 137 mmol/L (135-145)
--- NOTE | 2025-05-23 09:22 | HE.PHANOTE ---
Re Jose G Initial consult for SSTI, but ID's note says osteo. Will increase to 1500mg q12h to hit a projected trough of ~16mg/dL for that indication. AUC will be therapeutic.
--- NOTE | 2025-05-23 10:30 | HO.PM.IMPN ---
Subjective Subjective Date of Service: 05/23/25 Interval History: no new complaints Physical Exam Vital Signs: Vital Signs: Last Vital Signs Temp 98.1 F 05/23/25 07:11 Pulse 70 05/23/25 07:11 Resp 16 05/23/25 07:11 BP 121/71 05/23/25 07:11 Pulse Ox 93 05/23/25 07:11 O2 Del Method Room Air 05/23/25 07:11 BMI result Body Mass Index 36.6 Extrem: Other: left great toe swelling and erythema ,serous drainage from plantar surface bilateral neuropathy pulses plus 2 Objective Data Active Medications Acetaminophen (Acetaminophen 325 Mg Tablet) 650 mg PO Q6H PRN PRN Reason: Pain, Mild 1-3,fever,headache Atorvastatin Calcium (Atorvastatin Calcium 20 Mg Tablet) 20 mg PO DAILY [facility] Last Admin: 05/23/25 07:48 Dose: 20 mg Documented By: MICKEY Calcium Carbonate (Calcium Carbonate 750 Mg Tab.Chew) 750 mg PO Q4H PRN PRN Reason: Heartburn Clonazepam (Clonazepam 1 Mg Tablet) 1 mg PO DAILY [facility] Last Admin: 05/23/25 07:48 Dose: 1 mg Documented By: MICKEY Cyanocobalamin (Cyanocobalamin (Vitamin B-12) 1,000 Mcg/Ml Vial) 1,000 mcg IM Q28D [facility] Dextrose (Dextrose 50 % 25 Gm/50 Ml Syringe) 25 gm IVPUSH Q15M PRN; Protocol PRN Reason: per Hypoglycemia Standing Ord. Dicyclomine HCl (Dicyclomine Hcl 10 Mg Capsule) 20 mg PO TID [facility] Last Admin: 05/23/25 07:48 Dose: 20 mg Documented By: MICKEY Enoxaparin Sodium (Enoxaparin Sodium 40 Mg/0.4 Ml Syringe) 40 mg SUBCUT Q24H [facility] Last Admin: 05/22/25 21:08 Dose: 40 mg Documented By: BUSSIEL Fluoxetine HCl (Fluoxetine Hcl 20 Mg Capsule) 80 mg PO DAILY [facility] Last Admin: 05/23/25 07:48 Dose: 80 mg Documented By: MICKEY Gabapentin (Gabapentin 600 Mg Tablet) 600 mg PO TID [facility] Last Admin: 05/23/25 07:48 Dose: 600 mg Documented By: MICKEY Glucose (Glucose Gel 15 Gm Gel..Gram.) 15 gm PO Q15M PRN; Protocol PRN Reason: per Hypoglycemia Standing Ord. Hydromorphone HCl (Hydromorphone Hcl 0.5 Mg/0.5 Ml Syringe) 0.5 mg IVPUSH Q4H PRN; Protocol PRN Reason: Breakthrough Pain Last Admin: 05/22/25 18:03 Dose: 0.5 mg Documented By: MICKEY Cefepime HCl (Maxipime) 2 gm in 50 mls @ 100 mls/hr IV Q8H [facility] Last Infusion: 05/23/25 05:21 Dose: Infused Documented By: NASIR Vancomycin HCl 1,500 mg/ (Sodium Chloride) 500 mls @ 333.333 mls/hr IV Q12H [facility] Last Admin: 05/23/25 09:49 Dose: 333.33 mls/hr Documented By: MICKEY Insulin Human Lispro (Insulin Lispro 100 Unit/Ml 3 Ml Vial) 0 unit SUBCUT QIDACHS [facility]; Protocol Last Admin: 05/23/25 07:32 Dose: Not Given Documented By: MICKEY Non-Admin Reason: No Insulin Coverage Magnesium Hydroxide (Milk Of Magnesia 30 Ml Oral.Susp) 30 ml PO DAILY PRN PRN Reason: Constipation Melatonin (Melatonin 3 Mg Tablet) 6 mg PO BEDTIME PRN PRN Reason: Insomnia Pharmacy Consult (Consult Rx Vancomycin Dosing) 1 each MISCELLANE DAILY PRN PRN Reason: Consult order Pioglitazone HCl (Pioglitazone Hcl 30 Mg Tablet) 30 mg PO DAILY [facility] Last Admin: 05/23/25 07:48 Dose: 30 mg Documented By: MICKEY Sodium Chloride (0.9 % Sodium Chloride Flush 3 Ml Syringe) 3 ml IVFLUSH QSHIFT [facility] Last Admin: 05/23/25 07:51 Dose: 3 ml Documented By: MICKEY Labs 05/23/25 08:36 05/23/25 08:36 Labs: Laboratory Results - last 24 hr 05/22/25 05/22/25 05/22/25 11:25 16:01 20:19 MCV MCH MCHC RDW Plt Count MPV Absolute Nucleated RBC Nucleated RBC % (auto) Anion Gap Estim Creat Clear Calc Estimated GFR POC Glucose 257 H 92 134 H Random Glucose Calcium Vancomycin Trough 05/23/25 05/23/25 07:11 08:36 MCV 92.8 MCH 29.8 MCHC 32.1 RDW 12.8 Plt Count 212 MPV 8.6 L Absolute Nucleated RBC 0.000 Nucleated RBC % (auto) 0.0 Anion Gap 9 L Estim Creat Clear Calc 165.4 Estimated GFR > 60 POC Glucose 117 H Random Glucose 189 H Calcium 9.4 D Vancomycin Trough 11.8 Microbiology Microbiology Results: Microbiology 05/21/25 20:52 Blood Culture - Preliminary Blood - Venous No growth after 24 hours. 05/21/25 17:36 Blood Culture - Preliminary Blood - Venous No growth after 24 hours. Assessment and Plan (1) Osteomyelitis: Status: Acute Plan 55M PMH dm, htn ,hld, meuropathy, mood disorder, RA, etoh dependence, spinal stenosis, presented with left 1st toe pain and swelling Left 1st toe osteomyelitis related to trauma and diabetes X-ray positive for osteomyelitis will cancel WBC scan Continue vancomycin cefepime for now ID appreciated PICC line when blood culture-48 hours then 6 weeks IV ertapenem to be completed at home End date 07/02/2025 Diabetes Insulin sliding scale Mood disorder Klonopin DVT prophylaxis with Lovenox Full code reason for continued hospitalization: Awaiting cultures Quality Stroke Does the patient have a stroke diagnosis?: No VTE Prior VTE?: No VTE Risk Level:: Medical - moderate - high VTE Device Contraindication: Treatment Not Indicated VTE Drug Contraindication: N/A - Med Ordered
[2025-05-23 11:24] LABS: Glucose, Whole Blood 150 mg/dL (60-115)
[2025-05-23 11:36] VITALS: RESP 18
--- NOTE | 2025-05-23 11:57 | HO.VASCPN ---
Subjective Subjective Date of Service: 05/23/25 Patient reports: no new complaints and feels better Interval history: 55-year-old gentleman presents for follow-up regarding left great toe swelling and concern of underlying osteomyelitis. He appears to be doing relatively better. Swelling and erythema have decreased. In addition he has been seen by the Infectious Disease team. Now for routine follow-up. Physical Exam Vital Signs: Vital Signs: Last Vital Signs Temp 98.1 F 05/23/25 07:11 Pulse 70 05/23/25 07:11 Resp 18 05/23/25 11:36 BP 121/71 05/23/25 07:11 Pulse Ox 93 05/23/25 07:11 O2 Del Method Room Air 05/23/25 07:11 BMI result Body Mass Index 36.6 Const: General: cooperative, healthy appearing and comfortable Orientation/consciousness: oriented to person, oriented to place and oriented to time HEENT: Head: Yes normal to inspection Neck: Neck: Yes normal visual inspection Carotids: no bruits Chest: Chest palpation & inspection: normal inspection of the chest Resp: Effort & Inspection: normal respiratory effort and able to speak in complete sentences Auscultation: clear to auscultation bilaterally, no crackles, no rales, no rhonchi and no wheezes Cardio: Rate: regular rate Rhythm: regular rhythm Heart sounds: S1 normal heart sound present and S2 normal heart sound present Bruits: no carotid bruits Peripheral pulses: Peripheral pulses 2+ throughout GI: Inspection: Yes normal to inspection Skin: Wounds: no wounds Hair: normal Neuro: General: oriented to person, oriented to place and oriented to time Cranial nerves: Yes CN's II-XII intact bilaterally and Yes Normal hearing present Cognition (Neuro): normal cognition Motor exam (neuro): 5/5 motor strength present throughout Extrem: Other: Left great toe significant edema and erythema General: No clubbing, No cyanosis and No edema Psych: Appearance: grossly normal Mental Status: mental status grossly normal Speech and movement: Normal speech and movement present Progress Note: A&P Assessment and plan (1) Osteomyelitis: Status: Acute Assessment and Plan: In short it appears that the patient has underlying osteomyelitis and infection of the great toe. Agree with long-term IV antibiotic therapy. Patient was unable to get MRI secondary to foreign body in the 2nd toe. At the current time would continue local wound care. Long-term IV antibiotic therapy. The patient can follow up with us as an outpatient. Continued infectious disease follow-up. Time Spent With Patient Time: Total time managing care of this patient today ____ minutes. Procedures Date of Service Date of Service: 05/23/25 Quality Stroke Does the patient have a stroke diagnosis?: No VTE Prior VTE?: No VTE Risk Level:: Medical - moderate - high VTE Device Contraindication: Treatment Not Indicated VTE Drug Contraindication: N/A - Med Ordered
[2025-05-23 15:23] VITALS: BP 133/72; PULSE 72; RESP 17; TEMP 36.5; O2SAT 93
--- NOTE | 2025-05-23 15:39 | MHC.CM.PN ---
Patient will require 6 wks IV abx for osteo. Discussed w/ patient who feeling confident in managing abx at home, and has done so in the past. [facility] preferred and following, update sent. Per [facility], covered at 100%. Teach requested for tomorrow. CM will continue to follow.
[2025-05-23 16:20] LABS: Glucose, Whole Blood 118 mg/dL (60-115)
[2025-05-23 16:43] VITALS: RESP 18
[2025-05-23 19:07] VITALS: BP 123/71; PULSE 69; RESP 17; TEMP 36.9; O2SAT 94
[2025-05-23 20:32] LABS: Glucose, Whole Blood 117 mg/dL (60-115)
[2025-05-24 03:41] VITALS: BP 114/73; PULSE 63; RESP 18; TEMP 36.4; O2SAT 95
[2025-05-24] MEDS: cefEPime HCl/D5W 2 GM/50 ML PIGGYBACK IV (05:22)
[2025-05-24 07:15] VITALS: BP 123/58; PULSE 68; RESP 12; TEMP 36.5; O2SAT 96
[2025-05-24 07:29] LABS: Glucose, Whole Blood 139 mg/dL (60-115)
[2025-05-24] MEDS: 0.9 % Sodium Chloride Flush 3 ML SYRINGE IVFLUSH (07:44)
[2025-05-24 08:14] LABS: Creatinine Clr Calc Pharmacy 159.1; Estimated Glomerular Filt Rate > 60
--- NOTE | 2025-05-24 09:40 | PM.DS ---
DS: Providers Provider Date of Service: 05/24/25 Date of admission: 05/21/25 22:03 Date of discharge: 05/24/25 Primary care physician: Vandana Snowden MD Consults: 05/21/25 20:53 Consult to Infectious Diseases Routine Consulting Provider: [facility] Reason for consultation: osteomyelitis Consult to Vascular Surgery Routine Consulting Provider: [facility] Reason for consultation: great toe osteomyelitis 05/24/25 09:26 Consult to Wound Care Routine Consulting Provider: [facility] Reason for consultation: left great toe wound DS: Diagnosis Discharge Diagnosis (1) Osteomyelitis: Status: Acute DS: Summary Hospital Course Hospital Course: from initial hpi: 55 old male with a past medical history of HTN, HLD, dm, neuropathy, anxiety, depression, rheumatoid arthritis, GERD, tobacco dependence, alcohol use disorder, spinal stenosis, post-laminectomy syndrome, history of diabetic foot ulcer presented to the hospital with a chief complaint of left great toe pain. Mentioned that he had an injury to his left great toe about 10 days ago since then he has been having pain and swelling. Denies any fevers and chills. Denies any chest pain or palpitations. Denies any nausea vomiting or diarrhea. Review of all other systems is negative except mentioned above ER course: Per ER team, patient noted to have significant redness and swelling of the left great toe; warm to touch and tender; has elevated ESR; x-ray showed findings concerning for osteomyelitis. Given antibiotics. hospital course: Patient was admitted for left 1st toe osteomyelitis related to trauma and diabetes. X-ray was positive for osteomyelitis. Was treated with vancomycin cefepime. Was seen by infectious disease and vascular recommended 6 weeks of IV ertapenem to be completed 07/02/2025 via PICC line at home. Patient will follow up with vascular and ID as outpatient. For diabetes was continued on insulin sliding scale. For mood disorder was continued on Klonopin. Patient is feeling better and will be discharged home. Time Attestation Discharge Coordination Time (in mins): 32 Quality: Safe Use of Opioids Does Pt have an Active Cancer Diagnosis on the Problem List?: No Quality: Stroke Does the patient have a stroke diagnosis?: No Physical Exam Vital Signs: Vital Signs: Last Vital Signs Temp 97.7 F 05/24/25 07:15 Pulse 68 05/24/25 07:15 Resp 12 05/24/25 07:15 BP 123/58 L 05/24/25 07:15 Pulse Ox 96 05/24/25 07:15 O2 Del Method Room Air 05/24/25 07:15 BMI result Body Mass Index 36.6 Const: General: cooperative, healthy appearing and comfortable Orientation/consciousness: oriented to person, oriented to place and oriented to time HEENT: Head: Yes normal to inspection Neck: Neck: Yes normal visual inspection Carotids: no bruits Chest: Chest palpation & inspection: normal inspection of the chest Resp: Effort & Inspection: normal respiratory effort and able to speak in complete sentences Auscultation: clear to auscultation bilaterally, no crackles, no rales, no rhonchi and no wheezes Cardio: Rate: regular rate Rhythm: regular rhythm Heart sounds: S1 normal heart sound present and S2 normal heart sound present Bruits: no carotid bruits Peripheral pulses: Peripheral pulses 2+ throughout GI: Inspection: Yes normal to inspection Skin: Wounds: no wounds Hair: normal Neuro: General: oriented to person, oriented to place and oriented to time Cranial nerves: Yes CN's II-XII intact bilaterally and Yes Normal hearing present Cognition (Neuro): normal cognition Motor exam (neuro): 5/5 motor strength present throughout Extrem: Other: Left great toe significant edema and erythema General: No clubbing, No cyanosis and No edema Psych: Appearance: grossly normal Mental Status: mental status grossly normal Speech and movement: Normal speech and movement present DS: Data Data Completed and Pending Labs on day of discharge: Laboratory Results - last 24 hr 05/23/25 05/23/25 05/23/25 11:21 16:17 20:26 Creatinine Estim Creat Clear Calc Estimated GFR POC Glucose 150 H 118 H 117 H Random Vancomycin 05/24/25 05/24/25 07:16 07:53 Creatinine 0.78 Estim Creat Clear Calc 159.1 Estimated GFR > 60 POC Glucose 139 H Random Vancomycin 15.2 Preliminary micro results at discharge 05/21/25 20:52 Blood Culture - Preliminary Blood - Venous No growth after 48 hours. 05/21/25 17:36 Blood Culture - Preliminary Blood - Venous No growth after 48 hours. Discharge Plan Discharge Anticipated Discharge Date/Time: 05/24/25 09:37 Patient Disposition: Home Health Service Discharge Diagnosis: OM Referrals: Vandana Snowden MD [Primary Care Provider, Internal Medicine] - 1 Week Nela Maxwell MD [Physician, Infectious Disease] - 1 Week Bruno Chua MD [Physician, Vascular Surgery] - 1 Week Discharge Medications: New ertapenem 1 gram recon soln 1 g IV DAILY 42 Days Rx Instructions: end 07/02/25 Continued lisinopril 5 mg tablet 2.5 mg PO DAILY Qty: 45 1RF (DME) FreeStyle Lite Strips Strip See Rx Instructions .ROUTE .MEDSUPPLY Qty: 100 6RF Rx Instructions: check blood sugar once a day before a meal as directed pioglitazone 30 mg tablet 30 mg PO DAILY Qty: 90 1RF atorvastatin 20 mg tablet 20 mg PO DAILY Qty: 90 1RF cyanocobalamin (vitamin B-12) 1,000 mcg/mL solution 1,000 mcg IM Q4W Qty: 13 0RF (DME) BD Integra Syringe 3 mL 25 gauge x 1 syringe See Rx Instructions .ROUTE .MEDSUPPLY Qty: 50 1RF Rx Instructions: Use every 4 weeks fluoxetine 40 mg capsule 80 mg PO DAILY dicyclomine 20 mg tablet 20 mg PO TID clonazepam 1 mg tablet 1 mg PO DAILY gabapentin 600 mg tablet 600 mg PO TID Discharge Orders: Discharge Order (Routine); Ordered 05/24/25 Ordered By: Tushar Melo Diet: Advance to usual diet Activity on Discharge: As tolerated Stand Alone Forms: Patient Portal Discharge page Print Language: [place] Care Plan Goals: Recovery Health Concerns: Osteomyelitis Plan of Treatment: Continue ertapenem 1 g daily IV until 07/02/2025, follow up with vascular surgery and Infectious Disease, monitor labs weekly Assessment: See above
--- NOTE | 2025-05-24 09:47 | HO.PM.IMPN ---
Subjective Subjective Date of Service: 05/24/25 Interval History: no new complaints ENT Ears, Nose, Mouth, and Throat: Reports Normal hearing present Neurologic Neurologic: Reports Normal hearing present Physical Exam Vital Signs: Vital Signs: Last Vital Signs Temp 97.7 F 05/24/25 07:15 Pulse 68 05/24/25 07:15 Resp 12 05/24/25 07:15 BP 123/58 L 05/24/25 07:15 Pulse Ox 96 05/24/25 07:15 O2 Del Method Room Air 05/24/25 07:15 BMI result Body Mass Index 36.6 Const: General: cooperative, healthy appearing and comfortable Orientation/consciousness: oriented to person, oriented to place and oriented to time HEENT: Head: Yes normal to inspection Neck: Neck: Yes normal visual inspection Carotids: no bruits Chest: Chest palpation & inspection: normal inspection of the chest Resp: Effort & Inspection: normal respiratory effort and able to speak in complete sentences Auscultation: clear to auscultation bilaterally, no crackles, no rales, no rhonchi and no wheezes Cardio: Rate: regular rate Rhythm: regular rhythm Heart sounds: S1 normal heart sound present and S2 normal heart sound present Bruits: no carotid bruits Peripheral pulses: Peripheral pulses 2+ throughout GI: Inspection: Yes normal to inspection Skin: Wounds: no wounds Hair: normal Neuro: General: oriented to person, oriented to place and oriented to time Cranial nerves: Yes CN's II-XII intact bilaterally and Yes Normal hearing present Cognition (Neuro): normal cognition Motor exam (neuro): 5/5 motor strength present throughout Extrem: Other: Left great toe significant edema and erythema General: No clubbing, No cyanosis and No edema Psych: Appearance: grossly normal Mental Status: mental status grossly normal Speech and movement: Normal speech and movement present Objective Data Active Medications Acetaminophen (Acetaminophen 325 Mg Tablet) 650 mg PO Q6H PRN PRN Reason: Pain, Mild 1-3,fever,headache Atorvastatin Calcium (Atorvastatin Calcium 20 Mg Tablet) 20 mg PO DAILY [facility] Last Admin: 05/24/25 07:43 Dose: 20 mg Documented By: SABAS Calcium Carbonate (Calcium Carbonate 750 Mg Tab.Chew) 750 mg PO Q4H PRN PRN Reason: Heartburn Clonazepam (Clonazepam 1 Mg Tablet) 1 mg PO DAILY [facility] Last Admin: 05/24/25 07:43 Dose: 1 mg Documented By: SABAS Cyanocobalamin (Cyanocobalamin (Vitamin B-12) 1,000 Mcg/Ml Vial) 1,000 mcg IM Q28D [facility] Dextrose (Dextrose 50 % 25 Gm/50 Ml Syringe) 25 gm IVPUSH Q15M PRN; Protocol PRN Reason: per Hypoglycemia Standing Ord. Dicyclomine HCl (Dicyclomine Hcl 10 Mg Capsule) 20 mg PO TID [facility] Last Admin: 05/24/25 07:42 Dose: 20 mg Documented By: SAABS Enoxaparin Sodium (Enoxaparin Sodium 40 Mg/0.4 Ml Syringe) 40 mg SUBCUT Q24H [facility] Last Admin: 05/23/25 21:09 Dose: 40 mg Documented By: KETTY Fluoxetine HCl (Fluoxetine Hcl 20 Mg Capsule) 80 mg PO DAILY [facility] Last Admin: 05/24/25 07:42 Dose: 80 mg Documented By: SABAS Gabapentin (Gabapentin 600 Mg Tablet) 600 mg PO TID [facility] Last Admin: 05/24/25 07:42 Dose: 600 mg Documented By: SABAS Glucose (Glucose Gel 15 Gm Gel..Gram.) 15 gm PO Q15M PRN; Protocol PRN Reason: per Hypoglycemia Standing Ord. Hydromorphone HCl (Hydromorphone Hcl 0.5 Mg/0.5 Ml Syringe) 0.5 mg IVPUSH Q4H PRN; Protocol PRN Reason: Breakthrough Pain Last Admin: 05/23/25 21:03 Dose: 0.5 mg Documented By: KETTY Cefepime HCl (Maxipime) 2 gm in 50 mls @ 100 mls/hr IV Q8H [facility] Last Infusion: 05/24/25 05:59 Dose: Infused Documented By: KETTY Vancomycin HCl 1,500 mg/ (Sodium Chloride) 500 mls @ 333.333 mls/hr IV Q12H [facility] Ertapenem 1 gm/ Sodium (Chloride) 50 mls @ 100 mls/hr IV ONCE PRN PRN Reason: discharge Insulin Human Lispro (Insulin Lispro 100 Unit/Ml 3 Ml Vial) 0 unit SUBCUT QIDACHS [facility]; Protocol Last Admin: 05/24/25 07:31 Dose: Not Given Documented By: SABAS Non-Admin Reason: No Insulin Coverage Magnesium Hydroxide (Milk Of Magnesia 30 Ml Oral.Susp) 30 ml PO DAILY PRN PRN Reason: Constipation Melatonin (Melatonin 3 Mg Tablet) 6 mg PO BEDTIME PRN PRN Reason: Insomnia Pharmacy Consult (Consult Rx Vancomycin Dosing) 1 each MISCELLANE DAILY PRN PRN Reason: Consult order Pioglitazone HCl (Pioglitazone Hcl 30 Mg Tablet) 30 mg PO DAILY [facility] Last Admin: 05/24/25 07:42 Dose: 30 mg Documented By: SABAS Sodium Chloride (0.9 % Sodium Chloride Flush 3 Ml Syringe) 3 ml IVFLUSH QSHIFT [facility] Last Admin: 05/24/25 07:44 Dose: 3 ml Documented By: SABAS Labs 05/23/25 08:36 05/24/25 07:53 Labs: Laboratory Results - last 24 hr 05/23/25 05/23/25 05/23/25 11:21 16:17 20:26 Estim Creat Clear Calc Estimated GFR POC Glucose 150 H 118 H 117 H Random Vancomycin 05/24/25 05/24/25 07:16 07:53 Estim Creat Clear Calc 159.1 Estimated GFR > 60 POC Glucose 139 H Random Vancomycin 15.2 Microbiology Microbiology Results: Microbiology 05/21/25 20:52 Blood Culture - Preliminary Blood - Venous No growth after 48 hours. 05/21/25 17:36 Blood Culture - Preliminary Blood - Venous No growth after 48 hours. Assessment and Plan (1) Osteomyelitis: Status: Acute Plan 55M PMH dm, htn ,hld, meuropathy, mood disorder, RA, etoh dependence, spinal stenosis, presented with left 1st toe pain and swelling Left 1st toe osteomyelitis related to trauma and diabetes X-ray positive for osteomyelitis Continue vancomycin cefepime for now ID appreciated PICC line, 6 weeks IV ertapenem to be completed at home End date 07/02/2025 Diabetes Insulin sliding scale Mood disorder Klonopin DVT prophylaxis with Lovenox Full code reason for continued hospitalization: picc pending Quality Stroke Does the patient have a stroke diagnosis?: No VTE Prior VTE?: No VTE Risk Level:: Medical - moderate - high VTE Device Contraindication: Treatment Not Indicated VTE Drug Contraindication: N/A - Med Ordered
--- NOTE | 2025-05-24 10:30 | W.MHC.F2F ---
Service Date Service Date: 05/24/25 Encounter Date of encounter: 05/24/25 Reasons for Services Signs and symptoms assessed: Difficulty ambulating due to toe infection Reason for assisted: medication management, medication treatment and teach disease management Homebound: Leaving the home is medically contraindicated at this time without the asist of a device and/or another person due th the listed conditions above and below. Reason homebound: unsteady gait / fall risk Certification: Based on the above findings, I certify that this patient is confined to the home and needs intermittent assisted care, physical therapy and/or speech therapy, or continues to need occupational therapy. The patient is under my care, and I have initiated the establishment of the plan of care. The patient will be followed by a physician who will periodically review the plan of care. Time Spent With Patient Time: Total time managing care of this patient today ____ minutes.
[2025-05-24 11:42] LABS: Glucose, Whole Blood 116 mg/dL (60-115)
--- NOTE | 2025-05-24 11:43 | HO.PICC ---
PICC Line Insertion NPICC Diagnosis: osteomyelitis Indication: 6wks abt Pertinent Labs: reviewed Technique: Following informed consent including risks, benefits and alternatives and using sterile technique including cap and mask, sterile gown, glove and drape, the right arm was prepped and draped in the usual sterile fashion of full barrier technique with CHG. Following completion of [place] Protocol the skin and soft tissues were anesthetized with 1% Lidocaine plain. Using ultrasound guidance, right basilic vein access was obtained. Over an 0.018 wire through peel-away sheath, a 4fr single lumen PASV PICC line was positioned. Catheter length is 42cm internal length, 0cm external length, for a total trimmed length of 42cm. The procedure was performed in [facility]. Tip verification was performed by Abiel Pendleton with Sherlock 3CG. Tip located in SVC. Ultrasound was used to document vein patency and for needle entry. A formal ultrasound picture and cardiac rhythm strip was recorded. Vascular Batch Analyst has released the line for use and it is currently dressed with a StatLock, Tegaderm, and CHG disc. Verification has been performed for blood return and line patency. Arm Circumference: 35cm Equipment: [employer] POWER PICC SOLO catheter with sherlock 3CG Catheter Type: 4FR single lumen PASV Lot #: [id number]
--- NOTE | 2025-05-24 12:48 | MHC.CM.PN ---
Patient medically cleared for dc. PICC in place. [facility] has obtained orders and completed teach. [facility] will provide SN. Patient comfortable w/ plan. [facility] orders sent to NA. Private transport @ 2pm. RN aware.
[2025-05-24 12:57] VITALS: BP 129/80; PULSE 78; RESP 16; TEMP 36.4; O2SAT 93
--- NOTE | 2025-05-24 14:10 | HO.WOUND ---
Wound Consult: Initial 55yr old?male admitted to [facility] [place] [place] on 05/21/25- See progress notes and H&P for detailed history.? Wound consult placed for Left kianna toe wound assessment prior to d/c.? Patient agreeable to assessment and photo documentation.? Arrival to bedside patient was dressed and ready for d/c. he reports he treated at the outpt wound center approximately 11 years ago. 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 Chua in the future. Left Great Toe Etiology: Diabetic Wound ? Measurements: anterior side of toe with small opening 0.2cm x 0.3cm x 0.1cm with pink moist wound bed - however tip of toe has thick callused tissue with pocket of fluid - able to express mostly all content with in pocket - this pocket is concerning for continued wound evolution if pocket is not expressed. Drainage / Odor: serosang drainage noted to expressed contents no purulence noted no odor Edges: unattached ? Gretel wound: erythem noted to the anterior toe mild sweling noted ? Pain: denies reports neuropathy Goals of Treatment: ? continue systemic treatment and outpt follow up for debridement evaluation - Durafiber topical applied Recommendations: When applicable maintain blood glucose levels per Providers order. Left Great Toe - Cleanse with Betadine, allow to dry. cover open wound bed with durafiber AG and dry dressing. Change every other day and as needed for drainage. Re-consult wound care Nurse for wound deterioration or wound changes.
--- NOTE | 2025-05-25 07:11 | P.CDIM_ITS ---
PROVIDER RESPONSE TEXT: To clarify, the appropriate diagnosis supported by the clinical indicators: Acute QUERY TEXT: PHYSICIAN'S DOCUMENTATION REQUEST Date of Query: 05/23/2025 12:25 PM EDT Patient Name: Som Caballero Admit Date: 05/22/2025 Dear Tushar Melo MD, A review of the medical record indicates additional documentation may be needed. Please review below and update the documentation accordingly. Clinical Indicators: LGT injury/tractor flipped over onto foot, pain, swelling X-ray positive for Osteomyelitis IV antibiotics Clarify which of the following accurately represents the acuity of the Osteomyelitis. Possible options might include: Acute Acute on chronic Compensated Chronic stable condition Remission Other (explain) Clinically unable to determine (explain) Thank you, Jody Kirkpatrick RN Use of terms such as suspected, likely, concern for, or probable (associated with a specific diagnosis that is being evaluated, monitored, or treated as if it exists) are acceptable and can be coded in the inpatient setting, when documented at the time of discharge. Please use your independent medical judgment in providing your response. THIS QUERY IS PART OF THE PERMANENT MEDICAL RECORD
== END 2025-05-24 14:58 | disposition home health service (06) | DRG 344 ==
LOC: HO.ED 21:42 → HO.EDOVER 22:04 → HO.S3 05-22 09:39
PROVIDERS: Internal Medicine; Physician Assistant; Admitting Provider Hospitalist; Emergency Provider Emergency Medicine Emergency Medical Services; PCP Internal Medicine; Visit Provider Internal Medicine
DX: E11.69 Type 2 diabetes mellitus with other specified complication (principal); M86.172 Other acute osteomyelitis, left ankle and foot; E11.40 Type 2 diabetes mellitus with diabetic neuropathy, unspecified; L03.032 Cellulitis of left toe; F17.210 Nicotine dependence, cigarettes, uncomplicated; F39 Unspecified mood [affective] disorder; V84 Occupant of special vehicle mainly used in agriculture injured in transport accident; M06.9 Rheumatoid arthritis, unspecified; Z71.6 Tobacco abuse counseling; Z79.899 Other long term (current) drug therapy
CPT/HCPCS: 36415; 36573; 73630; 80048; 80053; 80202; 82565; 82947; 83605; 83690; 85025; 85027; 85652; 86140; 87040; 93971; 99285; C1751; J0692; J1171; J1335; J1650; J3373; J3374

== ENCOUNTER → 2025-05-21 16:45 | Outpatient (BNV) | payer OTHER, SELFPAY | PROVIDERS: PCP Internal Medicine; Visit Provider Radiology Diagnostic Radiology | DX: M79.605 Pain in left leg (principal); M79.89 Other specified soft tissue disorders | CPT/HCPCS: 73630; 93971 ==

== ENCOUNTER → 2025-05-21 22:03 | Outpatient (BNV) | payer OTHER, SELFPAY | PROVIDERS: Admitting Provider Hospitalist; Emergency Provider Emergency Medicine Emergency Medical Services; PCP Internal Medicine; Visit Provider Surgery Vascular Surgery | DX: R22.42 Localized swelling, mass and lump, left lower limb (principal); I73.9 Peripheral vascular disease, unspecified | CPT/HCPCS: 99222; 99232 ==

== ENCOUNTER → 2025-05-21 22:03 | Outpatient (BNV) | payer OTHER, SELFPAY | PROVIDERS: Admitting Provider Hospitalist; Emergency Provider Emergency Medicine Emergency Medical Services; PCP Internal Medicine; Visit Provider Internal Medicine | DX: M86.9 Osteomyelitis, unspecified (principal); L03.116 Cellulitis of left lower limb | CPT/HCPCS: 99223; 99232; 99239; 99499; G0180 ==

== ENCOUNTER → 2025-05-21 22:03 | Outpatient (BNV) | payer OTHER, SELFPAY | PROVIDERS: Admitting Provider Hospitalist; Emergency Provider Emergency Medicine Emergency Medical Services; PCP Internal Medicine; Visit Provider Internal Medicine | DX: I73.9 Peripheral vascular disease, unspecified (principal); M86.9 Osteomyelitis, unspecified | CPT/HCPCS: 99222 ==

== ENCOUNTER 2025-05-28 08:39 | Outpatient (AMB) | payer OTHER, SELFPAY ==
--- NOTE | 2025-05-28 09:05 | A.OFFPC_ITS ---
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 Required: No Allergies No Known Allergies Allergy (Verified 05/28/25 09:42) Medication List - Last Reconciled 05/28/25 by Vandana Snowden MD atorvastatin 20 mg PO DAILY blood sugar diagnostic (FreeStyle Lite Strips) check blood sugar once a day before a meal as directed clonazepam 1 mg PO DAILY cyanocobalamin (vitamin B-12) 1,000 mcg IM Q4W dicyclomine 20 mg PO TID ertapenem 1 g IV DAILY 6 weeks gabapentin 600 mg PO TID lisinopril 2.5 mg (1/2 x 5 mg) PO DAILY pioglitazone 30 mg PO DAILY syringe with needle, safety (BD Integra Syringe) Use every 4 weeks Tobacco use date assessed: 05/28/25 Dental Screening Dental Screen Date: 05/28/25 Did you have a dental visit in the last 12 months?: Yes Did you have a dental problem in the last 6 months where you did not have access to dental care?: No Was dental information given to patient?: Patient has dentist HPI HPI Comments History of Present Illness Details The patient is a 55-year-old male presenting for follow-up of a foot infection. The patient reports that after an incident involving a tractor, his left foot became swollen and painful. Presented at the emergency room at [facility] [place] and was seen by infectious disease specialist, diagnosed to have to have osteomyelitis of the toe. He was then started on IV vancomycin cefepime. via PICC line, which he self administers daily. The treatment began last Wednesday and is scheduled 6 weeks of IV ertapenem, to be completed 07/02/2025 . He also reports the PICC line insertion site has become hard as a rock. He had a vascular ultrasound performed and needs to make a follow-up appointment with Dr. Chua. The patient's last blood work was on May 23 and was noted to be better, with a CBC showed normal findings. He has a follow-up appointment scheduled with the infectious disease specialist, Dr. Gambino, on June 04. [facility] Medical History Osteomyelitis of great toe of left foot Vitamin B12 deficiency Skin lesion of neck Refused influenza vaccine Hip fracture Smoker GERD (gastroesophageal reflux disease) HTN (hypertension) Rheumatoid arthritis Hydronephrosis concurrent with and due to calculi of kidney and ureter Spinal stenosis, thoracic region Postlaminectomy syndrome, lumbar Postlaminectomy syndrome, cervical Lumbar stenosis with neurogenic claudication History of diabetic ulcer of foot Cervical spondylosis History of alcoholism Erectile disorder due to medical condition in male PTSD (post-traumatic stress disorder) Vitamin D deficiency Diabetes mellitus with diabetic neuropathy, without long-term current use of insulin Dyslipidemia Surgical History Hx of foot surgery History of surgery on lower extremity H/O knee surgery History of carpal tunnel surgery of right wrist Hx of colonoscopy H/O cervical discectomy Status post lumbar spine surgery for decompression of spinal cord Family History Father Essential hypertension Dyslipidemia Cardiovascular disease Substance use disorder Mental health disorder Mother Essential hypertension Dyslipidemia Diabetes mellitus Social History Household Members: Family Housing: House Are you a primary career development associate to a significant other at home: No Do you presently have visiting nurse or other home services: No Alcohol intake: former Patient Tobacco Use Status: Never used Tobacco Tobacco use type: Cigarette Cigarette Packs Per Day: 0 Cigarettes Per Day: 10 e-Cigarette/Vaping Use: Never Used Second Hand Smoke Exposure: No service: No Current occupational status: disabled Cognitive needs: No Hearing needs: No Vision needs: Yes Questionnaire PHQ-9 Over the last 2 weeks, how often have you been bothered by any of the following problems? 1. Little interest or pleasure in doing things: several days 2. Feeling down, depressed, or hopeless: several days 3. Trouble falling or staying asleep, or sleeping too much: not at all 4. Feeling tired or having little energy: several days 5. Poor appetite or overeating: several days 6. Feeling bad about yourself - or that you are a failure or have let yourself or your family down: not at all 7. Trouble concentrating on things, such as reading the newspaper or watching television: not at all 8. Moving or speaking so slowly that other people could have noticed. Or the opposite - being so fidgety or restless that you have been moving around a lot more than usual: not at all 9. Thoughts that you would be better off or of hurting yourself in some way: not at all Total score: 4 Depression Screening Interpretation: Negative (Sees psychiatrist at [facility]) Depression Screening Done: Yes Source: Developed by Drs. Isaac Adams, Marian Tamez, Frank He and colleagues, with an educational kylah from [employer]. Thrive Questionnaire Date Thrive assessed: 05/22/25 I am a: Patient What is your living situation today?: I have a steady place to live Within the past 12 months, did the food you bought not last and you didn't have the money to get more?: Sometimes True Within the past 12 months, did you worry whether your food would run out before you got money to buy more?: Sometimes True Do you have trouble paying for medicines?: No Do you have trouble getting transportation to medical appointments?: No Do you have trouble paying your heating and electricity bill?: No Do you have trouble taking care of your child, family member or friend?: No Do you have trouble with day-to-day activities such as bathing, preparing meals, shopping, managing finances, etc.?: Yes Are you currently unemployed and looking for a job?: No Are you interested in more education?: No Please select the resources that you would like help with: None Currently or been in a relationship where the following occur: I choose not to answer THRIVE Score: 2 AUDIT C Alcohol Use Questionnaire (AUDIT-C) 3. How often do you have six or more drinks on one occasion?: Never Total Score: 0 HUSSAIN-7 AMB Questionnaire HUSSAIN-7 Date HUSSAIN - 7 assessed: 11/13/24 Feeling nervous, anxious, or on edge: 1 = Several days Not being able to stop or control worryin = Not at all Worrying too much about different things: 0 = Not at all Trouble relaxin = Several days Being so restless that it is hard to sit still: 1 = Several days Becoming easily annoyed or irritable: 0 = Not at all Feeling afraid as if something awful might happen: 0 = Not at all Total HUSSAIN-7 score (0-4 normal; 5-9 mild; 10-14 moderate; 15-21 severe): 3 Source: Developed by Drs. Isaac Adams, Marian Tamez, Frank He and colleagues, with an educational kylah from [employer]. Review of Systems Const Reports as per HPI and Denies weakness ENT Reports Normal hearing present Card Denies chest pain, Denies chest pain at rest, Denies chest pain with activity, Denies dyspnea and Denies dyspnea on exertion Resp Denies cough, Denies dyspnea and Denies dyspnea on exertion GI Denies abdominal pain, Denies nausea and Denies vomiting Reports no additional complaints Musc Denies numbness Skin/Breast Reports as per HPI Neuro Reports Normal hearing present, Denies numbness, Denies Sensory deficit (Neuro) and Denies weakness Psych Reports no additional complaints Endo Reports no additional complaints Dat/Lymph Reports no additional complaints Aller/Immun Reports no additional complaints Physical exam (Primary Care) Vital Signs: Last Vital Signs Temp 97.7 F 05/28/25 09:24 Pulse 51 05/28/25 09:24 Resp 16 05/28/25 09:24 BP 100/68 05/28/25 09:24 Pulse Ox 98 05/28/25 09:24 Oxygen Delivery Method Room Air 05/28/25 09:24 BMI result Body Mass Index 34.0 Tobacco/Smoking Status: Tobacco use Status Tobacco use date assessed 05/28/25 05/28/25 09:08 Patient Tobacco Use Status Never used Tobacco 05/28/25 09:08 Tobacco use type Cigarette 05/28/25 09:08 e-Cigarette/Vaping Use Never Used 05/28/25 09:08 PHQ-9: PHQ-9 Score PHQ-9: Total score 4 06/02/25 00:43 Depression Screening Interpretation: Negative (Sees psychiatrist at [facility]) Thrive Assessment: Date of Thrive Assessment Date Thrive assessed 05/22/25 05/28/25 09:08 Currently or been in a relationship where the following occur: I choose not to answer Const General: no acute distress Nutritional Appearance: overweight Orientation/consciousness: patient oriented x3 HENMT Ears: external ears normal, TM's normal bilaterally and EAC's normal General nose exam: Normal external nose present Mouth: moist mucous membranes Eyes General: appearance normal, both eyes and all related structures Neck Other: Supple, no lymphadenopathy, thyroid gland nonpalpable Resp Auscultation: clear to auscultation bilaterally Cardio Other: S1-S2 present regular rate and rhythm GI Palpation (GI): Soft to palpation, nontender and no masses Skin Other: Swollen left great toe with mild erythema and dry skin, with areas of peeling noted Neuro General: patient oriented x3, moves all extremities and no focal motor deficits Cranial nerves: Yes Normal hearing present Sensory Exam: No Sensory deficit (Neuro) Extrem Other: Swollen left great toe with mild erythema and dry skin, with areas of peeling noted General: Yes full ROM, Yes no clubbing, cyanosis or edema and Yes normal gait Psych Appearance: grossly normal and well kempt Mental Status: mental status grossly normal Affect: normal affect Coding Level of Care Code Est Pt Level 4 (69839) Complex EM visit Add On G2211 Diagnoses Osteomyelitis of great toe of left foot M86.9 Dyslipidemia E78.5 Diabetes mellitus with diabetic neuropathy, without long-term current use of insulin E11.40 Primary hypertension I10 Hypertension type: primary hypertension PTSD (post-traumatic stress disorder) F43.10 GERD (gastroesophageal reflux disease) K21.9 Assessment & Plan Assessment & Plan (1) Osteomyelitis of great toe of left foot: Code(s): M86.9 - Osteomyelitis, unspecified Category: Medical Plan: Seen by infectious disease, and started on 6 weeks of IV ertapenem, to be completed 07/02/2025. Patient advised to schedule appointment with infectious disease for follow-up (2) Dyslipidemia: Code(s): E78.5 - Hyperlipidemia, unspecified Category: Medical Plan: Continue atorvastatin 20 mg daily (3) Diabetes mellitus with diabetic neuropathy, without long-term current use of insulin: Code(s): E11.40 - Type 2 diabetes mellitus with diabetic neuropathy, unspecified Category: Medical Plan: Currently on pioglitazone 30 mg daily and gabapentin 600 mg 1 tablet 3 times a day (4) HTN (hypertension): Code(s): I10 - Essential (primary) hypertension Category: Medical Qualifiers: Hypertension type: primary hypertension Qualified Code(s): I10 - Essential (primary) hypertension Plan: Blood pressure at goal of less than 130/80. Continue with current medication. Reinforced importance of following a low sodium diet, getting regular exercise, and lowering stress levels. (5) PTSD (post-traumatic stress disorder): Comment: seelauren Tucker at [facility], now sees Jason Carballo Code(s): F43.10 - Post-traumatic stress disorder, unspecified Category: Medical Plan: Currently followed by psychiatry, taking Klonopin 1 mg once a day as needed for acute attacks of anxiety, panic disorder (6) GERD (gastroesophageal reflux disease): Code(s): K21.9 - Gastro-esophageal reflux disease without esophagitis Category: Medical Plan: Seen by infectious disease and started on Orders: Orders Aspartate Amino Transferase 05/28/25 E11.40 - Type 2 diabetes mellitus with diabetic neuropathy, unspecified, E78.5 - Hyperlipidemia, unspecified, I10 - Essential (primary) hypertension, I73.9 - Peripheral vascular disease, unspecified, M86.9 - Osteomyelitis, unspecified Alanine Aminotransferase 05/28/25 E11.40 - Type 2 diabetes mellitus with diabetic neuropathy, unspecified, E78.5 - Hyperlipidemia, unspecified, I10 - Essential (primary) hypertension, I73.9 - Peripheral vascular disease, unspecified, M86.9 - Osteomyelitis, unspecified Hemoglobin A1c 05/28/25 E11.40 - Type 2 diabetes mellitus with diabetic neuropathy, unspecified, E78.5 - Hyperlipidemia, unspecified, I10 - Essential (primary) hypertension, I73.9 - Peripheral vascular disease, unspecified, M86.9 - Osteomyelitis, unspecified Lipid Panel 05/28/25 E11.40 - Type 2 diabetes mellitus with diabetic neuropathy, unspecified, E78.5 - Hyperlipidemia, unspecified, I10 - Essential (primary) hypertension, I73.9 - Peripheral vascular disease, unspecified, M86.9 - Osteomyelitis, unspecified Complete Blood Count Auto Diff 05/28/25 E11.40 - Type 2 diabetes mellitus with diabetic neuropathy, unspecified, E78.5 - Hyperlipidemia, unspecified, I10 - Essential (primary) hypertension, I73.9 - Peripheral vascular disease, unspecified, M86.9 - Osteomyelitis, unspecified Basic Metabolic Panel Fasting 05/28/25 E11.40 - Type 2 diabetes mellitus with diabetic neuropathy, unspecified, E78.5 - Hyperlipidemia, unspecified, I10 - Essential (primary) hypertension, I73.9 - Peripheral vascular disease, unspecified, M86.9 - Osteomyelitis, unspecified Microalbumin, Random (w Creat) 05/28/25 E11.40 - Type 2 diabetes mellitus with diabetic neuropathy, unspecified, E78.5 - Hyperlipidemia, unspecified, I10 - Essential (primary) hypertension, I73.9 - Peripheral vascular disease, unspecified, M86.9 - Osteomyelitis, unspecified Vitamin D 25-OH Total 05/28/25 E11.40 - Type 2 diabetes mellitus with diabetic neuropathy, unspecified, E78.5 - Hyperlipidemia, unspecified, I10 - Essential (primary) hypertension, I73.9 - Peripheral vascular disease, unspecified, M86.9 - Osteomyelitis, unspecified Medications: Refilled blood sugar diagnostic (FreeStyle Lite Strips) check blood sugar once a day before a meal as directed 100 ea 6RF - Type 2 diabetes mellitus with diabetic neuropathy, unspecified
--- OUTSIDE RECORDS SUMMARY | 2025-05-28 09:06 | XMS_ITS | Encounter Summary ---
Author Organization [facility] Address [address] [place] [address] Phone Care Team Providers Care Health And Safety Technician Name Role Phone Unknown, Unknown Primary Care Provider Vandana Cohn MD Primary Care Provider Encounter Details Date Type Department Care Team (Late st Contact Info) Description 07/14/2018 Procedure Pass [facility], [address] [address] Social History Tobacco Use Types Packs/Day Years [...] on filedocumented in this encounter Care Teams Health And Safety Technician Relationship Specialty Start Date End Date Unknown, Unknown, MD PCP - General 07/20/18 11/08/18 Vandana Snowden MD [address] [place] [address] [place] [address] PCP - General Internal Medicine 11/09/18 documented as of this encounter Additional Source Comments The information contained in this document represents components of the legal health record. It is not the complete legal health record.[facility]
--- OUTSIDE RECORDS SUMMARY | 2025-05-28 09:06 | XMS_ITS | Clinical Summary ---
Author Organization [facility] Address [address] [place] [address] Phone Care Team Providers Care Smelter Operator Name Role Phone Vandana Snowden MD [...] Devices Not on file Insurance [employer] [place] [place] [address] [place] [address] [place] [address] [place] [place] [address] [place] [place] [address] [place] [address] [employer] Advance Directives For more information, please contact: [phone] (9AM - 5PM [place], Wednesday-Wednesday) * Full Code (Presumed) (Latest Code Status on File) Date Activated Date Inactivated Comments 11/22/2018 4:35 PM 11/23/2018 1:12 PM Care Teams Smelter Operator Relationship Specialty Start Date End Date Vandana Snowden MD [facility] [place] [address] PCP - General Internal Medicine 11/09/18 Additional Source Comments The information contained in this document represents components of the legal health record. It is not the complete legal health record.[facility]
--- OUTSIDE RECORDS SUMMARY | 2025-05-28 09:06 | XMS_ITS | Encounter Summary ---
Author Organization [facility] Address [address] [place] [address] [place] [address] Phone Care Team Providers Care Cylinder Machine Operator Name Role Phone Unknown, Unknown Primary Care Provider Vandana Cohn Co Primary Care Provider Encounter Details Date Type Department Care Team (Late st Contact Info) Description 07/14/2018 Ancillary Orders Virtual Department [address] [place] [id number] Logan Christianson MD [address] [place] [address] [email or web address] Spinal stenosis, unspecified spinal region Social [...] pain, limited range of motion POS - [id number] Narrative 07/25/2018 1:33 PM EST COMPARISON: MRI [...] pain, limited range of motion POS - [id number] us Logan Christianson MD IMG XR SPINE [...] back pain, numbness bilateral legs POS - [id number] Narrative 07/25/2018 1:44 PM EST COMPARISON: Lateral [...] back pain, numbness bilateral legs POS - [id number] Logan Christianson MD IMG MR XSPECIALTY Edited Result - Final documented in this encounter Visit Diagnoses Diagnosis Spinal stenosis, unspecified spinal region Spinal stenosis, unspecified spinal region Spinal stenosis, unspecified spinal region documented in this encounter Care Teams Cylinder Machine Operator Relationship Specialty Start Date End Date Unknown, Unknown, MD PCP - General 07/20/18 11/08/18 Vandana Snowden MD [facility] [place] [address] PCP - General Internal Medicine 11/09/18 documented as of this encounter Additional Source Comments The information contained in this document represents components of the legal health record. It is not the complete legal health record.[facility]
--- OUTSIDE RECORDS SUMMARY | 2025-05-28 09:06 | XMS_ITS | Encounter Summary ---
Author Organization [facility] Address [address] [place] [address] Phone Care Team Providers Care Membership Sales Representative Name Role Phone Vandana Snowden MD Primary Care Provider Encounter Details Date Type Department Care Team (Late st Contact Info) Description 11/22/2018 Procedure Pass [place] Admitting Dept - Virtual Department [address] [place] [address] Social History Tobacco Use Types Packs/Day Years [...] on filedocumented in this encounter Care Teams Membership Sales Representative Relationship Specialty Start Date End Date Vandana Snowden MD [facility] [place] [address] PCP - General Internal Medicine 11/09/18 documented as of this encounter Additional Source Comments The information contained in this document represents components of the legal health record. It is not the complete legal health record.[facility]
--- OUTSIDE RECORDS SUMMARY | 2025-05-28 09:06 | XMS_ITS | Encounter Summary ---
Author Organization [facility] Address [address] [place] [phone] Phone Care Team Providers Care Upkeep Mechanic Name Role Phone Vandana Snowden MD Primary Care Provider Encounter Details Date Type Department Care Team (Late st Contact Info) Description 11/15/2018 Procedure [place] Admitting Dept - Virtual Department [address] [place] [address] Social History Tobacco Use Types Packs/Day Years [...] on filedocumented in this encounter Care Teams Upkeep Mechanic Relationship Specialty Start Date End Date Vandana Snowden MD [facility] [place] [address] PCP - General Internal Medicine 11/09/18 documented as of this encounter Additional Source Comments The information contained in this document represents components of the legal health record. It is not the complete legal health record.[facility]
[2025-05-28 09:24] VITALS: BP 100/68; PULSE 51; RESP 16; TEMP 36.5; O2SAT 98; BMI 34.0
== END 2025-05-28 10:12 | disposition home or self-care (01) ==
PROVIDERS: PCP Internal Medicine; Visit Provider Internal Medicine
DX: M86.9 Osteomyelitis, unspecified (principal); E78.5 Hyperlipidemia, unspecified; E11.40 Type 2 diabetes mellitus with diabetic neuropathy, unspecified; I10 Essential (primary) hypertension; F43.10 Post-traumatic stress disorder, unspecified; K21.9 Gastro-esophageal reflux disease without esophagitis

== ENCOUNTER → 2025-05-28 08:39 | Outpatient (BNVA) | payer OTHER, SELFPAY | PROVIDERS: PCP Internal Medicine; Visit Provider Internal Medicine | DX: E11.40 Type 2 diabetes mellitus with diabetic neuropathy, unspecified (principal); E11.51 Type 2 diabetes mellitus with diabetic peripheral angiopathy without gangrene; E78.5 Hyperlipidemia, unspecified; M86.9 Osteomyelitis, unspecified; I10 Essential (primary) hypertension; F43.10 Post-traumatic stress disorder, unspecified; K21.9 Gastro-esophageal reflux disease without esophagitis | CPT/HCPCS: 99212 ==

== ENCOUNTER 2025-05-30 13:01 | Outpatient (REF) | payer OTHER, SELFPAY ==
--- OUTSIDE RECORDS SUMMARY | 2024-04-10 05:20 | XMS_ITS ---
Author Organization [facility] Address [address] [place] [phone] Care Team Providers Care Manager Wind Name Role Phone Sp BAUER, Vandana Primary Care Provider Maryellen Bower Jr, Chuck Unavailable [phone] REASON FOR VISIT hep c Encounters Encounter Location Date Provider Diagnosis [facility] [address] [facility] [address] [place] [phone] 04/10/2024 Chuck Bower Jr Plan Of Treatment Next Appt Details Provider Name:Chuck caba Jr, 12/26/2025 10:00:00 AM, [address] [facility], [address], [place], [address], Progress Notes * SONJA ZALDIVARDOB:1970 ( 55 yo M)Acc No.[id number]:04/10/2024 Progress Notes Patient: SONJA GUZMAN Provider: Reta Bower MD :1970 A ge:54 Y S ex:Male Date:04/10/2024 Address:[address] [place], [place] [phone] Pcp:Vandana Snowden MD Subjective: * Chief Complaints: [...] 04/10/2024 Generated for Mahesh swift/Dylan/Derick on: 1 04:31 PM EDT
--- OUTSIDE RECORDS SUMMARY | 2025-05-29 09:00 | XMS_ITS | Encounter Summary ---
Author Organization [facility] Address [address] [place] [address] Care Team Providers Care Freight Separator Name Role Phone Vandana Snowden MD Primary Care Provider [phone] Reason for Visit * Reason Comments DM Foot Care Type 2 diabetes daniela itus with diabetic neuropathy, without long- term current use of insulin ([facility] V24, [facility] V28)History of osteomyelitisHammertoes of both feetCellulitis of left foot Encounter Details Date Type Department Care Team (Late st Contact Info) Description 05/29/2025 9:00 AM EDT Office Visit Orthopedic Surgery - [address] [phone] Eddie Bryant DPM [address] [place] [phone] Left foot pain (Primary Dx); Osteomyelitis of toe of left foot ([facility] V24, [facility] V28); Hammertoe of left foot; Ulcer of toe of left foot, with necrosis of muscle ([facility] V24, [facility] V28) Social History Tobacco Use Types Packs/Day Years Used Date Smoking Tobacco: Never Assessed Sex and Gender Information Value Date Recorded Sex Assigned at Not on file Legal Sex Male 6:41 AM EST Gender Identity Not on file Sexual Orientation Not on file documented as of this encounter Progress Notes * Eddie Bryant DPM - 05/29/2025 9:00 AM EDT Referring MD: lesly Last PCP visit: 09/26/2024 IDENTIFIER: Feedrico is a 55 y.o. year old male who presents for consultation. CC: Bilateral foot deformities HPI: 55-year-old diabetic male returns office chief complaint of left foot cellulitis infection. Patientwas given a PICC line recently due to having infection to the left great toe. Patient had previously had the osteomyelitis infection there. Patient's x-rays have shown some increase in osteolysis at the IP joint. Patient is scheduled for surgical intervention to the lesser toes of the left foot to r educe the contracture and decrease the risk for ulceration. Patient notes his sugar today was 117 mg/dL. Patient is here for evaluation and treatment ROS: GENERAL: Pt denies nausea, fever, vomiting, chills, or shortness of breath. Pt in NAD. CARDIOLOGY: pt denies chest pain, palpitations LUNGS: pt denies shortness of breath MUSCULOSKELETAL: See HPI, otherwise no joint pain or swelling, back pain, or muscle pain. SKIN: see HPI, otherwise no lesions, rash or itching NEURO: No persistent headache, weakness or numbness The remainder of the review of systems is noncontributory PAST MEDICAL HISTORY: Patient Active Problem List Diagnosis Hammertoes of both feet Exostosis of left foot SOCIAL HISTORY: Social History Tobacco Use Smoking status: Not on file Smokeless tobacco: Not on file Substance Use Topics Alcohol use: Not on file ACTIVE MEDICATIONS: Outpatient Medications Marked as Taking for the 05/29/25 encounter (Office Visit) with Eddie Bryant DPM Medication Sig Dispense Refill atorvastatin (LIPITOR) 20 mg tablet Take 1 tablet (20 mg total) by mouth 1 (one) time each day. lisinopriL (PRINIVIL,ZESTRIL) 10 mg tablet 1 tablet (10 mg total) 1 (one) time each day at the sametime. ALLERGIES: @ALL@ PHYSICAL EXAM: There were no vitals taken for this visit. PODIATRIC EXAMINATION: GENERAL: Patient appears well nourished, with NAD. VASCULAR: Dorsalis pedis pulses are 2/4 bilaterally and Posterior tibial pulses are 2/4 bilaterally. Capillary filling time within normal limits the digits. No pallor on elevation or rubor on dependency. Negative hair growth. Multiple varicosities. +1 pitting edema. Denies rest pain or claudicationpain. Hyperpigmentation, trophic skin changes, nail changes NEUROLOGICAL: Sharp/dull sensation diminished, protective sensation diminished on [place]. Multipleperipheral neuropathies. ORTHOPEDIC: Good muscle strength 5/5 of all flexors and extensors. Dorsi flexion of ankle ,10 degrees, plantar flexion WNL. No muscle atrophy. Palpable dorsal exostosis of the midfoot bilaterally. Rigid contractures of digits 2 through 5. Increased pain on palpation of the fourth interspace with some swelling. Notable frontal plane rotation of the fifth digit underneath the fourth toe. DERMATOLOGICAL:.Ulceration to the left great toe with wound at the medial IP joint that is 0.5 cm in diameter with extension into the muscular capsular tissue. Necrosis within that area and purulent drainage. BIOMECHANICS: STJ ROM wnl, MTJ ROM wnl, 1st MPJ ROM wnl. IMPRESSION: 1. Left foot pain 2. Osteomyelitis of toe of left foot (CMS/HCC V24, CMS/HCC V28) 3. Hammertoe of left foot 4. Ulcer of toe of left foot, with necrosis of muscle (CMS/HCC V24, CMS/HCC V28) PLAN: Pt was seen and examined, history reviewed. Patient was encouraged to continue with tight glucose control as he is undergoing surgical intervention to the left foot this coming Wednesday. Discussed patient's x-ray findings and ulceration of the left great toe as well as past osteomyelitis. Decision was made during today's visit that a partial amputation of the left great toe at the same time as the hammertoe contracture correction of digits 2 through 5 would be completed to limit continued infection and lower risk for postoperative infection to the other toes. Patient's left foot required debridement as described below. Patient was dressed with Betadine DSD and instructed to change bandage daily. Patient to continue with surgical shoe We extensively discussed the increased risk of the surgical intervention to the toes though we alsodiscussed the benefits of decreasing chances for future ulceration which could prevent osteomyelitis to the other lesser toes. Open wound excisional selective debridement of devitalized soft tissue, fibrin, epidermis, dermis, thru skin and subcutaneous tissue, and musculotendinous tissue first 20 sq cm or less, using sterilesharp dissection #15 scalpel blade of the left hallux wound. Pt. deferred anesthesia. . Devitalizedtissue was not sent to pathology. Eddie Bryant DPM documented in this encounter Plan of Treatment Upcoming Encounters Date Type Department Care Team (Latest Contact Info) Description 06/01/2025 7:30 AM EDT Hospital Encounter [facility] Main OR [address] [place] [phone] Eddie Bryant DPM [address] [place] [phone] 06/01/2025 7:30 AM EDT - 06/01/2025 9:30 AM EDT Surgery [facility] OR [address] [place] [phone] Eddie Bryant DPM [address] [place] [phone] ARTHROPLASTY LEFT TOE [67083 (CPT )] 06/14/2025 10:00 AM EST Office Visit Orthopedic [place] [address] [phone] Eddie Bryant DPM [address] [place] [phone] 06/26/2025 9:15 AM EST Office Visit Orthopedic [facility] [address] [phone] Eddie Bryant DPM [address] [place] [phone] Pending Results Name Type Priority Associated Diagnoses Date /Time XR Foot 3+ Views Left Imaging Routine Left foot pain 05/29/2025 9:18 AM EDT Scheduled Orders Name Type Priority Associated Diagnoses Orde r Schedule XR Foot 3+ Views Left Imaging Routine Left foot pain Expected: 05/29/2025, Expires: 05/29/2026 Scheduled Procedures Name Priority Associated Diagnoses Date/Ti me ARTHROPLASTY TOE Hammertoes of both feet Exostosis of left foot 06/01/2025 7:30 AM EDT EXCISION METATARSAL HEAD Hammertoes of both feet Exostosis of left foot 06/01/2025 7:30 AM EDT documented as of this encounter Goals Goal Patient Goal Type Associated Problems Recent Progress Patient-Stated? Author Autogenerat ed Goal Care Plan Autogenerated Problem No Eddie Bryant, DPTad documented as of this encounter Visit Diagnoses Diagnosis Hammertoes of both feet Exostosis of left foot Left foot pain- Primary Pain in soft tissues of limb Osteomyelitis of toe of left foot (CMS/HCC V24, [facility] V28) Unspecified osteomyelitis, ankle and foot Hammertoe of left foot Ulcer of toe of left foot, with necrosis of muscle (CMS/HCC V24, CMS/HCC V28) Hammertoes of both feet Exostosis of left foot documented in this encounter Additional Health Concerns Active Problems Noted Date Diagnosed Date Autogenerated Problem 05/03/2025 documented as of this encounter Care Teams Freight Separator Relationship Specialty Start Date End Date Vandana Snowden MD [address] [place] [address] PCP - General Internal Medicine 06/01/24 documented as of this encounter
[2025-05-30 13:05] LABS: MANUAL DIFF FLAG NO
[2025-05-30 13:30] LABS: Hematocrit 42.5 % (42.0-52.0); Hemoglobin 13.9 g/dl (14.0-18.0); Imm Gran Abs Auto 0.03 X10*3/uL (0.00-0.03); Imm Gran Pct Auto 0.4 % (0.0-0.4); Lymphocytes Absolute Auto 2.0 X10*3/uL (1.2-4.9); Mean Corpuscular HGB Conc 32.7 g/dl (31.0-36.0); Mean Corpuscular Hemoglobin 30.3 pg (27.0-33.0); Mean Corpuscular Volume 92.8 fL (80.0-98.0); NRBC Abs Auto 0.000 X10*3/uL (0.0-0.012); NRBC Pct Auto 0.0 /100WBC (0.0-0.2); Platelet Count 215 X10*3/uL (160-400); Red Blood Count 4.58 X10*6/uL (4.60-5.80); White Blood Count 7.0 X10*3/uL (4.8-10.8)
[2025-05-30 14:09] LABS: Estimated Glomerular Filt Rate > 60
--- OUTSIDE RECORDS SUMMARY | 2025-05-30 16:31 | XMS_ITS | Clinical Summary ---
Author Organization [facility] Address [address] [facility] [address] [place] [address] Phone Care Team Providers Care Cd Storage And Materials Make Up Helper Name Role Phone Vandana Snowden MD Primary [...] Devices Not on file Insurance [place] [address] [place] [address] [place] [address] [place] [address] [place] [address] [place] [address] [place] [address] [place] [address] [place] [place] [address] [place] [address] Advance Directives For more information, please contact: [phone] (9AM - 5PM [facility], Wednesday-Wednesday) * Full Code (Presumed) (Latest Code Status on File) Date Activated Date Inactivated Comments 11/22/2018 4:35 PM 11/23/2018 1:12 PM Care Teams Cd Storage And Materials Make Up Helper Relationship Specialty Start Date End Date Vandana Snowden MD [facility] [place] [address] PCP - General Internal Medicine 11/09/18 Additional Source Comments The information contained in this document represents components of the legal health record. It is not the complete legal health record.[facility]
--- OUTSIDE RECORDS SUMMARY | 2025-05-30 16:31 | XMS_ITS | Encounter Summary ---
Author Organization [facility] Address [address] [place] [address] Care Team Providers Care Public Speaking Teacher Name Role Phone Vandana Snowden MD Primary Care Provider Reason for Visit * Reason Onset Date Comments Left Foot Swelling and Red, ? Cellulits 05/21/20 Encounter Details Date Type Department Care Team (Late st Contact Info) Description 05/21/2025 Telephone Orthopedic Surgery - [address] [phone] Eddie Bryant DPM [address] [place] [phone] Social History Tobacco Use Types Packs/Day Years Used Date Smoking Tobacco: Never Assessed Sex and Gender Information Value Date Recorded Sex Assigned at Not on file Legal Sex Male 6:41 AM EST Gender Identity Not on file Sexual Orientation Not on file documented as of this encounter Progress Notes * Evelyn Henriquez - 05/29/2025 8:43 AM EDT Outreached to patient scheduled for 9 AM today * Eddie Bryant DPM - 05/28/2025 8:13 AM EDT He needs to come in this week so I can see what's going on * Evelyn Martinez - 05/25/2025 2:17 PM EDT Patient is calling stating that he was admitted to [facility], on 05/22, amd discharged on 05/24 had DX ofCellulitis Left Great Toe. He currently has a PICC Line until 07/03 as he is receives Ertapenem. Daily. He is scheduled for Surgery on 06/01 for a Arthroplasty Left 3rd digit Toe excision metatarsal head. Should he postpone? Please advise. Please call him back @ [phone] . Thanks.. * Payton Quintanilla - 05/22/2025 1:36 PM EDT I was able to speak with the patient's nurse Noreen. She stated that the patient is currently beingworked up for Osteomyelitis of the Left Toe/Foot. Patient is scheduled to have a White Blood Cell scan today and is going to be consulted on by their Vascular Surgeon Dr. Chua for a possible amputation of the toe. Patient is currently on IV Vancomycin and cefepime. I did let them know the patient was scheduled his elective surgery on June 01, 2025 per the patient and family would ideally like to have Dr. Bryant perform the surgery. The phone number should you wish to call and speak with a provider there is the for the Nurse's Station [phone]. * Payton Quintanilla - 05/22/2025 1:06 PM EDT I called Som and spoke with him regarding a call we received from his mom stating that she did notwant him to have surgery with anyone else besides Dr. Bryant. I did let that patient know that Dr. Bryant did try to reach him yesterday regarding this urgentmessage. The patient is currently admitted at [facility] and stated that he is currently getting IV antibiotics because his foot got so swollen it split open . The patient was unsure how long he was going to be in the hospital or what his current treatment plan was. I did ask him if there was a nurseavailable to speak with so we can know what their treatment plan is. We waiting for a bit but the nurse was not available. I did let the patient know that it would be best for him to remain in the hospital with his current course of treatment. He is going to ask a nurse or clinic staff member to call the office to let us know what type of treatment he is receiving. I did call his mother Zofia who is his health care proxy to let her know that we are awaiting communication from [facility]. Zofia is asking you someone please call her with any updates re Som, her cell phone number is [phone]. * Evelyn Henriquez - 05/21/2025 10:00 AM EDT Patient is calling stating that he went to [facility] last evening, waited for 4 hours, and left without being seen, for a possible Cellulitis Left Foot It has gotten worse overnight blown up and veryRed per patient. States he was recently on Prednisone for his back , took last pill yesterday. Please advise. He can be reached @ @ [phone] . Thanks. documented in this encounter Plan of Treatment Upcoming Encounters Date Type Department Care Team (Latest Contact Info) Description 06/01/2025 7:30 AM EDT Hospital Encounter [facility] OR [address] [place] [phone] Eddie Bryant DPM [address] [place] [phone] 06/01/2025 7:30 AM EDT - 06/01/2025 9:[address] [facility] [place] [address] [place] [phone] Eddie Bryant DPM [address] [place] [phone] ARTHROPLASTY LEFT TOE [[id number] (CPT )] 06/14/2025 10:00 AM EST Office Visit Orthopedic Surgery [facility] [address] [phone] Eddie Bryant DPM [address] [place] [phone] 06/26/2025 9:15 AM EST Office Visit Orthopedic Surgery [facility] [address] [phone] Eddie Bryant DPM [address] [place] [phone] Scheduled Procedures Name Priority Associated Diagnoses Date/Ti [...] documented as of this encounter Care Teams Public Speaking Teacher Relationship Specialty Start Date End Date Vandana Snowden MD [address] [place] [address] PCP - General Internal Medicine 06/01/24 documented as of this encounter
--- OUTSIDE RECORDS SUMMARY | 2025-05-30 16:31 | XMS_ITS | Encounter Summary ---
Author Organization [facility] Address [address] [place] [address] Phone Care Team Providers Care Precision Printing Worker Name Role Phone Vandana Snowden MD Primary Care Provider Encounter Details Date Type Department Care Team (Late st Contact Info) Description 11/15/2018 Procedure Pass OR Admitting Dept - Virtual Department [address] [place] [address] Social History Tobacco Use Types Packs/Day Years [...] on filedocumented in this encounter Care Teams Precision Printing Worker Relationship Specialty Start Date End Date Vandana Snowden MD [facility] [place] [address] PCP - General Internal Medicine 11/09/18 documented as of this encounter Additional Source Comments The information contained in this document represents components of the legal health record. It is not the complete legal health record.[facility]
--- OUTSIDE RECORDS SUMMARY | 2025-05-30 16:31 | XMS_ITS | Clinical Summary ---
Author Organization [facility] Address [address] [place] [address] Phone Care Team Providers Care Textile Engraver Name Role Phone Vandana Snowden MD Primary Care Provider Allergies No known active allergies Medications atorvastatin [...] Encounters Date Type Department Care Team Description 05/29/2025 9:00 AM EDT Office Visit Orthopedic Surgery [facility] [address] [phone] Eddie Bryant DPM Left foot pain (Primary Dx); Osteomyelitis of toe of left foot (CMS/HCC V24, CMS/HCC V28); Hammertoe of left foot; Ulcer of toe of left foot, with necrosis of muscle (CMS/HCC V24, CMS/HCC V28) 05/21/2025 Telephone Orthopedic Surgery [facility] [address] [phone] Eddie Bryant DPM 04/26/2025 9:00 AM EDT Office Visit Orthopedic Surgery [facility] [address] [phone] Eddie Bryant DPM Controlled type 2 diabetes mellitus with diabetic polyneuropathy, without long-term current use of insulin ([facility] V24, [facility] V28) (Primary Dx); Hammertoes of both feet; Exostosis of left foot; Onychomycosis 04/13/2025 Telephone Orthopedic Surgery [facility] [address] [phone] Eddie Bryant DPM 03/06/2025 8:15 AM EDT Office Visit Orthopedic [facility] [address] [phone] Eddie Bryant DPM Controlled type 2 diabetes mellitus with diabetic polyneuropathy, without long-term current use of insulin ([facility] V24, [facility] V28) (Primary Dx); Hammertoes of both feet; Exostosis of left foot from Last 3 Months Surgical History Surgery Date Site/Laterality Comments SPINAL FUSION CERVICAL FUSION TOE SURGERY Medical History Medical History Date Comments Hyperlipidemia Hypertension Diabetes mellitus ([facility] V24, [facility] V28) Hypothyroidism Social History Tobacco [...] Description 06/01/2025 7:30 AM EDT Hospital Encounter [facility] Main OR [address] [place] [phone] Eddie Bryant DPM [address] [place] [phone] 06/01/2025 7:30 AM EDT - 06/01/2025 9:30 AM EDT Surgery [facility] Main OR [address] [place] [phone] Eddie Bryant DPM [address] [place] [phone] ARTHROPLASTY LEFT TOE [[id number] (CPT )] 06/14/2025 10:00 AM EST Office Visit Orthopedic Surgery [place] [address] [phone] Eddie Bryant DPM [address] [place] [phone] 06/26/2025 9:15 AM EST Office Visit Orthopedic [place] [address] [phone] Eddie Bryant DPM [address] [place] [phone] Scheduled Procedures Name Priority Associated Diagnoses Date/Ti me ARTHROPLASTY TOE Hammertoes of both feet Exostosis of left foot 06/01/2025 7:30 AM EDT EXCISION METATARSAL HEAD Hammertoes of both feet Exostosis of left foot 06/01/2025 7:30 AM EDT Health Maintenance Due Date Last [...] Care Plan Autogenerated Problem No Eddie Bryant, RAGHU Additional Health Concerns Active Problems Noted Date Diagnosed Date Autogenerated Problem 05/03/2025 Insurance [facility] Care Teams Textile Engraver Relationship Specialty Start Date End Date Vandana Snowden MD [address] [place] [address] PCP - General Internal Medicine 06/01/24
--- OUTSIDE RECORDS SUMMARY | 2025-05-30 16:31 | XMS_ITS | Encounter Summary ---
Author Organization [facility] Address [address] [place] [address] [place] [address] Phone Care Team Providers Care Metal Door Assembler Name Role Phone Unknown, Unknown Primary Care Provider Vandana Cohn Co Primary Care Provider Encounter Details Date Type Department Care Team (Late st Contact Info) Description 07/14/2018 Ancillary Orders Virtual Department [address] [place] [address] Logan Christianson MD [address] [place] [address] [email or web address] Spinal stenosis, unspecified spinal region Social History [...] pain, limited range of motion POS - [id number] Narrative 07/25/2018 1:33 PM EST COMPARISON: MRI [...] pain, limited range of motion POS - [id number] Logan Christianson MD IMG XR SPINE Final Res ult * MRI LUMBAR SPINE (NEURO) WITHOUT CONTRAST (07/25/2018 1:01 PM EST) Anatomical Region Laterality Modality L-spine Magnetic Resonan ce 07/25/2018 1:40 PM EST Addenda Addendum by Wseley Montes MD on 08/29/2018 11:09 AM EST [...] back pain, numbness bilateral legs POS - [id number] Narrative 07/25/2018 1:44 PM EST COMPARISON: Lateral [...] back pain, numbness bilateral legs POS - [id number] Logan Christianson MD IMG MR XSPECIALTY Edited Result - Final documented in this encounter Visit Diagnoses Diagnosis Spinal stenosis, unspecified spinal region Spinal stenosis, unspecified spinal region Spinal stenosis, unspecified spinal region documented in this encounter Care Teams Metal Door Assembler Relationship Specialty Start Date End Date Unknown, Unknown, MD PCP - General 07/20/18 11/08/18 Vandana Snowden MD [facility] [place] [address] PCP - General Internal Medicine 11/09/18 documented as of this encounter Additional Source Comments The information contained in this document represents components of the legal health record. It is not the complete legal health record.[facility]
--- OUTSIDE RECORDS SUMMARY | 2025-05-30 16:31 | XMS_ITS | Encounter Summary ---
Author Organization [facility] Address [address] [place] [address] Phone Care Team Providers Care Gambling Broker Name Role Phone Vandana Snowden MD Primary Care Provider Encounter Details Date Type Department Care Team (Late st Contact Info) Description 11/22/2018 Procedure Pass [place] Admitting Dept - Virtual Department [address] [place] [address] Social History Tobacco Use Types Packs/Day Years [...] on filedocumented in this encounter Care Teams Gambling Broker Relationship Specialty Start Date End Date Vandana Snowden MD [facility] [place] [address] PCP - General Internal Medicine 11/09/18 documented as of this encounter Additional Source Comments The information contained in this document represents components of the legal health record. It is not the complete legal health record.[facility]
--- OUTSIDE RECORDS SUMMARY | 2025-05-30 16:31 | XMS_ITS | Encounter Summary ---
Author Organization [facility] Address [address] [place] [phone] Phone Care Team Providers Care Aws Software Development Engineer Name Role Phone Unknown, Unknown Primary Care Provider Vandana Cohn MD Primary Care Provider Encounter Details Date Type Department Care Team (Late st Contact Info) Description 07/14/2018 Procedure Pass [facility], [address] [address] Social History Tobacco Use Types Packs/Day Years [...] on filedocumented in this encounter Care Teams Aws Software Development Engineer Relationship Specialty Start Date End Date Unknown, Unknown, MD PCP - General 07/20/18 11/08/18 Vandana Snowden MD [address] [place] [address] [place] [id number] PCP - General Internal Medicine 11/09/18 documented as of this encounter Additional Source Comments The information contained in this document represents components of the legal health record. It is not the complete legal health record.[facility]
--- OUTSIDE RECORDS SUMMARY | 2025-05-30 16:31 | XMS_ITS | Patient Health Record ---
Author Organization [facility] Address [address] [place] [id number] Care Team Providers Care Hourly Sign Language Interpreter Name Role Phone Sp BAUER, Vandana Primary [...] Status Risk Notes Problem Colon cancer screening (763769190) Colon cancer screening (Z12.11) Active confirmed Problem Generalized abdominal pain (081924099) Generalized abdominal pain (R10.84) Active confirmed Problem Laboratory test result abnormal (796680567) Abnormal levels of other serum enzymes (R74.8) Active confirmed Problem Gastroesophageal reflux disease (495828015) Gastroesophageal reflux disease (K21.9) Active confirmed Problem Hepatitis C antibody test positive (333994875) Hepatitis C antibody test positive (R76.8) Active confirmed Problem Colitis (58032731) Colitis (K52.9) Active confi rmed Problem Gastritis (8359871) Gastritis (K29.70) Active c onfirmed Problem Ulcerative colitis (67571236) Other ulcerative colitis without complication (K51.80) Active confirmed Problem Diarrhea (34667070) Diarrhea, unspecified type (R19.7) Active confirmed Problem Long-term current use of drug therapy (884729299) 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 (Z79.84) Active confirmed Problem Hemorrhage of rectum and anus (588015832) Rectal/anal hemorrhage (K62.5) Active confirmed Problem Gastroesophageal reflux disease (545405332) Gastroesophageal reflux disease, unspecified whether esophagitis present (K21.9) Active confirmed Problem Gastric intestinal metaplasia (01489809) Gastric intestinal metaplasia (K31.A0) Active confirmed Vital Signs Temperature 98.6 degrees Fahrenheit 12/20/2024 Blood pressure diastolic 01 mm Hg 12/20/2024 Height 74.75 in 12/20/2024 Blood pressure systolic 001 mm Hg 12/20/2024 Weight 258 lbs 12/20/2024 BMI 32.46 kg/m2 12/20/2024 Encounters Encounter Location Date Provider Diagnosis [facility] [address] [place] [phone] 12/20/2024 Chuck Bower Jr Gastroesophageal reflux disease K21.9 ; Gastric intestinal metaplasia K31.A0 and Diarrhea, unspecified type R19.7 [facility] [address] [place] [phone] 12/20/2024 Chuck Bower Jr [facility] [address] [place] [phone] 02/14/2025 Chuck Bower Jr Assessments Encounter Date [...] Provider Name:Chuck caba , 12/26/2025 10:00:00 AM, [address] [place] [address], [address], [place], [address], Insurance Providers Payer Name Payer Address Payer Phone Subscriber Number Group Number Insured Name Patient Relationship to Insured Coverage Start Date Coverage End Date [facility] [address] [address] [place], [place] [id number] SONJA ZALDIVAR Self - patient is the insured MEDICAID OF [facility] [address] [place] [address] [id number] SONJA ZALDIVAR Self - patient is the [...]
== END 2025-05-30 13:02 | disposition home or self-care (01) ==
LOC: HO.HVNA 13:01
PROVIDERS: Visit Provider Internal Medicine
DX: M86.172 Other acute osteomyelitis, left ankle and foot (principal); L03.032 Cellulitis of left toe
CPT/HCPCS: 36415; 82565; 85025

== ENCOUNTER 2025-06-04 10:26 | Outpatient (AMB) | payer OTHER, SELFPAY ==
--- OUTSIDE RECORDS SUMMARY | 2024-04-10 04:20 | XMS_ITS ---
Author Organization [facility] Address [address] [place] [phone] Care Team Providers Care Pointer Helper Name Role Phone Sp BAUER, Vandana Primary Care Provider Maryellen Bower Jr, Chuck Unavailable [phone] REASON FOR VISIT hep c Encounters Encounter Location Date Provider Diagnosis [facility] [address] [facility] [address] [place] [phone] 04/10/2024 Chuck Bower Jr Plan Of Treatment Next Appt Details Provider Name:Chuck caba Jr, 12/26/2025 10:00:00 AM, [address], [address], [place], [address], Progress Notes * SONJA ZALDIVARDOB:1970 ( 55 yo M)Acc No.[id number]:04/10/2024 Progress Notes Patient: SONJA GUZMAN Provider: Reta Bower MD :1970 A ge:54 Y S ex:Male Date:04/10/2024 Address:[address] [place], [place] [id number] Pcp:Vandana Snowden MD Subjective: * Chief Complaints: * 1 . Hep c. * Medical History: Objective: * Vitals: Assessment: Plan: * Treatment: * * The named appointment provid er may or may not be the originator of this progress note, and it is not deemed complete until electronically signed by the appointment provider. Sign off status: Pending * Provider: Reta Bower MD Date: 0 04/10/2024 Generated for Mahesh swift/Dylan/Derick on: 1 08/04/2024 12:30 PM EST
--- OUTSIDE RECORDS SUMMARY | 2025-06-01 05:14 | XMS_ITS | Encounter Summary ---
Author Organization [facility] Address [address] [place] [address] Care Team Providers Care Bakeshop Cleaner Name Role Phone Vandana Snowden MD Primary Care Provider [phone] Reason for Visit * Auth/Cert (Routine) Specialty Diagnoses / Procedures Referred By Contac t Referred To Contact Diagnoses Hammertoes of both feet Exostosis of left foot HAMMERTOES BOTH FEET, EXOSTOSIS LEFT FOOT Procedures ID CORRECTION HAMMERTOE ID PARTIAL EXCISION BONE PHALANX OF TOE ARTHROPLASTY LEFT TOE EXCISION METATARSAL HEAD LEFT Eddie Bryant DPM [address] [place] [address] Phone: tel: fax: [facility] OR [address] [place] [phone] Phone: tel: Referral ID Status Reason Start Date Expiration Date Visits Re quested Visits Authorized [id number] 1 1 Encounter Details Date Type Department Care Team (Latest Contact Info) Description 06/01/2025 6:14 AM EDT - 06/01/2025 11:19 AM EDT Hospital Encounter [facility] [address] [place] [phone] Eddie Bryant DPM [address] [place] [phone] Post-op pain (Primary Dx); Hammertoes of both feet; Exostosis of left foot Discharge Disposition: Home or Self Care Social History Tobacco Use Types Packs/Day Years Used Date Smoking Tobacco: Every Day Cigarettes Smokeless Tobacco: Never Tobacco Cessation:Ready to Q uit: Not Asked; Counseling Given: Not Answered Sex and Gender Information Value Date Recorded Sex Assigned at Not on file Legal Sex Male 6:41 AM EST Gender Identity Not on file Sexual Orientation Not on file documented as of this encounter Last Filed Vital Signs Vital Sign Reading Time Taken Comments Blood Pressure 114/76 06/01/2025 9:57 AM EDT Pulse 52 06/01/2025 9:57 AM EDT Temperature 36.2 C (97.2 F) 06/01/2025 9:57 AM EDT Respiratory Rate 0 06/01/2025 9:57 AM EDT Oxygen Saturation 98% 06/01/2025 9:57 AM EDT Inhaled Oxygen Concentration - - Weight 123 kg (272 lb) 05/03/2025 2:00 PM EDT Height 190.5 cm (6' 3 ) 05/03/2025 2:00 PM EDT Body Mass Index 34 05/03/2025 2:00 PM EDT documented in this encounter Discharge Instructions * Discharge Instructions* Eddie Bryant DPM - 06/01/2025 9:14 AM EDT [address] [place] [address].org W [phone] F [phone] POST-OP INSTRUCTION SHEET WHAT CAN YOU EXPECT: Dizziness and/or nausea from anesthesia for the first 12-24 hours. The following may be normal in limited amount: pain, swelling, bruising, bleeding on the bandage, numbness (24-48 hours) PROTOCOL: You should go directly home after the surgery. Keep your feet elevated on the way. Rest and elevate your feet and legs above your hips with pillows. Apply ice above dressing for 30 minutes per hour for the first 3 days. Do not ice overnight. Bathing is permitted only as necessary. Keep bandaging dry. Ambulated only when necessary. Weightbearing in surgical shoe to left foot Please refrain from smoking, vaping, alcohol and Soda during recovery. Get plenty of rest, drink plenty of fluids and eat a regular well-balanced diet. Perform ankle/foot range of motion exercises 5-10 minutes every hour while awake IF YOU HAVE ANY PROBLEMS, QUESTIONS OR CONCERNS, PLEASE CONTACT THE OFFICE. A DOCTOR IS ON-CALL 24 HOURS A DAY CALL THE OFFICE IMMEDIATELY IF: Bandage becomes overly stained, drips with blood or gets wet. Your medications do not stop discomfort or cause an abnormal reaction. You bump or injure the surgical site. You develop a fever or shortness of breath. Pain, redness, or swelling of the legs or thighs, occur. High levels of anxiety. Medications: Oxycodone 5 mg every 6 hours as needed severe pain Tylenol 325mg every 6 hours as needed for pain Ibuprofen 800mg every 8 hours as needed for pain * Attachments The following attachments cannot be sent through Care Everywhere. * General Anesthesia (Welsh) documented in this encounter Medications at Time of Discharge acetaminophen (Tylenol 8 Hour) 650 mg 8 hr tablet Take 1 tablet (650 mg total) by mouth every 8 (eight) hours if needed for mild pain. Do not crush, chew, or split. 90 tablet 05/31/2025 06/30/2025 atorvastatin (LIPITOR) 20 mg tablet Take 1 tablet (20 mg total) by mouth 1 (one) time each day. 03/20/2025 clonazePAM (KlonoPIN) 1 mg tablet Take 1 tablet (1 mg total) by mouth 2 (two) times a day. Max Daily Amount: 2 mg dicyclomine (BENTYL) 10 mg capsule Take 1 capsule (10 mg total) by mouth 4 (four) times a day (before meals and nightly). gabapentin (NEURONTIN) 600 mg tablet Take by mouth 3 (three) times a day. ibuprofen (ADVIL,MOTRIN) 800 mg tablet Take 1 tablet (800 mg total) by mouth 3 (three) times a day. 90 each 05/31/2025 06/30/2025 lisinopriL (PRINIVIL,ZESTRIL ) 10 mg tablet 1 tablet (10 mg total) 1 (one) time each day at the same time. oxyCODONE (ROXICODONE) 5 mg immediate release tabletIndications :Post-op pain Take 1 tablet (5 mg total) by mouth every 6 (six) hours if needed for severe pain for up to 7 days. Max Daily Amount: 20 mg 28 tablet 06/01/2025 06/08/2025 documented as of this encounter Ordered Prescriptions Prescription Sig Dispense Quantity Refills Last Filled Start Date End Date oxyCODONE (ROXICODONE) 5 mg immediate release tabletIndications: Post-op pain Take 1 tablet (5 mg total) by mouth every 6 (six) hours if needed for severe pain for up to 7 days. Max Daily Amount: 20 mg 28 tablet 06/01/2025 06/08/2025 ibuprofen (ADVIL,MOTRIN) 800 mg tablet Take 1 tablet (800 mg total) by mouth 3 (three) times a day. 90 each 05/31/2025 06/30/2025 acetaminophen (Tylenol 8 Hour) 650 mg 8 hr tablet Take 1 tablet (650 mg total) by mouth every 8 (eight) hours if needed for mild pain. Do not crush, chew, or split. 90 tablet 05/31/2025 06/30/2025 documented in this encounter Discharge Disposition Disposition Code Departure Means Destination Comment s Home or Self Care Wheelchair Home documented in this encounter H&P Notes * Eddie Bryant, RAGHU - 05/31/2025 7:42 AM EDT History Of Present Illness (include Chief Complaint): Som Caballero is a 55 y.o. male presenting with left foot great toe infection with contractures digits 2 through 5. Patient has been dealing with on and off again wounds due to the increased pressureto the distal tuft Past Medical History: He has a past medical history of Diabetes mellitus (CMS/HCC V24, CMS/HCC V28), Hyperlipidemia, Hypertension, and Hypothyroidism. Surgical History: He has a past surgical history that includes Spinal fusion; Cervical fusion; and Toe Surgery. Family History: family history is not on file. Social History: He has no history on file for tobacco use, alcohol use, and drug use. Allergies: Patient has no known allergies. Home Medications: Prescriptions Prior to Admission[1] Review of Systems Last Recorded Vitals: Height 1.905 m (75 ), weight 123 kg (272 lb). Physical Exam Relevant Results: Rigid contractures of digits 2 through 5 on the left foot with recent ulceration to the medial IP joint of the hallux with concern for osteomyelitis Assessment/Plan Active Problems: Hammertoes of both feet Exostosis of left foot Amputation of left hallux with correction of hammertoes 2 through 5 left foot [1] No medications prior to admission. documented in this encounter Procedure Notes * Evelyn Miles RN - 06/01/2025 11:12 AM EDT Md at bedside speaking with patient Single lumen picc line flushed with Ns, and capped Discharge instructions reviewed with mother via telephone and withpatient at bedside with stated understanding * Brynn Durham RN - 06/01/2025 9:50 AM EDT Xray complete * Eddie Bryant DPM - 06/01/2025 7:58 AM EDT ARTHROPLASTY LEFT TOE (L), EXCISION METATARSAL HEAD LEFT (L) OPERATIVE NOTE Date: 06/01/2025 Location: [facility] OR Name: Som Caballero, : 1970, Diagnosis Pre-op Diagnosis * Hammertoes of both feet [M20.41, M20.42] * Exostosis of left foot [M89.8X7] Post-op Diagnosis * Hammertoes of both feet [M20.41, M20.42] * Exostosis of left foot [M89.8X7] Osteomyelitis left foot M86.172 Procedures ARTHROPLASTY LEFT TOE 68357 - ID CORRECTION HAMMERTOE EXCISION METATARSAL HEAD LEFT 81973 - ID PARTIAL EXCISION BONE PHALANX OF TOE Incision and drainage of bone left foot 83399 Additional Procedures Indications: Som Caballero is an 55 y.o. male who is having surgery for HAMMERTOES BOTH FEET, EXOSTOSIS LEFT FOOT. 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 Priority Lab ID 1 Foot, Left Tissue TISSUE EXAM Eddie A RAGHU Bryant 06/01/25 0816 Description: LEFT HALLUX PROXIMAL PHALYNX A Foot, Left Bone CULTURE BONE Eddie MckeonlinsonRAGHU 06/01/25 0811 [facility]-[id number] Description: LEFT HALLUX PROXIMAL PHALYNX CLEAN MARGIN/BONE CULTURE Procedure Details: Patient was consented marked in preoperative area. All risks and benefits were discussed in detail adequate time was given for patient to ask questions and express concerns which were all appropriately answered. Patient was then appropriately consented by the anesthesia team for all risks and benefits for monitored anesthesia required for this case. Patient was then brought back to the operating room sedated after preoperative protocols were completed in concordance with [facility] protocol. Once patient was sedated he was placed in a supine position all bony prominences were appropriately padded and offloaded. Patient was given an ankle block using 20 c c 0.5% Marcaine plain. Patient's left foot was scrubbed prepped and draped in the usual aseptic manner. Open per timeout protocol followed Attention was directed to the left foot where a semielliptical incision was made through the left great toe where an ulceration probe to bone. The infected soft tissue was removed and the distal phalanx was mottled in appearance and was removed. Pulsavac range examiner was used in the left great toe before decision was made to incise and drain the proximal phalanx. Drainage was copiously irrigated kendell proximal piece of bone was then taken and cultured and sent to pathology to rule out any further osteomyelitis infection for antibiotic guidance Attention was then directed to the second digit where 2 semielliptical incisions were made around the DIPJ. The incision was deepened to the joint and soft tissue attachments from the intermediate phalanx were removed. A sagittal saw was used to remove the distal aspect of the interphalangeal bone of the left second toe and the flexor contractures were released. A 0.054 wire was placed across thejoint and across the metatarsal phalangeal joint to hold proper positioning. Attention was then directed to the third digit where 2 semielliptical incisions were made around the PIPJ. The incision was deepened to the joint and soft tissue attachments from the proximal phalanxwere removed. A sagittal saw was used to remove the distal aspect of the interphalangeal bone of the left third toe and the flexor contractures were released. A 0.054 wire was placed across the jointand across the metatarsal phalangeal joint to hold proper positioning. Attention was then directed to the fourth digit where 2 semielliptical incisions were made around the PIPJ. The incision was deepened to the joint and soft tissue attachments from the proximal phalanx were removed. A sagittal saw was used to remove the distal aspect of the interphalangeal bone of the left fourth toe and the flexor contractures were released. A 0.054 wire was placed across the joint and across the metatarsal phalangeal joint to hold proper positioning. Attention was directed to a bony prominence of the fifth digit where she semielliptical incisions and a distal medial to proximal lateral oblique positioning were created to decrease rotation of the fifth digit. Incision was deepened down to bone where a sagittal saw was used to remove the exostosis at the lateral portion of the fifth digit. The area was copiously irrigated before the toe was positioned back into a rectus position both in the sagittal plane and frontal plane. The positioning was held in place by a 0.054 wire. Sutures were then used to reapproximate skin across the oblique tissue line in order to properly derotate the toe around the coronal axis Findings: Infection within the left great toe with mottled appearance of bone. Consistent with diagnoses at other digits Complications: None; patient tolerated the procedure well. Disposition: PACU - hemodynamically stable. Condition: stable * Yudi Clancy RN - 06/01/2025 6:57 AM EDT Zofia holley [phone], contact/ride home documented in this encounter Plan of Treatment Upcoming Encounters Date Type Department Care Team (Late st Contact Info) Description 06/14/2025 10:00 AM EST Office Visit Orthopedic Surgery [facility] [address] [phone] Eddie Bryant, DPM [address] [place] [phone] 06/26/2025 9:15 AM EST Office Visit Orthopedic Surgery [facility] [address] [phone] Eddie Bryant DPM [address] [place] [phone] Pending Results Name Type Priority Associated Diagnoses Date /Time Culture bone Microbiology Routine Hammertoes of both feet Exostosis of left foot 06/01/2025 8:11 AM EDT Tissue exam Pathology and Cytology Routine Hammertoes of both feet Exostosis of left foot 06/01/2025 8:16 AM EDT Scheduled Orders Name Type Priority Associated Diagnoses Orde r Schedule Tissue exam Pathology and Cytology Timed Hammertoes of both feet Exostosis of left foot Release Upon Ordering for 1 Occurrences starting 06/01/2025, 1 completed documented as of this encounter Procedures Procedure Name Priority Date/Time Associated Diagnosis Comments XR FOOT 2 VIEWS LEFT Routine 06/01/2025 9:59 AM EDT OXYGEN THERAPY, ADULT Routine 06/01/2025 9:00 AM EDT CULTURE BONE Routine 06/01/2025 8:11 AM EDT Hammertoes of both feet Exostosis of left foot POCT GLUCOSE BLOOD Routine 06/01/2025 6: 31 AM EDT documented in this encounter Results * XR Foot 2 Views Left (06/01/2025 9:59 AM EDT) Anatomical Region Laterality Modality Lower Extremities, Foot Left Radiogra phic Imaging 06/01/2025 10:3 1 AM EDT Impressions 06/01/2025 10:32 AM EDT Postoperative changes as above. -------- FINAL REPORT -------- Dictated By: Juan Salinas Dictated Date: 06/01/2025 10:31 ET Assigned Physician: Juan Salinas Reviewed and Electronically Signed By: Juan Salinas Signed Date: 06/01/2025 10:32 ET Workstation ID: [id number] Transcribed By: Self Edit Transcribed Date: 06/01/2025 10:31 ET Narrative 06/01/2025 10:32 AM EDT HISTORY: The patient is a 55-year-old male undergoing left foot surgery. FINDINGS: AP and lateral radiographs of the left foot are obtained. No prior study is available for comparison. The patient is seen to have undergone amputation at the proximal shaft of the first proximal phalanx. Internal-external fixation pins have been placed in the second through fourth toes, extending from the tips of the distal phalanges into the metatarsals. A small to moderate superior calcaneal osteophyte is incidentally noted. There are degenerative changes of the dorsal aspect of the midfoot. Procedure Note Juan Salinas MD - 06/01/2025 HISTORY: The patient is a 55-year-old male undergoing left foot surgery. FINDINGS: AP and lateral radiographs of the left foot are obtained. Noprior study is available for comparison. The patient is seen to haveundergone amputation at the proximal shaft of the first proximal phalanx.Internal-external fixation pins have been placed in the second throughfourth toes, extending from the tips of the distal phalanges into themetatarsals. A small to moderate superior calcaneal osteophyte isincidentally noted. There are degenerative changes of the dorsal aspectof the midfoot. IMPRESSION: Postoperative changes as above. -------- FINAL REPORT -------- Dictated By: Juan Salinas Dictated Date: 06/01/2025 10:31 ET Assigned Physician: Juan Salinas Reviewed and Electronically Signed By: Juan Salinas Signed Date: 06/01/2025 10:32 ET Workstation ID: [id number] Transcribed By: Self Edit Transcribed Date: 06/01/2025 10:31 ET Eddie Bryant DPM IMG XR PROCEDURES Final Res ult * (ABNORMAL) POCT Glucose, blood (06/01/2025 6:31 AM EDT) Glucose POCT 116(H) 70 - 100 mg/dL 06/01/2025 6:33 AM EDT [facility] Blood Capillary blood specimen / Unknown 06/01/2025 6:31 AM EDT 06/01/2025 6:34 AM EDT Eddie Bryant DPTad LAB POINT OF CARE T EST DOCKED DEVICE UNSOLICITED RESULTS Final Result [facility] [address] [place] [address], [place] [phone] documented in this encounter Visit Diagnoses Diagnosis Post-op pain- Primary Other acute postoperative pain Hammertoes of both feet Exostosis of left foot Hammertoes of both feet Exostosis of left foot HTN (hypertension) Unspecified essential hypertension Diabetes mellitus, type 2 (CMS/HCC V24, CMS/HCC V28) Type II or unspecified type diabetes mellitus without mention of complication, not stated as uncontrolled Hypothyroidism Unspecified hypothyroidism documented in this encounter Admitting Diagnoses Diagnosis Hammertoes of both feet Exostosis of left foot documented in this encounter Administered Medications Inactive Administered Medications - up to 3 most recent administrations Medication Order MAR Action Action Date Dose Rate Site acetaminophen (TYLENOL) tablet 1,000 mg 1,000 mg, oral, Once as needed, mild pain, Starting on Wed06/01/25 at 1006, For 1 dose, Phase II/On Unit, If patient has not received tylenol in the last 6 hours diphenhydrAMINE (BENADRYL) injection 12.5 mg 12.5 mg, intravenous, Once as needed, nausea and vomitting, Starting on Wed06/01/25 at 1006, For 1 dose, Phase II/On Unit, Give as THIRD antiemetic in order set. Only if this has not been given in the operating room or in PACU. haloperidol lactate (HALDOL) injection 1 mg 1 mg, intravenous, Once as needed, nausea and vomitting, Starting on Wed06/01/25 at 1006, For 1 dose, Phase II/On Unit, Give as SECOND antiemetic in order set. Only if this has not been given in the operating room or in PACU. May be ordered via either intramuscular or intravenous route. If ordered IV, maximum of 5 mg/minute. HYDROmorphone (DILAUDID) injection 0.5 mg 0.5 mg, intravenous, Every 5 min PRN, severe pain, Pain, Starting on Wed06/01/25 at 0900, For 4 doses, Recovery (only) Given 06/01/2025 9:25 AM EDT 0.5 mg Given 06/01/2025 9:14 AM EDT 0.5 mg ondansetron (PF) (ZOFRAN) injection 4 mg 4 mg, intravenous, Once as needed, nausea, vomiting, Starting on Wed06/01/25 at 1006, For 1 dose, Phase II/On Unit, Give as FIRST antiemetic in order set Infuse over 2 minutes. oxyCODONE (ROXICODONE) immediate release tablet 5 mg 5 mg, oral, Once as needed, moderate pain, Starting on Wed06/01/25 at 1006, For 1 dose, Phase II/On Unit documented in this encounter Historical Medications * This list may reflect changes made after this encounter. dicyclomine (BENTYL) 10 mg capsule Take 1 capsule (10 mg total) by mouth 4 (four) times a day (before meals and nightly). clonazePAM (KlonoPIN) 1 mg tablet Take 1 tablet (1 mg total) by mouth 2 (two) times a day. Max Daily Amount: 2 mg gabapentin (NEURONTIN) 600 mg tablet Take by mouth 3 (three) times a day. lisinopriL (PRINIVIL,ZESTRIL ) 10 mg tablet 1 tablet (10 mg total) 1 (one) time each day at the same time. atorvastatin (LIPITOR) 20 mg tablet Take 1 tablet (20 mg total) by mouth 1 (one) time each day. 03/20/2025 added in this encounter Active and Recently Administered Medications Times are shown in EDT. Scheduled Medication Order 05/30/2025 05/31/2025 06/01/2025 ceFAZolin (ANCEF) 2 g in sterile water 20 mL IV syringe 2 g, intravenous, Administer over 3 Minutes, Once, On Wed06/01/25 at 0645, For 1 dose, Preprocedure, -IV Push over 3 minutes -Administer within 60 minutes of incision, Indication: Prophylaxis-Surgical 0645 (Canceled Entry - Provider: Automatic Discharge Provider - Comment: Automatically canceled at discontinue of medication order) Continuous Medication Order 05/30/2025 05/31/2025 06/01/2025 lactated Ringer's infusion (CANCELED) 75 mL/hr, intravenous, Continuous, Starting on Wed06/01/25 at 0930, Recovery (only) 0701 (New Bag - Prov ider: Joan Kilpatrick CRNA)0909 (Anesthesia Volume Adjustment - Provider: Joan Kilpatrick CRNA)0954 (Due: Order Ending - Provider: Automatic Transfer Provider - Comment: [Order ends at this time. Document the following action when infusion is complete: Stopped]) PRN Medication Order 05/30/2025 05/31/2025 06/01/2025 acetaminophen (TYLENOL) tablet 1,000 mg 1,000 mg, oral, Once as needed, mild pain, Starting on Wed06/01/25 at 1006, For 1 dose, Phase II/On Unit, If patient has not received tylenol in the last 6 hours bupivacaine (PF) (MARCAINE) 0.5 % injection (CANCELED) As needed, Starting on Wed06/01/25 at 0745, Intraprocedure 0745 (Given - Provid er: Eddie Bryant DPM) diphenhydrAMINE (BENADRYL) injection 12.5 mg 12.5 mg, intravenous, Once as needed, nausea and vomitting, Starting on Wed06/01/25 at 1006, For 1 dose, Phase II/On Unit, Give as THIRD antiemetic in order set. Only if this has not been given in the operating room or in PACU. haloperidol lactate (HALDOL) injection 1 mg 1 mg, intravenous, Once as needed, nausea and vomitting, Starting on Wed06/01/25 at 1006, For 1 dose, Phase II/On Unit, Give as SECOND antiemetic in order set. Only if this has not been given in the operating room or in PACU. May be ordered via either intramuscular or intravenous route. If ordered IV, maximum of 5 mg/minute. HYDROmorphone (DILAUDID) injection 0.5 mg (CANCELED) 0.5 mg, intravenous, Every 5 min PRN, severe pain, Pain, Starting on Wed06/01/25 at 0900, For 4 doses, Recovery (only) 0914 (Given - Provid er: Brynn Durham RN)0925 (Given - Provider: Brynn Durham RN) ondansetron (PF) (ZOFRAN) injection 4 mg 4 mg, intravenous, Once as needed, nausea, vomiting, Starting on Wed06/01/25 at 1006, For 1 dose, Phase II/On Unit, Give as FIRST antiemetic in order set Infuse over 2 minutes. oxyCODONE (ROXICODONE) immediate release tablet 5 mg 5 mg, oral, Once as needed, moderate pain, Starting on Wed06/01/25 at 1006, For 1 dose, Phase II/On Unit documented in this encounter Orders Medications Ordered That Raphael ht Not Have Been Administered Count Last Ordered Date First Ordered Date acetaminophen (TYLENOL) tablet 1,000 mg 1 1 bupivacaine (PF) (MARCAINE) 0.5 % injection 1 06/01/2025 ceFAZolin (ANCEF) 2 g in adriana rile water 20 mL IV syringe 1 06/01/2025 diphenhydrAMINE (BENADRYL) i njection 12.5 mg 1 06/01/2025 fentaNYL (PF) (SUBLIMAZE) injection 50 mcg 1 06/01/2025 haloperidol lactate (HALDOL) injection 1 mg 1 06/01/2025 lactated Ringer's infusion 1 06/01/2025 ondansetron (PF) (ZOFRAN) injection 4 mg 1 06/01/2025 oxyCODONE (ROXICODONE) immed iate release tablet 5 mg 2 06/01/2025 Respiratory Care Count Last Ordered Date First Ordered Date OXYGEN THERAPY, ADULT 1 06/01/2025 Discharge Count Last Ordered Date First Orde red Date DISCHARGE PATIENT 1 06/01/2025 documented in this encounter Care Teams Bakeshop Cleaner Relationship Specialty Start Date End Date Vandana Snowden MD [address] [place] [address] PCP - General Internal Medicine 06/01/24 documented as of this encounter
--- OUTSIDE RECORDS SUMMARY | 2025-06-01 06:30 | XMS_ITS | Encounter Summary ---
Author Organization [facility] Address [address] [place] [address] Care Team Providers Care Summons Server Name Role Phone Vandana Snowden MD Primary Care Provider [phone]- [phone] Reason for Visit * Auth/Cert (Routine) Specialty Diagnoses / Procedures Referred By Contscott t Referred To Contact Diagnoses Hammertoes of both feet Exostosis of left foot HAMMERTOES BOTH FEET, EXOSTOSIS LEFT FOOT Procedures MD CORRECTION HAMMERTOE MD PARTIAL EXCISION BONE PHALANX OF TOE ARTHROPLASTY LEFT TOE EXCISION METATARSAL HEAD LEFT Eddie Bryant DPM [address] [place] [address] Phone: tel: fax: [facility] Main OR [address] [place] [phone] Phone: tel: Referral ID Status Reason Start Date Expiration Date Visits Re quested Visits Authorized [id number] 1 1 Encounter Details Date Type Department Care Team (Late st Contact Info) Description 06/01/2025 7:30 AM EDT - 06/01/2025 9:30 AM EDT Surgery [facility] Main OR [address] [place] [address] Eddie Bryant DPM [address] [place] [phone] ARTHROPLASTY LEFT TOE [58511 (CPT )] Social History Tobacco Use Types Packs/Day Years [...] Sign Reading Time Taken Comments Blood Pressure 121/82 06/01/2025 9:30 AM EDT Pulse 62 06/01/2025 9:30 AM EDT Temperature 35.9 C (96.6 F) 06/01/2025 9:05 AM EDT Respiratory Rate 11 06/01/2025 9:30 AM EDT Oxygen Saturation 93% 06/01/2025 9:30 AM EDT Inhaled Oxygen Concentration - - Weight 123 kg (272 lb) 05/03/2025 2:00 PM EDT Height 190.5 cm (6' 3 ) 05/03/2025 2:00 PM EDT Body Mass Index 34 05/03/2025 2:00 PM EDT documented in this encounter Discharge Instructions * Discharge Instructions* Eddie Bryant DPM - 06/01/2025 9:14 AM EDT [address] W [phone] F [phone] POST-OP INSTRUCTION SHEET WHAT CAN YOU EXPECT: [...] sent through Care Everywhere. * General Anesthesia (Cymraes) documented in this encounter Medications at Time [...] this encounter H&P Notes * Eddie Bryant, LEANNEM - 05/31/2025 7:42 AM EDT History Of Present Illness (include Chief Complaint): Som Caballero is a 55 y.o. male presenting with left foot great toe infection with contractures digits 2 through 5. Patient has been dealing with on and off again wounds due to the increased pressureto the distal tuft Past Medical History: He has a past medical history of Diabetes mellitus ([facility] V24, [facility] V28), Hyperlipidemia, Hypertension, and Hypothyroidism. Surgical History: [...] LEFT (L) OPERATIVE NOTE Date: 06/01/2025 Location: [facility] OR Name: Som Caballero, : 1970, Diagnosis Pre-op Diagnosis * Hammertoes of both feet [M20.41, M20.42] * Exostosis of left foot [M89.8X7] Post-op Diagnosis * Hammertoes of both feet [M20.41, M20.42] * Exostosis of left foot [M89.8X7] Osteomyelitis left foot M86.172 Procedures ARTHROPLASTY LEFT TOE 72309 - MD CORRECTION HAMMERTOE EXCISION METATARSAL HEAD LEFT 07637 - MD PARTIAL EXCISION BONE PHALANX OF TOE Incision and drainage of bone left foot 71089 Additional Procedures Indications: Som Caballero is an 55 y.o. male who is having surgery for HAMMERTOES BOTH FEET, EXOSTOSIS LEFT FOOT. With incision and drainage of left great toe due to osteomyelitis Surgeon(s) & Certified Teacher Assistant(s) * Eddie BryantRAGHU - Primary Anesthesia: Monitor Anesthesia Care ASA: III Estimated Blood Loss: Minimal Drains: * No LDAs found * Specimen: Left proximal phalanx hallux for culture and pathology Specimens ID Source Type Tests Collected By Collected At Frozen? Priority Lab ID 1 Foot, Left Tissue TISSUE EXAM Eddie Bryant LEANNETad 06/01/25 0816 Description: LEFT HALLUX PROXIMAL PHALYNX A Foot, Left Bone CULTURE BONE Eddie Bryant LEANNETad 06/01/[address] [place], [place] [id number] Description: LEFT HALLUX PROXIMAL PHALYNX CLEAN MARGIN/BONE [...] preoperative protocols were completed in concordance with [facility] protocol. Once patient was sedated he [...] mottled in appearance and was removed. Pulsavac lining feller blindstitch was used in the left great toe [...] - 06/01/2025 6:57 AM EDT Zofia holley [phone], contact/ride home documented in this encounter Plan of Treatment Upcoming Encounters Date Type Department Care Team (Late st Contact Info) Description 06/14/2025 10:00 AM EST Office Visit Orthopedic Surgery [facility] [address] [facility] [address] [place] [phone] Eddie Bryant, DPM [address] [place] [phone] 06/26/2025 9:15 AM EST Office Visit Orthopedic Surgery [facility] [address] [phone] Eddie Bryant, DP [address] [place] [phone] Pending Results Name Type Priority Associated Diagnoses [...] Signed Date: 06/01/2025 10:32 ET Workstation ID: [id number] Transcribed By: Self Edit Transcribed Date: 06/01/2025 [...] Signed Date: 06/01/2025 10:32 ET Workstation ID: [id number] Transcribed By: Self Edit Transcribed Date: 06/01/2025 10:31 ET us Eddie Bryant DPTad IMG XR PROCEDURES Final Res ult * (ABNORMAL) POCT Glucose, blood (06/01/2025 6:31 AM EDT) Glucose POCT 116(H) 70 - 100 mg/dL 06/01/2025 6:33 AM EDT [facility] Blood Capillary blood specimen / Unknown 06/01/2025 6:31 AM EDT 06/01/2025 6:34 AM EDT Eddie Bryant DPM LAB POINT OF CARE T EST DOCKED DEVICE UNSOLICITED RESULTS Final Result [facility] [address] [place] [address], [place] [phone] documented in this encounter Visit Diagnoses Diagnosis Post-op pain- Primary Other acute postoperative pain Hammertoes of both feet Exostosis of left foot Hammertoes of both feet Exostosis of left foot HTN (hypertension) Unspecified essential hypertension Diabetes mellitus, type 2 (CMS/HCC V24, CMS/HCC V28) Type II or unspecified type diabetes mellitus without mention of complication, not stated as uncontrolled Hypothyroidism Unspecified hypothyroidism Hammertoes of both feet Exostosis of left foot documented in this encounter Admitting Diagnoses Diagnosis [...] hours bupivacaine (PF) (MARCAINE) 0.5 % injection As needed, Starting on Wed06/01/25 at 0745, Intraprocedure Given 06/01/2025 7:45 AM EDT 20 mL Lef t Foot diphenhydrAMINE (BENADRYL) injection 12.5 mg 12.5 mg, [...] 0914 (Given - Provid er: Brynn Durham RN)09 (Given - Provider: Brynn Durham RN) ondansetron [...] acetaminophen (TYLENOL) tablet 1,000 mg 1 1 ceFAZolin (ANCEF) 2 g in adriana rile [...] 06/01/2025 documented in this encounter Care Teams Summons Server Relationship Specialty Start Date End Date Vandana Snowden MD [address] [facility] [place] [address] PCP - General Internal Medicine 06/01/24 documented as of this encounter
--- OUTSIDE RECORDS SUMMARY | 2025-06-01 06:39 | XMS_ITS | Encounter Summary ---
Author Organization [facility] Address [address] [place] [address] Care Team Providers Care Fence Manufacture Supervisor Name Role Phone Vandana Snowden MD Primary Care Provider [phone] Reason for Visit * Auth/Cert (Routine) Specialty Diagnoses / Procedures Referred By Contac t Referred To Contact Diagnoses Hammertoes of both feet Exostosis of left foot HAMMERTOES BOTH FEET, EXOSTOSIS LEFT FOOT Procedures AK CORRECTION HAMMERTOE [place] PARTIAL EXCISION BONE PHALANX OF TOE ARTHROPLASTY LEFT TOE EXCISION METATARSAL HEAD LEFT Eddie Bryant, DPM [address] [place] [address] Phone: tel: fax: [facility] OR [address] [place] [phone] Phone: tel: Referral ID Status Reason Start Date Expiration Date Visits Re quested Visits Authorized [id number] 1 1 Encounter Details Date Type Department Care Team (Late st Contact Info) Description 06/01/2025 7:39 AM EDT Anesthesia Event [facility] OR [address] [place] [phone] Zak Montaño MD [address] [place] [address] [address] [place] [address] Liv Giraldo MD [address] [place] [address] Anesthesia Record Procedure Summary Procedure Name Responsible Anesthesiologist Anesthesia Start Time Anesthesia Stop Time ARTHROPLASTY LEFT TOE (Left: Toes) Zak Montaño MD 06/01/25 0739 06/01/25 0909 Events Date Time Event Comment 06/01/2025 0730 0739 An Start 0739 An Start Data The patient wa s reevaluated immediately before moderate or deep sedation use and before anesthesia induction. 0740 In Room 0742 An Induction 0744 An Intubation 0746 Anesthesia Ready 0758 Proc Start 0858 An Extubation 0858 an stop data 0901 Out of Room 0909 Handoff to RN I completed my handoff to the receiving nurse during which we: 1. Identified the patient 2. Identified the responsible provider 3. Reviewed the pertinent medical history 4. Discussed the surgical course 5. Reviewed intra-op anesthesia management and issues during anesthesia 6. Set expectations for post-procedure period 7. Allowed opportunity for questions and acknowledgement of understanding. 0909 An Stop Meds Name Total propofol (DIPRIVAN) injection 10 mg/mL 1 50 mg ondansetron 2 mg/mL 4 mg midazolam (VERSED) injection 1 mg/mL 2 m g lidocaine PF (XYLOCAINE-MPF) local injec tion 2% 100 mg ketamine (KETALAR) injection 50 mg/mL sy ringe 25 mg ceFAZolin (ANCEF) 2 g in sterile water 2 0 mL IV syringe 0 g glycopyrrolate (ROBINUL) injection 0.1 m g ePHEDrine (AKOVAZ) PF injection 5 mg/mL 5 mg lactated Ringer's infusion 550 mL * Agents Name O2 Sevoflurane * Blood No blood administrations on file. Lines, Drains, and Airways Type Details Placement Removal Wound Incision; 06/01/25; Foot; Anterior, Left 06/01/25 0000 by Nicolasa Padilla RN PICC Triple Lumen Placement Date: 05/25/25; Placement Time: 1000; Existing LDA Placed by: Clinic; Orientation: Right; Location: Brachial; Removal Date: 06/01/25; Removal Time: 11105/25/25 1000 by Brynn Durham RN 06/01/25 1119 by Evelyn Miles RN Wound Incision; 06/01/25; Foot; Anterior, Lateral; 06/01/25; 0823 06/01/25 0000 by Nicolasa Padilla RN 06/01/25 0823 by Nicolasa Padilla RN LMA 06/01/25; 0750 (naida nicholas via procedure documentation); 5; Unique; 06/01/25; 0858 06/01/25 0750 by Joan Kilpatrick CRNA 06/01/25 0858 by Joan Kilpatrick CRNA documented in this encounter Social History Tobacco Use Types Packs/Day Years Used Date Smoking Tobacco: Every Day Cigarettes Smokeless Tobacco: Never Sex and Gender Information Value Date Recorded Sex Assigned at Not on file Legal Sex Male 6:41 AM EST Gender Identity Not on file Sexual Orientation Not on file documented as of this encounter Progress Notes * Joan Kilpatrick CRNA - 06/01/2025 9:09 AM EDT Patient: Som Caballero Procedure Summary Date: 06/01/25 Room / Location: [facility] OR / [facility] OR Anesthesia Start: 738 Anesthesia Stop: 908 Procedures: ARTHROPLASTY LEFT TOE (Left: Toes) EXCISION METATARSAL HEAD LEFT (Left: Foot) Diagnosis: Hammertoes of both feet Exostosis of left foot (HAMMERTOES BOTH FEET, EXOSTOSIS LEFT FOOT) Surgeons: Eddie Bryant DPM Responsible Provider: Zak Montaño MD Anesthesia Type: MAC ASA Status: 3 Anesthesia Plan: MAC Last Vitals: Visit Vitals BP 100/66 Pulse 58 Temp 36.1 ??C (96.9 ??F) Resp 16 Ht 1.905 m (75 ) Wt 123 kg (272 lb) SpO2 99% BMI 34.00 kg/m?? Smoking Status Every Day BSA 2.5 m?? No data recorded Anesthesia Post Evaluation Patient location during evaluation: PACU Patient participation: complete - patient participated Level of consciousness: awake and alert Pain score: 0 Pain management: adequate Airway patency: patent Anesthetic complications: no Cardiovascular status: acceptable and stable Respiratory status: acceptable Hydration status: acceptable Nausea: No Vomiting: No There were no known notable events for this encounter. * Joan Kilpatrick CRNA - 06/01/2025 7:50 AM EDTAssociated Order(s): Intubation General Information and Staff Patient location during procedure: OR Resident/RUNSTITCHING MACHINE OPERATOR: Joan Kilpatrick CRNA Performed: resident/RUNSTITCHING MACHINE OPERATOR/CAA Performed by: Joan Kilpatrick CRNA Authorized by: Zak Montaño MD Intubation Airway not difficult Reason: elective Final Airway Details Ventilation between attempts: none LMA Size: 5 LMA Type: Unique LMA Seal Pressure: Final airway type: LMA Indications and Patient Condition Indications for airway management: anesthesia and airway protection Sedation level: Yes Preoxygenated: yesSoft Tissue Damage: No Dentition Unchanged: Yes Patient position: neutral MILS maintained throughout Mask difficulty assessment: 0 - not attempted * Zak Montaño MD - 05/31/2025 11:50 AM EDT 55 y.o. male scheduled for [AK CORRECTION EVITA [73027] (ARTHROPLASTY LEFT TOE);AK *] Ht Readings from Last 1 Encounters: 05/03/25 1.905 m (75 ) Wt Readings from Last 1 Encounters: 05/03/25 123 kg (272 lb) Body mass index is 34 kg/m??. Medical History[1] Surgical History[2] Denies anesthesia complications Allergies[3] Medications Ordered Prior to Encounter[4] Current In-hospital Medications MEDSSCHEDULED[5] MEDSCONTINUOUS[6] MEDSPRN[7] Social History[8] Is the patient a current smoker (e.g. cigarette, cigar, pip, e-cigarette, or mariajuana)? Yes [] No[] Patient previously instructed to abstain from smoking on the day of procedure? Yes [] No[] Patient smoked on the day of procedure? Yes [] No[] ASPIRE smoking VBR: [] Not interested in quitting [] Interested in quitting- referred to treatment [] Interested in quitting - treatment provided Visit Vitals BP 100/66 Pulse 58 Temp 36.1 ??C (96.9 ??F) Resp 16 Ht 1.905 m (75 ) Wt 123 kg (272 lb) SpO2 99% BMI 34.00 kg/m?? Smoking Status Every Day BSA 2.5 m?? Available cardiac studies reviewed: No results found. EKG No results found for this or any previous visit (from the past 4464 hours). ECHO No results found for this or any previous visit. CATH No results found for this or any previous visit. LABS: No results found for: WBC , HGB , HCT , MCV , PLT Lab Results Component Value Date GLUCOSE 116 (H) 06/01/2025 No results found for: INR , PROTIME No results found for: PTT Denies cardiac, pulm, neuro, hepatic or renal s/sx. Patient meets ASA guidelines for NPO status. > 4 mets without anginal symptoms. Relevant labs, vitals, imaging, cardiac and pulmonary studies as well as HPI, Meds, Allergies, ROS,PMH, PSH, SH, and FH reviewed. Relevant Problems Cardio (+) HTN (hypertension) Endo (+) Diabetes mellitus, type 2 ([facility] V24, [facility] V28) (+) Hypothyroidism Clinical information reviewed: Allergies Meds Med Hx Surg Hx Fam Hx Soc Hx Anesthesia Plan ASA 3 Anesthesia Plan: MAC Anesthesia Considerations MAC Anesthesia Risks Discussed dental injury, nausea, pain, sore throat, corneal abrasion, allergic reaction and serious complications Plan Factors Patient is not a current smoker Smoking cessation education has not been provided Induction method: intravenous Postoperative administration of opioids is intended. Anesthetic plan and risks discussed with patient. Anesthesia Plan discussed with RUNSTITCHING MACHINE OPERATOR. Anesthesia Evaluation No history of anesthetic complications Airway Mallampati: II Thyromental distance: >3 FB Neck ROM: fullnot intubatedno noted risk Dental (+) upper dentures and lower dentures Pulmonary - negative ROS breath sounds clear to auscultation Cardiovascular (+) hypertension Rhythm: regular Rate: normal Neuro/Psych - negative ROS Mental Status: alert and oriented GI/Hepatic/Renal Endo/Other (+) diabetes mellitus type 2, hypothyroidism Abdominal Abdomen: soft. Bowel sounds: normal. PONV RISK SCORE: 0 Vitals: 05/03/25 1400 Weight: 123 kg (272 lb) Height: 1.905 m (75 ) SpO2 Readings from Last 1 Encounters: No data found for SpO2 No results found for: WBC , RBC , HGB , HCT , PLT , MCV Allergies[9] STOP BANG: No data recorded NPO Status: No data recorded [1] Past Medical History: Diagnosis Date ??? Diabetes mellitus (CMS/HCC V24, CMS/HCC V28) ??? Hyperlipidemia ??? Hypertension ??? Hypothyroidism [2] Past Surgical History: Procedure Laterality Date ??? CERVICAL FUSION ??? SPINAL FUSION ??? TOE SURGERY [3] No Known Allergies [4] No current facility-administered medications on file prior to encounter. Current Outpatient Medications on File Prior to Encounter Medication Sig Dispense Refill ??? atorvastatin (LIPITOR) 20 mg tablet Take 1 tablet (20 mg total) by mouth 1 (one) time each day. ??? clonazePAM (KlonoPIN) 1 mg tablet Take 1 tablet (1 mg total) by mouth 2 (two) times a day. Max Daily Amount: 2 mg ??? dicyclomine (BENTYL) 10 mg capsule Take 1 capsule (10 mg total) by mouth 4 (four) times a day (before meals and nightly). ??? gabapentin (NEURONTIN) 600 mg tablet Take by mouth 3 (three) times a day. ??? lisinopriL (PRINIVIL,ZESTRIL) 10 mg tablet 1 tablet (10 mg total) 1 (one) time each day at the same time. [5] ceFAZolin, 2 g, intravenous, Once [6] [7] [8] Social History Tobacco Use ??? Smoking status: Every Day Current packs/day: 0.25 Types: Cigarettes ??? Smokeless tobacco: Never [9] No Known Allergies documented in this encounter Plan of Treatment Upcoming Encounters Date Type Department Care Team (Late st Contact Info) Description 06/14/2025 10:00 AM EST Office Visit Orthopedic Surgery - [address] [phone] Eddie Bryant DPM [address] [place] [phone] 06/26/2025 9:15 AM EST Office Visit Orthopedic Surgery - [address] [place] [phone] Eddie Bryant DPM [address] [place] [phone] documented as of this encounter Goals Goal Patient Goal Type Associated Problems Recent Progress Patient-Stated? Author Autogenerat ed Goal Care Plan Autogenerated Problem No Eddie Bryant DPM documented as of this encounter Procedures Procedure Name Priority Date/Time Associated Diagnosis Comments TH AN LMA(NO CHARGE) Routine 06/01/2025 7:50 AM EDT documented in this encounter Results * TH AN LMA(NO CHARGE) (06/01/2025 7:50 AM EDT) Narrative Joan Kilpatrick CRNA - 06/01/2025 7:50 AM EDT Joan Kilpatrick CRNA 06/01/2025 7:50 AM General Information and Staff Patient location during procedure: OR Resident/RUNSTITCHING MACHINE OPERATOR: Joan Kilpatrick CRNA Performed: resident/BRITTANY/CAA Performed by: Joan Kilpatrick CRNA Authorized by: Zak Montaño MD Intubation Airway not difficult Reason: elective Final Airway Details Ventilation between attempts: none LMA Size: 5 LMA Type: Unique LMA Seal Pressure: Final airway type: LMA Indications and Patient Condition Indications for airway management: anesthesia and airway protection Sedation level: Yes Preoxygenated: yesSoft Tissue Damage: No Dentition Unchanged: Yes Patient position: neutral MILS maintained throughout Mask difficulty assessment: 0 - not attempted us Zak Montaño MD ANESTHESIA ORDERABLES Final R esult documented in this encounter Visit Diagnoses Not on filedocumented in this encounter Administered Medications Inactive Administered Medications - up to 3 most recent administrations Medication Order MAR Action Action Date Dose Rate Site ePHEDrine sulfate (PF) (AKOVAZ) 5 mg/mL injection intravenous, As needed, Starting on Wed06/01/25 at 0746, Anesthesia Intraprocedure Given 06/01/2025 7:46 AM EDT 5 mg glycopyrrolate (ROBINUL) injection intravenous, As needed, Starting on Wed06/01/25 at 0742, Anesthesia Intraprocedure Given 06/01/2025 7:42 AM EDT 0.1 mg ketamine (KETALAR) injection intravenous, As needed, Starting on Wed06/01/25 at 0742, Anesthesia Intraprocedure Given 06/01/2025 7:42 AM EDT 25 mg lactated Ringer's infusion 75 mL/hr, intravenous, Continuous, Starting on Wed06/01/25 at 0930, Recovery (only) New Bag 06/01/2025 7:01 AM EDT lidocaine (PF) (XYLOCAINE-MPF) 2 % injection injection, As needed, Starting on Wed06/01/25 at 0742, Anesthesia Intraprocedure Given 06/01/2025 7:42 AM EDT 100 mg midazolam (VERSED) injection intravenous, As needed, Starting on Wed06/01/25 at 0735, Anesthesia Intraprocedure Given 06/01/2025 7:35 AM EDT 2 mg ondansetron (PF) (ZOFRAN) injection intravenous, As needed, Starting on Wed06/01/25 at 0847, Anesthesia Intraprocedure Given 06/01/2025 8:47 AM EDT 4 mg propofoL (DIPRIVAN) injection intravenous, As needed, Starting on Wed06/01/25 at 0742, Anesthesia Intraprocedure Given 06/01/2025 7:42 AM EDT 150 mg documented in this encounter Additional Health Concerns Active Problems Noted Date Diagnosed Date Autogenerated Problem 06/02/2025 documented as of this encounter Care Teams Fence Manufacture Supervisor Relationship Specialty Start Date End Date Vandana Snowden MD [address] [place] [address] PCP - General Internal Medicine 06/01/24 documented as of this encounter
--- NOTE | 2025-06-04 10:29 | A.OFFVIS_ITS ---
Vital Signs 06/04/25 10:39 Height 6 ft 3 in Weight 284 lb BMI 35.5 Pulse 60 Pulse Source Pulse Oximeter Pulse Oximetry (%) 99 Intake Visit Reasons: MILLER HEAD ID C reff/cellulitis pleas Allergies No Known Allergies Allergy (Verified 06/04/25 10:40) HPI Comments Details: History of Present Illness The patient is a 55-year-old male presenting with osteomyelitis of the left great toe. Initially recognized on May 24, the patient received ertapenem during hospitalization and post-discharge with treatment expected until July 02. However, symptoms of infection worsened, warranting additional interventions, including a partial toe amputation by a visual education teacher on June 01. The postoperative site is still dressed and lacks significant further issues. Nevertheless, the patient reported a prior incidence of cellulitis but c urrently denies fever or chills, with stable vital signs. Review of Systems - General: Denies fever, chills. - Musculoskeletal: Reports partial amputation of left great toe. - Skin: Denies current symptoms related to cellulitis. Physical Exam - General- Vital signs stable. - Oropharynx- Clear. - Respiratory- Lungs clear. - Cardiovascular- Heart rate and rhythm regular. - Abdomen- Soft, nontender. - Musculoskeletal- Left foot wrapped; area above foot clear. Results Plan Patient was informed and verbally consented to the use of an ambient scribe for clinic note documentation during this visit. 1. Osteomyelitis, unspecified M86.9 HCC 39 Treatment with ertapenem will continue until July 02 to address possible signs of distant infection. Continued follow-up and visual education teacher evaluation are advised for further assessment and management needs post-operatively. 2. Rheumatoid arthritis, unspecified M06.9 HCC 40 Presently stable without the requirement for treatment adjustments and no new concerns at this time. Discussion Notes During today's visit, we discussed the ongoing management of the patient's osteomyelitis with ertapenem, originally initiated following his discharge. We addressed his progress since the partial amputation of the left great toe, carried out by the visual education teacher Dr. Bear Bryant. We emphasized the importance of continuing ertapenem treatment through July 02 and arranging evaluations at the end of June and with the visual education teacher to ensure effective healing of the surgical site. The patient acknowledges understanding the current management plan and the necessity of monitoring for any signs of complication. Medical Decision Making The patient's primary concern remains the osteomyelitis of the left great toe, for which we have maintained a regimen of ertapenem. The choice of this continued antimicrobial therapy aims to prevent any spread of infection beyond the localized tissue and supports post-surgical recovery efforts. Given the complexity of the patient's recent course, including his history of worsening infection and subsequent partial amputation, antibiotics will extend to July as initially planned. Ensuring close follow-up will aid in monitoring the response to current treatments and guide any needed interventions. No alterations in rheumatoid arthritis management were required at this time. Patient Instructions - Continue ertapenem treatment until July 02 as prescribed. - Schedule a follow-up visit for the end of June. - Follow ongoing instructions provided by the visual education teacher. - Watch for any signs of infection, such as increased redness or swelling, and report them promptly. - Maintain the dressing on the foot as advised by healthcare providers. COUNTS INCLUDE 234 BEDS AT THE [facility] Medical History Osteomyelitis of great toe of left foot Vitamin B12 deficiency Skin lesion of neck Refused influenza vaccine Hip fracture Smoker GERD (gastroesophageal reflux disease) HTN (hypertension) Rheumatoid arthritis Hydronephrosis concurrent with and due to calculi of kidney and ureter Spinal stenosis, thoracic region Postlaminectomy syndrome, lumbar Postlaminectomy syndrome, cervical Lumbar stenosis with neurogenic claudication History of diabetic ulcer of foot Cervical spondylosis History of alcoholism Erectile disorder due to medical condition in male PTSD (post-traumatic stress disorder) Vitamin D deficiency Diabetes mellitus with diabetic neuropathy, without long-term current use of insulin Dyslipidemia Surgical History Hx of foot surgery History of surgery on lower extremity H/O knee surgery History of carpal tunnel surgery of right wrist Hx of colonoscopy H/O cervical discectomy Status post lumbar spine surgery for decompression of spinal cord Family History Father Essential hypertension Dyslipidemia Cardiovascular disease Substance use disorder Mental health disorder Mother Essential hypertension Dyslipidemia Diabetes mellitus Social History Household Members: Family Housing: House Are you a primary chronic care nurse to a significant other at home: No Do you presently have visiting nurse or other home services: No Alcohol intake: former Patient Tobacco Use Status: Never used Tobacco Tobacco use type: Cigarette Cigarette Packs Per Day: 0 Cigarettes Per Day: 10 e-Cigarette/Vaping Use: Never Used Second Hand Smoke Exposure: No service: No Current occupational status: disabled Cognitive needs: No Hearing needs: No Vision needs: Yes Physical Exam Vital Signs: Last Vital Signs Pulse 60 06/04/25 10:39 Pulse Ox 99 06/04/25 10:39 BMI result Body Mass Index 35.5 Assessment & Plan Assessment & Plan (1) Osteomyelitis of great toe of left foot: Code(s): M86.9 - Osteomyelitis, unspecified Category: Medical Plan: as above Coding Level of Care Code Est Pt Level 3 (42753) Diagnoses Osteomyelitis of great toe of left foot M86.9
[2025-06-04 10:39] VITALS: PULSE 60; O2SAT 99; BMI 35.5
--- OUTSIDE RECORDS SUMMARY | 2025-06-04 12:31 | XMS_ITS | Clinical Summary ---
Author Organization [facility] Address [address] [facility] [address] [place] [address] Phone Care Team Providers Care Continuous Mining Machine Lode Miner Name Role Phone Vandana Snowden MD Primary [...] Devices Not on file Insurance [place] [address] [place] [address] [place] [address] [place] [address] [place] [address] [place] [address] [place] [place] [address] [place] [place] [address] [place] [address] Advance Directives For more information, please contact: [phone] (9AM - 5PM [facility], Wednesday-Wednesday) * Full Code (Presumed) (Latest Code Status on File) Date Activated Date Inactivated Comments 11/22/2018 4:35 PM 11/23/2018 1:12 PM Care Teams Continuous Mining Machine Lode Miner Relationship Specialty Start Date End Date Vandana Snowden MD [facility] [place] [address] PCP - General Internal Medicine 11/09/18 Additional Source Comments The information contained in this document represents components of the legal health record. It is not the complete legal health record.[facility]
--- OUTSIDE RECORDS SUMMARY | 2025-06-04 12:31 | XMS_ITS | Patient Health Record ---
Author Organization [facility] Address [address] [place] [phone] Care Team Providers Care Hair Salon Manager Name Role Phone Sp BAUER, Vandana Primary [...] Status Risk Notes Problem Colon cancer screening (760458733) Colon cancer screening (Z12.11) Active confirmed Problem Generalized abdominal pain (706778504) Generalized abdominal pain (R10.84) Active confirmed Problem Laboratory test result abnormal (223372181) Abnormal levels of other serum enzymes (R74.8) Active confirmed Problem Gastroesophageal reflux disease (884030317) Gastroesophageal reflux disease (K21.9) Active confirmed Problem Hepatitis C antibody test positive (386732063) Hepatitis C antibody test positive (R76.8) Active confirmed Problem Colitis (14775802) Colitis (K52.9) Active confi rmed Problem Gastritis (0314849) Gastritis (K29.70) Active c onfirmed Problem Ulcerative colitis (03457429) Other ulcerative colitis without complication (K51.80) Active confirmed Problem Diarrhea (94179535) Diarrhea, unspecified type (R19.7) Active confirmed Problem Long-term current use of drug therapy (132390789) terminal operations supervisor (current) use of oral hypoglycemic drugs (Z79.84) Active confirmed Problem Hemorrhage of rectum and anus (739658691) Rectal/anal hemorrhage (K62.5) Active confirmed Problem Gastroesophageal reflux disease (120650059) Gastroesophageal reflux disease, unspecified whether esophagitis present (K21.9) Active confirmed Problem Gastric intestinal metaplasia (32534713) Gastric intestinal metaplasia (K31.A0) Active confirmed Vital Signs Temperature 98.6 degrees Fahrenheit 12/20/2024 Blood pressure diastolic 01 mm Hg 12/20/2024 Height 74.75 in 12/20/2024 Blood pressure systolic 001 mm Hg 12/20/2024 Weight 258 lbs 12/20/2024 BMI 32.46 kg/m2 12/20/2024 Encounters Encounter Location Date Provider Diagnosis [facility] [address] [place] [phone] 12/20/2024 Chuck Bower Jr Gastroesophageal reflux disease K21.9 ; Gastric intestinal metaplasia K31.A0 and Diarrhea, unspecified type R19.7 [facility] [address] [place] [phone] 12/20/2024 Chuck Bower Jr [facility] [address] [place] [phone] 02/14/2025 Chuck Bower Jr Assessments Encounter Date [...] Provider Name:Chuck caba , 12/26/2025 10:00:00 AM, [address] [place] [address], [address], [place], [address], Insurance Providers Payer Name Payer Address Payer Phone Subscriber Number Group Number Insured Name Patient Relationship to Insured Coverage Start Date Coverage End Date [employer] [address] [address] [place], [place] [id number] SONJA ZALDIVAR Self - patient is the insured MEDICAID OF [facility] [address] [place] [address] [id number] SONJA ZALDIVAR Self - patient is the [...]
--- OUTSIDE RECORDS SUMMARY | 2025-06-04 12:31 | XMS_ITS | Encounter Summary ---
Author Organization [facility] Address [address] [place] [address] Phone Care Team Providers Care Duck Operator Name Role Phone Unknown, Unknown Primary Care Provider Vandana Cohn MD Primary Care Provider Encounter Details Date Type Department Care Team (Late st Contact Info) Description 07/14/2018 Procedure Pass [facility], [address] [address] Social History Tobacco Use Types Packs/Day Years [...] on filedocumented in this encounter Care Teams Duck Operator Relationship Specialty Start Date End Date Unknown, Unknown, MD PCP - General 07/20/18 11/08/18 Vandana Snowden MD [address] [place] [address] [place] [address] PCP - General Internal Medicine 11/09/18 documented as of this encounter Additional Source Comments The information contained in this document represents components of the legal health record. It is not the complete legal health record.[facility]
--- OUTSIDE RECORDS SUMMARY | 2025-06-04 12:31 | XMS_ITS | Encounter Summary ---
Author Organization [facility] Address [address] [place] [address] Phone Care Team Providers Care Veterinary Poultry Inspector Name Role Phone Vandana Snowden MD Primary Care Provider Encounter Details Date Type Department Care Team (Late st Contact Info) Description 11/15/2018 Procedure Pass [place] Admitting Dept - Virtual Department [address] [place] [address] Social History Tobacco Use Types Packs/Day Years [...] on filedocumented in this encounter Care Teams Veterinary Poultry Inspector Relationship Specialty Start Date End Date Vandana Snowden MD [facility] [place] [address] PCP - General Internal Medicine 11/09/18 documented as of this encounter Additional Source Comments The information contained in this document represents components of the legal health record. It is not the complete legal health record.[facility]
--- OUTSIDE RECORDS SUMMARY | 2025-06-04 12:31 | XMS_ITS | Clinical Summary ---
Author Organization [address] [facility] Address [address] [place] [address] Phone Care Team Providers Care Real Estate Recruiter Name Role Phone Vandana Snowden MD Primary Care Provider [phone] Allergies No known active allergies Medications atorvastatin (LIPITOR) 20 mg tablet Take 1 tablet (20 mg total) by mouth 1 (one) time each day. 03/20/2025 Active lisinopriL (PRINIVIL,ZESTR IL) 10 mg tablet 1 tablet (10 mg total) 1 (one) time each day at the same time. Active acetaminophen (Tylenol 8 Hour) 650 mg 8 hr tablet Take 1 tablet (650 mg total) by mouth every 8 (eight) hours if needed for mild pain. Do not crush, chew, or split. 90 tablet 05/31/2025 5 Active ibuprofen (ADVIL,MOTRIN) 800 mg tablet Take 1 tablet (800 mg total) by mouth 3 (three) times a day. 90 each 05/31/2025 5 Active gabapentin (NEURONTIN) 600 mg tablet Take by mouth 3 (three) times a day. Active clonazePAM (KlonoPIN) 1 mg tablet Take 1 tablet (1 mg total) by mouth 2 (two) times a day. Max Daily Amount: 2 mg Active dicyclomine (BENTYL) 10 mg capsule Take 1 capsule (10 mg total) by mouth 4 (four) times a day (before meals and nightly). Active oxyCODONE (ROXICODONE) 5 mg immediate release tabletIndicatio ns:Post-op pain Take 1 tablet (5 mg total) by mouth every 6 (six) hours if needed for severe pain for up to 7 days. Max Daily Amount: 20 mg 28 tablet 06/01/2025 Active Active Problems Problem Noted Date Diagnosed Date HTN (hypertension) 05/31/2025 Diabetes mellitus, type 2 ([facility] V24, [facility] V28) 05/31/2025 Hypothyroidism 05/31/2025 Resolved Problems Problem Noted Date Diagnosed Date Resolved Date Hammertoes of both feet 03/06/202505/04 Exostosis of left foot 03/06/202506/01 Encounters Date Type Department Care Team Description 06/01/2025 7:39 AM EDT Anesthesia Event [facility] [place] [address] [place] [phone] Zak Montaño MD Kriz, Petra, MD 06/01/2025 7:30 AM EDT - 06/01/2025 9:[address] [facility] [place] [address] [place] [phone] Eddie Bryant DPM ARTHROPLASTY LEFT TOE [91536 (CPT )] 06/01/2025 6:14 AM EDT - 06/01/2025 11:19 AM EDT Hospital Encounter [facility] [place] [address] [place] [phone] Eddie Bryant DPM Post-op pain (Primary Dx); Hammertoes of both feet; Exostosis of left foot Discharge Disposition: Home or Self Care 05/29/2025 9:00 AM EDT Office Visit Orthopedic Surgery [facility] [address] [place] [phone] Eddie Bryant DPM Left foot pain (Primary Dx); Osteomyelitis of toe of left foot ([facility] V24, [facility] V28); Hammertoe of left foot; Ulcer of toe of left foot, with necrosis of muscle ([facility] V24, [facility] V28) 05/21/2025 Telephone Orthopedic Surgery [facility] [address] [phone] Eddie Bryant DPM 04/26/2025 9:00 AM EDT Office Visit [facility] [address] [phone] Eddie Bryant DPM Controlled type 2 diabetes mellitus with diabetic polyneuropathy, without long-term current use of insulin ([facility] V24, [facility] V28) (Primary Dx); Hammertoes of both feet; Exostosis of left foot; Onychomycosis 04/13/2025 Telephone Orth[facility] [place] [phone] [phone] Eddie Bryant DPM 03/06/2025 8:15 AM EDT Office Visit [place] [address] [phone] Eddie Bryant DPM Controlled type 2 diabetes mellitus with diabetic polyneuropathy, without long-term current use of insulin ([facility] V24, CMS/HCC V28) (Primary Dx); Hammertoes of both feet; Exostosis of left foot from Last 3 Months Surgical History Surgery Date Site/Laterality Comments SPINAL FUSION CERVICAL FUSION TOE SURGERY Medical History Medical History Date Comments Hyperlipidemia Hypertension Diabetes mellitus ([facility] V24, [facility] V28) Hypothyroidism Social History Tobacco Use Types [...] 10:00 AM EST Office Visit Orthopedic Surgery [place] [phone] [phone] Eddie Bryant DPM [address] [place] [phone] 06/26/2025 9:15 AM EST Office Visit [facility] [place] [address] [phone] Eddie Bryant DPM [address] [place] [phone] Health Maintenance Due Date Last Done Comments [...] Plan Autogenerated Problem No Eddie Bryant DPM Medical Devices Implanted Type Area Geotechnical Engineering Technician Device Identifier Shelf Expiration Date Model / Serial / Lot Plate Fix Sys Shape Mem [id number]/17 - Sna - [id number] Implanted:Qty: 4 on 06/01/2025 by Eddie Bryant DPM at [facility] Internal and External Fixation Left: Foot OSTEOMED SANDY 06/01/2030 [id number] / NA / NA Procedures Procedure Name Priority Date/Time Associated Diagnosis Comments XR FOOT 2 VIEWS LEFT Routine 06/01/2025 9:59 AM EDT OXYGEN THERAPY, ADULT Routine 06/01/2025 9:00 AM EDT CULTURE BONE Routine 06/01/2025 8:11 AM EDT Hammertoes of both feet Exostosis of left foot TH AN LMA(NO CHARGE) Routine 06/01/2025 7:50 AM EDT POCT GLUCOSE BLOOD Routine 06/01/2025 6: 31 AM EDT from Last 3 Months Results * XR Foot 2 Views Left (06/01/2025 9:59 AM EDT) Anatomical Region Laterality Modality Lower Extremities, Foot [facility] 06/01/2025 10:3 1 AM EDT Impressions 06/01/2025 10:32 AM EDT Postoperative changes as above. -------- FINAL REPORT -------- Dictated By: Juan Salinas Dictated Date: 06/01/2025 10:31 ET Assigned Physician: Juan Salinas Reviewed and Electronically Signed By: Juan Salinas Signed Date: 06/01/2025 10:32 ET Workstation ID: [id number] Transcribed By: Self Edit Transcribed Date: 06/01/2025 [...] Signed Date: 06/01/2025 10:32 ET Workstation ID: [id number] Transcribed By: Self Edit Transcribed Date: 06/01/2025 10:31 ET Eddie Bryant DPM IMG XR PROCEDURES Final Res ult * TH AN LMA(NO CHARGE) (06/01/2025 7:50 AM EDT) Narrative Joan Kilpatrick CRNA - 06/01/2025 7:50 AM EDT Joan Kilpatrick CRNA 06/01/2025 7:50 AM General Information and Staff Patient location during procedure: OR Resident/SOLE MOLDING MACHINE OPERATOR: Joan Kilpatrick CRNA Performed: resident/BRITTANY/CAA [...] Mask difficulty assessment: 0 - not attempted Zak Montaño MD ANESTHESIA ORDERABLES Final R esult * (ABNORMAL) POCT Glucose, blood (06/01/2025 6:31 AM EDT) Glucose POCT 116(H) 70 - 100 mg/dL 06/01/2025 6:33 AM EDT [facility] Blood Capillary blood specimen / Unknown 06/01/2025 6:31 AM EDT 06/01/2025 6:34 AM EDT Eddie Bryant DPM LAB POINT OF CARE T EST DOCKED DEVICE UNSOLICITED RESULTS Final Result SUNITHA CRODOVA [place] ([facility] [address] [place] [address], from Last 3 Months Additional Health Concerns Active Problems Noted Date Diagnosed Date Autogenerated Problem 06/02/2025 Insurance [facility] [employer] Advance Directives * Full Code - Default (Latest Code Status on File) Date Activated Date Inactivated Comments 06/01/2025 6:27 AM 06/01/2025 1:29 PM This is or selvin is used when code status has not been discussed with the patient, or code status is otherwise unknown/unconfirmed To update the patient's code status, place a code status order. Do not modify or discontinue any currently active code status orders. Care Teams Real Estate Recruiter Relationship Specialty Start Date End Date Vandana Snowden MD [address] [place] [address] PCP - General Internal Medicine 06/01/24
--- OUTSIDE RECORDS SUMMARY | 2025-06-04 12:31 | XMS_ITS | Encounter Summary ---
Author Organization [facility] Address [address] [place] [address] [place] [phone] Phone Care Team Providers Care Flying Squad Worker Name Role Phone Unknown, Unknown Primary Care Provider Vandana Cohn Co Primary Care Provider Encounter Details Date Type Department Care Team (Late st Contact Info) Description 07/14/2018 Ancillary Orders Virtual Department [address] [place] [address] Logan Christianson MD [address] [place] [address] [email or web address] Spinal stenosis, unspecified spinal region Social History [...] pain, limited range of motion POS - [id number] Narrative 07/25/2018 1:33 PM EST COMPARISON: MRI [...] pain, limited range of motion POS - [id number] Logan Christianson MD IMG XR SPINE [...] back pain, numbness bilateral legs POS - [id number] Narrative 07/25/2018 1:44 PM EST COMPARISON: Lateral [...] back pain, numbness bilateral legs POS - [id number] Logan Christianson MD IMG MR XSPECIALTY Edited Result - Final documented in this encounter Visit Diagnoses Diagnosis Spinal stenosis, unspecified spinal region Spinal stenosis, unspecified spinal region Spinal stenosis, unspecified spinal region documented in this encounter Care Teams Flying Squad Worker Relationship Specialty Start Date End Date Unknown, Unknown, MD PCP - General 07/20/18 11/08/18 Vandana Snowden MD [facility] [place] [address] PCP - General Internal Medicine 11/09/18 documented as of this encounter Additional Source Comments The information contained in this document represents components of the legal health record. It is not the complete legal health record.[facility]
--- OUTSIDE RECORDS SUMMARY | 2025-06-04 12:31 | XMS_ITS | Encounter Summary ---
Author Organization [facility] Address [address] [place] [address] Phone Care Team Providers Care Production Support Specialist Name Role Phone Vandana Snowden MD Primary Care Provider Encounter Details Date Type Department Care Team (Late st Contact Info) Description 11/22/2018 Procedure Pass [place] Admitting Dept - Virtual Department [address] [place] [address] Social History Tobacco Use Types Packs/Day Years [...] on filedocumented in this encounter Care Teams Production Support Specialist Relationship Specialty Start Date End Date Vandana Snowden MD [facility] [place] [address] PCP - General Internal Medicine 11/09/18 documented as of this encounter Additional Source Comments The information contained in this document represents components of the legal health record. It is not the complete legal health record.[facility]
== END 2025-06-04 10:56 | disposition home or self-care (01) ==
LOC: HO.HID 10:26
PROVIDERS: PCP Internal Medicine; Visit Provider Internal Medicine
DX: M86.9 Osteomyelitis, unspecified (principal)
CPT/HCPCS: 99213

== ENCOUNTER 2025-06-04 10:26 | Outpatient (REF) | payer OTHER, SELFPAY ==
[2025-06-04 12:50] LABS: MANUAL DIFF FLAG NO
[2025-06-04 12:53] LABS: Hematocrit 41.2 % (42.0-52.0); Hemoglobin 13.5 g/dl (14.0-18.0); Imm Gran Abs Auto 0.02 X10*3/uL (0.00-0.03); Imm Gran Pct Auto 0.3 % (0.0-0.4); Lymphocytes Absolute Auto 2.2 X10*3/uL (1.2-4.9); Mean Corpuscular HGB Conc 32.8 g/dl (31.0-36.0); Mean Corpuscular Hemoglobin 30.2 pg (27.0-33.0); Mean Corpuscular Volume 92.2 fL (80.0-98.0); NRBC Abs Auto 0.000 X10*3/uL (0.0-0.012); NRBC Pct Auto 0.0 /100WBC (0.0-0.2); Platelet Count 213 X10*3/uL (160-400); Red Blood Count 4.47 X10*6/uL (4.60-5.80); White Blood Count 5.7 X10*3/uL (4.8-10.8)
[2025-06-04 13:36] LABS: Estimated Glomerular Filt Rate > 60
== END 2025-06-04 10:27 | disposition home or self-care (01) ==
LOC: HO.HVNA 10:26
PROVIDERS: PCP Internal Medicine; Visit Provider Internal Medicine
DX: M86.9 Osteomyelitis, unspecified (principal)
CPT/HCPCS: 36415; 82565; 85025; 99212

== ENCOUNTER 2025-06-11 14:42 | Outpatient (REF) | payer OTHER, SELFPAY ==
[2025-06-11 14:46] LABS: MANUAL DIFF FLAG NO
[2025-06-11 14:58] LABS: Hematocrit 41.7 % (42.0-52.0); Hemoglobin 13.6 g/dl (14.0-18.0); Imm Gran Abs Auto 0.01 X10*3/uL (0.00-0.03); Imm Gran Pct Auto 0.2 % (0.0-0.4); Lymphocytes Absolute Auto 1.9 X10*3/uL (1.2-4.9); Mean Corpuscular HGB Conc 32.6 g/dl (31.0-36.0); Mean Corpuscular Hemoglobin 30.2 pg (27.0-33.0); Mean Corpuscular Volume 92.7 fL (80.0-98.0); NRBC Abs Auto 0.000 X10*3/uL (0.0-0.012); NRBC Pct Auto 0.0 /100WBC (0.0-0.2); Platelet Count 204 X10*3/uL (160-400); Red Blood Count 4.50 X10*6/uL (4.60-5.80); White Blood Count 6.3 X10*3/uL (4.8-10.8)
[2025-06-11 16:19] LABS: Estimated Glomerular Filt Rate > 60
--- OUTSIDE RECORDS SUMMARY | 2025-06-11 17:01 | XMS_ITS | Encounter Summary ---
Author Organization [facility] Address [address] [place] [address] Phone Care Team Providers Care Radio Reporter Name Role Phone Vandana Snowden MD Primary Care Provider Encounter Details Date Type Department Care Team (Late st Contact Info) Description 11/15/2018 Procedure Pass OR Admitting Dept - Virtual Department [address] [place] [address] Social History Tobacco Use Types Packs/Day Years [...] on filedocumented in this encounter Care Teams Radio Reporter Relationship Specialty Start Date End Date Vandana Snowden MD [facility] [place] [address] PCP - General Internal Medicine 11/09/18 documented as of this encounter Additional Source Comments The information contained in this document represents components of the legal health record. It is not the complete legal health record.[facility]
--- OUTSIDE RECORDS SUMMARY | 2025-06-11 17:01 | XMS_ITS | Clinical Summary ---
Author Organization [facility] Address [address] [place] [address] Phone Care Team Providers Care Tool And Production Planner Name Role Phone Vandana Snowden MD Primary [...] Devices Not on file Insurance [place] [address] [address] [place] [address] [address] [place] [place] [address] [place] [address] [place] [address] [place] [address] [address] ACO Advance Directives For more information, please contact: [phone] (9AM - 5PM [facility], Wednesday-Wednesday) * Full Code (Presumed) (Latest Code Status on File) Date Activated Date Inactivated Comments 11/22/2018 4:35 PM 11/23/2018 1:12 PM Care Teams Tool And Production Planner Relationship Specialty Start Date End Date Vandana Snowden MD [facility] [place] [address] PCP - General Internal Medicine 11/09/18 Additional Source Comments The information contained in this document represents components of the legal health record. It is not the complete legal health record.[facility]
--- OUTSIDE RECORDS SUMMARY | 2025-06-11 17:01 | XMS_ITS | Clinical Summary ---
Author Organization [address] [facility] Address [address] [place] [address] Phone Care Team Providers Care Territory Sales Consultant Name Role Phone Vandana Snowden MD Primary [...] crush, chew, or split. 90 tablet 05/31/2025 06/30/20 25 Active ibuprofen (ADVIL,MOTRIN) 800 mg tablet Take 1 tablet (800 mg total) by mouth 3 (three) times a day. 90 each 05/31/2025 06/30/20 25 Active gabapentin (NEURONTIN) 600 mg tablet Take [...] Daily Amount: 20 mg 28 tablet 06/01/2025 06/08/20 Active Problems Problem Noted Date Diagnosed Date HTN (hypertension) 05/31/2025 Diabetes mellitus, type 2 ([facility] V24, [facility] V28) 05/31/2025 Hypothyroidism 05/31/2025 Resolved Problems Problem Noted Date Diagnosed Date Resolved Date Hammertoes of both feet 03/06/202505/04 Exostosis of left foot 03/06/202506/01 Encounters Date Type Department Care Team Description 06/01/2025 7:39 AM EDT Anesthesia Event [facility] [place] [address] [place] [phone] Zak Montaño MD Kriz, Petra, MD 06/01/2025 7:30 AM EDT - 06/01/2025 9:30 AM EDT Surgery [facility] [place] [address] [place] [phone] Eddie Bryant DPM ARTHROPLASTY LEFT TOE [[id number] (CPT )] 06/01/2025 6:14 AM EDT - 06/01/2025 11:19 AM EDT Hospital Encounter [facility] [place] [address] [place] [phone] Eddie Bryant DPM Post-op pain (Primary Dx); Hammertoes of both feet; Exostosis of left foot Discharge Disposition: Home or Self Care 05/29/2025 9:00 AM EDT Office Visit Orthopedic Surgery [facility] [address] [place] [phone] Eddie Bryant DPM Left foot pain (Primary Dx); Osteomyelitis of toe of left foot ([facility] V24, [facility] V28); Hammertoe of left foot; Ulcer of toe of left foot, with necrosis of muscle ([facility] V24, [facility] V28) 05/21/2025 Telephone Orthopedic Surgery [facility] [address] [phone] Eddie Bryant DPM 04/26/2025 9:00 AM EDT Office Visit [facility] [address] [phone] Eddie Bryant DPM Controlled type 2 diabetes mellitus with diabetic polyneuropathy, without long-term current use of insulin ([facility] V24, [facility] V28) (Primary Dx); Hammertoes of both feet; Exostosis of left foot; Onychomycosis 04/13/2025 Telephone Orthopedic Surgery [place] [phone] [phone] Eddie Bryant DPM from Last 3 Months Surgical History Surgery Date Site/Laterality Comments SPINAL FUSION CERVICAL FUSION TOE SURGERY Medical History Medical History Date Comments Hyperlipidemia Hypertension Diabetes mellitus ([facility] V24, [facility] V28) Hypothyroidism Social History Tobacco Use Types [...] 10:00 AM EST Office Visit Orthopedic Surgery [facility] [address] [phone] Eddie Bryant DPM [address] [phone] 06/26/2025 9:15 AM EST Office Visit Orthopedic Surgery [facility] [address] [facility] [address] [phone] Eddie Bryant DPM [address] [phone] Health Maintenance Due Date Last Done Comments [...] Plan Autogenerated Problem No Eddie Bryant DPM Procedures Procedure Name Priority Date/Time Associated Diagnosis Comments XR FOOT 2 VIEWS LEFT Routine 06/01/2025 9:59 AM EDT OXYGEN THERAPY, ADULT Routine 06/01/2025 9:00 AM EDT TISSUE EXAM Routine 06/01/2025 8:16 AM EDT Hammertoes of both feet Exostosis of left foot CULTURE BONE Routine 06/01/2025 8:11 AM EDT Hammertoes of both feet Exostosis of left foot TH AN LMA(NO CHARGE) Routine 06/01/2025 7:50 AM EDT MO PARTIAL EXCISION BONE PHALANX OF TOE 06/01/2025 7:40 AM EDT Hammertoes of both feet Exostosis of left foot Case Notes MINI C-ARM, CONMED Special Needs MOVED CASE UP TO 730 PER ASHLYN VIA TEAMS AC 05/28 MO CORRECTION HAMMERTOE 06/01/2025 7:40 AM EDT Hammertoes of both feet Exostosis of left foot Case Notes MINI C-ARM, CONMED Special Needs MOVED CASE UP TO 730 PER ASHLYN VIA TEAMS AC 05/28 POCT GLUCOSE BLOOD Routine 06/01/2025 6: 31 [...] Signed Date: 06/01/2025 10:32 ET Workstation ID: [id number] Transcribed By: Self Edit Transcribed Date: 06/01/2025 [...] Signed Date: 06/01/2025 10:32 ET Workstation ID: [id number] Transcribed By: Self Edit Transcribed Date: 06/01/2025 10:31 ET us Eddie Bryant DPM IMG XR PROCEDURES Final Res ult * Tissue exam (06/01/2025 8:16 AM EDT) Final Diagnosis Left hallux proximal phalanx: Ulcer involving the dermis Focal marrow fibrosis; no osteomyelitis identified Bony margin appears viable 06/06/2025 10:43 AM [facility] at 1043 EST Gross Description A. Foot, Left, LEFT HALLUX PROXIMAL PHALYNX: Labeled left zacarias, foot L . Received in formalin is a 4.8 x 4.4 x 1.6 cm hallux transected through the proximal phalanx. There is a 0.9 x 0.4 cm caputo-brown ulcer which is 0.5 cm from the skin margin and 3.3 cm from the bone margin. The margin is inked black. The underlying bone is caputo-yellow, trabecular, and hard. The uninvolved skin is caputo-white and wrinkled. The toenail is unremarkable. A separate 5.8 x 1.2 x 0.9 cm portion of unremarkable, caputo-white skin and soft tissue is in the container. The cut surfaces are caputo-white to yellow. Tractor Operator Laser Leveling sections are submitted in three cassettes, following decalcification. 1: Bone margin, en face (inked red), one piece 2: Ulcer to underlying bone, one piece 3: Separate portion of skin, one piece KVNG/TILA 06/06/2025 10:43 AM [facility] Disclaimer Unless otherwise specified, all tissue is 10% NB formalin fixed and paraffin embedded. 06/06/2025 10:43 AM [facility] Tissue Structure of left foot / Unknown 06/01/2025 8:16 AM EDT 06/01/2025 10:25 AM EDT Eddie Bryant DPM LAB PATHOLOGY ORDERABLES Fi nal Result [facility] [address] [place] [address], [place] [phone] * (ABNORMAL) Culture bone (06/01/2025 8:11 AM EDT) Culture, Bone No Growth of Anaerobes. 06/06/2025 8:30 AM EST [facility] Culture, Bone Few Staphylococcus capitis(A) LAQUITA 06/06/2025 8:30 AM EST [facility] Comment: The organism value for this result has been updated. These results have been appended to the previously preliminary verified report. Edited result: Previously reported as Gram Positive Cocci on 06/04/2025 at 0827 EST. Gram Stain Result No polymorphonuclear leukocytes, No epithelial cells, and No organisms noted 06/06/2025 8:30 AM [facility] Bone Structure of left foot / Unknown 06/01/2025 8:11 AM EDT 06/01/2025 8:24 AM EDT Narrative Organism Antibiotic Method Susceptibility Staphylococcus capitis Benzylpenicillin LAQUITA >=0.5 ug/ml: Resistant Staphylococcus capitis Oxacillin LAQUITA 0.5 ug/ml: Susceptible Staphylococcus capitis Gentamicin LAQUITA <=0.5 ug/ml: Susceptible Staphylococcus capitis Ciprofloxacin LAQUITA <=0.5 ug/ml: Susceptible Staphylococcus capitis Levofloxacin LAQUTIA 0.25 ug/ml: Susceptible Staphylococcus capitis Erythromycin LAQUITA <=0.25 ug/ml: Susceptible Staphylococcus capitis Clindamycin LAQUITA <=0.25 ug/ml: Susceptible Staphylococcus capitis Vancomycin LAQUITA <=0.5 ug/ml: Susceptible Staphylococcus capitis Tetracycline LAQUITA <=1 ug/ml: Susceptible Staphylococcus capitis Rifampin LAQUITA <=0.5 ug/ml: Susceptible Eddie A Annette DPM LAB MICROBIOLOGY - GENERAL ORDERABLES Final Result [facility] [address] [place] [address], [place] [phone] * TH AN LMA(NO CHARGE) (06/01/2025 7:50 AM EDT) Narrative Joan Kilpatrick CRNA - 06/01/2025 7:50 AM EDT Joan Kilpatrick CRNA 06/01/2025 7:50 AM General Information and Staff Patient location during procedure: OR Resident/IRRIGATION FOREMAN: Joan Kilpatrick CRNA Performed: resident/IRRIGATION FOREMAN/CAA Performed by: Joan Kilpatrick CRNA Authorized by: [...] POCT Glucose, blood (06/01/2025 6:31 AM EDT) [facility] Glucose POCT 116(H) 70 - 100 mg/dL 06/01/2025 6:33 AM EDT [facility] Blood Capillary blood specimen / Unknown 06/01/2025 6:31 AM EDT 06/01/2025 6:34 AM EDT Eddie Bryant DPM LAB POINT OF CARE T EST DOCKED DEVICE UNSOLICITED RESULTS Final Result Performing Organization Address [facility]/ZIP Co de Phone Number [facility] [address] [place] [address], [place] [phone] from Last 3 Months Additional Health Concerns Active Problems Noted Date Diagnosed Date Autogenerated Problem 06/02/2025 Insurance [facility] Advance Directives * Full Code - [...] currently active code status orders. Care Teams Territory Sales Consultant Relationship Specialty Start Date End Date Vandana Snowden MD [address] [place] [address] PCP - General Internal Medicine 06/01/24
--- OUTSIDE RECORDS SUMMARY | 2025-06-11 17:01 | XMS_ITS | Encounter Summary ---
Author Organization [facility] Address [address] [place] [address] [place] [phone] Phone Care Team Providers Care Machine Tech Name Role Phone Unknown, Unknown Primary Care Provider Vandana Cohn Co Primary Care Provider Encounter Details Date Type Department Care Team (Late st Contact Info) Description 07/14/2018 Ancillary Orders Virtual Department [address] [place] [phone] Logan Christianson MD [address] [place] [address] [email or web address] Spinal stenosis, unspecified spinal region Social History [...] pain, limited range of motion POS - [id number] Narrative 07/25/2018 1:33 PM EST COMPARISON: MRI [...] pain, limited range of motion POS - [id number] us Logan Christianson MD IMG XR SPINE [...] back pain, numbness bilateral legs POS - [id number] Narrative 07/25/2018 1:44 PM EST COMPARISON: Lateral [...] back pain, numbness bilateral legs POS - [id number] Logan Christianson MD IMG MR XSPECIALTY Edited Result - Final documented in this encounter Visit Diagnoses Diagnosis Spinal stenosis, unspecified spinal region Spinal stenosis, unspecified spinal region Spinal stenosis, unspecified spinal region documented in this encounter Care Teams Machine Tech Relationship Specialty Start Date End Date Unknown, Unknown, MD PCP - General 07/20/18 11/08/18 Vandana Snowden MD [facility] [place] [address] PCP - General Internal Medicine 11/09/18 documented as of this encounter Additional Source Comments The information contained in this document represents components of the legal health record. It is not the complete legal health record.[facility]
--- OUTSIDE RECORDS SUMMARY | 2025-06-11 17:01 | XMS_ITS | Encounter Summary ---
Author Organization [facility] Address [address] [place] [address] Phone Care Team Providers Care Cellar Hand Name Role Phone Unknown, Unknown Primary Care Provider Vandana Cohn MD Primary Care Provider Encounter Details Date Type Department Care Team (Late st Contact Info) Description 07/14/2018 Procedure Pass [facility], [address] [address] Social History Tobacco Use Types Packs/Day Years [...] on filedocumented in this encounter Care Teams Cellar Hand Relationship Specialty Start Date End Date Unknown, Unknown, MD PCP - General 07/20/18 11/08/18 Vandana Snowden MD [address] [place] [address] [place] [address] PCP - General Internal Medicine 11/09/18 documented as of this encounter Additional Source Comments The information contained in this document represents components of the legal health record. It is not the complete legal health record.[facility]
--- OUTSIDE RECORDS SUMMARY | 2025-06-11 17:01 | XMS_ITS | Encounter Summary ---
Author Organization [facility] Address [address] [place] [address] Phone Care Team Providers Care Board Catcher Name Role Phone Vandana Snowden MD Primary Care Provider Encounter Details Date Type Department Care Team (Late st Contact Info) Description 11/22/2018 Procedure Pass OR Admitting Dept - Virtual Department [address] [place] [address] Social History Tobacco Use Types Packs/Day Years [...] on filedocumented in this encounter Care Teams Board Catcher Relationship Specialty Start Date End Date Vandana Snowden MD [facility] [place] [address] PCP - General Internal Medicine 11/09/18 documented as of this encounter Additional Source Comments The information contained in this document represents components of the legal health record. It is not the complete legal health record.[facility]
== END 2025-06-11 14:43 | disposition home or self-care (01) ==
LOC: HO.HVNA 14:42
PROVIDERS: Visit Provider Internal Medicine
DX: M86.172 Other acute osteomyelitis, left ankle and foot (principal); L03.032 Cellulitis of left toe
CPT/HCPCS: 36415; 82565; 85025

== ENCOUNTER 2025-06-18 13:12 | Outpatient (REF) | payer OTHER, SELFPAY ==
[2025-06-18 13:16] LABS: MANUAL DIFF FLAG NO
[2025-06-18 13:39] LABS: Hematocrit 43.1 % (42.0-52.0); Hemoglobin 13.9 g/dl (14.0-18.0); Imm Gran Abs Auto 0.02 X10*3/uL (0.00-0.03); Imm Gran Pct Auto 0.3 % (0.0-0.4); Lymphocytes Absolute Auto 2.3 X10*3/uL (1.2-4.9); Mean Corpuscular HGB Conc 32.3 g/dl (31.0-36.0); Mean Corpuscular Hemoglobin 29.9 pg (27.0-33.0); Mean Corpuscular Volume 92.7 fL (80.0-98.0); NRBC Abs Auto 0.000 X10*3/uL (0.0-0.012); NRBC Pct Auto 0.0 /100WBC (0.0-0.2); Platelet Count 219 X10*3/uL (160-400); Red Blood Count 4.65 X10*6/uL (4.60-5.80); White Blood Count 6.5 X10*3/uL (4.8-10.8)
[2025-06-18 14:00] LABS: Alanine Aminotransferase 19 U/L (0-40); Albumin Level 4.0 g/dL (3.5-5.0); Alkaline Phosphatase 145 U/L (39-117); Anion Gap 12 (12-20); Aspartate Amino Transferase 27 U/L (5-37); Blood Urea Nitrogen 15 mg/dL (9-16); Calcium 9.3 mg/dL (8.4-10.2); Carbon Dioxide 27 mmol/L (22-29); Chloride 104 mmol/L (96-108); Estimated Glomerular Filt Rate > 60; Potassium 4.0 mmol/L (3.3-5.1); Sodium 139 mmol/L (135-145); Total Protein 7.1 g/dL (6.5-8.0)
== END 2025-06-18 13:13 | disposition home or self-care (01) ==
LOC: HO.HVNA 13:12
PROVIDERS: Visit Provider Internal Medicine
DX: M86.172 Other acute osteomyelitis, left ankle and foot (principal); L03.032 Cellulitis of left toe
CPT/HCPCS: 36415; 80053; 85025

== ENCOUNTER 2025-06-19 08:50 | Outpatient (AMB) | payer OTHER, SELFPAY ==
[2025-06-19 09:00] VITALS: BMI 35.5
--- NOTE | 2025-06-19 09:00 | A.OFFVIS_ITS ---
Vital Signs 06/19/25 09:00 Height 6 ft 3 in Weight 284 lb BMI 35.5 Intake Visit Reasons: hospital follow up non-healing wound Intake Note: follow up for Left Foot non-healing ulcers, pt see's ID & podiatry. Pt is doing IV Abx, VNA once a week for Abx. Pan Washer Hand does dressing changes on a great toe amp after his hospital stay. Has a walking boot on his foot. Rating Examiner Required: No Accompanied by: Self / Same As Patient Allergies No Known Allergies Allergy (Verified 06/19/25 09:07) HPI HPI hospital follow up non-healing wound: Details: The patient is a 55-year-old male presenting with a non-healing ulcer. The ulcer is located on the great toe and has been managed with antibiotics and a boot provided by the production controller. The production controller, Dr. Gonzalez, has been overseeing the care and reports that the ulcer appears to be healing properly. The patient is currently on antibiotics administered via a PICC line, which he refers to as a 'grenade'. He has a history of managing his own PICC line administration from previous experiences. There is a concern regarding a potential foreign body in the second toe, which may require further evaluation. The production controller has performed surgery to straighten the toes and has placed pins in each toe. [facility] Medical History Osteomyelitis of great toe of left foot Vitamin B12 deficiency Skin lesion of neck Refused influenza vaccine Hip fracture Smoker GERD (gastroesophageal reflux disease) HTN (hypertension) Rheumatoid arthritis Hydronephrosis concurrent with and due to calculi of kidney and ureter Spinal stenosis, thoracic region Postlaminectomy syndrome, lumbar Postlaminectomy syndrome, cervical Lumbar stenosis with neurogenic claudication History of diabetic ulcer of foot Cervical spondylosis History of alcoholism Erectile disorder due to medical condition in male PTSD (post-traumatic stress disorder) Vitamin D deficiency Diabetes mellitus with diabetic neuropathy, without long-term current use of insulin Dyslipidemia Surgical History Hx of foot surgery History of surgery on lower extremity H/O knee surgery History of carpal tunnel surgery of right wrist Hx of colonoscopy H/O cervical discectomy Status post lumbar spine surgery for decompression of spinal cord Family History Father Essential hypertension Dyslipidemia Cardiovascular disease Substance use disorder Mental health disorder Mother Essential hypertension Dyslipidemia Diabetes mellitus Social History Household Members: Family Housing: House Are you a primary residential caregiver to a significant other at home: No Do you presently have visiting nurse or other home services: No Alcohol intake: former Patient Tobacco Use Status: Never used Tobacco Tobacco use type: Cigarette Cigarette Packs Per Day: 0 Cigarettes Per Day: 10 e-Cigarette/Vaping Use: Never Used Second Hand Smoke Exposure: No service: No Current occupational status: disabled Cognitive needs: No Hearing needs: No Vision needs: Yes Review of Systems Const All systems reviewed & are unremarkable except as noted in HPI and below Reports no additional complaints ENT Reports Normal hearing present Card Denies chest pain, Denies chest pain at rest, Denies chest pain with activity and Denies pedal edema Resp Denies cough GI Denies abdominal pain Musc Denies abnormal gait, Denies muscle cramps and Denies radiating pain into limb Skin/Breast Denies skin ulcer and Denies wounds Neuro Reports Normal hearing present and Denies abnormal gait Psych Reports no additional complaints Physical Exam Vital Signs: BMI result Body Mass Index 35.5 Const General: cooperative, healthy appearing and comfortable Orientation/consciousness: oriented to person, oriented to place and oriented to time HEENT Head: Yes normal to inspection Neck Neck: Yes normal visual inspection Carotids: no bruits Chest Chest palpation & inspection: normal inspection of the chest Resp Effort & Inspection: normal respiratory effort and able to speak in complete sentences Auscultation: clear to auscultation bilaterally, no crackles, no rales, no rhonchi and no wheezes Cardio Other: Unable to assess in a boot Rate: regular rate Rhythm: regular rhythm Heart sounds: S1 normal heart sound present and S2 normal heart sound present Bruits: no carotid bruits Peripheral pulses: Peripheral pulses 2+ throughout GI Inspection: Yes normal to inspection Skin Other: Dressing clean dry intact but patient reports it is healing well Wounds: no wounds Hair: normal Neuro General: oriented to person, oriented to place and oriented to time Cranial nerves: Yes CN's II-XII intact bilaterally and Yes Normal hearing present Cognition (Neuro): normal cognition Motor exam (neuro): 5/5 motor strength present throughout Extrem Other: venous exam: No significant superficial varicosities or spider telangiectasias, minimal edema General: No clubbing, No cyanosis and No edema Psych Appearance: grossly normal Mental Status: mental status grossly normal Speech and movement: Normal speech and movement present Assessment & Plan Assessment & Plan (1) PAD (peripheral artery disease): Code(s): I73.9 - Peripheral vascular disease, unspecified Category: Medical Plan: I discussed with the patient the current management of the non-healing ulcer, including the use of antibiotics and the boot provided by the production controller. We also talked about the planned arterial ultrasound in three months to monitor healing progress. Thank you for allowing us to assist in his care. If there are any questions or concerns please do not hesitate to contact us. Orders: Orders US arterial duplex LE BI 3 Months I73.9 - Peripheral vascular disease, u nspecified Coding Level of Care Code Est Pt Level 4 (74984) Diagnoses PAD (peripheral artery disease) I73.9
== END 2025-06-19 09:44 | disposition home or self-care (01) ==
LOC: HO.HVS 08:51
PROVIDERS: PCP Internal Medicine; Visit Provider Surgery Vascular Surgery
DX: I73.9 Peripheral vascular disease, unspecified (principal)
CPT/HCPCS: 99214

== ENCOUNTER → 2025-06-19 08:50 | Outpatient (BNVA) | payer OTHER, SELFPAY | PROVIDERS: PCP Internal Medicine; Visit Provider Surgery Vascular Surgery | DX: Z09 Encounter for follow-up examination after completed treatment for conditions other than malignant neoplasm (principal); I73.9 Peripheral vascular disease, unspecified | CPT/HCPCS: 99212 ==

== ENCOUNTER 2025-06-25 13:35 | Outpatient (REF) | payer OTHER, SELFPAY ==
[2025-06-25 13:39] LABS: MANUAL DIFF FLAG NO
[2025-06-25 13:41] LABS: Hematocrit 43.2 % (42.0-52.0); Hemoglobin 13.9 g/dl (14.0-18.0); Imm Gran Abs Auto 0.03 X10*3/uL (0.00-0.03); Imm Gran Pct Auto 0.4 % (0.0-0.4); Lymphocytes Absolute Auto 1.8 X10*3/uL (1.2-4.9); Mean Corpuscular HGB Conc 32.2 g/dl (31.0-36.0); Mean Corpuscular Hemoglobin 30.2 pg (27.0-33.0); Mean Corpuscular Volume 93.9 fL (80.0-98.0); NRBC Abs Auto 0.000 X10*3/uL (0.0-0.012); NRBC Pct Auto 0.0 /100WBC (0.0-0.2); Platelet Count 197 X10*3/uL (160-400); Red Blood Count 4.60 X10*6/uL (4.60-5.80); White Blood Count 7.0 X10*3/uL (4.8-10.8)
[2025-06-25 14:36] LABS: Estimated Glomerular Filt Rate > 60
--- OUTSIDE RECORDS SUMMARY | 2025-06-25 18:23 | XMS_ITS | Encounter Summary ---
Author Organization [facility] Address [address] [place] [address] Phone Care Team Providers Care Senior Sql Database Developer Name Role Phone Vandana Snowden MD Primary Care Provider Encounter Details Date Type Department Care Team (Late st Contact Info) Description 11/22/2018 Procedure Pass OR Admitting Dept - Virtual Department [address] [place] [address] Social History Tobacco Use Types Packs/Day Years [...] on filedocumented in this encounter Care Teams Senior Sql Database Developer Relationship Specialty Start Date End Date Vandana Snowden MD [facility] [place] [address] PCP - General Internal Medicine 11/09/18 documented as of this encounter Additional Source Comments The information contained in this document represents components of the legal health record. It is not the complete legal health record.[facility]
--- OUTSIDE RECORDS SUMMARY | 2025-06-25 18:23 | XMS_ITS | Encounter Summary ---
Author Organization [facility] Address [address] [place] [address] Phone Care Team Providers Care Housing Counselor Name Role Phone Vandana Snowden MD Primary Care Provider Encounter Details Date Type Department Care Team (Late st Contact Info) Description 11/15/2018 Procedure Pass OR Admitting Dept - Virtual Department [address] [place] [address] Social History Tobacco Use Types Packs/Day Years [...] on filedocumented in this encounter Care Teams Housing Counselor Relationship Specialty Start Date End Date Vandana Snowden MD [facility] [place] [address] PCP - General Internal Medicine 11/09/18 documented as of this encounter Additional Source Comments The information contained in this document represents components of the legal health record. It is not the complete legal health record.[facility]
--- OUTSIDE RECORDS SUMMARY | 2025-06-25 18:23 | XMS_ITS | Encounter Summary ---
Author Organization [facility] Address [address] [place] [address] [place] [address] Phone Care Team Providers Care Toxics Program Officer Name Role Phone Unknown, Unknown Primary Care Provider Vandana Cohn Co Primary Care Provider Encounter Details Date Type Department Care Team (Late st Contact Info) Description 07/14/2018 Ancillary Orders Virtual Department [address] [place] [phone] Logan Christianson MD [address] [place] [address] [email or web address] Spinal stenosis, unspecified spinal region Social [...] pain, limited range of motion POS - [id number] Narrative 07/25/2018 1:33 PM EST COMPARISON: MRI [...] pain, limited range of motion POS - [id number] us Logan Christianson MD IMG XR SPINE [...] back pain, numbness bilateral legs POS - [id number] Narrative 07/25/2018 1:44 PM EST COMPARISON: Lateral [...] back pain, numbness bilateral legs POS - [id number] Logan Christianson MD IMG MR XSPECIALTY Edited Result - Final documented in this encounter Visit Diagnoses Diagnosis Spinal stenosis, unspecified spinal region Spinal stenosis, unspecified spinal region Spinal stenosis, unspecified spinal region documented in this encounter Care Teams Toxics Program Officer Relationship Specialty Start Date End Date Unknown, Unknown, MD PCP - General 07/20/18 11/08/18 Vandana Snowden MD [facility] [place] [address] PCP - General Internal Medicine 11/09/18 documented as of this encounter Additional Source Comments The information contained in this document represents components of the legal health record. It is not the complete legal health record.[facility]
--- OUTSIDE RECORDS SUMMARY | 2025-06-25 18:23 | XMS_ITS | Clinical Summary ---
Author Organization 175 [facility] Address [address] [place] [address] Phone Care Team Providers Care Civil Design Technician Name Role Phone Vandana Snowden MD Primary Care Provider [phone] Allergies No known active allergies Medications atorvastatin [...] HTN (hypertension) 05/31/2025 Diabetes mellitus, type 2 ([facility] V24, [facility] V28) 05/31/2025 Hypothyroidism 05/31/2025 Resolved Problems Problem Noted Date Diagnosed Date Resolved Date Hammertoes of both feet 03/06/202505/04 Exostosis of left foot 03/06/202506/01 Encounters Date Type Department Care Team Description 06/14/2025 10:00 AM EST Office Visit Orthopedic [facility] [address] [place] [phone] Eddie Bryant DPM Wound dehiscence, surgical, initial encounter (Primary Dx); Ulcer of toe of left foot, with fat layer exposed ([facility] V24, [facility] V28) 06/01/2025 7:39 AM EDT Anesthesia Event [facility] [place] [address] [place] [phone] Zak Montaño MD Kriz, Petra, MD 06/01/2025 7:30 AM EDT - 06/01/2025 9:30 AM EDT Surgery [facility] OR [address] [place] [phone] Eddie Bryant DPM ARTHROPLASTY LEFT TOE [33721 (CPT )] 06/01/2025 6:14 AM EDT - 06/01/2025 11:19 AM EDT Hospital Encounter [facility] [place] [address] [place] [phone] Eddie Bryant DPM Post-op pain (Primary Dx); Hammertoes of both feet; Exostosis of left foot Discharge Disposition: Home or Self Care 05/29/2025 9:00 AM EDT Office Visit Orthopedic [facility] [address] [phone] Eddie Bryant DPM Left foot pain (Primary Dx); Osteomyelitis of toe of left foot ([facility] V24, [facility] V28); Hammertoe of left foot; Ulcer of toe of left foot, with necrosis of muscle ([facility] V24, [facility] V28) 05/21/2025 Telephone Orthopedic Surgery [address] [phone] Eddie Bryant DPM 04/26/2025 9:00 AM EDT Office Visit Orthopedic [address] [phone] Eddie Bryant DPM Controlled type 2 diabetes mellitus with diabetic polyneuropathy, without long-term current use of insulin ([facility] V24, [facility] V28) (Primary Dx); Hammertoes of both feet; Exostosis of left foot; Onychomycosis 04/13/2025 Telephone Orthopedic Surgery [address] [phone] Eddie Bryant DPM from Last 3 Months Surgical History Surgery Date Site/Laterality Comments SPINAL FUSION CERVICAL FUSION TOE SURGERY Medical History Medical History Date Comments Hyperlipidemia Hypertension Diabetes mellitus ([facility] V24, [facility] V28) Hypothyroidism Social History Tobacco [...] Care Team (Late st Contact Info) Description 06/26/2025 11:15 AM EST Office Visit Orthopedic Surgery - [place] 250 175 [facility] 250 [place] [phone] Eddie Bryant, RAGHU 175 [facility] 250 [place] [address] Health Maintenance Due Date Last Done Comments [...] LMA(NO CHARGE) Routine 06/01/2025 7:50 AM EDT [place] PARTIAL EXCISION BONE PHALANX OF TOE 06/01/2025 7:40 AM EDT Hammertoes of both feet Exostosis of left foot Case Notes MINI C-ARM, CONMED Special Needs MOVED CASE UP TO 730 PER ASHLYN VIA TEAMS AC 05/28 OH CORRECTION HAMMERTOE 06/01/2025 7:40 AM EDT Hammertoes of both feet Exostosis of left foot Case Notes MINI C-ARM, CONMED Special Needs MOVED CASE UP TO 730 PER ASHLYN VIA TEAMS AC 05/28 POCT GLUCOSE BLOOD Routine 06/01/2025 6: 31 AM EDT XR FOOT 3+ VIEWS LEFT Routine 05/29/2025 9:18 AM EDT Left foot pain from Last 3 Months Results * XR [...] Signed Date: 06/01/2025 10:32 ET Workstation ID: [id number] Transcribed By: Self Edit Transcribed Date: 06/01/2025 [...] Signed Date: 06/01/2025 10:32 ET Workstation ID: [id number] Transcribed By: Self Edit Transcribed Date: 06/01/2025 10:31 ET us Eddei Bryant DPTad IMG XR PROCEDURES Final Res ult * Tissue exam (06/01/2025 8:16 AM EDT) Final Diagnosis Left hallux proximal phalanx: Ulcer involving the dermis Focal marrow fibrosis; no osteomyelitis identified Bony margin appears viable 06/06/2025 10:43 AM [facility] at 1043 EST Gross Description [...] The cut surfaces are caputo-white to yellow. Baggage Smasher sections are submitted in three cassettes, following decalcification. 1: Bone margin, en face (inked red), one piece 2: Ulcer to underlying bone, one piece 3: Separate portion of skin, one piece KVNG/TILA 06/06/2025 10:43 AM EST [facility] Disclaimer Unless otherwise specified, all tissue is 10% NB formalin fixed and paraffin embedded. 06/06/2025 10:43 AM [facility] Tissue Structure of left foot / Unknown 06/01/2025 8:16 AM EDT 06/01/2025 10:25 AM EDT us Eddie Mckeonlinson DPM LAB PATHOLOGY ORDERABLES Fi nal Result [facility] [address] [place] [address], * (ABNORMAL) Culture bone (06/01/2025 8:11 AM EDT) Culture, Bone No Growth of Anaerobes. 06/06/2025 8:30 AM [facility] Culture, Bone Few Staphylococcus capitis(A) LAQUITA 06/06/2025 8:30 AM [facility] Comment: The organism value for this result has been updated. These results have been appended to the previously preliminary verified report. Edited result: Previously reported as Gram Positive Cocci on 06/04/2025 at 0827 EST. Gram Stain Result No polymorphonuclear leukocytes, No epithelial cells, and No organisms noted 06/06/2025 8:30 AM [facility] Bone Structure of left foot / Unknown 06/01/2025 8:11 AM EDT 06/01/2025 8:24 AM EDT Narrative Organism Antibiotic Method Susceptibility Staphylococcus capitis Benzylpenicillin LAQUITA >=0.5 ug/ml: Resistant Staphylococcus capitis Oxacillin LAQUITA 0.5 ug/ml: Susceptible Staphylococcus capitis Gentamicin LAQUITA <=0.5 ug/ml: Susceptible Staphylococcus capitis Ciprofloxacin LAQUITA <=0.5 ug/ml: Susceptible Staphylococcus capitis Levofloxacin LAQUITA 0.25 ug/ml: Susceptible Staphylococcus capitis Erythromycin LAQUITA <=0.25 ug/ml: Susceptible Staphylococcus capitis Clindamycin LAQUITA <=0.25 ug/ml: Susceptible Staphylococcus capitis Vancomycin LAQUITA <=0.5 ug/ml: Susceptible Staphylococcus capitis Tetracycline LAQUITA <=1 ug/ml: Susceptible Staphylococcus capitis Rifampin LAQUITA <=0.5 ug/ml: Susceptible Eddie Bryant DPM LAB MICROBIOLOGY - GENERAL ORDERABLES Final Result Performing Organization Address [facility]/ZIP Co de Phone Number [facility] [address] [place] [address], [place] [phone] * TH AN LMA(NO CHARGE) (06/01/2025 7:50 AM EDT) Joan Quevedo CRNA - 06/01/2025 7:50 AM EDT Joan Kilpatrick CRNA 06/01/2025 7:50 AM General Information and Staff Patient location during procedure: OR Resident/SALON SUPERVISOR: Joan Kilpatrick CRNA Performed: resident/SALON SUPERVISOR/CAA Performed by: Joan Kilpatrick CRNA Authorized by: [...] - 100 mg/dL 06/01/2025 6:33 AM EDT [facility] Blood Capillary blood specimen / Unknown 06/01/2025 6:31 AM EDT 06/01/2025 6:34 AM EDT Eddie Bryant DPM LAB POINT OF CARE T EST DOCKED DEVICE UNSOLICITED RESULTS Final Result Performing Organization Address [facility]/ZIP Co de Phone Number [facility] [address] [place] [address], [place] [phone] * XR Foot 3+ Views Left (05/29/2025 9:18 AM EDT) Anatomical Region Laterality Modality Lower Extremities, Foot Left Computed Radiography Narrative 06/11/2025 9:22 PM EST 3 views left foot weightbearing: Osteolysis at the IP joint from previous bone infection. Severe contractures of digits 2 through 5 us Eddie Bryant DPM IMG XR PROCEDURES Final Res ult from Last 3 Months Additional Health Concerns Active Problems Noted Date Diagnosed Date Autogenerated Problem 06/02/2025 Insurance [facility] [employer] Advance Directives * Full Code - [...] currently active code status orders. Care Teams Civil Design Technician Relationship Specialty Start Date End Date Vandana Snowden MD [address] [place] [address] PCP - General Internal Medicine 06/01/24
--- OUTSIDE RECORDS SUMMARY | 2025-06-25 18:23 | XMS_ITS | Encounter Summary ---
Author Organization [facility] Address [address] [facility] [address] [place] [phone] Phone Care Team Providers Care Neurology Tech Name Role Phone Unknown, Unknown Primary Care Provider Vandana Cohn MD Primary Care Provider Encounter Details Date Type Department Care Team (Late st Contact Info) Description 07/14/2018 Procedure Pass [facility], [address] [address] Social History Tobacco Use Types Packs/Day Years [...] on filedocumented in this encounter Care Teams Neurology Tech Relationship Specialty Start Date End Date Unknown, Unknown, MD PCP - General 07/20/18 11/08/18 Vandana Snowden MD [address] [place] [address] [place] [address] PCP - General Internal Medicine 11/09/18 documented as of this encounter Additional Source Comments The information contained in this document represents components of the legal health record. It is not the complete legal health record.[facility]
--- OUTSIDE RECORDS SUMMARY | 2025-06-25 18:23 | XMS_ITS | Clinical Summary ---
Author Organization [facility] Address [address] [facility] [address] [place] [address] Phone Care Team Providers Care R D Internship Name Role Phone Vandana Snowden MD Primary [...] Devices Not on file Insurance [place] [address] [place] [address] [place] [address] [place] [address] [place] [address] [place] [address] [place] [address] [place] [address] [place] [address] [place] [address] ACO Advance Directives For more information, please contact: [phone] (9AM - 5PM [facility], Wednesday-Wednesday) * Full Code (Presumed) (Latest Code Status on File) Date Activated Date Inactivated Comments 11/22/2018 4:35 PM 11/23/2018 1:12 PM Care Teams R D Internship Relationship Specialty Start Date End Date Vandana Snowden MD [facility] [address] PCP - General Internal Medicine 11/09/18 Additional Source Comments The information contained in this document represents components of the legal health record. It is not the complete legal health record.[facility]
== END 2025-06-25 13:36 | disposition home or self-care (01) ==
LOC: HO.HVNA 13:35
PROVIDERS: Visit Provider Internal Medicine
DX: M86.172 Other acute osteomyelitis, left ankle and foot (principal); E11.8 Type 2 diabetes mellitus with unspecified complications; L03.032 Cellulitis of left toe
CPT/HCPCS: 36415; 82565; 85025

== ENCOUNTER 2025-07-02 09:24 | Outpatient (AMB) | payer OTHER, SELFPAY ==
--- OUTSIDE RECORDS SUMMARY | 2024-04-10 04:20 | XMS_ITS ---
Author Organization [facility] Address [address] [place] [phone] Care Team Providers Care Supervisor Ore Dressing Name Role Phone Sp BAUER, Vandana Primary Care Provider Maryellen Bower Jr, Chuck Unavailable REASON FOR VISIT hep c Encounters Encounter Location Date Provider Diagnosis [facility] [address] [place] [phone] 04/10/2024 Chuck Bower Jr Plan Of Treatment Next Appt Details Provider Name:Chuck caba Jr, 12/26/2025 10:00:00 AM, [address], [address], [place], [address], Progress Notes * SONJA ZALDIVARDOB:1970 ( 55 yo M)Acc No.[id number]:04/10/2024 Progress Notes Patient: SONJA GUZMAN Provider: Reta Bower MD :1970 A ge:54 Y S ex:Male Date:04/10/2024 Address:[address] [place], [place] [id number] Pcp:Vandana Snowden MD Subjective: * Chief Complaints: * H ep c * The named appointment provid er may or may not be the originator of this progress note, and it is not deemed complete until electronically signed by the appointment provider. Sign off status: Pending * Provider: Reta Bower MD Date: 0 04/10/2024 Generated for Jenniferi jeniffer/Dylan/eTransmitting on: 09/02/2024 11:06 AM EST
[2025-07-02 09:36] VITALS: BP 100/60; PULSE 84; O2SAT 96
--- NOTE | 2025-07-02 09:36 | A.OFFVIS_ITS ---
Vital Signs 3 07/02/25 09:36 BP 100/60 Pulse 84 Pulse Oximetry (%) 96 Intake Visit Reasons: cellulitis Allergies No Known Allergies Allergy (Verified 07/02/25 09:37) HPI Comments Details: History of Present Illness The patient is a 55 year old male presenting for a follow-up visit for osteomyelitis of the left foot. He has been doing well, is completing his course of therapy, and has had no trouble with antibiotics. Review of Systems A comprehensive review of systems was negative. Physical Exam - Vitals: Unremarkable. - Oropharynx: Clear. - Lungs: Clear. - Cardiovascular: Regular rate and rhythm. - Abdomen: Soft and non-tender. - Extremities: The left foot has a surgical dressing in place, which was not removed. Results Plan Patient was informed and verbally consented to the use of an ambient scribe for clinic note documentation during this visit. 1. Osteomyelitis, unspecified M86.9 HCC 92 The patient has completed a six-week course of therapy for osteomyelitis of the left foot and is doing well. He will be prescribed doxycycline 100 mg twice daily for one month to complete his treatment. He will follow up as indicated. Discussion Notes I reviewed the patient's progress with his left foot osteomyelitis, noting he has been doing well and has completed his six-week therapy course without any issues from the antibiotics. I informed him that a prescription for doxycycline 100 mg twice daily for one month has been ordered to finalize treatment. I advised him to return for a follow-up visit as indicated. Medical Decision Making The patient is a 55-year-old male who presented for a follow-up of left foot osteomyelitis. He has been doing well clinically and has successfully completed his six-week course of therapy without any reported adverse effects from the antibiotics. His review of systems is negative, vital signs are unremarkable, and general physical exam is normal. The affected left foot was not visualized as the surgical dressing was left intact. Given his positive response to treatment, the plan is to prescribe doxycycline 100 mg PO BID for one month to ensure complete resolution of the infection. Follow-up will be on an as-indicated basis. Patient Instructions - You have now finished your six-week treatment for the bone infection in your left foot. - To make sure the infection is completely gone, you will now take a new antibiotic, doxycycline 100 mg, twice a day for one month. - Please schedule a follow-up appointment if you have any new concerns or as you feel is needed. [facility] Medical History Osteomyelitis of great toe of left foot Vitamin B12 deficiency Skin lesion of neck Refused influenza vaccine Hip fracture Smoker GERD (gastroesophageal reflux disease) HTN (hypertension) Rheumatoid arthritis Hydronephrosis concurrent with and due to calculi of kidney and ureter Spinal stenosis, thoracic region Postlaminectomy syndrome, lumbar Postlaminectomy syndrome, cervical Lumbar stenosis with neurogenic claudication History of diabetic ulcer of foot Cervical spondylosis History of alcoholism Erectile disorder due to medical condition in male PTSD (post-traumatic stress disorder) Vitamin D deficiency Diabetes mellitus with diabetic neuropathy, without long-term current use of insulin Dyslipidemia Surgical History Hx of foot surgery History of surgery on lower extremity H/O knee surgery History of carpal tunnel surgery of right wrist Hx of colonoscopy H/O cervical discectomy Status post lumbar spine surgery for decompression of spinal cord Family History Father Essential hypertension Dyslipidemia Cardiovascular disease Substance use disorder Mental health disorder Mother Essential hypertension Dyslipidemia Diabetes mellitus Social History Household Members: Family Housing: House Are you a primary healthcare architect to a significant other at home: No Do you presently have visiting nurse or other home services: No Alcohol intake: former Patient Tobacco Use Status: Never used Tobacco Tobacco use type: Cigarette Cigarette Packs Per Day: 0 Cigarettes Per Day: 10 e-Cigarette/Vaping Use: Never Used Second Hand Smoke Exposure: No service: No Current occupational status: disabled Cognitive needs: No Hearing needs: No Vision needs: Yes Physical Exam Vital Signs: Last Vital Signs Pulse 84 07/02/25 09:36 BP 100/60 07/02/25 09:36 Pulse Ox 96 07/02/25 09:36 Assessment & Plan Assessment & Plan (1) Osteomyelitis of great toe of left foot: Code(s): M86.9 - Osteomyelitis, unspecified Category: Medical Plan: as above Orders: Orders 2 IR cvc remove any age 1207/02/25 M86.9 - Osteomyelitis, unspecified Medications: New 2 doxycycline hyclate 100 mg PO BID 60 caps 0RF 30 days Coding Level of Care Code Est Pt Level 3 (41695) Diagnoses Osteomyelitis of great toe of left foot M86.9
--- OUTSIDE RECORDS SUMMARY | 2025-07-02 11:05 | XMS_ITS | Encounter Summary ---
Author Organization [facility] Address [address] [facility] [address] [place] [address] Phone Care Team Providers Care Elder Assistant Name Role Phone Vandana Snowden MD Primary Care Provider Encounter Details Date Type Department Care Team (Late st Contact Info) Description 11/22/2018 Procedure Pass [place] Admitting Dept - Virtual Department [address] [place] [address] Social History Tobacco Use Types Packs/Day Years [...] on filedocumented in this encounter Care Teams Elder Assistant Relationship Specialty Start Date End Date Vandana Snowden MD [facility] [place] [address] PCP - General Internal Medicine 11/09/18 documented as of this encounter Additional Source Comments The information contained in this document represents components of the legal health record. It is not the complete legal health record.[facility]
--- OUTSIDE RECORDS SUMMARY | 2025-07-02 11:05 | XMS_ITS | Clinical Summary ---
Author Organization [facility] Address [address] [facility] [address] [place] [address] Phone Care Team Providers Care Personal Property Assessor Name Role Phone Vandana Snowden MD Primary [...] Devices Not on file Insurance [employer] [address] [address] [place] [address] [place] [address] [address] [place] [address] [place] [address] [place] [address] Advance Directives For more information, please contact: [phone] (9AM - 5PM [facility], Wednesday-Wednesday) * Full Code (Presumed) (Latest Code Status on File) Date Activated Date Inactivated Comments 11/22/2018 4:35 PM 11/23/2018 1:12 PM Care Teams Personal Property Assessor Relationship Specialty Start Date End Date Vandana Snowden MD [facility] [place] [address] PCP - General Internal Medicine 11/09/18 Additional Source Comments The information contained in this document represents components of the legal health record. It is not the complete legal health record.[facility]
--- OUTSIDE RECORDS SUMMARY | 2025-07-02 11:05 | XMS_ITS | Encounter Summary ---
Author Organization [facility] Address [address] [facility] [address] [place] [address] Phone Care Team Providers Care Wash Oil Pump Operator Name Role Phone Unknown, Unknown Primary Care Provider Vandana Cohn MD Primary Care Provider Encounter Details Date Type Department Care Team (Late st Contact Info) Description 07/14/2018 Procedure Pass [facility], [address] [address] Social History Tobacco Use Types Packs/Day Years [...] on filedocumented in this encounter Care Teams Wash Oil Pump Operator Relationship Specialty Start Date End Date Unknown, Unknown, MD PCP - General 07/20/18 11/08/18 Vandana Snowden MD [address] [place] [address] [place] [address] PCP - General Internal Medicine 11/09/18 documented as of this encounter Additional Source Comments The information contained in this document represents components of the legal health record. It is not the complete legal health record.[facility]
--- OUTSIDE RECORDS SUMMARY | 2025-07-02 11:05 | XMS_ITS | Patient Health Record ---
Author Organization [facility] Address [address] [place] [address] Care Team Providers Care Tobacco Sorter Name Role Phone Sp BAUER, Vandana Primary Care Provider Chuck Mays Jr Unavailable [phone] Allergies No Known Allergies Reason For Referral No Information Medications Medication SIG (Take, Route, Frequency, Duration) Notes Start Date End Date Status Vitamin D3 2000 UNIT Capsule 1 capsule O rally Once a day Active QUEtiapine Fumarate 200 MG Tablet 1 tablet Orally Once a day Unknown busPIRone HCl 15 MG Tablet 1 tablet Oral ly Twice a day Unknown Ranitidine HCl 150 MG Tablet 1 tablet at bedtime Orally Once a day Unknown MiraLax (colon prep) 17 GM/SCOOP Powder mixed with Gatorade or Crystal Light Orally begin at 5:00 p.m. the day before the procedure; Duration: 1 day 08/10/2022 Unknown Dicyclomine HCl 20 MG Tablet TAKE ONE TA BLET BY MOUTH 2 TO 4 TIMES A DAY; Duration: 30 Active clonazePAM 1 MG Tablet 1 tablet Orally O nce a day Active Cyanocobalamin 1000 MCG/ML Solution 1 ml Injection monthly Activ e Gabapentin 600 MG Tablet 1 tablet Orally Three times a day Active metFORMIN HCl 1000 MG Tablet 1 tablet wi th meals Orally TID Active Atorvastatin Calcium 20 MG Tablet 1 tablet Orally Once a day Active Lisinopril 10 MG Tablet 1 tablet Orally Once a day Active FLUoxetine HCl 40 MG Capsule 1 capsule O rally Once a day Active Immunizations Vaccine Route Administration Date Status Comme nts Influenza Unknown 06/11/2021 Refused Influenza Unknown 08/10/2022 Refused Influenza Unknown 12/20/2023 Refused Social History Tobacco Use: Social History Observation Description Date Details (start date - stop date) Current Smoker NA - NA Social History Drugs/Alcohol: Social Info Question Answer Notes Alcohol Screen Did you have a drink containing alcohol in the past year? No Points 0 Interpretation Negative Tobacco Use: Social Info Question Answer Notes Tobacco Use/Smoking Patient is a current smoker Additional Details Category Social Info Options Details Miscellaneous: Marital status: Occupation: unemployed Problems Problem Type SNOMED Code ICD Code Onset Dates Problem Status W/U Status Risk Notes Problem Colon cancer screening (277627433) Colon cancer screening (Z12.11) Active confirmed Problem Generalized abdominal pain (251258532) Generalized abdominal pain (R10.84) Active confirmed Problem Laboratory test result abnormal (810756406) Abnormal levels of other serum enzymes (R74.8) Active confirmed Problem Gastroesophageal reflux disease (969282226) Gastroesophageal reflux disease (K21.9) Active confirmed Problem Hepatitis C antibody test positive (842516474) Hepatitis C antibody test positive (R76.8) Active confirmed Problem Colitis (89275918) Colitis (K52.9) Active confi rmed Problem Gastritis (4392976) Gastritis (K29.70) Active c onfirmed Problem Ulcerative colitis (43220674) Other ulcerative colitis without complication (K51.80) Active confirmed Problem Diarrhea (46487548) Diarrhea, unspecified type (R19.7) Active confirmed Problem Long-term current use of drug therapy (699822991) half-way (current) use of oral hypoglycemic drugs (Z79.84) Active confirmed Problem Hemorrhage of rectum and anus (284998014) Rectal/anal hemorrhage (K62.5) Active confirmed Problem Gastroesophageal reflux disease (315695802) Gastroesophageal reflux disease, unspecified whether esophagitis present (K21.9) Active confirmed Problem Gastric intestinal metaplasia (16513420) Gastric intestinal metaplasia (K31.A0) Active confirmed Vital Signs Temperature 98.6 degrees Fahrenheit 12/20/2024 Blood pressure diastolic 01 mm Hg 12/20/2024 Height 74.75 in 12/20/2024 Blood pressure systolic 001 mm Hg 12/20/2024 Weight 258 lbs 12/20/2024 BMI 32.46 kg/m2 12/20/2024 Encounters Encounter Location Date Provider Diagnosis [facility] [address] [place] [phone] 12/20/2024 Chuck Bower Jr Gastroesophageal reflux disease K21.9 ; Gastric intestinal metaplasia K31.A0 and Diarrhea, unspecified type R19.7 [facility] [address] [place] [address] 12/20/2024 Chuck Bower Jr [facility] [address] [place] [address] 02/14/2025 Chuck Bower Jr Assessments Encounter Date [...] OF LESION SNARE TECH NIQUE 04/10/2011 BUN 12/20/2023 BUN 07/02/2021 CREATININE 07/02/2021 CREATININE 12/20/2023 LIVER PROFILE 12/20/2023 LIVER PROFILE 07/02/2021 LIVER PROFILE 10/22/2021 LIVER PROFILE 07/11/2021 LIVER PROFILE 12/10/2021 AMYLASE 07/11/2021 LIPASE 12/10/2021 LIPASE 12/20/2023 LIPASE [...] Provider Name:Chuck caba Jr, 12/26/2025 10:00:00 AM, [address] [place] [address], [address], [place], [address], Insurance Providers Payer Name Payer Address Payer Phone Subscriber Number Group Number Insured Name Patient Relationship to Insured Coverage Start Date Coverage End Date [facility] [employer] [facility] [address] [address] [place], [place] [id number] SONJA ZALDIVAR Self - patient is the insured MEDICAID OF [facility] [address] [place] [address] [id number] SONJA ZALDIVAR Self - patient is the [...] 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
--- OUTSIDE RECORDS SUMMARY | 2025-07-02 11:05 | XMS_ITS | Encounter Summary ---
Author Organization [facility] Address [address] [place] [address] [place] [address] Phone Care Team Providers Care Hat Lacer Name Role Phone Unknown, Unknown Primary Care Provider Vandana Cohn Co Primary Care Provider Encounter Details Date Type Department Care Team (Late st Contact Info) Description 07/14/2018 Ancillary Orders Virtual Department [address] [place] [id number] Logan Christianson MD [address] [place] [address] [email or web address] Spinal stenosis, unspecified spinal region [...] pain, limited range of motion POS - [id number] Narrative 07/25/2018 1:33 PM EST COMPARISON: MRI [...] pain, limited range of motion POS - [id number] Logan Christianson MD IMG XR SPINE [...] back pain, numbness bilateral legs POS - [id number] Narrative 07/25/2018 1:44 PM EST COMPARISON: Lateral [...] back pain, numbness bilateral legs POS - [id number] Logan Christianson MD IMG MR XSPECIALTY Edited Result - Final documented in this encounter Visit Diagnoses Diagnosis Spinal stenosis, unspecified spinal region Spinal stenosis, unspecified spinal region Spinal stenosis, unspecified spinal region documented in this encounter Care Teams Hat Lacer Relationship Specialty Start Date End Date Unknown, Unknown, MD PCP - General 07/20/18 11/08/18 Vandana Snowden MD [facility] [place] [address] PCP - General Internal Medicine 11/09/18 documented as of this encounter Additional Source Comments The information contained in this document represents components of the legal health record. It is not the complete legal health record.[facility]
--- OUTSIDE RECORDS SUMMARY | 2025-07-02 11:05 | XMS_ITS | Clinical Summary ---
Author Organization [facility] Address [address] [place] [address] Phone Care Team Providers Care Pigment And Lacquer Mixer Name Role Phone Vandana Snowden MD Primary Care Provider Allergies No known active allergies Medications atorvastatin (LIPITOR) 20 mg tablet Take 1 tablet (20 mg total) by mouth 1 (one) time each day. 03/20/2025 Active lisinopriL (PRINIVIL,ZESTR IL) 10 mg tablet 1 tablet (10 mg total) 1 (one) time each day at the same time. Active gabapentin (NEURONTIN) 600 mg tablet Take by mouth 3 (three) times a day. Active clonazePAM (KlonoPIN) 1 mg tablet Take 1 tablet (1 mg total) by mouth 2 (two) times a day. Max Daily Amount: 2 mg Active dicyclomine (BENTYL) 10 mg capsule Take 1 capsule (10 mg total) by mouth 4 (four) times a day (before meals and nightly). Active acetaminophen (Tylenol 8 Hour) 650 mg 8 hr tablet Take 1 tablet (650 mg total) by mouth every 8 (eight) hours if needed for mild pain. Do not crush, chew, or split. 90 tablet 05/31/2025 06/30/20 25 ibuprofen (ADVIL,MOTRIN) 800 mg tablet Take 1 tablet (800 mg total) by mouth 3 (three) times a day. 90 each 05/31/2025 06/30/20 25 oxyCODONE (ROXICODONE) 5 mg immediate release tabletIndicatio ns:Post-op pain Take 1 tablet (5 mg total) by mouth every 6 (six) hours if needed for severe pain for up to 7 days. Max Daily Amount: 20 mg 28 tablet 06/01/2025 06/08/20 Active Problems Problem Noted Date Diagnosed Date HTN (hypertension) 05/31/2025 Diabetes mellitus, type 2 ([facility] V24, [facility] V28) 05/31/2025 Hypothyroidism 05/31/2025 Resolved Problems Problem Noted Date Diagnosed Date Resolved Date Hammertoes of both feet 03/06/202505/04 Exostosis of left foot 03/06/202506/01 Encounters Date Type Department Care Team Description 06/26/2025 11:15 AM EST Office Visit [facility] [place] [phone] [phone] Eddie Bryant DPM Contusion of lesser toe of left foot without damage to nail, subsequent encounter (Primary Dx); Wound dehiscence, surgical, initial encounter; Ulcer of toe of left foot, with fat layer exposed ([facility] V24, [facility] V28) 06/14/2025 10:00 AM EST Office Visit [facility] [place] [phone] [phone] Eddie Bryant DPM Wound dehiscence, surgical, initial encounter (Primary Dx); Ulcer of toe of left foot, with fat layer exposed ([facility] V24, [facility] V28) 06/01/2025 7:39 AM EDT Anesthesia Event [facility] [place] [address] [place] [phone] Zak Montaño MD Kriz, Petra, MD 06/01/2025 7:30 AM EDT - 06/01/2025 9:30 AM EDT Surgery [facility] [place] [address] [place] [phone] Eddie Bryant DPM ARTHROPLASTY LEFT TOE [34295 (CPT )] 06/01/2025 6:14 AM EDT - 06/01/2025 11:19 AM EDT Hospital Encounter [facility] [place] [address] [place] [phone] Eddie Bryant DPM Post-op pain (Primary Dx); Hammertoes of both feet; Exostosis of left foot Discharge Disposition: Home or Self Care 05/29/2025 9:00 AM EDT Office Visit [facility] [place] [address] [phone] Eddie Bryant DPM Left foot pain (Primary Dx); Osteomyelitis of toe of left foot ([facility] V24, [facility] V28); Hammertoe of left foot; Ulcer of toe of left foot, with necrosis of muscle ([facility] V24, [facility] V28) 05/21/2025 Telephone [facility] [place] [address] [phone] Eddie Bryant DPM 04/26/2025 9:00 AM EDT Office Visit [facility] [place] [phone] [phone] Eddie Bryant DPM Controlled type 2 diabetes mellitus with diabetic polyneuropathy, without long-term current use of insulin ([facility] V24, [facility] V28) (Primary Dx); Hammertoes of both feet; Exostosis of left foot; Onychomycosis 04/13/2025 Telephone [facility] [place] [phone] [phone] Eddie Bryant DPM from Last 3 Months Surgical History Surgery Date Site/Laterality Comments SPINAL FUSION CERVICAL FUSION TOE SURGERY Medical History Medical History Date Comments Hyperlipidemia Hypertension Diabetes mellitus ([facility] V24, [facility] V28) Hypothyroidism Social History Tobacco [...] Care Team (Late st Contact Info) Description 07/10/2025 9:15 AM EST Office Visit [facility] [place] [address] [phone] Eddie Bryant, RAGHU [address] [address] Health Maintenance Due Date Last Done Comments [...] on patient's age to complete this topic Procedures Procedure Name Priority Date/Time Associated Diagnosis Comments XR FOOT 3+ VIEWS LEFT Routine 06/26/2025 11:03 AM EST Postoperative examination XR FOOT 2 VIEWS LEFT Routine 06/01/2025 9:59 AM EDT OXYGEN THERAPY, ADULT Routine 06/01/2025 9:00 AM EDT TISSUE EXAM Routine 06/01/2025 8:16 AM EDT Hammertoes of both feet Exostosis of left foot CULTURE BONE Routine 06/01/2025 8:11 AM EDT Hammertoes of both feet Exostosis of left foot TH AN LMA(NO CHARGE) Routine 06/01/2025 7:50 AM EDT SD PARTIAL EXCISION BONE PHALANX OF TOE 06/01/2025 7:40 AM EDT Hammertoes of both feet Exostosis of left foot Case Notes MINI C-ARM, CONMED Special Needs MOVED CASE UP TO 730 PER ASHLYN VIA TEAMS AC 05/28 SD CORRECTION HAMMERTOE 06/01/2025 7:40 AM EDT Hammertoes of both feet Exostosis of left foot Case Notes MINI C-ARM, CONMED Special Needs MOVED CASE UP TO 730 PER ASHLYN VIA TEAMS AC 05/28 POCT GLUCOSE BLOOD Routine 06/01/2025 6: 31 AM EDT XR FOOT 3+ VIEWS LEFT Routine 05/29/2025 9:18 AM EDT Left foot pain from Last 3 Months Results * XR Foot 3+ Views Left (06/26/2025 11:03 AM EST) Only the most recent of2 resultswithin the time period is included. Anatomical Region Laterality Modality Lower Extremities, Foot Left Computed Radiography Narrative 06/26/2025 12:17 PM EST Left foot 3 views weightbearing:Wires have displaced within the midfoot since immediately postop. No new osteolysis. Rectus alignment of the digits us Eddie Bryant DPM IMG XR PROCEDURES Final Res ult * XR Foot 2 Views Left (06/01/2025 [...] Signed Date: 06/01/2025 10:32 ET Workstation ID: [id number] Transcribed By: Self Edit Transcribed Date: 06/01/2025 [...] Signed Date: 06/01/2025 10:32 ET Workstation ID: [id number] Transcribed By: Self Edit Transcribed Date: 06/01/2025 10:31 ET Eddie Bryant DPM IMG XR PROCEDURES Final Res ult * Tissue exam (06/01/2025 8:16 AM EDT) Final Diagnosis Left hallux proximal phalanx: Ulcer involving the dermis Focal marrow fibrosis; no osteomyelitis identified Bony margin appears viable 06/06/2025 10:43 AM EST [facility] at 1043 EST Gross Description [...] The cut surfaces are caputo-white to yellow. Gear Keeper sections are submitted in three cassettes, following decalcification. 1: Bone margin, en face (inked red), one piece 2: Ulcer to underlying bone, one piece 3: Separate portion of skin, one piece KVNG/TILA 06/06/2025 10:43 AM [facility] Disclaimer Unless otherwise specified, all tissue is 10% NB formalin fixed and paraffin embedded. 06/06/2025 10:43 AM [facility] Tissue Structure of left foot / Unknown 06/01/2025 8:16 AM EDT 06/01/2025 10:25 AM EDT Eddie Bryant DP LAB PATHOLOGY ORDERABLES Fi nal Result [facility] [address] [place] [address], * (ABNORMAL) Culture bone (06/01/2025 8:11 AM [...] and No organisms noted 06/06/2025 8:30 AM EST [facility] Bone Structure of left foot / [...] Rifampin LAQUITA <=0.5 ug/ml: Susceptible Eddie Bryant DP LAB MICROBIOLOGY - GENERAL ORDERABLES Final Result [facility] [address] [place] [address], * TH AN LMA(NO CHARGE) (06/01/2025 7:50 AM EDT) Joan Quevedo CRNA - 06/01/2025 7:50 AM EDT Joan Kilpatrick CRNA 06/01/2025 7:50 AM General Information and Staff Patient location during procedure: OR Resident/DETENTION SERGEANT: Joan Kilpatrick CRNA Performed: resident/BRITTANY/MIRIAM Performed by: Joan Kilpatrick CRNA Authorized by: [...] - 100 mg/dL 06/01/2025 6:33 AM EDT [facility] Blood Capillary blood specimen / Unknown 06/01/2025 6:31 AM EDT 06/01/2025 6:34 AM EDT us Eddie Bryant DPM LAB POINT OF CARE T EST DOCKED DEVICE UNSOLICITED RESULTS Final Result [facility] [address] [place] [address], from Last 3 Months Insurance [facility] [employer] [facility] Advance Directives * Full Code - [...] currently active code status orders. Care Teams Pigment And Lacquer Mixer Relationship Specialty Start Date End Date Vandana Snowden MD [address] [place] [address] PCP - General Internal Medicine 06/01/24
--- OUTSIDE RECORDS SUMMARY | 2025-07-02 11:05 | XMS_ITS | Encounter Summary ---
Author Organization [facility] Address [address] [place] [phone] Phone Care Team Providers Care Basketball Commentator Name Role Phone Vandana Snowden MD Primary Care Provider Encounter Details Date Type Department Care Team (Late st Contact Info) Description 11/15/2018 Procedure Pass [place] Admitting Dept - Virtual Department [address] [place] [address] Social History Tobacco Use Types Packs/Day Years [...] on filedocumented in this encounter Care Teams Basketball Commentator Relationship Specialty Start Date End Date Vandana Snowden MD [facility] [place] [address] PCP - General Internal Medicine 11/09/18 documented as of this encounter Additional Source Comments The information contained in this document represents components of the legal health record. It is not the complete legal health record.[facility]
== END 2025-07-02 10:06 | disposition home or self-care (01) ==
LOC: HO.HID 09:24
PROVIDERS: PCP Internal Medicine; Visit Provider Internal Medicine
DX: M86.9 Osteomyelitis, unspecified (principal)
CPT/HCPCS: 99213

== ENCOUNTER → 2025-07-02 09:24 | Outpatient (BNVA) | payer OTHER, SELFPAY | PROVIDERS: PCP Internal Medicine; Visit Provider Internal Medicine | DX: M86.9 Osteomyelitis, unspecified (principal) | CPT/HCPCS: 99212 ==